=== PATIENT | male | born 1940 | race Caucasian/White ===

== ENCOUNTER 2016-11-20 20:17 | Emergency (ER) | payer BC ==
[~2016-11-20] VITALS: Ht 177.8 cm; Wt 87.3 kg
[~2016-11-20 20:17] MED LIST: ASPI81TA28 PO; AZIT250T PO; CHOL2000 PO; LISI-729 PO; MAGN400T6 PO; METO25TA56 PO; MYCO250C26 PO; PANT1TAB48 PO; PRAV40TA2 PO; PRED-301 PO; SILD1TAB11 PO; SULF800T23 PO; VALA500T60 PO
[2016-11-20 20:32] VITALS: TEMP 36.6; Ht 177.8 cm; Wt 87.3 kg
[2016-11-20] MEDS ORDERED: TACR1CAP PO (20:49)
--- NOTE | 2016-11-20 21:37 | EMERGENCY ROOM VISIT NOTE ---
History Report prepared by Be: Singh Teran Under the Supervision of: Dr. Binh Still D.O. First contact with patient: 20:50 Chief Complaint: ABNORMAL LABS Stated Complaint: K LEVELS TOO HIGH History of Present Illness The patient is a 76 year old male who presents to the Emergency Room with complaints of an episode of abnormal lab results. He notes he was sent here from [facility] after routine blood work revealed a potassium level of 6. They discussed his kidney function based on his last blood work which were fine. He reports recently having 2 smoothies with bananas. 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 Source of History: patient Onset: earlier today Position: other (global) Quality: other (abnormal labs) Timing: other (episode) Associated Symptoms: No weakness Review of Systems See HPI for pertinent positives & negatives. A total of 10 systems reviewed and were otherwise negative. Past Medical & Surgical Medical Problems: (1) Appendicitis (2) Double lung transplant (3) Heart disease (4) IPF (idiopathic pulmonary fibrosis) Family History Cancer Heart disease Lung disease Social History Smoking Status: Never Smoker Alcohol Use: none Drug Use: none Marital Status: Housing Status: lives with family Occupation Status: retired Current/Historical Medications Scheduled Aspirin (Aspirin Ec), 81 MG PO DAILY Azithromycin (Zithromax), 250 MG PO DIRECTED Cholecalciferol (Vitamin D3), 2,000 CAP PO DAILY Lisinopril (Zestril), 5 MG PO HS Magnesium Oxide (Mag-Ox), 400 MG PO BID Metoprolol Tartrate (Lopressor) (Lopressor), 25 MG PO BID Mycophenolate Mofetil (Cellcept), 750 MG PO BID Pantoprazole (Protonix), 40 MG PO BID Pravastatin Sodium (Pravastatin Sodium), 80 MG PO QPM Prednisone (Prednisone), 5 MG PO DAILY Sildenafil Citrate (Viagra), 25 MG PO PRN Sulfamethoxazole-Trimethoprim (Bactrim Ds 800MG/160MG), 0.5 TAB PO DIRECTED Tacrolimus (Prograf), 1 MG PO BID Valacyclovir (Valtrex), 500 MG PO BID Allergies Coded Allergies: Metoprolol (Unverified Allergy, Mild, BRADYCARDIA, 11/20/16) Tobramycin (Unverified Adverse Reaction, Intermediate, BURNING, "LUNG NUEROPATHY", 11/20/16) NEBULIZED MEDICATION Uncoded Allergies: METOPROLOL SUCCINATE (Adverse Reaction, Intermediate, BRADYCARDIA, 10/23/14 ) Physical Exam Vital Signs Date Time Temp Pulse Resp B/P Pulse Ox O2 Delivery O2 Flow Rate FiO2 11/20/16 21:00 53 11/20/16 20:32 36.6 58 20 167/73 99 Room Air Physical Exam CONSTITUTIONAL/VITAL SIGNS: Reviewed / noted above. GENERAL: Non-toxic in appearance. INTEGUMENTARY: Warm, dry, and [place]. HEAD: Normocephalic. EYES: without scleral icterus or trauma. ENT/OROPHARYNX: clear and moist. LYMPHADENOPATHY/NECK: Is supple without lymphadenopathy or meningismus. RESPIRATORY: Lungs clear and equal. CARDIOVASCULAR: Regular rate and rhythm. GI/ABDOMEN: Soft and nontender. No organomegaly or pulsatile mass. No rebound or guarding. Normal bowel sounds. EXTREMITIES: Warm and well perfused. BACK: No CVA tenderness. NEUROLOGICAL: Intact without focal deficits. PSYCHIATRIC: normal affect. MUSCULOSKELETAL: Normally developed with good muscle tone. Medical Decision & Procedures Laboratory Results Laboratory results as stated above per my review. ECG Indication: other (abnormal labs) Rate (beats per minute): 50 Rhythm: sinus rhythm Findings: no acute ischemic change, no ectopy ED Course 2111: Previous medical records were reviewed. The patient was evaluated in room B2. A complete history and physical examination was performed. 2139: On reevaluation, the patient is doing well. I discussed the results and findings with the patient. He verbalized agreement of the treatment plan. The patient was discharged home. Medical Decision Differential includes acute coronary syndrome, myocardial infarction, CVA, TIA, anemia, infection, pneumonia, UTI, pyelonephritis, poor nutrition, dehydration, electrolyte disturbance,hypoglycemia. This is a 76-year-old male who presents to the ED with a chief complaint of hyperkalemia. The patient had outpatient labs and [place] today. On his way home they contacted him and told him his potassium was 6.0. The patient was told to have this rechecked. He came in to the ED for evaluation of this. He is asymptomatic. EKG shows a sinus bradycardia without ectopy or injury. Potassium on i-STAT labs was normal. The patient is felt to be stable for discharge. Impression Primary Impression: Electrolyte disturbance Scribe Attestation The scribe's documentation has been prepared under my direction and personally reviewed by me in its entirety. I confirm that the note above accurately reflects all work, treatment, procedures, and medical decision making performed by me. Departure Information Dispostion Home / Self-Care Referrals Castro Perkins M.D. (PCP) Patient Instructions My [facility] Additional Instructions Your potassium level is normal today.
[2016-11-20 21:45] VITALS: BP 166/78; PULSE 53; O2SAT 95
[2016-11-20 21:46] LABS: ISTAT CREATININE 1.3 mg/dl (0.6-1.3); ISTAT HEMOGLOBIN 12.9 g/dl (14.0-18.0); ISTAT IONIZED CALCIUM 1.25 mmol/l (1.12-1.32)
[2016-11-20] MEDS ORDERED: CLL250 PO (22:04)
[2016-11-20] MEDS ORDERED: PRT/40 PO (22:04)
[2016-11-20] MEDS ORDERED: LPR25 PO (22:04)
[2016-11-20] MEDS ORDERED: VLT500 PO (22:04)
[2016-11-20] MEDS ORDERED: LSN5 PO (22:04)
[2016-11-20] MEDS ORDERED: VGR50 PO (22:04)
[2016-11-20] MEDS ORDERED: PRAV80TA2 PO (22:04)
[2016-11-20] MEDS ORDERED: AZIT250T5 PO (22:08)
== END 2016-11-20 21:45 | disposition home or self-care (01) ==
LOC: C.EDB 20:18
DX: E87.8 Other disorders of electrolyte and fluid balance, not elsewhere classified (principal); Z94.2 Lung transplant status; I51.9 Heart disease, unspecified; J84.10 Pulmonary fibrosis, unspecified; Z80.9 Family history of malignant neoplasm, unspecified; Z82.49 Family history of ischemic heart disease and other diseases of the circulatory system; Z83.6 Family history of other diseases of the respiratory system; Z79.82 Long term (current) use of aspirin; Z79.52 Long term (current) use of systemic steroids; Z79.899 Other long term (current) drug therapy

== ENCOUNTER → 2018-03-23 | Outpatient (CLI) | payer BC ==
[~2018-03-23] MED LIST changes: +AZIT-60 PO; -AZIT250T PO; +CLL250 PO; -LISI-729 PO; +LISI-730 PO; +LPR25 PO; -METO25TA56 PO; -MYCO250C26 PO; -PANT1TAB48 PO; +PANT40TA2 PO; -PRAV40TA2 PO; +PRAV80TA2 PO; -SILD1TAB11 PO; +TACR1CAP PO; -VALA500T60 PO; +VGR50 PO; +VLT500 PO
--- NOTE | 2018-03-23 12:51 | DIAGNOSTIC IMAGING REPORT ---
HEAD CT NONCONTRAST CT DOSE: 651.12 mGy.cm HISTORY: Subdural hematoma. Follow-up. TECHNIQUE: Multiaxial CT images of the head were performed without the use of intravenous contrast. Automated exposure control was utilized for this study. A dose lowering technique was utilized adhering to the principles of ALARA. Comparison: Head CT 03/16/2018. Findings: The paranasal sinuses and mastoid air cells are clear. The calvarium and skull base are intact. Mild atrophy and microvascular ischemic changes are again noted. There is no mass, midline shift, or acute infarct. The acute component of the small right subdural hematoma as resolved. Small amount of intermediate density right subdural fluid persists consistent with a subacute to chronic subdural hematoma. This measures a maximal thickness of 6 mm. Impression: 1. 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 The acute component has resolved in the interval. 2. No acute intracranial hemorrhage. No midline shift. Electronically signed by: Steven Cook M.D. 03/23/2018 12:50 PM Dictated Date/Time: 03/23/2018 12:44 PM
== END | disposition home or self-care (01) ==
LOC: C.CTS 12:23
PROVIDERS: ATTEND Internal Medicine
DX: S06.5X9A Traumatic subdural hemorrhage with loss of consciousness of unspecified duration, initial encounter (principal); X58.XXXA Exposure to other specified factors, initial encounter

== ENCOUNTER 2019-08-29 07:25 | Observation (INO) ==
[2019-08-29] MEDS ORDERED: SODIUM CHLORIDE 0.9% 1000ML 1,000 ML IV SCH (07:45)
[2019-08-29] MEDS ORDERED: ALBUT/IPRATROP 3MG/0.5MG NEB 3 ML VIAL INH STA (07:45)
[2019-08-29] MEDS ORDERED: KETOROLAC TROMETHAMINE 15 MG/ML VIAL IV STA (07:49)
--- NOTE | 2019-08-29 07:58 | Emergency Department Note ---
ED Provider Note CHIEF COMPLAINT: Cough, congestion, chest pain HISTORY OF PRESENTING ILLNESS: This is a 79-year-old male who presents to the emergency department by private vehicle with complaint of cough and congestion for the past 6 days. Patient reports that the cough has been productive of white/yellow mucus. He has been having chest pain since yesterday with coughing, he states the pain is around the front of his rib cage, is a mild constant ache, and sharp pains whenever he coughs, currently rates it as 4/10. He has felt some wheezing and mild dyspnea with exertion. He states "I just feel lousy" and feels generally unwell for the past few days. He has had fevers up to 101 yesterday and has been having chills. Patient has a history of a do uble lung transplant 6.5 years ago at [facility] and is on CellCept and tacrolimus. He has had recent sick contacts with similar upper respiratory symptoms. He did receive a flu shot this season. He denies headaches, neck pain or stiffness, back pain, abdominal pain, nausea or vomiting, urinary complaints, or unusual rash. He denies any leg pain or swelling. He does not take any blood thinner medications. REVIEW OF SYSTEMS: A complete 10 point review of systems was reviewed with the patient with pertinent positives and negatives as per history of present illness. All else were negative. PAST MEDICAL HISTORY: CAD with history of 4 cardiac stents, hypertension, idiopathic pulmonary fibrosis with history of a double lung transplant, history of subdural hematoma, history of appendectomy SOCIAL HISTORY: Lives at home with his , he denies tobacco use ALLERGIES: No known drug allergies PHYSICAL EXAM: CONSTITUTIONAL: Pleasant and cooperative. Nontoxic-appearing and in no acute distress. Appears to feel generally unwell. Mildly dehydrated. HEENT: Normocephalic, atraumatic. PERRL, EOMI. TMs normal. Pharynx is not injected, erythematous, no tonsillar edema or exudate. Airway patent. Dry mucous membranes. NECK: Supple, full active range of motion without discomfort. No nuchal rigidity or meningismus. No cervical adenopathy. RESPIRATORY: Slightly diminished throughout with bilateral expiratory wheezing, no crackles, rhonchi, or stridor. Equal expansion bilaterally. CARDIOVASCULAR: Regular rate and rhythm with no murmurs, rubs or gallops. Normal peripheral perfusion, 2+ distal pulses in all 4 extremities. No pitting edema. CHEST WALL: Tenderness to palpation along the anterior rib cage margin, reproduces complaint. No ecchymosis, erythema, swelling, or palpable crepitus. GASTROINTESTINAL: Soft, nontender, nondistended. No rebound tenderness or guarding. No palpable masses or HSM. Bowel sounds present in all quadrants. No CVA tenderness bilaterally. MUSCULOSKELETAL: Full range of motion of all joints without discomfort. No calf swelling or tenderness, negative Homans sign bilaterally. INTEGUMENTARY: No rash or other significant dermatologic conditions noted. NEUROLOGIC: Alert and oriented X 4 with normal affect. Normal strength and sensation in all 4 extremities. Normal speech. Normal gait observed. ED COURSE AND MEDICAL DECISION MAKING: CC: Patient presenting with complaint of cough, congestion, chest pain DIFFERENTIAL DIAGNOSIS: Includes, but not limited to viral URI, bronchitis, pneumonia, pulmonary embolism, acute coronary syndrome, aortic dissection, pneumothorax, pericarditis, myocarditis, musculoskeletal pain, GERD, costochondritis, sepsis/bacteremia, among others. INTERPRETATION OF LABS: No leukocytosis, no anemia, normal platelets, hypomagnesemia, no other significant electrolyte abnormalities, renal function at baseline, normal liver enzymes. Coagulation factors within normal limits. Lactate within normal limits. Negative troponin. Urinalysis negative. Influenza A/B negative. IMAGING: XR chest 1V portable HISTORY: Dyspnea, chest pain, hx double lung tx COMPARISON: Chest 10/27/2018. FINDINGS: There are low lung volumes. No pneumothorax. No pleural effusions. The heart remains mildly enlarged. No evidence for pulmonary edema. No new focal lung consolidations to suggest pneumonia. IMPRESSION: Stable mild cardiomegaly. EKG: Shows normal sinus rhythm with a rate of 61 bpm, normal intervals, no ectopy, repolarization abnormalities in the anterior and inferior leads which appear unchanged when compared to previous EKG from 04/15/2019 by my interpretation. MEDICATION RECONCILIATION: I attest that I have personally reviewed the patient's current medication list. INITIAL VITAL SIGNS REVIEW: I reviewed the patient's initial vital signs and interpret them as follows: T: Afebrile; BP: Mildly hypertensive; HR: Within normal limits; RR: Within normal limits; Pulse Ox: Within normal limits on r oom air. Blood pressure screening: The patient was found to have an elevated blood pressure and was referred to the inpatient team for further management. MDM SUMMARY: Patient was evaluated at bedside, history and physical exam performed. Patient is alert and oriented, in no acute distress, resting calmly in the stretcher. He is afebrile and vital signs are stable, he is nontoxic-appearing, but appears to feel generally unwell. He does appear to be dehydrated clinically. Lungs are slightly diminished with bilateral expiratory wheezing. No respiratory distress, no tachypnea, labored breathing, or accessory muscle use. O2 sats normal on room air. EKG reviewed at bedside, noting sinus rhythm with no acute ischemic changes. Orders were placed at bedside for labs, lactate, blood cultures x2, sputum culture, UA, IV fluid bolus for hydration, IV Toradol for chest pain, DuoNeb for wheezing, EKG, chest x-ray to evaluate for cardiopulmonary disease. Patient discussed with Dr. Kwong, who agrees with my assessment, plan, and disposition. Labs and imaging reviewed as above, no leukocytosis, lactate within normal limits. Blood cultures are pending. Influenza negative. Hypomagnesemia noted, repletion with 1 g mag sulfate. 2 g IV cefepime ordered for broad coverage, given his immunocompromised state. Chest x-ray reviewed as above, does not show any evidence of pneumonia. Patient reassessed multiple times throughout ED stay, he has remained hemodynamically stable and afebrile, wheezing improved after the DuoNeb. He states he is feeling slightly better, but continues to feel generally weak and rundown. I spoke on the phone with Dr. Basurto, the patient's core blower at [facility], who agreed with the cefepime and recommended we admit the patient pending cultures. We will continue albuterol treatments. The patient was updated on all results and plan for admission, he verbalized understanding and was agreeable to this plan. I spoke on the phone with Dr. Enriquez, [facility] Hospitalist, who agrees to evaluate the patient for admission. The patient was stable at time of admission. The chart was completed utilizing [employer] Speech voice recognition software. Grammatical errors, random word insertions, pronoun errors, and incomplete sentences are an occasional consequence of this system due to software limitations, ambient noise, and hardware issues. Any formal questions or concerns about the content, text, or information contained within the body of this dictation should be directly addressed to the nurse practitioner for clarification. 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) Subdural hematoma (Acute 10/05/14) Family History (Updated 05/11/18 @ 18:35 by Bobbi Mckenna) Other No significant family history Social History Preferred Language: Kazakh Communication Ability: Effective Credit Support Specialist Required: No Beliefs That Will Affect Care: None Current Living Situation: Spouse Other Information That Helps Us Care for You: No Feels Safe at Home: Yes Safety Concerns: Feels Safe At This Time Smoking Status: Never smoker Do You Dip or Chew Tobacco: No ; Second Hand Exposure: No ; Tobacco Cessation Education Requested by Patient: No Hx Alcohol Use: Yes Hx Substance Use: No Results & Data Vital Signs Vital Signs - 24 hr 08/29/19 07:28 08/29/19 07:58 08/29/19 08:00 Temperature 36.7 C Temperature Source Oral Pulse Rate 73 62 59 L Pulse Rate [Right Finger] Pulse Rate from SpO2 Sensor 59 L Respiratory Rate 18 26 H Respiratory Effort / Characteristics Non-Labored Respiratory Depth Normal Blood Pressure 131/75 129/66 Blood Pressure [Right Arm] Blood Pressure Mean 93 83 Blood Pressure Mean [Right Arm] Pulse Oximetry 97 94 94 Oxygen Delivery Method Room Air Room Air Sepsis Recent Fever Within 48 Hours No Sepsis New/Unexplained Change in Mental Status No Sepsis Action Taken by Nursing No Action Required 08/29/19 08:02 08/29/19 08:04 08/29/19 08:15 Temperature Temperature Source Pulse Rate 61 64 Pulse Rate [Right Finger] 62 61 Pulse Rate from SpO2 Sensor 61 63 Respiratory Rate 31 H 16 19 Respiratory Effort / Characteristics Non-Labored Non-Labored Spontaneous Respiratory Depth Blood Pressure Blood Pressure [Right Arm] 129/66 Blood Pressure Mean Blood Pressure Mean [Right Arm] 87 Pulse Oximetry 93 95 95 Oxygen Delivery Method Room Air Room Air Sepsis Recent Fever Within 48 Hours Sepsis New/Unexplained Change in Mental Status Sepsis Action Taken by Nursing 08/29/19 08:30 08/29/19 08:37 08/29/19 08:41 Temperature Temperature Source Pulse Rate 62 61 Pulse Rate [Right Finger] 58 L Pulse Rate from SpO2 Sensor 63 61 Respiratory Rate 25 H 30 H 24 Respiratory Effort / Characteristics Respiratory Depth Normal Blood Pressure 138/62 Blood Pressure [Right Arm] 138/62 Blood Pressure Mean 78 Blood Pressure Mean [Right Arm] 87 Pulse Oximetry 93 94 95 Oxygen Delivery Method Room Air Sepsis Recent Fever Within 48 Hours Sepsis New/Unexplained Change in Mental Status Sepsis Action Taken by Nursing 08/29/19 08:45 08/29/19 09:00 08/29/19 09:01 Temperature Temperature Source Pulse Rate 59 L 54 L 53 L Pulse Rate [Right Finger] Pulse Rate from SpO2 Sensor 59 L 57 L 53 L Respiratory Rate 26 H 15 22 Respiratory Effort / Characteristics Respiratory Depth Blood Pressure 164/72 H Blood Pressure [Right Arm] Blood Pressure Mean 82 Blood Pressure Mean [Right Arm] Pulse Oximetry 92 95 92 Oxygen Delivery Method Sepsis Recent Fever Within 48 Hours Sepsis New/Unexplained Change in Mental Status Sepsis Action Taken by Nursing 08/29/19 09:15 08/29/19 09:17 08/29/19 09:30 Temperature Temperature Source Pulse Rate 60 56 L 54 L Pulse Rate [Right Finger] Pulse Rate from SpO2 Sensor 60 57 L 53 L Respiratory Rate 29 H 33 H 28 H Respiratory Effort / Characteristics Respiratory Depth Blood Pressure 133/66 152/64 H Blood Pressure [Right Arm] Blood Pressure Mean 94 93 Blood Pressure Mean [Right Arm] Pulse Oximetry 93 94 93 Oxygen Delivery Method Sepsis Recent Fever Within 48 Hours Sepsis New/Unexplained Change in Mental Status Sepsis Action Taken by Nursing 08/29/19 09:31 08/29/19 09:45 08/29/19 09:56 Temperature Temperature Source Pulse Rate 56 L 54 L 56 L Pulse Rate [Right Finger] Pulse Rate from SpO2 Sensor 54 L 54 L 56 L Respiratory Rate 25 H 23 32 H Respiratory Effort / Characteristics Respiratory Depth Blood Pressure 129/69 Blood Pressure [Right Arm] Blood Pressure Mean 89 Blood Pressure Mean [Right Arm] Pulse Oximetry 93 93 94 Oxygen Delivery Method Sepsis Recent Fever Within 48 Hours Sepsis New/Unexplained Change in Mental Status Sepsis Action Taken by Nursing 08/29/19 09:59 08/29/19 10:00 08/29/19 10:01 Temperature Temperature Source Pulse Rate 54 L 54 L Pulse Rate [Right Finger] 54 L Pulse Rate from SpO2 Sensor 53 L 55 L Respiratory Rate 26 H 29 H 30 H Respiratory Effort / Characteristics Non-Labored Respiratory Depth Normal Blood Pressure 136/72 Blood Pressure [Right Arm] 129/69 Blood Pressure Mean 98 Blood Pressure Mean [Right Arm] 89 Pulse Oximetry 94 93 94 Oxygen Delivery Method Sepsis Recent Fever Within 48 Hours Sepsis New/Unexplained Change in Mental Status Sepsis Action Taken by Nursing 08/29/19 10:15 08/29/19 10:30 08/29/19 10:31 Temperature Temperature Source Pulse Rate 52 L 59 L 55 L Pulse Rate [Right Finger] Pulse Rate from SpO2 Sensor 52 L 59 L 55 L Respiratory Rate 26 H 22 28 H Respiratory Effort / Characteristics Respiratory Depth Blood Pressure 114/72 Blood Pressure [Right Arm] Blood Pressure Mean 83 Blood Pressure Mean [Right Arm] Pulse Oximetry 95 94 93 Oxygen Delivery Method Sepsis Recent Fever Within 48 Hours Sepsis New/Unexplained Change in Mental Status Sepsis Action Taken by Nursing 08/29/19 10:45 08/29/19 11:00 08/29/19 11:01 Temperature Temperature Source Pulse Rate 60 53 L 61 Pulse Rate [Right Finger] Pulse Rate from SpO2 Sensor 59 L 53 L 60 Respiratory Rate 27 H 25 H 17 Respiratory Effort / Characteristics Respiratory Depth Blood Pressure 151/62 H Blood Pressure [Right Arm] Blood Pressure Mean 84 Blood Pressure Mean [Right Arm] Pulse Oximetry 96 96 98 Oxygen Delivery Method Sepsis Recent Fever Within 48 Hours Sepsis New/Unexplained Change in Mental Status Sepsis Action Taken by Nursing 08/29/19 11:15 Temperature Temperature Source Pulse Rate 55 L Pulse Rate [Right Finger] Pulse Rate from SpO2 Sensor 56 L Respiratory Rate 29 H Respiratory Effort / Characteristics Respiratory Depth Blood Pressure Blood Pressure [Right Arm] Blood Pressure Mean Blood Pressure Mean [Right Arm] Pulse Oximetry 93 Oxygen Delivery Method Sepsis Recent Fever Within 48 Hours Sepsis New/Unexplained Change in Mental Status Sepsis Action Taken by Nursing Laboratory Data Result diagrams: 08/29/19 08:20 08/29/19 08:20 Lab Results 08/29/19 08/29/19 08/29/19 Range/Units 07:55 08:20 08:20 WBC 5.52 (4.8-10.8) K/uL RBC 4.50 L (4.7-6.1) M/uL Hgb 15.0 (14.0-18.0) g/dL Hct 44.6 (42-52) % MCV 99.1 (80-100) fL MCH 33.3 (25-34) pg MCHC 33.6 (32-36) g/dL RDW Std Deviation 47.1 H (36.4-46.3) fL RDW Coeff of Fahad 13.0 (11.5-14.5) % Plt Count 153 (130-400) K/uL MPV 10.0 (7.4-10.4) fL Immature Gran % (Auto) 0.2 % Neut % (Auto) 66.4 % Lymph % (Auto) 15.0 % [place] % (Auto) 15.2 % Eos % (Auto) 2.7 % Baso % (Auto) 0.5 % Immature Gran # (Auto) 0.01 (0.00-0.02) K/uL Neut # (Auto) 3.66 (1.4-6.5) K/uL Lymph # (Auto) 0.83 L (1.2-3.4) K/uL [place] # (Auto) 0.84 H (0.11-0.59) K/uL Eos # (Auto) 0.15 (0-0.5) K/uL Baso # (Auto) 0.03 (0-0.2) K/uL PT (9.0-12.0) Seconds INR (0.9-1.1) APTT (21.0-31.0) Seconds PTT Ratio Sodium (136-145) mmol/L Potassium (3.5-5.1) mmol/L Chloride (98-107) mmol/L Carbon Dioxide (21-32) mmol/L Anion Gap (3-11) BUN (7-18) mg/dl Creatinine (0.6-1.4) mg/dl Est Cr Clr Drug Dosing ml/min Est GFR ( Amer) Est GFR (Non-Af Amer) BUN/Creatinine Ratio (10-20) Glucose (70-99) mg/dl Lactate 1.8 (0.4-2.0) mmol/L Calcium (8.5-10.1) mg/dl Magnesium (1.8-2.4) mg/dl Total Bilirubin (0.2-1) mg/dl AST (15-37) U/L ALT (12-78) U/L Alkaline Phosphatase (45-117) U/L Troponin I (0-0.045) ng/ml Total Protein (6.4-8.2) gm/dl Albumin (3.4-5.0) gm/dl Globulin (2.5-4.0) gm/dl Albumin/Globulin Ratio (0.9-2) Influenza Type A (PCR) Neg for Influ A (Neg) Influenza Type B (PCR) Neg for Influ B (Neg) 08/29/19 08/29/19 Range/Units 08:20 08:20 WBC (4.8-10.8) K/uL RBC (4.7-6.1) M/uL Hgb (14.0-18.0) g/dL Hct (42-52) % MCV (80-100) fL MCH (25-34) pg MCHC (32-36) g/dL RDW Std Deviation (36.4-46.3) fL RDW Coeff of Fahad (11.5-14.5) % Plt Count (130-400) K/uL MPV (7.4-10.4) fL Immature Gran % (Auto) % Neut % (Auto) % Lymph % (Auto) % [place] % (Auto) % Eos % (Auto) % Baso % (Auto) % Immature Gran # (Auto) (0.00-0.02) K/uL Neut # (Auto) (1.4-6.5) K/uL Lymph # (Auto) (1.2-3.4) K/uL [place] # (Auto) (0.11-0.59) K/uL Eos # (Auto) (0-0.5) K/uL Baso # (Auto) (0-0.2) K/uL PT 10.4 (9.0-12.0) Seconds INR 1.0 (0.9-1.1) APTT 24.8 (21.0-31.0) Seconds PTT Ratio 0.9 Sodium 139 (136-145) mmol/L Potassium 4.5 (3.5-5.1) mmol/L Chloride 106 (98-107) mmol/L Carbon Dioxide 26 (21-32) mmol/L Anion Gap 7.0 (3-11) BUN 20 H (7-18) mg/dl Creatinine 1.51 H (0.6-1.4) mg/dl Est Cr Clr Drug Dosing 41.6 ml/min Est GFR ( Amer) 50.5 Est GFR (Non-Af Amer) 43.6 BUN/Creatinine Ratio 13.1 (10-20) Glucose 143 H (70-99) mg/dl Lactate (0.4-2.0) mmol/L Calcium 9.2 (8.5-10.1) mg/dl Magnesium 1.6 L (1.8-2.4) mg/dl Total Bilirubin 0.5 (0.2-1) mg/dl AST 30 (15-37) U/L ALT 25 (12-78) U/L Alkaline Phosphatase 56 (45-117) U/L Troponin I < 0.015 (0-0.045) ng/ml Total Protein 7.1 (6.4-8.2) gm/dl Albumin 3.6 (3.4-5.0) gm/dl Globulin 3.5 (2.5-4.0) gm/dl Albumin/Globulin Ratio 1.0 (0.9-2) Influenza Type A (PCR) (Neg) Influenza Type B (PCR) (Neg) Administered Medications Discontinued Medications Albuterol (Duoneb) 3 ml INH NOW STA Stop: 08/29/19 07:46 Last Admin: 08/29/19 08:04 Dose: 3 ml Documented by: [id number] Sodium Chloride (Nss 1000ml) 1,000 mls @ 999 mls/hr IV .Q1H1M TINA Stop: 08/29/19 08:45 Last Infusion: 08/29/19 09:49 Dose: 0 mls/hr Documented by: [id number] Admin: 08/29/19 08:39 Dose: 999 mls/hr Documented by: [id number] Cefepime HCl (Maxipime) 2,000 mg in 20 mls @ 5 mls/min IV NOW STA; Protocol Stop: 08/29/19 08:15 Last Admin: 08/29/19 08:46 Dose: 5 mls/min Documented by: [id number] Magnesium Sulfate/Dextrose (Magnesium Sulfate / D5w) 1 gm in 100 mls @ 100 mls/hr IV ONE ONE Stop: 08/29/19 10:43 Last Infusion: 08/29/19 10:58 Dose: 0 mls/hr Documented by: [id number] Admin: 08/29/19 09:56 Dose: 100 mls/hr Documented by: [id number] Ketorolac Tromethamine (Toradol) 15 mg IV NOW STA Stop: 08/29/19 07:50 Last Admin: 08/29/19 08:39 Dose: 15 mg Documented by: [id number] Discharge Plan Visit Data *Final* Discharge Date/Time: 08/29/19 13:55 Chief Complaint: Congestion Stated Complaint: COUGH,CHEST PAIN/INJURY,CHILLS,CONGESTION ED Provider: Reinier Kwong ED Midlevel Provider: Marlen Maddox Discharge Problem: Upper respiratory infection, Immunocompromised patient Patient Disposition: Admitted As Inpatient Condition: Good Discharge Instructions Interventions: ED Discharge Assessment Last Done: 08/29/19 13:55
[2019-08-29] MEDS ORDERED: CEFEPIME 2,000 MG/20 ML VIAL IV STA (08:12)
[2019-08-29 08:36] LABS: Influenza A virus by PCR Neg for Influ A (Neg); Influenza B virus by PCR Neg for Influ B (Neg)
[2019-08-29 08:41] LABS: Basophils # (auto) 0.03 K/uL (0-0.2); Basophils % (auto) 0.5 %; Eosinophils # (auto) 0.15 K/uL (0-0.5); Eosinophils % (auto) 2.7 %; Hematocrit (blood only) 44.6 % (42-52); Immature Granulocytes # (auto) 0.01 K/uL (0.00-0.02); Immature Granulocytes % (auto) 0.2 %; Lymphocytes # (auto) 0.83 K/uL (1.2-3.4); Mean Corpuscular Hemoglobin 33.3 pg (25-34); Mean Corpuscular Hgb Conc 33.6 g/dL (32-36); Mean Corpuscular Volume 99.1 fL (80-100); Monocytes # (auto) 0.84 K/uL (0.11-0.59); Monocytes % (auto) 15.2 %; Neutrophils # (auto) 3.66 K/uL (1.4-6.5); Neutrophils % (auto) 66.4 %; Platelet Count 153 K/uL (130-400); RDW Standard Deviation 47.1 fL (36.4-46.3); White Blood Count 5.52 K/uL (4.8-10.8)
[2019-08-29 08:52] LABS: Partial Thromboplastin Ratio 0.9; Partial Thromboplastin Time 24.8 Seconds (21.0-31.0); Prothrombin Time 10.4 Seconds (9.0-12.0)
--- NOTE | 2019-08-29 09:00 | XRay Report ---
XR chest 1V portable HISTORY: Dyspnea, chest pain, hx double lung tx COMPARISON: Chest 10/27/2018. FINDINGS: There are low lung volumes. No pneumothorax. No pleural effusions. The heart remains mildly enlarged. No evidence for pulmonary edema. No new focal lung consolidations to suggest pneumonia. IMPRESSION: Stable mild cardiomegaly. ACT 112: Negative or not required by law. Electronically signed by: Steven Cook M.D. 08/29/2019 8:59 AM
[2019-08-29 09:01] LABS: Alanine Aminotransferase 25 U/L (12-78); Albumin Level 3.6 gm/dl (3.4-5.0); Aspartate Aminotransferase 30 U/L (15-37); BUN Creatinine Ratio 13.1 (10-20); Blood Urea Nitrogen 20 mg/dl (7-18); Calcium 9.2 mg/dl (8.5-10.1); Carbon Dioxide 26 mmol/L (21-32); Chloride 106 mmol/L (98-107); Creatinine Clr Calc Pharmacy 41.6 ml/min; Est GFR (African American) 50.5; Est GFR (Non-African American) 43.6; Glucose 143 mg/dl (70-99); Magnesium 1.6 mg/dl (1.8-2.4); Potassium 4.5 mmol/L (3.5-5.1); Sodium 139 mmol/L (136-145)
[2019-08-29 09:06] LABS: Alkaline Phosphatase 56 U/L (45-117); Bilirubin,Total 0.5 mg/dl (0.2-1); Globulin 3.5 gm/dl (2.5-4.0); Total Protein 7.1 gm/dl (6.4-8.2); Troponin I < 0.015 ng/ml (0-0.045)
[2019-08-29] MEDS ORDERED: MAGNESIUM SULFATE / D5W 1 GM/100 ML BAG IV ONE (09:44)
--- NOTE | 2019-08-29 11:38 | History & Physical Report ---
Date of Service August 29, 2019 Assessment & Plan (1) Cough: Patient with cough and congestion, fever at home. Presently afebrile, HD stable, no respiratory distress, adequate oxygenation on room air. 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 He follows with Dr. Dimas Hassan (case briefly discussed with ER PA and Dr. Hassan) -Continue Cellcept -Continue Prograf -Continue Prednisone -Awaiting tacrolimus level -Continue Bactrim q M/W/F for suppressive therapy -Continue Valtrex for suppressive therapy Present on Admission?: Yes (3) HTN (hypertension): History of HTN. Well controlled on home medications -Continue Lisinopril 5mg po BID -Continue Amlodipine -Continue Metoprolol -Continue to monitor -Patient has not yet taken his AM meds - will administer dose on arrival to floor Present on Admission?: Yes (4) Chest pain: Patient experiences band like chest pain with coughing as well as epigastric discomfort. Suspect GI as well as possible pleurisy/inflammation. EKG is negative for acute ischemic changes. Troponin x 1 negative. Low suspicion for cardiac etiology at this time. 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 Last in 2018. Asymptomatic, neurologically intact -Noted -Continue Blood pressure control Present on Admission?: Yes (6) CAD (coronary artery disease): Chronic. Stable. 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 He presents today with complaints of 6 days of progressive chest congestion, cough, chills and positional chest discomfort, fever to 101 on 08/26/19. He reports that he occasionally feels congestion in his chest however, symptoms today are worse and longer lasting than before. His chest discomfort is described as bandlike and worse with cough and sitting up. ER course: DuoNeb, cefepime, Toradol, magnesium, normal saline x1 L Allergies Allergy/AdvReac Type Severity Reaction Status Date / Time poison laura extract Allergy Rash Verified 08/29/19 08:38 Home Medications Home Medications Medication Instructions Recorded Confirmed Type cholecalciferol (vitamin D3) 2,000 unit PO DAILY@1400 05/11/18 08/29/19 History [Vitamin D3] lisinopril 5 mg PO BID 05/11/18 08/29/19 History magnesium oxide 400 mg PO BID 05/11/18 08/29/19 History metoprolol tartrate 25 mg PO BID 05/11/18 08/29/19 History mycophenolate mofetil [CellCept] 500 mg PO BID 05/11/18 08/29/19 History pantoprazole [Protonix] 40 mg PO BID 05/11/18 08/29/19 History prednisone 5 mg PO DAILY 05/11/18 08/29/19 History sulfamethoxazole-trimethoprim 0.5 tab PO MOWEFR 05/11/18 08/29/19 History [Bactrim DS] tacrolimus [Prograf] 1 mg PO QPM 05/11/18 08/29/19 History tacrolimus [Prograf] 2 mg PO QAM 05/11/18 08/29/19 History valacyclovir [Valtrex] 500 mg PO BID 05/11/18 08/29/19 History sildenafil 50 mg tablet See Rx Instructions .ROUTE 02/08/19 08/29/19 Rx .COMPLEX #6 tablet amlodipine 5 mg PO QDD 08/29/19 08/29/19 History fluorouracil 1 applic TOPICAL UD 08/29/19 08/29/19 History niacinamide 500 mg PO DAILY 08/29/19 08/29/19 History pyridoxine (vitamin B6) [Vitamin 100 mg PO DAILY 08/29/19 08/29/19 History B-6] Past Med/Surg History Medical History (Updated 08/29/19 @ 15:17 by BRIAN Lezama) CAD (coronary artery disease) Double lung transplant (Resolved 06/14/13) Subdural hematoma (Acute 10/05/14) Surgical History (Updated 08/29/19 @ 21:54 by Yana Enriquez DO) History of cardiac catheterization Stent placement x4 Family History (Updated 08/29/19 @ 21:55 by Yana Enriquez DO) Other Heart disease Idiopathic pulmonary fibrosis Social History Preferred Language: Slovenian Communication Ability: Effective Personnel Interviewer Required: No Beliefs That Will Affect Care: None Current Living Situation: Spouse Other Information That Helps Us Care for You: No Feels Safe at Home: Yes Safety Concerns: Feels Safe At This Time Smoking Status: Never smoker Do You Dip or Chew Tobacco: No ; Second Hand Exposure: No ; Tobacco Cessation Education Requested by Patient: No Hx Alcohol Use: Yes Hx Substance Use: No Review of Systems Review of Systems: All systems reviewed & are unremarkable except as noted in HPI & below + Fever/chills/cough/chest pain/wheezing + Epigastric discomfort + Nausea Denies shortness of breath Physical Exam Physical Exam: General: patient resting comfortably, NAD, non-toxic in appearance, AA&O x 4 Skin: warm, dry, intact, no rashes or lesions HEENT: NC/AT, PERRL, EOMI, anicteric sclera, conjunctiva without injection, external ear normal to inspection and nontender, nares patent, moist mucus membranes, dentition intact, no oropharyngeal lesions, neck supple, trachea midline, no LAD, no thyromegaly, no JVD Heart: +S1/S2, regular, bradycardic, no m/r/g Lungs: equal air entry bilaterally, no rales/rhonchi/wheezes Abd: +BS, soft, NT/ND, no masses/organomegaly/ascites Ext: warm, 2+ pulses in UE/LE bilaterally, no clubbing/cyanosis or edema Neuro: nonfocal, patient AA&O x 4, speech intact, no facial droop, moving all extremities on command with equal strength 5/5 Results & Data Vital Signs (Past 12 Hours) Vital Signs Temp Pulse Pulse Resp BP BP Pulse Ox 12/30/19 09:59 54 L 26 H 129/69 94 08/29/19 08:41 58 L 24 138/62 95 08/29/19 08:04 61 16 95 08/29/19 08:02 62 24 129/66 94 08/29/19 07:58 62 94 08/29/19 07:28 36.7 C 73 18 131/75 97 Laboratory Results Lab Results 08/29/19 08/29/19 08/29/19 Range/Units 07:55 08:20 08:20 WBC 5.52 (4.8-10.8) K/uL RBC 4.50 L (4.7-6.1) M/uL Hgb 15.0 (14.0-18.0) g/dL Hct 44.6 (42-52) % MCV 99.1 (80-100) fL MCH 33.3 (25-34) pg MCHC 33.6 (32-36) g/dL RDW Std Deviation 47.1 H (36.4-46.3) fL RDW Coeff of Fahad 13.0 (11.5-14.5) % Plt Count 153 (130-400) K/uL MPV 10.0 (7.4-10.4) fL Immature Gran % (Auto) 0.2 % Neut % (Auto) 66.4 % Lymph % (Auto) 15.0 % [place] % (Auto) 15.2 % Eos % (Auto) 2.7 % Baso % (Auto) 0.5 % Immature Gran # (Auto) 0.01 (0.00-0.02) K/uL Neut # (Auto) 3.66 (1.4-6.5) K/uL Lymph # (Auto) 0.83 L (1.2-3.4) K/uL [place] # (Auto) 0.84 H (0.11-0.59) K/uL Eos # (Auto) 0.15 (0-0.5) K/uL Baso # (Auto) 0.03 (0-0.2) K/uL PT (9.0-12.0) Seconds INR (0.9-1.1) APTT (21.0-31.0) Seconds PTT Ratio Sodium (136-145) mmol/L Potassium (3.5-5.1) mmol/L Chloride (98-107) mmol/L Carbon Dioxide (21-32) mmol/L Anion Gap (3-11) BUN (7-18) mg/dl Creatinine (0.6-1.4) mg/dl Est Cr Clr Drug Dosing ml/min Est GFR ( Amer) Est GFR (Non-Af Amer) BUN/Creatinine Ratio (10-20) Glucose (70-99) mg/dl POC Glucose (70-99) Lactate 1.8 (0.4-2.0) mmol/L Calcium (8.5-10.1) mg/dl Magnesium (1.8-2.4) mg/dl Total Bilirubin (0.2-1) mg/dl AST (15-37) U/L ALT (12-78) U/L Alkaline Phosphatase (45-117) U/L Troponin I (0-0.045) ng/ml Total Protein (6.4-8.2) gm/dl Albumin (3.4-5.0) gm/dl Globulin (2.5-4.0) gm/dl Albumin/Globulin Ratio (0.9-2) Urine Color Urine Appearance (Clear) Urine pH (4.5-7.5) Ur Specific [place] (1.000-1.030) Urine Protein (Negative) Urine Glucose (UA) (Negative) Urine Ketones (Negative) Urine Blood (Negative) Urine Nitrite (Negative) Urine Bilirubin (Negative) Urine Urobilinogen (Negative) Ur Leukocyte Esterase (Negative) Urine WBC (Auto) (0-5) /hpf Urine RBC (Auto) (0-4) /hpf U Hyaline Cast (Auto) (0-5) /lpf U Epithel Cells (Auto) (0-5) /lpf Urine Bacteria (Auto) (Negative) Influenza Type A (PCR) Neg for Influ A (Neg) Influenza Type B (PCR) Neg for Influ B (Neg) 08/29/19 08/29/19 08/29/19 Range/Units 08:20 08:20 11:40 WBC (4.8-10.8) K/uL RBC (4.7-6.1) M/uL Hgb (14.0-18.0) g/dL Hct (42-52) % MCV (80-100) fL MCH (25-34) pg MCHC (32-36) g/dL RDW Std Deviation (36.4-46.3) fL RDW Coeff of Fahad (11.5-14.5) % Plt Count (130-400) K/uL MPV (7.4-10.4) fL Immature Gran % (Auto) % Neut % (Auto) % Lymph % (Auto) % [place] % (Auto) % Eos % (Auto) % Baso % (Auto) % Immature Gran # (Auto) (0.00-0.02) K/uL Neut # (Auto) (1.4-6.5) K/uL Lymph # (Auto) (1.2-3.4) K/uL [place] # (Auto) (0.11-0.59) K/uL Eos # (Auto) (0-0.5) K/uL Baso # (Auto) (0-0.2) K/uL PT 10.4 (9.0-12.0) Seconds INR 1.0 (0.9-1.1) APTT 24.8 (21.0-31.0) Seconds PTT Ratio 0.9 Sodium 139 (136-145) mmol/L Potassium 4.5 (3.5-5.1) mmol/L Chloride 106 (98-107) mmol/L Carbon Dioxide 26 (21-32) mmol/L Anion Gap 7.0 (3-11) BUN 20 H (7-18) mg/dl Creatinine 1.51 H (0.6-1.4) mg/dl Est Cr Clr Drug Dosing 41.6 ml/min Est GFR ( Amer) 50.5 Est GFR (Non-Af Amer) 43.6 BUN/Creatinine Ratio 13.1 (10-20) Glucose 143 H (70-99) mg/dl POC Glucose (70-99) Lactate (0.4-2.0) mmol/L Calcium 9.2 (8.5-10.1) mg/dl Magnesium 1.6 L (1.8-2.4) mg/dl Total Bilirubin 0.5 (0.2-1) mg/dl AST 30 (15-37) U/L ALT 25 (12-78) U/L Alkaline Phosphatase 56 (45-117) U/L Troponin I < 0.015 (0-0.045) ng/ml Total Protein 7.1 (6.4-8.2) gm/dl Albumin 3.6 (3.4-5.0) gm/dl Globulin 3.5 (2.5-4.0) gm/dl Albumin/Globulin Ratio 1.0 (0.9-2) Urine Color Yellow Urine Appearance Clear (Clear) Urine pH 6.5 (4.5-7.5) Ur Specific [place] 1.011 (1.000-1.030) Urine Protein Negative (Negative) Urine Glucose (UA) Negative (Negative) Urine Ketones Negative (Negative) Urine Blood Trace H (Negative) Urine Nitrite Negative (Negative) Urine Bilirubin Negative (Negative) Urine Urobilinogen Negative (Negative) Ur Leukocyte Esterase Negative (Negative) Urine WBC (Auto) 0 (0-5) /hpf Urine RBC (Auto) 0-4 (0-4) /hpf U Hyaline Cast (Auto) 0 (0-5) /lpf U Epithel Cells (Auto) 0-5 (0-5) /lpf Urine Bacteria (Auto) Negative (Negative) Influenza Type A (PCR) (Neg) Influenza Type B (PCR) (Neg) 08/29/19 08/29/19 08/29/19 Range/Units 15:58 16:40 20:28 WBC (4.8-10.8) K/uL RBC (4.7-6.1) M/uL Hgb (14.0-18.0) g/dL Hct (42-52) % MCV (80-100) fL MCH (25-34) pg MCHC (32-36) g/dL RDW Std Deviation (36.4-46.3) fL RDW Coeff of Fahad (11.5-14.5) % Plt Count (130-400) K/uL MPV (7.4-10.4) fL Immature Gran % (Auto) % Neut % (Auto) % Lymph % (Auto) % [place] % (Auto) % Eos % (Auto) % Baso % (Auto) % Immature Gran # (Auto) (0.00-0.02) K/uL Neut # (Auto) (1.4-6.5) K/uL Lymph # (Auto) (1.2-3.4) K/uL [place] # (Auto) (0.11-0.59) K/uL Eos # (Auto) (0-0.5) K/uL Baso # (Auto) (0-0.2) K/uL PT (9.0-12.0) Seconds INR (0.9-1.1) APTT (21.0-31.0) Seconds PTT Ratio Sodium (136-145) mmol/L Potassium (3.5-5.1) mmol/L Chloride (98-107) mmol/L Carbon Dioxide (21-32) mmol/L Anion Gap (3-11) BUN (7-18) mg/dl Creatinine (0.6-1.4) mg/dl Est Cr Clr Drug Dosing ml/min Est GFR ( Amer) Est GFR (Non-Af Amer) BUN/Creatinine Ratio (10-20) Glucose (70-99) mg/dl POC Glucose 120 H 113 H (70-99) Lactate (0.4-2.0) mmol/L Calcium (8.5-10.1) mg/dl Magnesium (1.8-2.4) mg/dl Total Bilirubin (0.2-1) mg/dl AST (15-37) U/L ALT (12-78) U/L Alkaline Phosphatase (45-117) U/L Troponin I < 0.015 (0-0.045) ng/ml Total Protein (6.4-8.2) gm/dl Albumin (3.4-5.0) gm/dl Globulin (2.5-4.0) gm/dl Albumin/Globulin Ratio (0.9-2) Urine Color Urine Appearance (Clear) Urine pH (4.5-7.5) Ur Specific [place] (1.000-1.030) Urine Protein (Negative) Urine Glucose (UA) (Negative) Urine Ketones (Negative) Urine Blood (Negative) Urine Nitrite (Negative) Urine Bilirubin (Negative) Urine Urobilinogen (Negative) Ur Leukocyte Esterase (Negative) Urine WBC (Auto) (0-5) /hpf Urine RBC (Auto) (0-4) /hpf U Hyaline Cast (Auto) (0-5) /lpf U Epithel Cells (Auto) (0-5) /lpf Urine Bacteria (Auto) (Negative) Influenza Type A (PCR) (Neg) Influenza Type B (PCR) (Neg) Diagnostic Findings XR chest 1V portable HISTORY: Dyspnea, chest pain, hx double lung tx COMPARISON: Chest 10/27/2018. FINDINGS: There are low lung volumes. No pneumothorax. No pleural effusions. The heart remains mildly enlarged. No evidence for pulmonary edema. No new focal lung consolidations to suggest pneumonia. IMPRESSION: Stable mild cardiomegaly. ACT 112: Negative or not required by law. Electronically signed by: Steven Cook M.D. 08/29/2019 8:59 AM Dictated: 08/29/19845 Transcribed: 08/29/19845 ECG Additional Comments: Study shows normal sinus rhythm at 61 bpm, left axis deviation, LA = 174, QRS = 110, QTc = 398, suggestion of prior anteroseptal infarct. No acute changes Code Status & VTE Plan Code Status Full code VTE Prophylaxis Plan VTE Prophylaxis will be ordered: Yes PG Care Time/CCT Total # of Minutes Spent Total Time Spent with Patient: Total time spent is greater than 50% in coordination of care (as documented) at patient's floor/unit and/or counseling patient: (1) CAD (coronary artery disease) Associated angina: without angina Coronary Disease-Associated Artery/Lesion type: [place] artery [place] vs. transplanted heart: [place] heart Qualified Code(s): I25.10 - Atherosclerotic heart disease of [place] coronary artery without angina pectoris (2) Chest pain Chest pain type: unspecified Qualified Code(s): R07.9 - Chest pain, unspecified (3) HTN (hypertension) Hypertension type: essential hypertension Qualified Code(s): I10 - Essential (primary) hypertension
[2019-08-29 11:54] LABS: Appearance Urine Clear (Clear); Bacteria Urine Automated Negative (Negative); Bilirubin Urine Negative (Negative); Blood Urine Trace (Negative); Cast Urine Automated 0 /lpf (0-5); Color Urine Yellow; Epithelial Cell Urine Auto 0-5 /lpf (0-5); Glucose Urine UA Negative (Negative); Ketones Urine Negative (Negative); Leukocyte Esterase Urine Negative (Negative); Nitrite Urine Negative (Negative); Protein Urine Negative (Negative); RBC Urine Automated 0-4 /hpf (0-4); Specific Gravity Urine 1.011 (1.000-1.030); Urobilinogen Urine Negative (Negative); WBC Urine Automated 0 /hpf (0-5); pH Urine 6.5 (4.5-7.5)
[2019-08-29] MEDS ORDERED: ACETAMINOPHEN 325 MG TAB PO PRN (14:55)
[2019-08-29] MEDS ORDERED: KETOROLAC TROMETHAMINE 15 MG/ML VIAL IV PRN (14:55)
[2019-08-29] MEDS: ALBUTEROL 0.5% NEB SOLN 2.5 MG/0.5 ML VIAL NEB SCH ×2 (15:18→20:09)
[2019-08-29] MEDS ORDERED: SULFAMETHOXAZOLE/TRIMETHOPRIM DS 800/160MG TAB PO SCH (15:30)
[2019-08-29] MEDS: LACTATED RINGER'S 1,000 ML IV SCH (15:43)
[2019-08-29] MEDS: lisinopriL 5 MG TAB PO SCH ×2 (15:44→20:00)
[2019-08-29] MEDS: AMLODIPINE BESYLATE 5 MG TAB PO SCH (15:44)
[2019-08-29] MEDS: PANTOprazole 40 MG TAB PO SCH ×2 (15:44→20:00)
[2019-08-29] MEDS: BENZONATATE 100 MG CAPSULE PO SCH ×2 (15:44→20:00)
[2019-08-29] MEDS: TACROLIMUS 1 MG CAP PO SCH (15:45)
[2019-08-29] MEDS: predniSONE 5 MG TAB PO SCH (15:45)
[2019-08-29] MEDS: VALACYCLOVIR HCL 500 MG TABLET PO SCH ×2 (15:46→20:00)
[2019-08-29] MEDS: METOPROLOL TARTRATE 25 MG TAB PO SCH ×2 (15:46→20:00)
[2019-08-29] MEDS: CHOLECALCIFEROL 1,000 UNITS TAB PO SCH (15:46)
[2019-08-29] MEDS: MYCOPHENOLATE MOFETIL 250 MG CAP PO SCH ×2 (15:47→20:00)
[2019-08-29] MEDS: CEFEPIME 2,000 MG in SYRINGE 7.5 ML IV SCH (19:37)
[2019-08-29] MEDS: MAGNESIUM OXIDE 400 MG TAB PO SCH (20:00)
[2019-08-29] MEDS: guaiFENesin 600 MG TABCR PO SCH (20:00)
[2019-08-29] MEDS ORDERED: TACROLIMUS 1 MG CAP PO SCH (21:00)
[2019-08-29] MEDS ORDERED: ZOLPIDEM TARTRATE 5 MG TAB PO PRN (23:43)
[2019-08-30] MEDS ORDERED: ZOLPIDEM TARTRATE 5 MG TAB ONE (00:26)
[2019-08-30] MEDS: ALBUTEROL 0.5% NEB SOLN 2.5 MG/0.5 ML VIAL NEB SCH ×3 (01:53→13:09)
[2019-08-30] MEDS: LACTATED RINGER'S 1,000 ML IV SCH (04:20)
[2019-08-30 05:45] LABS: Basophils # (auto) 0.01 K/uL (0-0.2); Basophils % (auto) 0.2 %; Eosinophils # (auto) 0.02 K/uL (0-0.5); Eosinophils % (auto) 0.5 %; Hematocrit (blood only) 42.4 % (42-52); Hemoglobin 14.3 g/dL (14.0-18.0); Immature Granulocytes # (auto) 0.01 K/uL (0.00-0.02); Immature Granulocytes % (auto) 0.2 %; Lymphocytes # (auto) 0.68 K/uL (1.2-3.4); Lymphocytes % (auto) 16.2 %; Mean Corpuscular Hemoglobin 33.5 pg (25-34); Mean Corpuscular Hgb Conc 33.7 g/dL (32-36); Mean Corpuscular Volume 99.3 fL (80-100); Monocytes # (auto) 0.66 K/uL (0.11-0.59); Monocytes % (auto) 15.7 %; Neutrophils # (auto) 2.82 K/uL (1.4-6.5); Neutrophils % (auto) 67.2 %; Platelet Count 124 K/uL (130-400); RDW Standard Deviation 46.9 fL (36.4-46.3); Red Blood Count 4.27 M/uL (4.7-6.1)
[2019-08-30 06:41] LABS: RBC Morphology Unremarkable
[2019-08-30 07:03] LABS: BUN Creatinine Ratio 16.3 (10-20); Calcium 8.8 mg/dl (8.5-10.1); Creatinine Clr Calc Pharmacy 52.8 ml/min; Est GFR (African American) 67.4; Est GFR (Non-African American) 58.2; Magnesium 1.7 mg/dl (1.8-2.4); Phosphorus 2.6 mg/dl (2.5-4.9); Potassium 4.2 mmol/L (3.5-5.1)
--- NOTE | 2019-08-30 07:20 | XRay Report ---
XR chest 1V portable HISTORY: Dyspnea. History of double lung transplant. COMPARISON: Chest 08/29/2019. FINDINGS: There are low lung volumes. The heart remains mildly enlarged. No new focal lung consolidat ions to suggest pneumonia. No evidence for pulmonary edema. No pleural effusions. No pneumothorax. IMPRESSION: No significant change compared to the prior study. No acute process. ACT 112: Negative or not required by law. Electronically signed by: Steven Cook M.D. 08/30/2019 7:18 AM
[2019-08-30] MEDS: CEFEPIME 2,000 MG in SYRINGE 7.5 ML IV SCH (07:55)
[2019-08-30] MEDS: MAGNESIUM OXIDE 400 MG TAB PO SCH (08:03)
[2019-08-30] MEDS: METOPROLOL TARTRATE 25 MG TAB PO SCH (08:03)
[2019-08-30] MEDS: MYCOPHENOLATE MOFETIL 250 MG CAP PO SCH (08:03)
[2019-08-30] MEDS: guaiFENesin 600 MG TABCR PO SCH (08:04)
[2019-08-30] MEDS: predniSONE 5 MG TAB PO SCH (08:04)
[2019-08-30] MEDS: PANTOprazole 40 MG TAB PO SCH (08:05)
[2019-08-30] MEDS: BENZONATATE 100 MG CAPSULE PO SCH ×2 (08:05→14:20)
[2019-08-30] MEDS: VALACYCLOVIR HCL 500 MG TABLET PO SCH (08:05)
[2019-08-30] MEDS: TACROLIMUS 1 MG CAP PO SCH (08:05)
[2019-08-30] MEDS: lisinopriL 5 MG TAB PO SCH (08:06)
[2019-08-30] MEDS ORDERED: DiphenhydrAMINE HCL 50 MG/ML VIAL IV STA (08:52)
[2019-08-30] MEDS ORDERED: PYRIDOXINE HCL 50 MG TAB PO SCH (09:00)
[2019-08-30] MEDS ORDERED: NIACIN 500 MG TAB PO SCH (09:00)
[2019-08-30] MEDS ORDERED: PIPERACILL/TAZOBAC CONSULT ACTIVE PRN (10:42)
[2019-08-30] MEDS ORDERED: VANCOMYCIN CONSULT ACTIVE PRN (10:42)
[2019-08-30] MEDS ORDERED: VANCOMYCIN HCL 1,000 MG in SODIUM CHLORIDE 0.9% 250 ML IV SCH (10:45)
[2019-08-30] MEDS ORDERED: PIPERACILLIN/TAZOBACTAM 3.375 GM in DEXTROSE 5% 100 ML IV STA (11:04)
[2019-08-30] MEDS ORDERED: MAGNESIUM SULFATE / D5W 1 GM/100 ML BAG IV ONE (11:15)
[2019-08-30] MEDS ORDERED: VANCOMYCIN HCL 1,500 MG in SODIUM CHLORIDE 0.9% 500 ML IV STA (12:03)
[2019-08-30] MEDS: CHOLECALCIFEROL 1,000 UNITS TAB PO SCH (14:20)
[2019-08-30] MEDS: AMLODIPINE BESYLATE 5 MG TAB PO SCH (15:59)
--- NOTE | 2019-08-30 17:15 | Discharge Summary ---
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 He presents today with complaints of 6 days of progressive chest congestion, cough, chills and positional chest discomfort, fever to 101 on 08/26/19. He reports that he occasionally feels congestion in his chest however, symptoms today are worse and longer lasting than before. His chest discomfort is described as bandlike and worse with cough and sitting up. ER course: DuoNeb, cefepime, Toradol, magnesium, normal saline x1 L Principal Diagnosis Acute bronchitis, chest pain Discharge Exam Constitutional WD/WN, vitals as above Eyes + anicteric sclerae ENMT external ear and nose normal, oropharynx normal Neck trachea midline, no thyromegaly normal visual inspection; no submandibular swelling and neck nontender Respiratory normal respiratory effort Auscultation: + crackles (mild, at right base); no rhonchi and no wheezes Cardiovascular RRR, no murmur, no edema Chest (Breasts) Chest: normal inspection of chest Gastrointestinal (Abdomen) normal bowel sounds, soft, nontender, no hepatosplenomegaly Musculoskeletal Extremities: extremities normal to inspection; no cyanosis and no clubbing Skin no rashes, warm and dry Neurologic moves all extremities and awake; no focal motor deficits Psychiatric A+Ox3, euthymic affect Lymphatic no lymphedema and no cervical lymphadenopathy Discharge Data Allergies Allergy/AdvReac Type Severity Reaction Status Date / Time cefepime Allergy Intermediate rash Verified 08/30/19 10:42 poison laura extract Allergy Rash Verified 08/29/19 08:38 Consultations 08/29/19 10:43 ED Decision to Admit Stat Procedures Performed CXR x 2 Hospital Course (1) Cough: Patient with cough and congestion x 6 days, fever at home 2-3 days prior to admission. CXR here negative for PNA x 2 Was afebrile and had no leukocytosis, lactate negative, not hypoxic. Flu swab negative Received 3 doses of Cefepime and had an all over erythematous fleeting rash with the third dose that resolved prior to even being given Benadryl. 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 He also reported feeling greatly improved with less cough, productive of clear sputum, occasional white sputum, no hemoptysis. had more energy, was really wanting to go home. he was ambulating, denies CHAPMAN Blood cultures remained negative at 32 hour mery at time of discharge and Sputum culture had no growth at the time of discharge. He is aware that if his cultures grew something after discharge, there would be a possibility he would have to return to the hospital for IV abx therapy. 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 He follows with Dr. Dimas Hassan (case briefly discussed with KYLE DELAROSA and Dr. Hassan) -Continue Cellcept -Continue Prograf -Continue Prednisone -Awaiting tacrolimus level -Continue Bactrim and azithro q M/W/F for suppressive therapy -Continue Valtrex for suppressive therapy (3) HTN (hypertension): History of HTN. Well controlled on home medications -Continue Lisinopril 5mg po BID -Continue Amlodipine -Continue Metoprolol (4) Chest pain: Patient experiences band like chest pain with coughing as well as epigastric discomfort. Suspect pleurisy/inflammation from acute bronchitis as well as MSK from 6 days of cough. EKG is negative for acute ischemic changes. Troponin x 2 negative. Low suspicion for cardiac etiology at this time. Chest pain now much improved with one dose of toradol and neb treatments. 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 Last in 2018. Asymptomatic, neurologically intact -Noted -Continue Blood pressure control (6) CAD (coronary artery disease): Chronic. Stable. No evidence of acute ischemia at present -Continue home medications Dispositionstable for dc to home Total Time Total Time Spent Total Time Spent (In Minutes): 35 min Total Time Includes: Examination of the Patient, Discharge Planning and Medication Reconciliation Discharge Plan Discharge Items Patient Disposition: Home - Self-Care Reason For Visit: COUGH, SOB Discharge Diagnosis: Acute bronchitis Condition on Discharge: Good Goals: You have been hospitalized for an acute medical problem. During your stay at [facility], we have made an effort to correct the problem that brought you to the hospital while keeping you as comfortable as possible. Medications were used to bring your condition under control and your discharge instructions will include directions for any medications you should take after leaving the hospital. Please make sure you see your Primary Care Provider as part of your follow up plan. Activity: Resume your previous activity Non-emergency contact: Primary Care Provider and [employer] Co[employer] Machine Operator Call non-emergency contact if: you have any medication questions, your symptoms worsen, your pain is not controlled, your pain is worsening, your pain is unusual for you, your pain is concerning for you and your temperature is above 101 Follow-up/Referrals: Castro Perkins MD [Primary Care Provider] - Diet: Heart Healthy Addtl Attending Provider Instructions: Please finish out a course of Augmentin 1 tablet twice a day for 4 more days. You can use the albuterol inhaler with a spacer 2 puffs every 4-6 hours as needed for cough. Please follow up with your PCP and contact your Carbon Coater Machine Operator within the week. Pending Studies at Discharge: Yes Studies:: Final Blood culture result-no growth to date Stand-Alone Forms: My [facility] Medications and DC Order Prescriptions: New guaifenesin [Mucinex] 600 mg Tablet Extended Release 12hr 600 mg PO Q12 5 Days Qty: 10 RF: 0 amoxicillin-pot clavulanate [Augmentin] 875-125 mg tablet 1 tab PO BID Qty: 8 RF: 0 albuterol sulfate 90 mcg/actuation HFA aerosol inhaler 2 puffs INH .q4-6h Qty: 18 RF: 0 (DME) Spacer for Inhaler Misc See Rx Instructions .ROUTE .MEDSUPPLY Qty: 1 RF: 0 Continued sildenafil 50 mg tablet See Rx Instructions .ROUTE .COMPLEX Qty: 6 RF: 3 cholecalciferol (vitamin D3) [Vitamin D3] 2,000 unit Tablet 2,000 unit PO DAILY@1400 RF: 0 lisinopril 5 mg Tablet 5 mg PO BID RF: 0 magnesium oxide 400 mg Capsule 400 mg PO BID RF: 0 metoprolol tartrate 50 mg Tablet 25 mg PO BID RF: 0 mycophenolate mofetil [CellCept] 250 mg Capsule 500 mg PO BID RF: 0 pantoprazole [Protonix] 40 mg Tablet,Delayed Release (Dr/Ec) 40 mg PO BID RF: 0 prednisone 5 mg Tablet 5 mg PO DAILY RF: 0 sulfamethoxazole-trimethoprim [Bactrim DS] 800-160 mg Tablet 0.5 tab PO MOWEFR RF: 0 tacrolimus [Prograf] 1 mg Capsule 2 mg PO QAM RF: 0 tacrolimus [Prograf] 1 mg Capsule 1 mg PO QPM RF: 0 valacyclovir [Valtrex] 500 mg Tablet 500 mg PO BID RF: 0 fluorouracil 5 % cream 1 applic TOPICAL UD RF: 0 amlodipine 5 mg tablet 5 mg PO QDD RF: 0 niacinamide 500 mg Tablet 500 mg PO DAILY RF: 0 pyridoxine (vitamin B6) [Vitamin B-6] 100 mg Tablet 100 mg PO DAILY RF: 0 azithromycin 250 mg tablet 250 mg PO 3XWK RF: 0 Discharge Orders: Discharge Order (Routine); Ordered 08/30/19 Ordered By: Aleta Díaz Admission Data Admit Date/Time: 08/29/19 11:27 Attending Provider: Aleta Díaz Admit Provider: Yana Enriquez Primary Care Provider: Castro Perkins Other Providers: Yana Enriquez Other Interventions: Discharge Summary Assessment (RN) Last Done: 08/30/19 16:36 DC Date/Time DO NOT enter until pt leaves facility: 08/30/19 18:30
[2019-08-30] MEDS ORDERED: PIPERACILLIN/TAZOBACTAM 3.375 GM in DEXTROSE 5% 100 ML IV SCH (18:00)
== END 2019-08-30 18:30 | disposition home or self-care (01) ==
LOC: 2N 07:25 → ED 07:25 → SUATTDRO 11:27 → 2N 13:55

== ENCOUNTER 2023-11-25 20:31 | Inpatient (IN) ==
--- NOTE | 2023-11-25 20:58 | Emergency Department Note ---
History of Present Illness General Chief complaint: Chest Pain Stated complaint: SEVERE CHEST PAIN Time Seen by Provider: 11/25/23 20:46 History of Present Illness Maximum Pain Intensity: 2 83-year-old male presents emergency department has a history of coronary artery disease and 9 stents most recent 2 months ago when he was seen in [place]. Patient had a stent to the LAD and the RCA at that time. Patient is also a double lung transplant. Patient states he was walking his dog this evening and around 6 PM he had 8 out of 10 chest pain. Patient does take Imdur takes Eliquis he takes Plavix and he takes aspirin for which she has taken prior to arrival. Patient states he was going to get into bed he put on his pajamas and then he states he had 8 out of 10 pain again which was relieved with rest. Patient denies any current chest pain denies shortness of breath denies nausea vomiting diaphoresis. There are no other mitigating or alleviating factors Home Medications Medication Instructions Recorded Confirmed Type cholecalciferol (vitamin D3) 50 2,000 unit PO DAILY@1400 05/11/18 11/25/23 History mcg (2,000 unit) tablet (Vitamin D3) mycophenolate mofetil 250 mg 500 mg PO BID 05/11/18 11/25/23 History capsule (CellCept) prednisone 5 mg tablet 5 mg PO DAILY 05/11/18 11/25/23 History valacyclovir 500 mg tablet 500 mg PO BID 05/11/18 11/25/23 History (Valtrex) pyridoxine (vitamin B6) 100 mg 100 mg PO DAILY 08/29/19 05/20/23 History tablet (Vitamin B-6) Spacer for Inhaler #1 ea 08/30/19 05/20/23 Rx acetaminophen 325 mg capsule 325 mg PO QID PRN pain or fever 08/12/21 11/25/23 History sildenafil 50 mg tablet (Viagra) 50 mg PO DAILY PRN sexual activity 09/04/21 05/20/23 Rx #6 tabs amlodipine 10 mg tablet 5 mg PO DAILY 02/01/23 11/25/23 History amoxicillin 500 mg tablet 0 mg PO ONCE 02/01/23 11/25/23 History apixaban 2.5 mg tablet (Eliquis) 2.5 mg PO BID 02/01/23 11/25/23 History aspirin 81 mg tablet,delayed 81 mg PO DAILY 02/01/23 11/25/23 History release azithromycin 250 mg tablet 250 mg PO 3XWK 02/01/23 11/25/23 History clopidogrel 75 mg tablet 75 mg PO DAILY 02/01/23 11/25/23 History fluorouracil 5 % topical cream See Rx Instructions .Route .COMPLEX 02/01/23 05/20/23 History lisinopril 10 mg tablet 10 mg PO BID 02/01/23 11/25/23 History magnesium chloride 64 mg 64 mg PO DAILY 02/01/23 11/25/23 History (magnesium chloride) tablet,delayed release (Mag 64) metoprolol tartrate 25 mg tablet 25 mg PO BID 02/01/23 11/25/23 History mupirocin 2 % topical ointment See Rx Instructions .Route .COMPLEX 02/01/23 05/20/23 History pantoprazole 40 mg tablet,delayed 40 mg PO BID 02/01/23 11/25/23 History release sulfamethoxazole 400 1 tab PO 3XWK 02/01/23 11/25/23 History mg-trimethoprim 80 mg tablet tacrolimus 0.5 mg capsule, 1 mg PO PM 02/01/23 11/25/23 History immediate-release tacrolimus 1 mg capsule, 1 mg PO QAM 02/01/23 11/25/23 History immediate-release prednisone 10 mg tablet See Rx Instructions PO BID #45 tabs 05/22/23 Rx Allergies Allergy/AdvReac Type Severity Reaction Status Date / Time cefepime Allergy Intermediate rash Verified 05/20/23 11:54 poison laura extract Allergy Rash Verified 05/20/23 11:54 Past Med/Surg History Medical History HTN (hypertension) History of Mohs micrographic surgery for skin cancer Upper respiratory infection CAD (coronary artery disease) Cough Subdural hematoma (10/05/14) 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) Surgical History Hx of appendectomy Hx of lung transplant bilateral History of cardiac catheterization Stent placement x's 6 Most recent, 09/15/2022 2 MARK to LAD (Dr [facility]) Family History Mother Hearing loss Idiopathic pulmonary fibrosis Colorectal cancer Father Heart disease Myocardial infarction Brother Idiopathic pulmonary fibrosis Myocardial infarction Other No family history of adverse response to anesthesia No family history of bleeding disorder Denies family history of Ovarian cancer Prostate cancer Diabetes Breast cancer Lung cancer Stroke Social History Smoking Status: Never smoker Second Hand Exposure: No; Do You Dip or Chew Tobacco: No; Hx Alcohol Use: Yes Alcohol type: wine Hx Substance Use: No Preferred Language: Yi Communication Ability: Effective Visual Impairment: Limited Hearing Ability: Normal Voucher Clerk Required: No Beliefs That Will Affect Care: None marital status: Current Living Situation: Spouse current occupational status: employed 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) How many Children do You have: 2 Feels Safe at Home: Yes Childhood Exposure to Second-Hand Smoke: Yes caffeine: No Dental Care, Regularly: Yes Physical Activity Frequency: Daily Seatbelt Use: always Sunscreen Use: Yes Assistive Devices: Glasses Review of Systems A total of 10 systems reviewed and were otherwise negative Cardiovascular: + chest pain Physical Exam Vital Signs Vital Signs - 24 hr 11/25/23 20:44 11/25/23 21:01 11/25/23 21:09 Temperature 36.7 C Temperature Source Temporal Artery Scan Pulse Rate 100 H 89 Pulse Rate [Apical] 88 Respiratory Rate 18 20 22 Respiratory Effort / Characteristics Non-Labored Spontaneous Non-Labored Spontaneous Respiratory Depth Normal Normal Respiratory Pattern Regular Regular Blood Pressure 117/65 Blood Pressure [Right Arm] 113/72 Blood Pressure Mean 82 Blood Pressure Mean [Right Arm] 85 Blood Pressure Position Sitting Blood Pressure Position [Right Arm] Lying Pulse Oximetry 98 97 94 Oxygen Delivery Method Room Air Room Air Room Air Sepsis Recent Fever Within 48 Hours No Sepsis New/Unexplained Change in Mental Status N/A Sepsis Action Taken by Nursing No Action Required 11/25/23 21:16 11/25/23 21:23 11/25/23 21:30 Temperature Temperature Source Pulse Rate 93 H 92 H 74 Pulse Rate [Apical] Respiratory Rate 20 24 Respiratory Effort / Characteristics Respiratory Depth Respiratory Pattern Blood Pressure 105/64 Blood Pressure [Right Arm] Blood Pressure Mean 77 Blood Pressure Mean [Right Arm] Blood Pressure Position Blood Pressure Position [Right Arm] Pulse Oximetry 96 Oxygen Delivery Method Sepsis Recent Fever Within 48 Hours Sepsis New/Unexplained Change in Mental Status Sepsis Action Taken by Nursing 11/25/23 21:45 11/25/23 22:15 11/25/23 22:30 Temperature Temperature Source Pulse Rate 79 85 98 H Pulse Rate [Apical] Respiratory Rate 22 22 23 Respiratory Effort / Characteristics Respiratory Depth Respiratory Pattern Blood Pressure 114/78 122/67 115/78 Blood Pressure [Right Arm] Blood Pressure Mean 90 85 90 Blood Pressure Mean [Right Arm] Blood Pressure Position Blood Pressure Position [Right Arm] Pulse Oximetry 96 96 96 Oxygen Delivery Method Sepsis Recent Fever Within 48 Hours Sepsis New/Unexplained Change in Mental Status Sepsis Action Taken by Nursing GENERAL: Patient is awake alert in no acute distress patient is resting comfortably and showing no signs of anxiety EYES: The conjunctivae are clear. The pupils are round and reactive. EARS, NOSE, MOUTH AND THROAT: The nose is without any evidence of any deformity. Mucous membranes are moist. Tongue is midline. NECK: The neck is nontender and supple. RESPIRATORY: Normal respiratory effort is noted there is no evidence of wheezing rhonchi or rales CARDIOVASCULAR: Regular rate and rhythm noted there no murmurs rubs or gallops normal S1 normal S2. GASTROINTESTINAL: The abdomen is soft. Abdomen is nontender. BACK: No midline tenderness or or step-off noted range of motion in flexion extension as well as rotation no signs of muscle spasm noted MUSCULOSKELETAL/EXTREMITIES: There is no evidence of gross deformity full range of motion is noted in the hips and shoulders. SKIN: There is no obvious evidence of any rash. There are no petechiae, pallor or cyanosis noted. NEUROLOGIC: Patient is awake alert and oriented x3 strength is symmetric Course Reevaluation(s) Reevaluation #1: Resting in no distress no chest pain Time: 22:22 Consultations Consultation #1: Case was discussed with the hospitalist for admission, from [facility] Time: 22:22 Medical Decision Making Medical Records Attestation: I reviewed the patient's medical records. Home Medications Current Medication List: was personally reviewed by me Laboratory Data Attestation: I reviewed the patient's lab results. Labs interpreted by me elevated creatinine, normal troponin 11/25/23 20:55 11/25/23 20:55 Lab Results 11/25/23 Range/Units 20:55 WBC 8.70 (4.8-10.8) K/ul RBC 4.21 L (4.70-6.10) M/uL Hgb 12.3 L (14.0-18.0) g/dl Hct 38.1 L (42.0-52.0) % MCV 90.5 (80.0-100.0) fL MCH 29.2 (25.0-34.0) pg MCHC 32.3 (32.0-36.0) g/dL RDW Std Deviation 47.7 H (36.4-46.3) fL RDW Coeff of Fahad 14.6 H (11.5-14.5) % Plt Count 183 (130-400) K/uL MPV 10.5 (9.4-12.4) fL Immature Gran % (Auto) 0.2 % Neut % (Auto) 77.8 % Lymph % (Auto) 13.2 % Butts % (Auto) 8.0 % Eos % (Auto) 0.3 % Baso % (Auto) 0.5 % Neut # (Auto) 6.76 H (1.40-6.50) K/uL Lymph # (Auto) 1.15 L (1.20-3.40) K/uL Butts # (Auto) 0.70 H (0.11-0.59) K/uL Eos # (Auto) 0.03 (0.00-0.50) K/uL Baso # (Auto) 0.04 (0.00-0.20) K/uL Immature Gran # (Auto) 0.02 (0.01-0.20) K/uL PT 11.4 (9.0-12.0) Seconds INR 1.0 (0.9-1.1) APTT 28 (21-31) Seconds PTT Ratio 1.0 Sodium 136 (136-145) mmol/L Potassium 5.0 (3.5-5.1) mmol/L Chloride 104 (98-107) mmol/L Carbon Dioxide 23 (21-32) mmol/L Anion Gap 9 (3-11) BUN 33 H (6-23) mg/dl Creatinine 1.76 H (0.6-1.4) mg/dl Est Cr Clr Drug Dosing 33.4 ml/min Est GFR ( Amer) 40.8 ml/min Est GFR (Non-Af Amer) 35.2 ml/min BUN/Creatinine Ratio 18.8 (10-20) Glucose 116 H (70-99(Fasting)) mg/dl Calcium 9.5 (8.6-10.3) mg/dl Total Bilirubin 0.6 (0.2-1.0) mg/dl AST 28 (13-39) U/L ALT 21 (7-52) U/L Alkaline Phosphatase 58 (34-104) U/L Troponin I High Sens 10.3 (0-20) pg/ml Total Protein 7.4 (6.0-8.3) gm/dl Albumin 4.4 (3.4-5.0) gm/dl Globulin 3.0 (2.5-4.0) gm/dl Albumin/Globulin Ratio 1.5 (0.9-2) Imaging Data Attestation: I personally reviewed and interpreted this imaging study as follows: My Impression: Chest x-ray interpreted by me cardiomegaly ECG Data Attestation: I personally reviewed and interpreted this ECG as follows: Additional Comments: EKG interpreted by me atrial fibrillation rate of 100, left axis deviation, left bundle branch block is present, comparison to February 01, 2023 the patient had A-fib and left bundle branch block was present at that time to MDM Narrative Medical decision making differential diagnosis includes angina, unstable angina, acute coronary syndrome, acute OR, musculoskeletal chest pain, esophageal spasm Plan is to check labs, EKG, chest x-ray Patient's is at bedside to provide me history with the patient's most recent stent cards showing an LAD and RCA stent placed February 28, 2024 Heart score is a 5 Patient has a recent LAD and RCA stents Will admit to the hospitalist for admission Case was discussed with the [facility] hospitalist for admission Impression & Plan Chest pain Discharge Plan Visit Data Chief Complaint: Chest Pain Stated Complaint: SEVERE CHEST PAIN ED Provider: Kulwinder Cunningham Discharge Problem: Chest pain Patient Disposition: Admitted As Inpatient Forms Stand Alone Forms: My [facility] Prescriptions Prescriptions: No Action sildenafil [Viagra] 50 mg tablet 50 mg PO DAILY PRN (Reason: sexual activity) Qty: 6 1RF Rx Instructions: administer 30 minutes to 4 hours before activity prednisone 10 mg tablet See Rx Instructions PO BID Qty: 45 0RF Rx Instructions: 6 tabs (60mg) PO day 1-5 then decrease by 1 tab (10mg) daily until complete (5,4,3,2,1) acetaminophen 325 mg capsule 325 mg PO QID PRN (Reason: pain or fever) cholecalciferol (vitamin D3) [Vitamin D3] 2,000 unit Tablet 2,000 unit PO DAILY@1400 mycophenolate mofetil [CellCept] 250 mg Capsule 500 mg PO BID prednisone 5 mg Tablet 5 mg PO DAILY valacyclovir [Valtrex] 500 mg Tablet 500 mg PO BID pyridoxine (vitamin B6) [Vitamin B-6] 100 mg Tablet 100 mg PO DAILY (DME) Spacer for Inhaler Misc See Rx Instructions .ROUTE .MEDSUPPLY Qty: 1 0RF Rx Instructions: As directed azithromycin 250 mg tablet 250 mg PO 3XWK Rx Instructions: Mon/Wed/Fri sulfamethoxazole-trimethoprim 400-80 mg tablet 1 tab PO 3XWK fluorouracil 5 % cream See Rx Instructions .ROUTE .COMPLEX Rx Instructions: Apply at night right above right brown/forehead and back of scalp nightly for 4 weeks. clopidogrel 75 mg tablet 75 mg PO DAILY aspirin 81 mg tablet,delayed release (DR/EC) 81 mg PO DAILY amoxicillin 500 mg tablet 0 mg PO ONCE Rx Instructions: Take 2000mg by mouth one hour prior to dental appointment amlodipine 10 mg tablet 5 mg PO DAILY pantoprazole 40 mg tablet,delayed release (DR/EC) 40 mg PO BID lisinopril 10 mg Tablet 10 mg PO BID mupirocin 2 % ointment See Rx Instructions .ROUTE .COMPLEX Rx Instructions: APPLY TO SCALP IN THE MORNING ONLY AFTER WASHING OFF EFUDEX FOR 4-5 WEEKS tacrolimus 1 mg capsule 1 mg PO QAM tacrolimus 0.5 mg capsule 1 mg PO PM metoprolol tartrate 25 mg tablet 25 mg PO BID Mag 64 64 mg tablet,delayed release (DR/EC) 64 mg PO DAILY Eliquis 2.5 mg tablet 2.5 mg PO BID Referrals Referrals: Apple Serrano, [facility] [Primary Care Provider] -
[2023-11-25 21:31] LABS: Albumin Globulin Ratio 1.5 (0.9-2); Albumin Level 4.4 gm/dl (3.4-5.0); BUN Creatinine Ratio 18.8 (10-20); Bilirubin,Total 0.6 mg/dl (0.2-1.0); Calcium 9.5 mg/dl (8.6-10.3); Creatinine Clr Calc Pharmacy 33.4 ml/min; Est GFR (African American) 40.8 ml/min; Est GFR (Non-African American) 35.2 ml/min; Total Protein 7.4 gm/dl (6.0-8.3)
[2023-11-25 21:37] LABS: Troponin I High Sensitivity 10.3 pg/ml (0-20)
[2023-11-25 21:43] LABS: Partial Thromboplastin Time 28 Seconds (21-31); Prothrombin Time 11.4 Seconds (9.0-12.0)
[2023-11-25 21:49] LABS: Basophils # (auto) 0.04 K/uL (0.00-0.20); Basophils % (auto) 0.5 %; Eosinophils # (auto) 0.03 K/uL (0.00-0.50); Eosinophils % (auto) 0.3 %; Hematocrit (blood only) 38.1 % (42.0-52.0); Hemoglobin 12.3 g/dl (14.0-18.0); Immature Granulocytes # (auto) 0.02 K/uL (0.01-0.20); Immature Granulocytes % (auto) 0.2 %; Lymphocytes # (auto) 1.15 K/uL (1.20-3.40); Lymphocytes % (auto) 13.2 %; Mean Corpuscular Hemoglobin 29.2 pg (25.0-34.0); Mean Corpuscular Hgb Conc 32.3 g/dL (32.0-36.0); Mean Corpuscular Volume 90.5 fL (80.0-100.0); Mean Platelet Volume 10.5 fL (9.4-12.4); Neutrophils # (auto) 6.76 K/uL (1.40-6.50); Neutrophils % (auto) 77.8 %; Platelet Count 183 K/uL (130-400); RDW Coefficient of Variation 14.6 % (11.5-14.5); RDW Standard Deviation 47.7 fL (36.4-46.3); Red Blood Count 4.21 M/uL (4.70-6.10)
--- NOTE | 2023-11-25 22:50 | History & Physical Report ---
Date of Service November 25, 2023 Assessment & Plan (1) Chest pain: Plan: 83yo male with CAD s/p multiple stents most recent from August 2023, AF on Eliquis anticoagulation presenting with chest pain. Pain exertional in nature, relieved by rest. Troponin x 2 within normal limits but are increasing (10.3 --> 18.2 after two hours). EKG with LBBB and atrial fibrillation, unchanged from prior study. Concerning for ACS event given patient's history as well as description of pain. Presently chest pain free. HD stable. -Observation to medical with telemetry -Monitor troponin q 6 hours - next at 04:44 -Continue home medications - ASA, Plavix, Lisinopril, Metoprolol and Isosorbide. ?statin? -Consider Cardiology consultation pending results of troponin Patient's primary Ccu Nurse is Dr. Chandrika Weinstein [facility] (2) Hx of lung transplant: Plan: Stable. No complaints. -Continue home regimen - Tacrolimus 1mg po BID and CellCept 500mg po BID. Patient did take his PM medications prior to arrival -Continue daily Prednisone 5mg -Prophylactic therapy with Bactrim DS 3x weekly, Azithromycin and Valtrex (3) HTN (hypertension): Plan: Chronic. Stable -Continue home medications, Amlodipine, Metoprolol and Isosorbide -Monitor (4) CKD (chronic kidney disease), stage III: Plan: BUN and Cr near baseline -Avoid nephrotoxic agents -Renal dosing where needed History of Present Illness Chief Complaint: chest pain Primary Care Provider: Apple Serrano PA-C Erwin Barrios is a pleasant 83yo male presenting with chest pain. Patient with extensive cardiac history. He has CAD with multiple prior PCIs - [address] with most recent stents placed in August 2023 while on vacation in [place] where he was admitted to the hospital for 5 days after presenting with chest pain. He was told that he had a heart attack - subsequently had a cardiac catheterization with two additional stents placed (LAD and Diagonal). He has atrial fibrillation on Eliquis anticoagulation, Metoprolol. He had a cardioversion on 04/02/23 which lasted appx one month. 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 He is on immunosuppressive agents CellCept, Tacrolimus and Prednisone therapy as well as Azithro, Bactrim and Valcyte. Patient reports some intermittent chest pain following his most recent stent placement. He follows with Cardiology - Dr. Chandrika Weinstein from the [facility]. Several weeks ago his Isosorbide was increased from 60mg po daily to 90mg po daily and patient reports that he had no further episodes of chest pain until tonight. Patient reports that around 18:00 tonight he was walking his dog when he developed severe anterior chest pain, 8/10, non-pleuritic/non-radiating. He reports that this pain felt very similar to his prior anginal pain and the pain associated with his MIs. He returned home and sat down to rest. The pain continued to be severe for approximately 15 minutes then began to subside. After appx 30 minutes he was chest pain free. He felt some palpitations with the chest pain as well. Denies nausea, vomiting, diaphoresis, SOB or dizziness. Around 20:00 patient began getting ready for bed. He was putting on his pajamas when he had return of his chest pain. 4/10 in severity. He then decided to come to the ER. No additional chest pain. Presently feels well, no chest pain. No additional complaints at this time. In the ER he is afebrile, HD stable ER Course: Patient did take all his medications prior to arrival Allergies Allergy/AdvReac Type Severity Reaction Status Date / Time cefepime Allergy Intermediate rash Verified 05/20/23 11:54 poison laura extract Allergy Rash Verified 05/20/23 11:54 Home Medications Medication Instructions Recorded Confirmed Type cholecalciferol (vitamin D3) 50 2,000 unit PO DAILY@1400 05/11/18 11/25/23 History mcg (2,000 unit) tablet (Vitamin D3) mycophenolate mofetil 250 mg 500 mg PO BID 05/11/18 11/25/23 History capsule (CellCept) prednisone 5 mg tablet 5 mg PO DAILY 05/11/18 11/25/23 History valacyclovir 500 mg tablet 500 mg PO BID 05/11/18 11/25/23 History (Valtrex) pyridoxine (vitamin B6) 100 mg 100 mg PO DAILY 08/29/19 05/20/23 History tablet (Vitamin B-6) Spacer for Inhaler #1 ea 08/30/19 05/20/23 Rx acetaminophen 325 mg capsule 325 mg PO QID PRN pain or fever 08/12/21 11/25/23 History sildenafil 50 mg tablet (Viagra) 50 mg PO DAILY PRN sexual activity 09/04/21 05/20/23 Rx #6 tabs amlodipine 10 mg tablet 5 mg PO DAILY 02/01/23 11/25/23 History amoxicillin 500 mg tablet 0 mg PO ONCE 02/01/23 11/25/23 History apixaban 2.5 mg tablet (Eliquis) 2.5 mg PO BID 02/01/23 11/25/23 History aspirin 81 mg tablet,delayed 81 mg PO DAILY 02/01/23 11/25/23 History release azithromycin 250 mg tablet 250 mg PO 3XWK 02/01/23 11/25/23 History clopidogrel 75 mg tablet 75 mg PO DAILY 02/01/23 11/25/23 History fluorouracil 5 % topical cream See Rx Instructions .Route .COMPLEX 02/01/23 05/20/23 History lisinopril 10 mg tablet 10 mg PO BID 02/01/23 11/25/23 History magnesium chloride 64 mg 64 mg PO DAILY 02/01/23 11/25/23 History (magnesium chloride) tablet,delayed release (Mag 64) metoprolol tartrate 25 mg tablet 25 mg PO BID 02/01/23 11/25/23 History mupirocin 2 % topical ointment See Rx Instructions .Route .COMPLEX 02/01/23 05/20/23 History pantoprazole 40 mg tablet,delayed 40 mg PO BID 02/01/23 11/25/23 History release sulfamethoxazole 400 1 tab PO 3XWK 02/01/23 11/25/23 History mg-trimethoprim 80 mg tablet tacrolimus 0.5 mg capsule, 1 mg PO PM 02/01/23 11/25/23 History immediate-release tacrolimus 1 mg capsule, 1 mg PO QAM 02/01/23 11/25/23 History immediate-release prednisone 10 mg tablet See Rx Instructions PO BID #45 tabs 05/22/23 Rx Past Med/Surg History Medical History HTN (hypertension) History of Mohs micrographic surgery for skin cancer Upper respiratory infection CAD (coronary artery disease) Cough Subdural hematoma (10/05/14) 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) Surgical History Hx of appendectomy Hx of lung transplant bilateral History of cardiac catheterization Stent placement x's 6 Most recent, 09/15/2022 2 MARK to LAD (Dr Weinstein [facility]) Family History Mother Hearing loss Idiopathic pulmonary fibrosis Colorectal cancer Father Heart disease Myocardial infarction Brother Idiopathic pulmonary fibrosis Myocardial infarction Other No family history of adverse response to anesthesia No family history of bleeding disorder Denies family history of Ovarian cancer Prostate cancer Diabetes Breast cancer Lung cancer Stroke Social History Smoking Status: Never smoker Second Hand Exposure: No; Do You Dip or Chew Tobacco: No; Hx Alcohol Use: Yes Alcohol type: wine Hx Substance Use: No Preferred Language: [place] Islander Communication Ability: Effective Visual Impairment: Limited Hearing Ability: Normal Buckle 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 Required: No Beliefs That Will Affect Care: None marital status: Current Living Situation: Spouse current occupational status: employed 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) How many Children do You have: 2 Feels Safe at Home: Yes Childhood Exposure to Second-Hand Smoke: Yes caffeine: No Dental Care, Regularly: Yes Physical Activity Frequency: Daily Seatbelt Use: always Sunscreen Use: Yes Assistive Devices: Glasses Review of Systems Review of Systems: All systems reviewed & are unremarkable except as noted in HPI & below Physical Exam Physical Exam: General: patient resting comfortably, NAD, non-toxic in appearance, AA&O x 4 Skin: warm, dry, intact, no rashes or lesions HEENT: NC/AT, PERRL, EOMI, anicteric sclera, conjunctiva without injection, external ear normal to inspection and nontender, nares patent, moist mucus membranes, dentition intact, no oropharyngeal lesions, neck supple, trachea midline, no LAD, no thyromegaly, no JVD Heart: +S1/S2, irregularly irregular, no m/r/g, no chest wall pain Lungs: equal air entry bilaterally, no rales/rhonchi/wheezes Abd: +BS, soft, NT/ND, no masses/organomegaly/ascites Ext: warm, 2+ pulses in UE/LE bilaterally, no clubbing/cyanosis or edema Neuro: nonfocal, patient AA&O x 4, speech intact, no facial droop, moving all extremities on command with equal strength 5/5 Results & Data Results & Data Vital Signs (Past 12 Hours) Vital Signs Temp Pulse Pulse Resp BP BP Pulse Ox 11/25/23 22:30 98 H 23 115/78 96 11/25/23 22:15 85 22 122/67 96 11/25/23 21:45 79 22 114/78 96 11/25/23 21:30 74 24 11/25/23 21:23 92 H 11/25/23 21:16 93 H 20 105/64 96 11/25/23 21:09 88 22 113/72 94 11/25/23 21:01 89 20 97 11/25/23 20:44 36.7 C 100 H 18 117/65 98 O2 Del Method 11/25/23 22:30 11/25/23 22:15 11/25/23 21:45 11/25/23 21:30 11/25/23 21:23 11/25/23 21:16 11/25/23 21:09 Room Air 11/25/23 21:01 Room Air 11/25/23 20:44 Room Air Laboratory Results Laboratory Results WBC 8.70 K/ul (4.8-10.8) 11/25/23 20:55 RBC 4.21 M/uL (4.70-6.10) L 11/25/23 20:55 Hgb 12.3 g/dl (14.0-18.0) L 11/25/23 20:55 Hct 38.1 % (42.0-52.0) L 11/25/23 20:55 MCV 90.5 fL (80.0-100.0) 11/25/23 20:55 MCH 29.2 pg (25.0-34.0) 11/25/23 20:55 MCHC 32.3 g/dL (32.0-36.0) 11/25/23 20:55 RDW Std Deviation 47.7 fL (36.4-46.3) H 11/25/23 20:55 RDW Coeff of Fahad 14.6 % (11.5-14.5) H 11/25/23 20:55 Plt Count 183 K/uL (130-400) 11/25/23 20:55 MPV 10.5 fL (9.4-12.4) 11/25/23 20:55 Immature Gran % (Auto) 0.2 % 11/25/23 20:55 Neut % (Auto) 77.8 % 11/25/23 20:55 Lymph % (Auto) 13.2 % 11/25/23 20:55 Randolph % (Auto) 8.0 % 11/25/23 20:55 Eos % (Auto) 0.3 % 11/25/23 20:55 Baso % (Auto) 0.5 % 11/25/23 20:55 Neut # (Auto) 6.76 K/uL (1.40-6.50) H 11/25/23 20:55 Lymph # (Auto) 1.15 K/uL (1.20-3.40) L 11/25/23 20:55 Randolph # (Auto) 0.70 K/uL (0.11-0.59) H 11/25/23 20:55 Eos # (Auto) 0.03 K/uL (0.00-0.50) 11/25/23 20:55 Baso # (Auto) 0.04 K/uL (0.00-0.20) 11/25/23 20:55 Immature Gran # (Auto) 0.02 K/uL (0.01-0.20) 11/25/23 20:55 PT 11.4 Seconds (9.0-12.0) 11/25/23 20:55 INR 1.0 (0.9-1.1) 11/25/23 20:55 APTT 28 Seconds (21-31) 11/25/23 20:55 PTT Ratio 1.0 11/25/23 20:55 Sodium 136 mmol/L (136-145) 11/25/23 20:55 Potassium 5.0 mmol/L (3.5-5.1) 11/25/23 20:55 Chloride 104 mmol/L (98-107) 11/25/23 20:55 Carbon Dioxide 23 mmol/L (21-32) 11/25/23 20:55 Anion Gap 9 (3-11) 11/25/23 20:55 BUN 33 mg/dl (6-23) H 11/25/23 20:55 Creatinine 1.76 mg/dl (0.6-1.4) H 11/25/23 20:55 Est Cr Clr Drug Dosing 33.4 ml/min 11/25/23 20:55 Est GFR ( Amer) 40.8 ml/min 11/25/23 20:55 Est GFR (Non-Af Amer) 35.2 ml/min 11/25/23 20:55 BUN/Creatinine Ratio 18.8 (10-20) 11/25/23 20:55 Glucose 116 mg/dl (70-99(Fasting)) H 11/25/23 20:55 Calcium 9.5 mg/dl (8.6-10.3) 11/25/23 20:55 Magnesium 2.0 mg/dl (1.7-2.4) 11/25/23 22:58 Total Bilirubin 0.6 mg/dl (0.2-1.0) 11/25/23 20:55 AST 28 U/L (13-39) 11/25/23 20:55 ALT 21 U/L (7-52) 11/25/23 20:55 Alkaline Phosphatase 58 U/L (34-104) 11/25/23 20:55 Troponin I High Sens 18.2 pg/ml (0-20) D 11/25/23 22:58 Total Protein 7.4 gm/dl (6.0-8.3) 11/25/23 20:55 Albumin 4.4 gm/dl (3.4-5.0) 11/25/23 20:55 Globulin 3.0 gm/dl (2.5-4.0) 11/25/23 20:55 Albumin/Globulin Ratio 1.5 (0.9-2) 11/25/23 20:55 ECG Additional Comments: EKG with atrial fibrillation at 100bpm, left axis deviation with LBBB, DZM=688, PXh=879. Prior EKG from 02/01/23 (independently viewed) with atrial flutter, left axis deviation and LBBB with QRS of 150. Negative Sgarbossa for AMI PG Care Time/CCT Total # of Minutes Spent Total Time Spent with Patient: Total time spent is greater than 50% in coordination of care (as documented) at patient's floor/unit and/or counseling patient: Coding Level of Care Code 19009 INT INP/OBS CARE 3/75MIN Diagnoses Chest pain R07.9 Hx of lung transplant Z94.2 Essential hypertension I10 Hypertension type: essential hypertension CKD (chronic kidney disease), stage III N18.30 (3) HTN (hypertension) Hypertension type: essential hypertension Qualified Code(s): I10 - Essential (primary) hypertension
[2023-11-25 23:38] LABS: Troponin I High Sensitivity 18.2 pg/ml (0-20)
[2023-11-26] MEDS ORDERED: ACETAMINOPHEN 325 MG TAB PO PRN (00:38)
[2023-11-26] MEDS ORDERED: ONDANSETRON INJ 2 MG/ML 2 ML VIAL IV PRN (00:38)
[2023-11-26 06:39] LABS: Hematocrit (blood only) 34.4 % (42.0-52.0); Hemoglobin 11.3 g/dl (14.0-18.0); Mean Corpuscular Hemoglobin 29.1 pg (25.0-34.0); Mean Corpuscular Hgb Conc 32.8 g/dL (32.0-36.0); Mean Corpuscular Volume 88.7 fL (80.0-100.0); Mean Platelet Volume 10.1 fL (9.4-12.4); Platelet Count 142 K/uL (130-400); RDW Coefficient of Variation 14.5 % (11.5-14.5); RDW Standard Deviation 46.1 fL (36.4-46.3); Red Blood Count 3.88 M/uL (4.70-6.10); White Blood Count 5.05 K/ul (4.8-10.8)
[2023-11-26 06:51] LABS: Creatinine Clr Calc Pharmacy 38.4 ml/min; Est GFR (African American) 48.4 ml/min; Est GFR (Non-African American) 41.7 ml/min; Potassium 4.2 mmol/L (3.5-5.1)
--- NOTE | 2023-11-26 07:10 | XRay Report ---
XR chest 1V portable HISTORY: Chest pain, nonspecific COMPARISON: Chest 11/04/2023. FINDINGS: No pneumothorax. No pleural effusions. No new focal lung consolidations to suggest a pneumo pedrito. There are low lung volumes. No acute fractures. The heart remains enlarged. No evidence for pulm onary edema. IMPRESSION: Stable cardiomegaly. ACT 112: Negative or not required by law. Electronically signed by: Steven Cook M.D. 11/26/2023 7:08 AM
[2023-11-26] MEDS: amLODIPine BESYLATE 5 MG TAB PO SCH (08:14)
[2023-11-26] MEDS: ASPIRIN 81 MG ECTAB PO SCH (08:14)
[2023-11-26] MEDS: MYCOPHENOLATE MOFETIL 250 MG CAP PO SCH (08:14)
[2023-11-26] MEDS: APIXABAN 2.5 MG TAB PO SCH (08:14)
[2023-11-26] MEDS: valACYclovir HCL 500 MG TABLET PO SCH (08:14)
[2023-11-26] MEDS: ISOSORBIDE MONO EXTENDED REL 30 MG TABCR PO SCH (08:14)
[2023-11-26] MEDS: PANTOprazole 40 MG TAB PO SCH (08:15)
[2023-11-26] MEDS: METOPROLOL TARTRATE 25 MG TAB PO SCH (08:15)
[2023-11-26] MEDS: predniSONE 5 MG TAB PO SCH (08:15)
[2023-11-26] MEDS: CLOPIDOGREL BISULFATE 75 MG TAB PO SCH (08:15)
[2023-11-26] MEDS: lisinopril 10 MG TAB PO SCH (08:15)
[2023-11-26] MEDS: MAGNESIUM CHLORIDE W/CALCIUM 64MG DELAYED REL TAB PO SCH (08:15)
[2023-11-26] MEDS: TACROLIMUS 1 MG CAP PO SCH (08:15)
--- NOTE | 2023-11-26 08:54 | Cardiology Consultation ---
Date of Consultation November 26, 2023 Assessment & Plan (1) Chest pain: - CXR; cardiomegaly only - EKG; a fib, LBBB relatively unchanged from previous on file January 2023 - trop; 10 -> 18 -> 34, pt states his trop did not rise much with his TX in Aug 2023 - with rising troponin levels and quite classic cardiac symptoms with progression of his cardiac symptoms over time, recommend further cardiac evaluation - will schedule for heart cath later this afternoon, NPO until then (2) CAD (coronary artery disease): - continue home aspirin 81 mg daily - continue home clopidogrel 75 mg daily - continue home lisinopril 10 mg BID - continue home metoprolol tartrate 25 mg BID - continue home imdur XR 90 mg daily - recommend starting statin therapy vs PCSK9 inhibitor (3) HTN (hypertension): - BPs have been stable so far, largely 110s/60-70s - continue home amlodipine (4) Atrial fibrillation: - HRs have been largely stable thus far - continue home eliquis Supervising Physician Co-Signing Physician Notes Patient seen examined. Agree with Dr. Martinez's assessment and plan. History consistent with crescendo angina pectoris. Proceed with a cardiac catheterization later today (ate breakfast). History of Present Illness Reason for Consultation: elevated troponin, h/o CAD Requesting Physician: Dr. Yana Enriquez Attending Physician: Trace Ty MD History of Present Illness Pt is an 83 yo male with a past med hx of CAD s/p 9 stents with most recent 2 stents placed in Aug 2023 in [place] and followed by [facility] cardiology, HTN, paroxysmal a fib on eliquis, and idiopathic pulmonary fibrosis s/p b/l lung transplant at [facility] in 2012 on chronic immunosuppression who presents to the hospital on 11/25/23 for chest pain, admitted for further evaluation. Pt states that he had 2 stents placed in [place] in Aug 2023 and was told then that he had a heart attack. He states that then in October he noticed that he was having nearly daily episodes of angina when walking his dog. He states that he walks his dog daily and if he goes up certain hills that cause him to exert himself more that he would get chest pain every time, but if he avoided those hills and did an easier walk he may feel okay. He states that he told his [facility] assistant editor, who increased his imdur dosing. he states that since that increase he has been feeling great the last few weeks, but then last night had 8/10 anterior chest pain when walking his dog without shortness of breath or dizziness/syncope. He states he headed home and sat down and overall the episode lasted about 30 minutes. He states he felt fine once it resolved, but then when he went to get dressed for bed, even that level of exertion then gave him chest pain so he decided to come in and be evaluated due to his complex cardiac and medical hx. Today he is feeling well. No chest pain or SOB. He states he feels back to normal but is concerned given his last episode of chest pain was just when he was dressing whereas all his previous episodes were with pretty decent exertion. He does note his dad started having issues with his heart at age 45 and all of his brother have heart issues as well. Allergies Allergy/AdvReac Type Severity Reaction Status Date / Time cefepime Allergy Intermediate rash Verified 05/20/23 11:54 poison laura extract Allergy Rash Verified 05/20/23 11:54 Home Medications Medication Instructions Recorded Confirmed Type cholecalciferol (vitamin D3) 50 2,000 unit PO DAILY@1400 05/11/18 11/25/23 History mcg (2,000 unit) tablet (Vitamin D3) mycophenolate mofetil 250 mg 500 mg PO BID 05/11/18 11/25/23 History capsule (CellCept) prednisone 5 mg tablet 5 mg PO DAILY 05/11/18 11/25/23 History valacyclovir 500 mg tablet 500 mg PO BID 05/11/18 11/25/23 History (Valtrex) pyridoxine (vitamin B6) 100 mg 100 mg PO DAILY 08/29/19 05/20/23 History tablet (Vitamin B-6) Spacer for Inhaler #1 ea 08/30/19 05/20/23 Rx acetaminophen 325 mg capsule 325 mg PO QID PRN pain or fever 08/12/21 11/25/23 History sildenafil 50 mg tablet (Viagra) 50 mg PO DAILY PRN sexual activity 09/04/21 05/20/23 Rx #6 tabs amlodipine 10 mg tablet 5 mg PO DAILY 02/01/23 11/25/23 History amoxicillin 500 mg tablet 0 mg PO ONCE 02/01/23 11/25/23 History apixaban 2.5 mg tablet (Eliquis) 2.5 mg PO BID 02/01/23 11/25/23 History aspirin 81 mg tablet,delayed 81 mg PO DAILY 02/01/23 11/25/23 History release azithromycin 250 mg tablet 250 mg PO 3XWK 02/01/23 11/25/23 History clopidogrel 75 mg tablet 75 mg PO DAILY 02/01/23 11/25/23 History fluorouracil 5 % topical cream See Rx Instructions .Route .COMPLEX 02/01/23 05/20/23 History lisinopril 10 mg tablet 10 mg PO BID 02/01/23 11/25/23 History magnesium chloride 64 mg 64 mg PO DAILY 02/01/23 11/25/23 History (magnesium chloride) tablet,delayed release (Mag 64) metoprolol tartrate 25 mg tablet 25 mg PO BID 02/01/23 11/25/23 History mupirocin 2 % topical ointment See Rx Instructions .Route .COMPLEX 02/01/23 05/20/23 History pantoprazole 40 mg tablet,delayed 40 mg PO BID 02/01/23 11/25/23 History release sulfamethoxazole 400 1 tab PO 3XWK 02/01/23 11/25/23 History mg-trimethoprim 80 mg tablet tacrolimus 0.5 mg capsule, 1 mg PO PM 02/01/23 11/25/23 History immediate-release tacrolimus 1 mg capsule, 1 mg PO QAM 02/01/23 11/25/23 History immediate-release prednisone 10 mg tablet See Rx Instructions PO BID #45 tabs 05/22/23 Rx Patient History Medical History HTN (hypertension) History of Mohs micrographic surgery for skin cancer Upper respiratory infection CAD (coronary artery disease) Cough Subdural hematoma (10/05/14) 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) Surgical History Hx of appendectomy Hx of lung transplant bilateral History of cardiac catheterization Stent placement x's 6 Most recent, 09/15/2022 2 MARK to LAD (Dr Weinstein [facility]) Family History Mother Hearing loss Idiopathic pulmonary fibrosis Colorectal cancer Father Heart disease Myocardial infarction Brother Idiopathic pulmonary fibrosis Myocardial infarction Other No family history of adverse response to anesthesia No family history of bleeding disorder Denies family history of Ovarian cancer Prostate cancer Diabetes Breast cancer Lung cancer Stroke Social History Smoking Status: Never smoker Second Hand Exposure: No; Do You Dip or Chew Tobacco: No; Hx Alcohol Use: No Hx Substance Use: No Preferred Language: Jordanian Communication Ability: Effective Visual Impairment: Limited Hearing Ability: Normal 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 Required: No Beliefs That Will Affect Care: None marital status: Current Living Situation: Spouse current occupational status: employed 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) How many Children do You have: 2 Feels Safe at Home: Yes Safety Concerns: Feels Safe At This Time Childhood Exposure to Second-Hand Smoke: Yes caffeine: No Dental Care, Regularly: Yes Physical Activity Frequency: Daily Seatbelt Use: always Sunscreen Use: Yes Assistive Devices: None and Glasses Review of Systems Review of Systems: Constitutional: denies fever, chills, Cardio: denies chest pain, palpitations Resp: denies shortness of breath, GI: denies abdominal pain, nausea, vomiting, Physical Exam Physical Exam: General:Alert and oriented, no acute distress, HEENT: Normocephalic, moist oral mucosa, Cardio: Irregularly irregular rhythm, no murmur, no peripheral edema Resp:Some mild wheezing noted bilaterally but no appreciable increased work of breathing, no crackles/rales/rhonchi GI: Soft and nontender, nondistended, bowel sounds active Skin: Warm, pink, dry, Psych: Mood-affect congruence. Results & Data Vital Signs (Past 12 Hours) Vital Signs Temp Pulse Pulse Resp BP BP Pulse Ox 11/26/23 08:21 82 18 107/60 97 11/26/23 07:45 74 11/26/23 07:05 36.4 C L 77 20 107/62 97 11/26/23 06:05 36.6 C 82 15 113/71 98 11/26/23 05:00 121/73 11/26/23 05:00 85 24 99 11/26/23 04:08 76 15 111/69 97 11/26/23 04:00 111/69 03/28/24 04:00 79 12 99 11/26/23 03:02 98 11/26/23 03:00 82 10 L 84 L 11/26/23 03:00 117/65 11/26/23 02:30 77 17 97 11/26/23 02:01 88 16 96 11/26/23 02:01 116/79 11/26/23 01:47 91 H 14 132/82 96 11/26/23 01:30 88 21 96 11/26/23 01:05 132/82 11/26/23 01:05 96 H 27 H 99 11/26/23 01:03 97 H 18 98 11/26/23 00:30 78 23 96 11/26/23 00:23 86 11/26/23 00:00 92 H 19 98 11/25/23 23:45 80 24 96 11/25/23 23:45 125/79 11/25/23 23:30 120/71 11/25/23 23:30 76 19 94 11/25/23 23:15 130/85 11/25/23 23:15 82 22 97 11/25/23 23:00 138/70 11/25/23 23:00 85 22 95 11/25/23 22:45 129/74 11/25/23 22:45 85 24 95 11/25/23 22:30 98 H 23 115/78 96 11/25/23 22:15 85 22 122/67 96 11/25/23 21:45 79 22 114/78 96 11/25/23 21:30 74 24 11/25/23 21:23 92 H 11/25/23 21:16 93 H 20 105/64 96 11/25/23 21:09 88 22 113/72 94 11/25/23 21:01 89 20 97 O2 Del Method O2 Flow Rate 11/26/23 08:21 Room Air 11/26/23 07:45 11/26/23 07:05 Room Air 11/26/23 06:05 Room Air 11/26/23 05:00 11/26/23 05:00 11/26/23 04:08 Nasal Cannula 2 11/26/23 04:00 11/26/23 04:00 11/26/23 03:02 Nasal Cannula 2 11/26/23 03:00 11/26/23 03:00 11/26/23 02:30 11/26/23 02:01 11/26/23 02:01 11/26/23 01:47 Room Air 11/26/23 01:30 11/26/23 01:05 11/26/23 01:05 11/26/23 01:03 11/26/23 00:30 11/26/23 00:23 11/26/23 00:00 11/25/23 23:45 11/25/23 23:45 11/25/23 23:30 11/25/23 23:30 11/25/23 23:15 11/25/23 23:15 11/25/23 23:00 11/25/23 23:00 11/25/23 22:45 11/25/23 22:45 11/25/23 22:30 11/25/23 22:15 11/25/23 21:45 11/25/23 21:30 11/25/23 21:23 11/25/23 21:16 11/25/23 21:09 Room Air 11/25/23 21:01 Room Air PG Care Time/CCT Total # of Minutes Spent Total Time Spent with Patient: Total time spent is greater than 50% in coordination of care (as documented) at patient's floor/unit and/or counseling patient: Coding Level of Care Code 46719 INT INP/OBS CARE 3/75MIN Diagnoses Chest pain R07.9 Coronary artery disease involving [place] coronary artery of [place] heart without angina pectoris I25.10 Associated angina: without angina Coronary Disease-Associated Artery/Lesion type: [place] artery [place] vs. transplanted heart: [place] heart Essential hypertension I10 Hypertension type: essential hypertension Atrial fibrillation I48.91 Resident Activity Tracking Resident Involvement: Resident Care Provided Care Provided: Adult Hospital Medicine (2) CAD (coronary artery disease) Associated angina: without angina Coronary Disease-Associated Artery/Lesion type: [place] artery [place] vs. transplanted heart: [place] heart Qualified Code(s): I25.10 - Atherosclerotic heart disease of [place] coronary artery without angina pectoris (3) HTN (hypertension) Hypertension type: essential hypertension Qualified Code(s): I10 - Essential (primary) hypertension
--- NOTE | 2023-11-26 12:24 | Electrocardiogram Report ---
Test Reason : Blood Pressure : / mmHG Vent. Rate : 100 BPM Atrial Rate : 000 BPM P-R Int : 000 ms QRS Dur : 152 ms QT Int : 332 ms P-R-T Axes : 000 -58 122 degrees QTc Int : 428 ms Atrial fibrillation Left axis deviation Left bundle branch block Abnormal ECG When compared with ECG of 01-FEB-2023 09:28, Atrial fibrillation has replaced Atrial flutter QT has shortened Confirmed by Bernabe Abdi ([id number]) on 11/26/2023 12:24:00 PM Referred By: REFERRED SELF Confirmed By:Bernabe Abdi
--- NOTE | 2023-11-26 13:41 | Pre Anesthesia Assessment ---
Date of Service November 26, 2023 Pre Sedation Assessment Vital Signs Temp Pulse Pulse Resp BP BP Pulse Ox 11/26/23 13:03 78 119/72 97 11/26/23 12:10 97.7 F 68 20 128/86 98 11/26/23 11:16 80 20 110/54 L 96 11/26/23 08:21 82 18 107/60 97 11/26/23 07:45 74 11/26/23 07:05 97.5 F L 77 20 107/62 97 11/26/23 06:05 97.9 F 82 15 113/71 98 11/26/23 05:00 121/73 11/26/23 05:00 85 24 99 11/26/23 04:08 76 15 111/69 97 11/26/23 04:00 111/69 11/26/23 04:00 79 12 99 11/26/23 03:02 98 11/26/23 03:00 82 10 L 84 L 11/26/23 03:00 117/65 11/26/23 02:30 77 17 97 11/26/23 02:01 88 16 96 11/26/23 02:01 116/79 11/26/23 01:47 91 H 14 132/82 96 11/26/23 01:30 88 21 96 11/26/23 01:05 132/82 11/26/23 01:05 96 H 27 H 99 11/26/23 01:03 97 H 18 98 11/26/23 00:30 78 23 96 11/26/23 00:23 86 11/26/23 00:00 92 H 19 98 11/25/23 23:45 80 24 96 11/25/23 23:45 125/79 11/25/23 23:30 120/71 11/25/23 23:30 76 19 94 11/25/23 23:15 130/85 11/25/23 23:15 82 22 97 11/25/23 23:00 138/70 11/25/23 23:00 85 22 95 11/25/23 22:45 129/74 11/25/23 22:45 85 24 95 11/25/23 22:30 98 H 23 115/78 96 11/25/23 22:15 85 22 122/67 96 11/25/23 21:45 79 22 114/78 96 11/25/23 21:30 74 24 03/27/24 21:23 92 H 11/25/23 21:16 93 H 20 105/64 96 11/25/23 21:09 88 22 113/72 94 11/25/23 21:01 89 20 97 11/25/23 20:44 98.1 F 100 H 18 117/65 98 O2 Del Method O2 Flow Rate 11/26/23 13:03 Room Air 11/26/23 12:10 Room Air 11/26/23 11:16 Room Air 11/26/23 08:21 Room Air 11/26/23 07:45 11/26/23 07:05 Room Air 11/26/23 06:05 Room Air 11/26/23 05:00 11/26/23 05:00 11/26/23 04:08 Nasal Cannula 2 11/26/23 04:00 11/26/23 04:00 11/26/23 03:02 Nasal Cannula 2 11/26/23 03:00 11/26/23 03:00 11/26/23 02:30 11/26/23 02:01 11/26/23 02:01 11/26/23 01:47 Room Air 11/26/23 01:30 11/26/23 01:05 11/26/23 01:05 11/26/23 01:03 11/26/23 00:30 11/26/23 00:23 11/26/23 00:00 11/25/23 23:45 11/25/23 23:45 11/25/23 23:30 11/25/23 23:30 11/25/23 23:15 11/25/23 23:15 11/25/23 23:00 11/25/23 23:00 11/25/23 22:45 11/25/23 22:45 11/25/23 22:30 11/25/23 22:15 11/25/23 21:45 11/25/23 21:30 11/25/23 21:23 11/25/23 21:16 11/25/23 21:09 Room Air 11/25/23 21:01 Room Air 11/25/23 20:44 Room Air Cardiovascular + regular rate Respiratory + respiratory effort normal Pre-Sedation Airway Assessment Smoking Status: Never smoker Hx Sleep Apnea: No Hx Difficult Intubation: No Short, Thick Neck: No Thyromental Distance: > or= 3.5 Finger Breadths Oral Cavity: + WNL Mallampati Class: II ASA: ASA2 NPO Status Date of Last Intake of Fluids: 11/26/23 Time of Last Intake of Fluids: 09:00 Date of Last Intake of Solid Food: 11/26/23 Procedure Planning Contraindications for Sedation: none Current Medications Reviewed: Yes Notes The planned sedation has been discussed with the patient. Informed Consent was obtained. I have identified the patient, determined the appropriateness of sedation and have assessed the patient immediately prior to the procedure. All medicine(s) and interventions are by my order.
--- NOTE | 2023-11-26 14:14 | Post Anesthesia Assessment ---
Date of Service November 26, 2023 Post Sedation Assessment Vital Signs Temp Pulse Pulse Resp BP BP Pulse Ox 11/26/23 13:03 78 119/72 97 11/26/23 12:10 97.7 F 68 20 128/86 98 11/26/23 11:16 80 20 110/54 L 96 11/26/23 08:21 82 18 107/60 97 11/26/23 07:45 74 11/26/23 07:05 97.5 F L 77 20 107/62 97 11/26/23 06:05 97.9 F 82 15 113/71 98 11/26/23 05:00 121/73 11/26/23 05:00 85 24 99 11/26/23 04:08 76 15 111/69 97 11/26/23 04:00 111/69 11/26/23 04:00 79 12 99 11/26/23 03:02 98 11/26/23 03:00 82 10 L 84 L 11/26/23 03:00 117/65 11/26/23 02:30 77 17 97 11/26/23 02:01 88 16 96 11/26/23 02:01 116/79 11/26/23 01:47 91 H 14 132/82 96 11/26/23 01:30 88 21 96 11/26/23 01:05 132/82 11/26/23 01:05 96 H 27 H 99 11/26/23 01:03 97 H 18 98 11/26/23 00:30 78 23 96 11/26/23 00:23 86 11/26/23 00:00 92 H 19 98 11/25/23 23:45 80 24 96 11/25/23 23:45 125/79 11/25/23 23:30 120/71 11/25/23 23:30 76 19 94 11/25/23 23:15 130/85 11/25/23 23:15 82 22 97 11/25/23 23:00 138/70 11/25/23 23:00 85 22 95 11/25/23 22:45 129/74 11/25/23 22:45 85 24 95 11/25/23 22:30 98 H 23 115/78 96 11/25/23 22:15 85 22 122/67 96 11/25/23 21:45 79 22 114/78 96 11/25/23 21:30 74 24 03/27/24 21:23 92 H 11/25/23 21:16 93 H 20 105/64 96 11/25/23 21:09 88 22 113/72 94 11/25/23 21:01 89 20 97 11/25/23 20:44 98.1 F 100 H 18 117/65 98 O2 Del Method O2 Flow Rate 11/26/23 13:03 Room Air 11/26/23 12:10 Room Air 11/26/23 11:16 Room Air 11/26/23 08:21 Room Air 11/26/23 07:45 11/26/23 07:05 Room Air 11/26/23 06:05 Room Air 11/26/23 05:00 11/26/23 05:00 11/26/23 04:08 Nasal Cannula 2 11/26/23 04:00 11/26/23 04:00 11/26/23 03:02 Nasal Cannula 2 11/26/23 03:00 11/26/23 03:00 11/26/23 02:30 11/26/23 02:01 11/26/23 02:01 11/26/23 01:47 Room Air 11/26/23 01:30 11/26/23 01:05 11/26/23 01:05 11/26/23 01:03 11/26/23 00:30 11/26/23 00:23 11/26/23 00:00 11/25/23 23:45 11/25/23 23:45 11/25/23 23:30 11/25/23 23:30 11/25/23 23:15 11/25/23 23:15 11/25/23 23:00 11/25/23 23:00 11/25/23 22:45 11/25/23 22:45 11/25/23 22:30 11/25/23 22:15 11/25/23 21:45 11/25/23 21:30 11/25/23 21:23 11/25/23 21:16 11/25/23 21:09 Room Air 11/25/23 21:01 Room Air 11/25/23 20:44 Room Air Recovery Score Activity: Moves 4 extremities Respiration: Deep Breath/Cough Circulation: +/-20% PreAnes Value Consciousness: Fully Awake Oxygen Saturation: O2 needed for >90% Discharge Sedation Level of Care: Fast Track Phase II Post Sedation Plan On clinical assessment, the patient appears to have tolerated the sedation without complications. Patient is recovering as anticipated. Patient will continue to be monitored by nursing and may be discharged when sedation discharge criteria are met per below protocol. Upon Completions of procedure up to 15 minutes continue every 5 minute vital signs and the P.A.R. score; then discharge to a Phase I or Fast Track to Phase II per the following guidelines: * Discharge Patient to appropriate Phase II area if PAR is 8 or greater or return to pre- procedure baseline. The post - procedure orders will be as directed. * If PAR score is less than 8 or not return to pre-procedure baseline then patient will follow Phase I monitoring till PAR is reached for Phase II. The Phase I may be done in procedure room or may call to secure a Phase I area. * If naloxone or flumazenil are used for reversal, hold in Phase I for continued monitoring from when last reversal dose was given for a minimum of 60 minutes or longer pending the nurse and/or physician discretion of patient condition before discharge to Phase II. Please call the Sedation Physician to re-evaluate and complete post-note for discharge to Phase II area. Do NOT discharge from procedure sedation or Phase 1 until post- sedation evaluation note is complete by procedure /sedation MD Sedation Discharge Instructions to be given to the patient at discharge to home.
--- NOTE | 2023-11-26 14:15 | Cardiac Catheterization ---
[facility] Data: Endoscopic Technician Cardiac Status Clinical evaluation leading to the procedure CAD Presenation: Unstable angina Anginal Classification: CCS IV Diagnostic Physicians Name: Axel Covington MD Closure Device Recommendations: Medical Therapy and/or Counseling Cardiac Cath Procedure Full Procedure Date November 26, 2023 Pre-Procedure Diagnosis Pre-Procedure Diagnosis: Acute Coronary Syndrome AUC Score AUC Score: 7 Post-Procedure Diagnosis Post-Procedure Diagnosis: Moderate CAD and Normal Intracardiac Pressures Procedure(s) Performed Procedure(s) Performed: Coronary Angiography and Left Heart Cath Rag Baler Axel Covington MD Safety Deposit Supervisor(s) Jah Estimated Blood Loss Estimated Blood Loss: 10 Medication(s) Medication(s): Fentanyl, Heparin, Lidocaine 1%, Nicardipine, Nitroglycerin and Versed Summary of Findings Indication: Unstable angina. History of complex coronary disease. Last PCI with stents to RCA, LAD 08/2023 Access: 6 Fr slender right radial artery Catheters: [place] Findings: LM -normal caliber, no significant disease LAD -medium caliber, proximal to mid stents widely patent. Distal vessel without significant disease and wraps around apex. High D1 medium caliber, 40% ostial. Medium D3 stents patent with 50-60% ostial in-stent restenosis. Circumflex -small caliber, 30-40% ostial/proximal stenosis. Small to moderate caliber OM without disease. RCA -dominant, large caliber proximal to mid stents widely patent with 30% in- stent restenosis, 40% mid segment stenosis after previous stents. Right posterior view branch with 60% stenosis prior to large PLB LVEDP -7 Arterial Closure: TR band Summary: 1. Moderate nonobstructive coronary artery disease -Proximal to mid LAD stents widely patent. 50-60% ostial D3 in-stent restenosis Proximal to mid RCA stents widely patent. 60% stenosis in right posterior AV branch 2. Normal intracardiac filling pressure Recommendations: No high risk or obstructive CAD to explain patient's recent acute chest pain. Recommend additional antianginal therapy, continued ASCVD risk factor modification. If refractory exertional symptoms in the future FFR/PCI of right posterior AV branch could be considered Hemodynamics Rest Ao:: 97/53/69 Final Ao: 106/53/75 LV: 107/7 Recommendations Recommendations: Medical Therapy and/or Counseling Specimens Specimens: None Radiation Exposure (mGy) 681 Contrast (mls) 50 Anesthesia Moderate 7599-0032 Procedural Complication(s) None Disposition PCU I attest to the content of the Intraoperative Record and any orders documented therein. Any exceptions are noted below. [facility] Card Cath Procedure Codes Cardiac Catheterization Procedure 1: Cardiovascular Cath Procedures: 83923 Coronaries and LHC (+/-LV) Moderate Sedation Procedure 1: Sedation/Anesthesia: 51149 Mod Sedation by the same physician;Init15 Min Child Age 5 & Up PG Care Time/CCT Total # of Minutes Spent Total Time Spent with Patient: Total time spent is greater than 50% in coordination of care (as documented) at patient's floor/unit and/or counseling patient:
[2023-11-26] MEDS: fentaNYL citrate PF 100 MCG/2 ML VIAL ONE (14:40)
[2023-11-26] MEDS: MIDAZOLAM HCL 1 MG/ML 2ML VIAL ONE (14:40)
[2023-11-26] MEDS: niCARdipine HCL INJ 2.5 MG/ML 10 ML AMP ONE (14:41)
[2023-11-26] MEDS: NITROGLYCERIN/D5W 100MCG/ML 20ML SYR ONE (14:41)
[2023-11-26] MEDS: IODIXANOL (VISIPAQUE) 320 MG/ML 100ML IV ONE (14:41)
[2023-11-26] MEDS: SODIUM CHLORIDE 0.9% 1,000 ML IV SCH (14:59)
[2023-11-26] MEDS: HEPARIN (PORCINE) 1000 UNIT/ML 10 ML (CATH LAB USE ONLY) ONE (15:01)
--- NOTE | 2023-11-26 20:10 | Hospitalist Progress Note ---
Date of Service November 26, 2023 Assessment & Plan (1) Chest pain: Plan: s/p cardiac cath today see #2 below 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 if so he is already on amlodipine 2nd to rapid a.fib? (HRs hit 150s/160s while walking in hallway today) pulmonary based pain? other? appreciate cardiology assistance of note - patient's primary Laborer/[place] is Dr. Chandrika Weinstein [facility] (2) CAD (coronary artery disease): Plan: s/p cath today by Dr Covington Findings: LM -normal caliber, no significant disease LAD -medium caliber, proximal to mid stents widely patent. Distal vessel without significant disease and wraps around apex. High D1 medium caliber, 40% ostial. Medium D3 stents patent with 50-60% ostial in-stent restenosis. Circumflex -small caliber, 30-40% ostial/proximal stenosis. Small to moderate caliber OM without disease. RCA -dominant, large caliber proximal to mid stents widely patent with 30% in- stent restenosis, 40% mid segment stenosis after previous stents. 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 - Prednisone 5mg daily, Tacrolimus 1mg po BID and CellCept 500mg po BID Continue prophylactic therapy with Bactrim DS 3x weekly, Azithromycin and Valtrex O2 sats wnl Lung exam wnl (4) HTN (hypertension): Plan: Controlled Continue Amlodipine, Metoprolol and Isosorbide (5) CKD (chronic kidney disease), stage III: Plan: CrCl baseline 30s Cr today is stable BMP am for stability (6) Atrial fibrillation: Plan: 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 and metoprolol rates largely controlled, but with exercise / walking today he did hit 150s/160s sustained no symptoms, however uncertain if those HRs could have triggered his chest pain given his age (max predicted HR based on age of 83 is ~140) (7) Elevated troponin: Plan: likely myocardial demand ischemia in setting of heavy exertional exercise in setting of nonobstructive CAD Peak troponin 34 Plan /son updated at bedside observe overnight Admission and Anticipated Discharge Date Admission Date: November 25, 2023 Subjective tele overnight - a.fib, most rates <100 underwent cardiac cath today - nonobstructive CAD found with largest stenosis of 60% found saw patient post-cath he was resting comfortably in bed no chest pain today either at rest or with exertion denies dyspnea he is perplexed by his cath results in that his symptoms leading up to this admission were very similar to his symptoms in August when he had acute [place] he asks about coronary vasospasm pt's and son were at bedside following my visit I had the patient walk in hallway HRs hit peak of 150s/160s after lap 3 of his walk HRs improved to 80s quickly with rest Review of Systems Review of Systems: gen - no recent illness pulm - no cough, no congestion, no dyspnea cv - no orthopnea, no edema, no chest pain GI - no N/V Physical Exam Physical Exam: gen - NAD, pleasant neck - no JVD mouth - MMM heart - irregularly irregular, s1 s2, no murmur lungs - CTA b/l with slightly decreased BS at the bases abd - soft NT ND BS+ ext - varicose veins, no edema, pulses 2+ b/l chest - no reproducible chest wall tenderness to palpation vascular - right radial artery w/o hematoma Results & Data Results & Data Vital Signs (Past 12 Hours) Vital Signs Temp Pulse Pulse Pulse Resp BP BP 11/26/23 19:52 124/68 11/26/23 19:27 36.5 C 80 16 132/67 11/26/23 18:35 36.7 C 88 18 115/70 11/26/23 17:35 36.7 C 87 18 110/70 11/26/23 17:17 36.6 C 81 16 128/81 11/26/23 16:04 36.5 C 78 16 114/66 11/26/23 15:35 36.7 C 81 20 116/69 11/26/23 15:33 89 11/26/23 15:20 36.7 C 90 20 114/78 11/26/23 15:05 36.7 C 73 90 16 114/67 11/26/23 14:26 78 111/67 11/26/23 14:15 78 98/60 L 11/26/23 13:03 78 119/72 11/26/23 12:10 36.5 C 68 20 128/86 11/26/23 11:16 80 20 110/54 L 11/26/23 08:21 82 18 107/60 Pulse Ox O2 Del Method 11/26/23 19:52 97 Room Air 11/26/23 19:27 96 Room Air 11/26/23 18:35 98 Room Air 11/26/23 17:35 98 Room Air 11/26/23 17:17 97 Room Air 11/26/23 16:04 98 Room Air 11/26/23 15:35 99 Room Air 11/26/23 15:33 11/26/23 15:20 99 Room Air 11/26/23 15:05 97 Room Air 11/26/23 14:26 97 Room Air 11/26/23 14:15 97 Room Air 11/26/23 13:03 97 Room Air 11/26/23 12:10 98 Room Air 11/26/23 11:16 96 Room Air 11/26/23 08:21 97 Room Air Laboratory Results Laboratory Results - last 24 hr 11/26/23 11/26/23 11/26/23 06:00 12:31 17:33 WBC 5.05 RBC 3.88 L Hgb 11.3 L Hct 34.4 L MCV 88.7 MCH 29.1 MCHC 32.8 RDW Std Deviation 46.1 RDW Coeff of [place] 14.5 Plt Count 142 MPV 10.1 Sodium 140 Potassium 4.2 Chloride 110 H Carbon Dioxide 22 Anion Gap 8 BUN 29 H Creatinine 1.53 H Est Cr Clr Drug Dosing 38.4 Est GFR ( Amer) 48.4 Est GFR (Non-Af Amer) 41.7 BUN/Creatinine Ratio 19.0 Glucose 89 Calcium 9.0 Troponin I High Sens 34.0 H D 20.6 H D 15.8 D PG Care Time/CCT Total # of Minutes Spent Total Time Spent with Patient: Total time spent is greater than 50% in coordination of care (as documented) at patient's floor/unit and/or counseling patient: Coding Level of Care Code 12895 SUB INP/OBS CARE 2/35MIN Diagnoses Chest pain R07.9 Coronary artery disease involving [place] coronary artery of [place] heart without angina pectoris I25.10 Coronary Disease-Associated Artery/Lesion type: [place] artery [place] vs. transplanted heart: [place] heart Associated angina: without angina Hx of lung transplant Z94.2 Essential hypertension I10 Hypertension type: essential hypertension CKD (chronic kidney disease), stage III N18.30 Atrial fibrillation I48.91 Elevated troponin R79.89 (2) CAD (coronary artery disease) Coronary Disease-Associated Artery/Lesion type: [place] artery [place] vs. transplanted heart: [place] heart Associated angina: without angina Qualified Code(s): I25.10 - Atherosclerotic heart disease of [place] coronary artery without angina pectoris (4) HTN (hypertension) Hypertension type: essential hypertension Qualified Code(s): I10 - Essential (primary) hypertension
[2023-11-26] MEDS ORDERED: TACROLIMUS 1 MG CAP PO SCH (21:00)
[2023-11-27 07:08] LABS: BUN Creatinine Ratio 18.4 (10-20); Creatinine Clr Calc Pharmacy 38.7 ml/min; Est GFR (African American) 48.8 ml/min; Est GFR (Non-African American) 42.1 ml/min; Potassium 4.3 mmol/L (3.5-5.1)
[2023-11-27] MEDS: SULFA/TRIMETH 400/80MG TAB PO SCH (08:42)
[2023-11-27] MEDS: AZITHROMYCIN 250 MG TAB PO SCH (08:46)
--- NOTE | 2023-11-27 12:11 | Cardiology Progress Note ---
Date of Service November 27, 2023 Assessment & Plan (1) CAD (coronary artery disease): Plan: -patent proximal to mid LAD stents. -patent proximal to mid RCA stents. -50-60% ostial D3 in stent restenosis. -60% right PLB stenosis. -ambulated today without angina pectoris. -consider increasing metoprolol tartrate dose (see below). -consider a trial of ranolazine 500 mg b.i.d. -consider statin therapy versus PCSK9 inhibitor. -would discontinue aspirin as he is on Eliquis and Plavix. (2) HTN (hypertension): Plan: -medication changes as below. (3) Atrial fibrillation: Plan: -ventricular response elevated significantly with ambulation. -would decrease lisinopril to 10 mg daily and increase metoprolol tartrate to 50 mg b.i.d. -continue Eliquis. Admission and Anticipated Discharge Date Admission Date: November 25, 2023 Subjective The patient is resting comfortably in bed without complaints of chest pain, dyspnea, or palpitations. His family is at the bedside. Physical Exam Physical Exam: In general this is a well-developed well-nourished white male in no acute distress. HEENT exam is negative. Neck is supple with full carotid upstrokes. There are no carotid bruits. Jugular venous pressure is flat at 90. There is no thyromegaly. Cardiovascular exam reveals a regular rhythm with a normal S1 and S2. No S3, S4, or murmurs are noted. Lungs are clear without rales, rhonchi, or wheezes. Abdomen is soft and nontender without bruits. Extremities reveal intact radial artery and posterior tibial pulses bilaterally. There is no peripheral edema. Results & Data Vital Signs (Past 12 Hours) Vital Signs Temp Pulse Resp BP Pulse Ox O2 Del Method 11/27/23 08:44 36.6 C 81 17 110/61 99 Room Air 11/27/23 02:52 36.4 C L 85 16 102/56 L 98 Room Air Diagnostic Findings front desk monitor notes rate controlled atrial fibrillation at rest. His ventri cular response accelerates when walking. PG Care Time/CCT Total # of Minutes Spent Total Time Spent with Patient: Total time spent is greater than 50% in coordination of care (as documented) at patient's floor/unit and/or counseling patient: Coding Level of Care Code 04975 SUB INP/OBS CARE MIN Diagnoses Coronary artery disease involving [place] coronary artery of [place] heart without angina pectoris I25.10 Coronary Disease-Associated Artery/Lesion type: [place] artery [place] vs. transplanted heart: [place] heart Associated angina: without angina Essential hypertension I10 Hypertension type: essential hypertension Atrial fibrillation I48.91 (1) CAD (coronary artery disease) Coronary Disease-Associated Artery/Lesion type: [place] artery [place] vs. transplanted heart: [place] heart Associated angina: without angina Qualified Code(s): I25.10 - Atherosclerotic heart disease of [place] coronary artery without angina pectoris (2) HTN (hypertension) Hypertension type: essential hypertension Qualified Code(s): I10 - Essential (primary) hypertension
[2023-11-27] MEDS: METOPROLOL TARTRATE 25 MG TAB PO STA (12:48)
[2023-11-27] MEDS: METOPROLOL TARTRATE 25 MG TAB PO ONE (12:50)
--- NOTE | 2023-11-27 16:28 | Hospitalist Progress Note ---
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 if vasospasm he is already on amlodipine 2nd to rapid a.fib? (HRs hit 150s/160s while walking in hallway last night) other? plan - increase metoprolol dose to 37.5mg BID appreciate Dr Abdi's assistance of note - patient's primary Message And Delivery Service Pricer is Dr. Chandrika Weinstein [facility] (2) CAD (coronary artery disease): Plan: s/p cath by Dr Covington on 11/25 Findings: LM -normal caliber, no significant disease LAD -medium caliber, proximal to mid stents widely patent. Distal vessel without significant disease and wraps around apex. High D1 medium caliber, 40% ostial. Medium D3 stents patent with 50-60% ostial in-stent restenosis. Circumflex -small caliber, 30-40% ostial/proximal stenosis. Small to moderate caliber OM without disease. RCA -dominant, large caliber proximal to mid stents widely patent with 30% in- stent restenosis, 40% mid segment stenosis after previous stents. Right posterior view branch with 60% stenosis prior to large PLB thus, nonobstructive CAD found HOWEVER, if he were to have recurrent or persistent symptoms, Dr Covington would consider FFR/PCI of right posterior AV branch that has 60% stenosis in meantime continue asa, plavix, imdur plan to increase metoprolol to 37.5mg BID due to rapid rates with activity/walking HOLD lisinopril due to increased dose of metoprolol - will attempt to resume, likely to need 10mg or less HOLD amlodipine - attempt to resume at 5mg (3) Hx of lung transplant: Plan: Continue home regimen - Prednisone 5mg daily, Tacrolimus 1mg po BID and CellCept 500mg po BID Continue prophylactic therapy with Bactrim DS 3x weekly, Azithromycin and Valtrex O2 sats wnl Lung exam wnl (4) HTN (hypertension): Plan: Controlled Continue Metoprolol but increase to 37.5mg BID Continue Imdur Hold amlodipine and lisinopril while we see the effects of the increased dose of metoprolol (5) CKD (chronic kidney disease), stage III: Plan: CrCl baseline 30s Cr stable at 1.5 BMP am for stability (6) Atrial fibrillation: Plan: 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 and metoprolol rates largely controlled, but with exercise / walking yesterday he did hit 150s/160s sustained no symptoms, however uncertain if those HRs could have triggered his chest pain given his age (max predicted HR based on age of 83 is ~140) Dr Abdi advising increase in metoprolol - will increase to 37.5mg BID (7) Elevated troponin: Plan: likely myocardial demand ischemia in setting of heavy exertional exercise in setting of nonobstructive CAD Peak troponin 34 Plan /son updated at bedside yesterday patient had mild hypotension after increasing his metoprolol to 37.5mg earlier today gave small fluid bolus of 250cc BP improved following such advised against hospital discharge will follow BPs and HRs overnight change observation status to full admission status care d/w Dr Abdi from cardiology Admission and Anticipated Discharge Date Admission Date: November 25, 2023 Subjective tele overnight - a.fib, most rates <100 however, last pm we walked Mr Barrios in the hallway during his 3rd lap around the unit his HR hit 150-160 sustained once back to his room his HR returned to <100 Mr Barrios has had no chest pain with activity no dyspnea or CHAPMAN no nausea eating well no GI symptoms no dizziness even despite mildly low BPs after his metoprolol was increased Review of Systems Review of Systems: cv - no orthopnea, no PND pulm - no cough GI - no abd pain Physical Exam Physical Exam: gen - NAD, pleasant, laying comfortably in bed neck - no JVD mouth - MMM heart - irregularly irregular, s1 s2, no murmur lungs - CTA b/l, no rales or wheeze abd - soft NT ND BS+ ext - varicose veins, no edema, pulses 2+ b/l vascular - right radial artery w/o hematoma or aneurysm Results & Data Results & Data Vital Signs (Past 12 Hours) Vital Signs Temp Pulse Resp BP Pulse Ox O2 Del Method 11/27/23 15:35 36.7 C 81 17 95/53 L 97 Room Air 11/27/23 14:15 75 91/53 L 11/27/23 12:15 108/66 11/27/23 11:25 36.6 C 79 17 99/61 L 93 Room Air 11/27/23 08:44 36.6 C 81 17 110/61 99 Room Air Laboratory Results Laboratory Results - last 24 hr 11/27/23 06:07 Sodium 140 Potassium 4.3 Chloride 110 H Carbon Dioxide 24 Anion Gap 6 BUN 28 H Creatinine 1.52 H Est Cr Clr Drug Dosing 38.7 Est GFR ( Amer) 48.8 Est GFR (Non-Af Amer) 42.1 BUN/Creatinine Ratio 18.4 Glucose 87 Calcium 9.0 PG Care Time/CCT Total # of Minutes Spent Total Time Spent with Patient: Total time spent is greater than 50% in coordination of care (as documented) at patient's floor/unit and/or counseling patient: Coding Level of Care Code 74797 SUB INP/OBS CARE 3/50MIN Diagnoses Chest pain R07.9 Coronary artery disease involving [place] coronary artery of [place] heart without angina pectoris I25.10 Associated angina: without angina Coronary Disease-Associated Artery/Lesion type: [place] artery [place] vs. transplanted heart: [place] heart Hx of lung transplant Z94.2 Essential hypertension I10 Hypertension type: essential hypertension CKD (chronic kidney disease), stage III N18.30 Atrial fibrillation I48.91 Elevated troponin R79.89 (2) CAD (coronary artery disease) Associated angina: without angina Coronary Disease-Associated Artery/Lesion type: [place] artery [place] vs. transplanted heart: [place] heart Qualified Code(s): I25.10 - Atherosclerotic heart disease of [place] coronary artery without angina pectoris (4) HTN (hypertension) Hypertension type: essential hypertension Qualified Code(s): I10 - Essential (primary) hypertension
[2023-11-27] MEDS: SODIUM CHLORIDE 0.9% 250 ML IV ONE (16:38)
[2023-11-27] MEDS ORDERED: METOPROLOL TARTRATE 50 MG TAB PO SCH (21:00)
[2023-11-27] MEDS: METOPROLOL TARTRATE 50 MG TAB PO SCH (22:29)
[2023-11-28 08:34] LABS: BUN Creatinine Ratio 19.1 (10-20); Creatinine Clr Calc Pharmacy 38.7 ml/min; Est GFR (African American) 48.8 ml/min; Est GFR (Non-African American) 42.1 ml/min; Potassium 4.4 mmol/L (3.5-5.1)
[2023-11-28] MEDS: lisinopril 10 MG TAB PO SCH (08:53)
--- NOTE | 2023-11-28 10:09 | Discharge Summary ---
Date of Service November 28, 2023 Admission HPI Per Admitting Provider Erwin Barrios is a pleasant 83yo male presenting with chest pain. Patient with extensive cardiac history. He has CAD with multiple prior PCIs - [address] with most recent stents placed in August 2023 while on vacation in [place] where he was admitted to the hospital for 5 days after presenting with chest pain. He was told that he had a heart attack - subsequently had a cardiac catheterization with two additional stents placed (LAD and Diagonal). He has atrial fibrillation on Eliquis anticoagulation, Metoprolol. He had a cardioversion on 04/02/23 which lasted appx one month. 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 He is on immunosuppressive agents CellCept, Tacrolimus and Prednisone therapy as well as Azithro, Bactrim and Valcyte. Patient reports some intermittent chest pain following his most recent stent placement. He follows with Cardiology - Dr. Chandrika Weinstein from the [facility]. Several weeks ago his Isosorbide was increased from 60mg po daily to 90mg po daily and patient reports that he had no further episodes of chest pain until tonight. Patient reports that around 18:00 tonight he was walking his dog when he developed severe anterior chest pain, 8/10, non-pleuritic/non-radiating. He reports that this pain felt very similar to his prior anginal pain and the pain associated with his MIs. He returned home and sat down to rest. The pain continued to be severe for approximately 15 minutes then began to subside. After appx 30 minutes he was chest pain free. He felt some palpitations with the chest pain as well. Denies nausea, vomiting, diaphoresis, SOB or dizziness. Around 20:00 patient began getting ready for bed. He was putting on his pajamas when he had return of his chest pain. 4/10 in severity. He then decided to come to the ER. No additional chest pain. Presently feels well, no chest pain. No additional complaints at this time. In the ER he is afebrile, HD stable ER Course: Patient did take all his medications prior to arrival Discharge Exam gen - NAD, pleasant, laying comfortably in bed neck - no JVD mouth - MMM heart - irregularly irregular, s1 s2, no murmur lungs - CTA b/l, no rales or wheeze abd - soft NT ND BS+ ext - varicose veins, no edema, pulses 2+ b/l vascular - right radial artery w/o hematoma or aneurysm Discharge Data Allergies Allergy/AdvReac Type Severity Reaction Status Date / Time cefepime Allergy Intermediate rash Verified 05/20/23 11:54 poison laura extract Allergy Rash Verified 05/20/23 11:54 Consultations 11/25/23 22:17 ED Decision to Admit Stat 11/26/23 07:24 Consult Cardiology Routine Procedures Performed Operation Date: 11/26/23 13:00 Actual Procedures p Cath, Left with Cors and Vent - Axel Covington MD s Cineradiography w/Routine Exam - Axle Covington MD Ordered Studies 11/26/23 13:27 CL Cath Imgs for PACS use only Stat Hospital Course (1) Chest pain: s/p cardiac cath 11/26/23 see #2 below 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 if vasospasm he is already on amlodipine 2nd to rapid a.fib? (HRs hit 150s/160s while walking in hallway last night) other? plan - increase metoprolol dose to 37.5mg BID appreciate Dr Abdi's assistance of note - patient's primary Watch And Clock Repair Clerk is Dr. Chandrika Weinstein [facility] (2) CAD (coronary artery disease): s/p cath by Dr Covington on 11/25 Findings: LM -normal caliber, no significant disease LAD -medium caliber, proximal to mid stents widely patent. Distal vessel without significant disease and wraps around apex. High D1 medium caliber, 40% ostial. Medium D3 stents patent with 50-60% ostial in-stent restenosis. Circumflex -small caliber, 30-40% ostial/proximal stenosis. Small to moderate caliber OM without disease. RCA -dominant, large caliber proximal to mid stents widely patent with 30% in- stent restenosis, 40% mid segment stenosis after previous stents. Right posterior view branch with 60% stenosis prior to large PLB thus, nonobstructive CAD found HOWEVER, if he were to have recurrent or persistent symptoms, Dr Covington would consider FFR/PCI of right posterior AV branch that has 60% stenosis in meantime continue asa, plavix, imdur plan to increase metoprolol to 37.5mg BID due to rapid rates with activity/walking HOLD lisinopril due to increased dose of metoprolol - will attempt to resume, likely to need 10mg or less HOLD amlodipine - attempt to resume at 5mg (3) Hx of lung transplant: Continue home regimen - Prednisone 5mg daily, Tacrolimus 1mg po BID and CellCept 500mg po BID Continue prophylactic therapy with Bactrim DS 3x weekly, Azithromycin and Valtrex O2 sats wnl Lung exam wnl (4) HTN (hypertension): Controlled Continue Metoprolol but increase to 37.5mg BID Continue Imdur Hold amlodipine and lisinopril while we see the effects of the increased dose of metoprolol (5) CKD (chronic kidney disease), stage III: CrCl baseline 30s Cr stable at 1.5 BMP am for stability (6) Atrial fibrillation: 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 and metoprolol rates largely controlled, but with exercise / walking yesterday he did hit 150s/160s sustained no symptoms, however uncertain if those HRs could have triggered his chest pain given his age (max predicted HR based on age of 83 is ~140) Dr Abdi advising increase in metoprolol - will increase to 37.5mg BID (7) Elevated troponin: likely myocardial demand ischemia in setting of heavy exertional exercise in setting of nonobstructive CAD Peak troponin 34 Plan /son updated at bedside yesterday patient had mild hypotension after increasing his metoprolol to 37.5mg earlier today gave small fluid bolus of 250cc BP improved following such advised against hospital discharge will follow BPs and HRs overnight change observation status to full admission status care d/w Dr Abdi from cardiology Discharge Plan Discharge Items Reason For Visit: CHEST PAIN Follow-up/Referrals: Apple Serrano PA-C [Primary Care Provider] - Medications and DC Order Prescriptions: No Action sildenafil [Viagra] 50 mg tablet 50 mg PO DAILY PRN (Reason: sexual activity) Qty: 6 1RF Rx Instructions: administer 30 minutes to 4 hours before activity prednisone 10 mg tablet See Rx Instructions PO BID Qty: 45 0RF Rx Instructions: 6 tabs (60mg) PO day 1-5 then decrease by 1 tab (10mg) daily until complete (5,4,3,2,1) acetaminophen 325 mg capsule 325 mg PO QID PRN (Reason: pain or fever) cholecalciferol (vitamin D3) [Vitamin D3] 2,000 unit Tablet 2,000 unit PO DAILY@1400 mycophenolate mofetil [CellCept] 250 mg Capsule 500 mg PO BID prednisone 5 mg Tablet 5 mg PO DAILY valacyclovir [Valtrex] 500 mg Tablet 500 mg PO BID pyridoxine (vitamin B6) [Vitamin B-6] 100 mg Tablet 100 mg PO DAILY (DME) Spacer for Inhaler Misc See Rx Instructions .ROUTE .MEDSUPPLY Qty: 1 0RF Rx Instructions: As directed azithromycin 250 mg tablet 250 mg PO 3XWK Rx Instructions: Mon/Wed/Fri sulfamethoxazole-trimethoprim 400-80 mg tablet 1 tab PO 3XWK fluorouracil 5 % cream See Rx Instructions .ROUTE .COMPLEX Rx Instructions: Apply at night right above right brown/forehead and back of scalp nightly for 4 weeks. clopidogrel 75 mg tablet 75 mg PO DAILY aspirin 81 mg tablet,delayed release (DR/EC) 81 mg PO DAILY amoxicillin 500 mg tablet 0 mg PO ONCE Rx Instructions: Take 2000mg by mouth one hour prior to dental appointment amlodipine 10 mg tablet 5 mg PO DAILY pantoprazole 40 mg tablet,delayed release (DR/EC) 40 mg PO BID lisinopril 10 mg Tablet 10 mg PO BID mupirocin 2 % ointment See Rx Instructions .ROUTE .COMPLEX Rx Instructions: APPLY TO SCALP IN THE MORNING ONLY AFTER WASHING OFF EFUDEX FOR 4-5 WEEKS tacrolimus 1 mg capsule 1 mg PO QAM tacrolimus 0.5 mg capsule 1 mg PO PM metoprolol tartrate 25 mg tablet 25 mg PO BID Mag 64 64 mg tablet,delayed release (DR/EC) 64 mg PO DAILY Eliquis 2.5 mg tablet 2.5 mg PO BID Admission Data Admit Date/Time: 11/27/23 16:27 Attending Provider: Trace Ty Admit Provider: Yana Enriquez Primary Care Provider: Apple Serrano Other Providers: Yana Enriquez; John Jean; Min Hitchcock; Bernabe Abdi; Abdifatah Varela; Davian Hernandez; Sudheer Cook Jr; Edmundo Ambriz; Mary Bee; Cassie Cody; Axel Covington; Axel Copeland; Tarik Seth; Juana Odell; Mikie Kennedy; Ania Evans; Henrique Corona; Mina Silverman; Rainer Naranjo; Esteban Ibarra Coding Diagnoses Chest pain R07.9 Coronary artery disease involving [place] coronary artery of [place] heart without angina pectoris I25.10 Coronary Disease-Associated Artery/Lesion type: [place] artery [place] vs. transplanted heart: [place] heart Associated angina: without angina Hx of lung transplant Z94.2 Essential hypertension I10 Hypertension type: essential hypertension CKD (chronic kidney disease), stage III N18.30 Atrial fibrillation I48.91 Elevated troponin R79.89
== END 2023-11-28 11:27 | disposition home or self-care (01) | DRG 287 ==
LOC: EDINP 20:31 → ED 20:31 → SUATTDRO 22:49 → 2W 11-26 00:38 → 4W 11-26 17:00

== ENCOUNTER 2024-01-19 22:04 | Inpatient (IN) ==
--- NOTE | 2024-01-19 22:28 | Emergency Department Note ---
Impression & Plan Atrial fibrillation with rapid ventricular response, Chest pain, CHF (congestive heart failure), Pulmonary edema, Acute hypoxemic respiratory failure, Leukocytosis, Elevated brain natriuretic peptide (BNP) level ED Provider Note HISTORY OF PRESENT ILLNESS: Patient is an 83-year-old male presenting with acute onset of chest pain and shortness of breath. Patient reports that a few hours ago he had sudden onset of substernal chest pain. He took 3 sublingual nitro with improvement of his symptoms by the time EMS got there. Patient has a history of CAD with stents in place and is on aspirin, Plavix and Xarelto. He has a history of A-fib. He reports that shortness of breath started after his chest pain. He is currently complaining of shortness of breath on arrival to the ER. Patient is diaphoretic. No chest pain. Denies any recent fevers. He had a skin graft placed on his left lateral chest earlier today. ROS: as above PHYSICAL EXAM: Constitutional: Patient appears in no acute distress. HENT: Head: Normocephalic and atraumatic. Eyes: EOMI, PERRL Mouth/Throat: Mucous membranes moist. Neck: Trachea midline. Neck supple. Cardiovascular: Tachycardic with irregularly irregular rhythm. No murmurs, rubs or gallops. Intact distal pulses. Pulmonary/Chest: Patient is tachypneic. He is conversationally dyspneic. Coarse breath sounds bilaterally Abdominal: Abdomen soft, no tenderness, rebound or guarding. Musculoskeletal: No edema, tenderness or deformity noted. Skin: Warm and dry. No rash, erythema, pallor or cyanosis Psychiatric: Appropriate mood and affect for situation. Neurological: Alert and keenly responsive. CN II-XII grossly intact, moving all extremities equally and fully. MDM: - Vitals signs showed hypoxia and tachycardia. Patient started on non- rebreather. Given work of breathing, patient transitioned to BiPAP. Vomiting on arrival and given 4 mg IV zofran. - History obtained via patient and EMS. History as above. 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 At this time, monitor showed rate of 132 bpm with irregular rhythm, per my interpretation. - External medical records reviewed. Cardiac catheterization note dated 11/18/2023 was reviewed. Patient was noted to have moderate nonobstructive coronary artery disease. Noted to have 50 to 60% ostial D3 in-stent restenosis and 60% stenosis of the right posterior AV branch. - EKG interpreted by myself showed atrial fibrillation. Rate 125 bpm. QT 372. Noted have a left bundle branch block that has been present on previous EKGs. - Laboratory workup interpreted by myself showed leukocytosis (WBC 15.93) with left shift; normal PT/INR; stable electrolytes; normal procalcitonin; normal troponin; CKD (Cr 1.77); elevated BNP (680); normal lipase - CXR shows pulmonary edema, per my interpretation - Discussed case with environmental management specialist clay maker, Dr. Covington, at 22:35. Will plan to optimize respiratory status, as he was chest pain free on arrival. - Patient given 5 mg IV lopressor with little improvement in HR. Given patient's CHF history, cannot give cardizem. - Patient started to have chest pain again and was given 50 mcg IV fentanyl. He complained of continued pain, so 4 mg IV morphine and SL nitro ordered and given at 00:28. - I re-contacted Dr. Covington at 00:30. He is coming in to see patient. - Given an additional 10 mg IV lopressor for attempt at rate control. - Given 4 mg IV zofran, as patient started vomiting again. Given 40 mg IV lasix for pulmonary edema. - Blood cultures obtained. Empirically started on IV rocephin for antibiotic coverage. - Repeat EKG performed on 01/20/2024 at 00:55. EKG interpreted myself showed atrial fibrillation. Rate 109 bpm. QT 396. Noted to have a left bundle branch block. - On reassessment, patient reports chest pain has improved. - Discussion was had with registered nurse hh case manager about patient's case and need for admission - Hospitalist consulted for admission - [facility]. I have personally spent 63 minutes of critical care time in the direct management of this patient. This includes bedside care, interpretation of diagnostic studies, and testing, discussion with consultants, patient, and family members, and other required patient management activities. This 63 minutes is in excess of all separately billable procedures. ASSESSMENT AND PLAN: Diagnosis: Afib with RVR; CHF; chest pain; leukocytosis; pulmonary edema; elevated BNP; acute hypoxic respiratory failure Plan: admit Past Med/Surg History Problem List Elevated brain natriuretic peptide (BNP) level (Acute) Leukocytosis (Acute) Acute hypoxemic respiratory failure (Acute) Pulmonary edema (Acute) CHF (congestive heart failure) (Acute) Chest pain (Acute) Atrial fibrillation with rapid ventricular response (Acute) Atrial fibrillation CAD (coronary artery disease) Chest pain Sensorineural hearing loss (SNHL) of left ear with restricted hearing of right ear Asymmetric SNHL (sensorineural hearing loss) IPF (idiopathic pulmonary fibrosis) (Chronic) Anemia (Acute) Bradycardia (Acute) Chronic subdural hematoma (Acute) Immunocompromised patient (Acute) Impacted cerumen Sensorineural hearing loss (SNHL) of both ears Bilateral tinnitus Chronic GERD Right arm pain History of Mohs micrographic surgery for skin cancer Hx of appendectomy History of cardiac catheterization Stent placement x's 6 Most recent, 09/15/2022 2 MARK to LAD (Dr [facility]) Medical History (Updated 01/20/24 @ 01:10 by Tali Burgess MD) Elevated troponin CKD (chronic kidney disease), stage III HTN (hypertension) HTN (hypertension) Upper respiratory infection Cough Subdural hematoma (10/05/14) Surgical History Hx of appendectomy Hx of lung transplant History of cardiac catheterization Family History Mother Hearing loss Idiopathic pulmonary fibrosis Colorectal cancer Father Heart disease Myocardial infarction Brother Idiopathic pulmonary fibrosis Myocardial infarction Other No family history of adverse response to anesthesia No family history of bleeding disorder Denies family history of Ovarian cancer Prostate cancer Diabetes Breast cancer Lung cancer Stroke Social History Smoking Status: Never smoker Second Hand Exposure: No; Do You Dip or Chew Tobacco: No; Hx Alcohol Use: No Hx Substance Use: No Preferred Language: Tongan Communication Ability: Effective Visual Impairment: Limited Hearing Ability: Normal Sheet Metal Former Required: No Beliefs That Will Affect Care: None marital status: Current Living Situation: Spouse current occupational status: employed 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) How many Children do You have: 2 Feels Safe at Home: Yes Childhood Exposure to Second-Hand Smoke: Yes caffeine: No Dental Care, Regularly: Yes Physical Activity Frequency: Daily Seatbelt Use: always Sunscreen Use: Yes Assistive Devices: None Allergies Allergies Allergy/AdvReac Type Severity Reaction Status Date / Time cefepime Allergy Intermediate rash Verified 01/20/24 00:16 poison laura extract Allergy Intermediate Rash Verified 01/20/24 00:16 Home Meds Home Medications Medication Instructions Recorded Confirmed mycophenolate mofetil 250 mg 500 mg PO BID 05/11/18 01/20/24 capsule (CellCept) prednisone 5 mg tablet 5 mg PO DAILY 05/11/18 01/20/24 valacyclovir 500 mg tablet 500 mg PO BID 05/11/18 01/20/24 (Valtrex) acetaminophen 325 mg capsule 325 mg PO QID PRN pain or fever 08/12/21 01/20/24 amoxicillin 500 mg tablet 2,000 mg PO DIRECTED PRN 1 HR 02/01/23 01/20/24 PRIOR TO DENTAL APPT. apixaban 2.5 mg tablet (Eliquis) 2.5 mg PO BID 02/01/23 01/20/24 aspirin 81 mg tablet,delayed 81 mg PO DAILY 02/01/23 01/20/24 release azithromycin 250 mg tablet 250 mg PO 3XWK 02/01/23 01/20/24 clopidogrel 75 mg tablet 75 mg PO DAILY 02/01/23 01/20/24 fluorouracil 5 % topical cream See Rx Instructions .Route .COMPLEX 02/01/23 01/20/24 lisinopril 10 mg tablet 10 mg PO BID 02/01/23 01/20/24 magnesium chloride 64 mg 64 mg PO DAILY 02/01/23 01/20/24 (magnesium chloride) tablet,delayed release (Mag 64) mupirocin 2 % topical ointment See Rx Instructions .Route .COMPLEX 02/01/23 01/20/24 pantoprazole 40 mg tablet,delayed 40 mg PO DAILY 02/01/23 01/20/24 release sulfamethoxazole 400 1 tab PO 3XWK 02/01/23 01/20/24 mg-trimethoprim 80 mg tablet tacrolimus 1 mg capsule, 1 mg PO Q12H 12/01/23 01/20/24 immediate-release famotidine 40 mg tablet 40 mg PO DAILY PRN 12/18/23 01/20/24 HEARTBURN/INDIGESTION isosorbide mononitrate 60 mg 0 mg PO DAILY 01/20/24 01/20/24 tablet,extended release 24 hr Previous Rx's Medication Instructions Recorded Spacer for Inhaler #1 ea 08/30/19 sildenafil 50 mg tablet (Viagra) 50 mg PO DAILY PRN sexual activity 09/04/21 #6 tabs amlodipine 2.5 mg tablet 2.5 mg PO DAILY #30 tabs 11/28/23 metoprolol tartrate 25 mg tablet 37.5 mg (1.5 x 25 mg) PO BID #45 11/28/23 tabs nitroglycerin 0.4 mg sublingual 0.4 mg sublingual Q5M PRN chest 12/07/23 tablet pain #1 btl Results & Data (ED) Vital Signs Vital Signs - 24 hr 01/19/24 22:12 01/19/24 22:13 01/19/24 22:21 Temperature Temperature Source Pulse Rate 141 H 113 H Pulse Rate from SpO2 Sensor 141 H 127 H Pulse Rhythm Pulse Strength Respiratory Rate 40 H Respiratory Effort / Characteristics Respiratory Depth Respiratory Pattern Blood Pressure Blood Pressure Mean Blood Pressure Position Pulse Oximetry 99 99 Oxygen Delivery Method Oxygen Flow Rate Fraction of Inspired Oxygen SaO2/FiO2 Ratio Sepsis Recent Fever Within 48 Hours Sepsis New/Unexplained Change in Mental Status Sepsis Action Taken by Nursing 01/19/24 22:22 01/19/24 22:22 01/19/24 22:22 Temperature 36.7 C Temperature Source Oral Pulse Rate 140 H Pulse Rate from SpO2 Sensor Pulse Rhythm Regular Pulse Strength Normal Respiratory Rate 34 H Respiratory Effort / Characteristics Spontaneous Labored Short of Breath Spontaneous Labored Short of Breath Respiratory Depth Normal Normal Respiratory Pattern Regular Blood Pressure 134/103 H Blood Pressure Mean 113 Blood Pressure Position Semi-fowlers Pulse Oximetry 99 99 Oxygen Delivery Method Non-rebreather Non-rebreather Non-rebreather Oxygen Flow Rate 15 15 15 Fraction of Inspired Oxygen SaO2/FiO2 Ratio Sepsis Recent Fever Within 48 Hours No Sepsis New/Unexplained Change in Mental Status No Sepsis Action Taken by Nursing Physician Notified 01/19/24 22:22 01/19/24 22:22 01/19/24 22:30 Temperature Temperature Source Pulse Rate 142 H Pulse Rate from SpO2 Sensor 142 H Pulse Rhythm Pulse Strength Respiratory Rate 37 H Respiratory Effort / Characteristics Respiratory Depth Respiratory Pattern Blood Pressure 129/105 H 132/103 H Blood Pressure Mean 112 115 Blood Pressure Position Pulse Oximetry 100 Oxygen Delivery Method Oxygen Flow Rate Fraction of Inspired Oxygen SaO2/FiO2 Ratio Sepsis Recent Fever Within 48 Hours Sepsis New/Unexplained Change in Mental Status Sepsis Action Taken by Nursing 01/19/24 22:30 01/19/24 22:44 01/19/24 22:54 Temperature Temperature Source Pulse Rate 141 H 138 H 136 H Pulse Rate from SpO2 Sensor 141 H 136 H Pulse Rhythm Regular Pulse Strength Respiratory Rate 29 H 32 H 38 H Respiratory Effort / Characteristics Respiratory Depth Respiratory Pattern Blood Pressure Blood Pressure Mean Blood Pressure Position Pulse Oximetry 100 100 96 Oxygen Delivery Method BiPAP Oxygen Flow Rate Fraction of Inspired Oxygen 100 SaO2/FiO2 Ratio 100 Sepsis Recent Fever Within 48 Hours Sepsis New/Unexplained Change in Mental Status Sepsis Action Taken by Nursing 01/19/24 22:55 01/19/24 22:55 01/19/24 23:00 Temperature Temperature Source Pulse Rate 133 H 136 H Pulse Rate from SpO2 Sensor 135 H 138 H Pulse Rhythm Pulse Strength Respiratory Rate 33 H 35 H Respiratory Effort / Characteristics Respiratory Depth Respiratory Pattern Blood Pressure 123/77 Blood Pressure Mean 88 Blood Pressure Position Pulse Oximetry 94 96 Oxygen Delivery Method Oxygen Flow Rate Fraction of Inspired Oxygen SaO2/FiO2 Ratio Sepsis Recent Fever Within 48 Hours Sepsis New/Unexplained Change in Mental Status Sepsis Action Taken by Nursing 01/19/24 23:01 01/19/24 23:01 01/19/24 23:15 Temperature Temperature Source Pulse Rate 138 H 141 H Pulse Rate from SpO2 Sensor 136 H 138 H Pulse Rhythm Pulse Strength Respiratory Rate 32 H 33 H Respiratory Effort / Characteristics Respiratory Depth Respiratory Pattern Blood Pressure 130/85 Blood Pressure Mean 93 Blood Pressure Position Pulse Oximetry 98 99 Oxygen Delivery Method BiPAP Oxygen Flow Rate Fraction of Inspired Oxygen 100 SaO2/FiO2 Ratio Sepsis Recent Fever Within 48 Hours Sepsis New/Unexplained Change in Mental Status Sepsis Action Taken by Nursing 01/19/24 23:15 01/19/24 23:30 01/19/24 23:30 Temperature Temperature Source Pulse Rate 137 H Pulse Rate from SpO2 Sensor 137 H Pulse Rhythm Pulse Strength Respiratory Rate 31 H Respiratory Effort / Characteristics Respiratory Depth Respiratory Pattern Blood Pressure 135/93 121/101 H Blood Pressure Mean 98 116 Blood Pressure Position Pulse Oximetry 95 Oxygen Delivery Method Oxygen Flow Rate Fraction of Inspired Oxygen SaO2/FiO2 Ratio Sepsis Recent Fever Within 48 Hours Sepsis New/Unexplained Change in Mental Status Sepsis Action Taken by Nursing 01/19/24 23:38 01/19/24 23:44 01/19/24 23:45 Temperature Temperature Source Pulse Rate 136 H 141 H 135 H Pulse Rate from SpO2 Sensor 134 H Pulse Rhythm Pulse Strength Respiratory Rate 38 H 31 H Respiratory Effort / Characteristics Spontaneous Short of Breath Respiratory Depth Normal Respiratory Pattern Tachypnea Blood Pressure 121/101 H Blood Pressure Mean Blood Pressure Position Pulse Oximetry 97 92 Oxygen Delivery Method Oxygen Flow Rate Fraction of Inspired Oxygen 70 SaO2/FiO2 Ratio Sepsis Recent Fever Within 48 Hours Sepsis New/Unexplained Change in Mental Status Sepsis Action Taken by Nursing 01/19/24 23:47 01/19/24 23:47 01/20/24 00:00 Temperature Temperature Source Pulse Rate 134 H Pulse Rate from SpO2 Sensor 134 H Pulse Rhythm Pulse Strength Respiratory Rate 26 H Respiratory Effort / Characteristics Respiratory Depth Respiratory Pattern Blood Pressure 125/99 145/102 H Blood Pressure Mean 100 118 Blood Pressure Position Pulse Oximetry 93 Oxygen Delivery Method BiPAP Oxygen Flow Rate Fraction of Inspired Oxygen 70 SaO2/FiO2 Ratio Sepsis Recent Fever Within 48 Hours Sepsis New/Unexplained Change in Mental Status Sepsis Action Taken by Nursing 01/20/24 00:00 01/20/24 00:14 01/20/24 00:15 Temperature Temperature Source Pulse Rate 136 H 136 H Pulse Rate from SpO2 Sensor 135 H Pulse Rhythm Pulse Strength Respiratory Rate 32 H Respiratory Effort / Characteristics Respiratory Depth Respiratory Pattern Blood Pressure 145/102 H 122/98 Blood Pressure Mean 105 Blood Pressure Position Pulse Oximetry 91 Oxygen Delivery Method Oxygen Flow Rate Fraction of Inspired Oxygen SaO2/FiO2 Ratio Sepsis Recent Fever Within 48 Hours Sepsis New/Unexplained Change in Mental Status Sepsis Action Taken by Nursing 01/20/24 00:15 01/20/24 00:30 01/20/24 00:30 Temperature Temperature Source Pulse Rate 135 H 133 H Pulse Rate from SpO2 Sensor 135 H 133 H Pulse Rhythm Pulse Strength Respiratory Rate 31 H 33 H Respiratory Effort / Characteristics Respiratory Depth Respiratory Pattern Blood Pressure 118/90 Blood Pressure Mean 96 Blood Pressure Position Pulse Oximetry 91 93 Oxygen Delivery Method Oxygen Flow Rate Fraction of Inspired Oxygen SaO2/FiO2 Ratio Sepsis Recent Fever Within 48 Hours Sepsis New/Unexplained Change in Mental Status Sepsis Action Taken by Nursing 01/20/24 00:45 01/20/24 00:45 Temperature Temperature Source Pulse Rate 135 H Pulse Rate from SpO2 Sensor 133 H Pulse Rhythm Pulse Strength Respiratory Rate 29 H Respiratory Effort / Characteristics Respiratory Depth Respiratory Pattern Blood Pressure 120/94 Blood Pressure Mean 105 Blood Pressure Position Pulse Oximetry 93 Oxygen Delivery Method BiPAP Oxygen Flow Rate Fraction of Inspired Oxygen 80 SaO2/FiO2 Ratio Sepsis Recent Fever Within 48 Hours Sepsis New/Unexplained Change in Mental Status Sepsis Action Taken by Nursing Laboratory Data 01/19/24 22:20 01/20/24 00:15 Lab Results 01/19/24 01/19/24 01/19/24 Range/Units 22:20 22:25 23:01 WBC 15.93 H (4.8-10.8) K/ul RBC 4.51 L (4.70-6.10) M/uL Hgb 12.8 L (14.0-18.0) g/dl POC Hgb 13.9 L 12.2 L (14.0-18.0) g/dl Hct 40.9 L (42.0-52.0) % POC Hct 41 L 36 L (42-52) % MCV 90.7 (80.0-100.0) fL MCH 28.4 (25.0-34.0) pg MCHC 31.3 L (32.0-36.0) g/dL RDW Std Deviation 49.1 H (36.4-46.3) fL RDW Coeff of Fahad 14.7 H (11.5-14.5) % Plt Count 285 (130-400) K/uL MPV 11.2 (9.4-12.4) fL Immature Gran % (Auto) 0.5 % Neut % (Auto) 72.0 % Lymph % (Auto) 15.3 % Crosby % (Auto) 11.4 % Eos % (Auto) 0.4 % Baso % (Auto) 0.4 % Neut # (Auto) 11.46 H (1.40-6.50) K/uL Lymph # (Auto) 2.44 (1.20-3.40) K/uL Crosby # (Auto) 1.81 H (0.11-0.59) K/uL Eos # (Auto) 0.07 (0.00-0.50) K/uL Baso # (Auto) 0.07 (0.00-0.20) K/uL Immature Gran # (Auto) 0.08 (0.01-0.20) K/uL PT 10.9 (9.0-12.0) Seconds INR 1.0 (0.9-1.1) POC pH 7.32 L (7.35-7.45) POC pCO2 40 (35-46) mmHg POC pO2 59 L (80-95) mmHg POC HCO3 21 (19-24) ester/L POC Base Excess -5.0 (-9-1.8) ester/L POC ABG O2 Sat 88.0 L (90-95) % VBG pH 7.28 L (7.36-7.41) VBG pCO2 51 H (38-50) mmHg VBG pO2 69 mmHg VBG HCO3 24 mmol/L VBG O2 Saturation 93.0 % VBG Base Excess -3.3 mEq/L POC Sodium 139 136 (135-144) mmol/L Sodium 138 (136-145) mmol/L POC Potassium 4.8 4.3 (3.3-5.0) mmol/L Potassium TNP POC Chloride 105 (101-112) mmol/L Chloride 105 (98-107) mmol/L Carbon Dioxide 23 (21-32) mmol/L POC Total CO2 25 22 L (24-31) mmol/L Anion Gap 10 (3-11) POC Anion Gap 14.0 L (16-25) mmol/L POC BUN 48 H (7-18) mg/dl BUN 39 H (6-23) mg/dl Creatinine 1.77 H (0.6-1.4) mg/dl POC Creatinine 2.0 H (0.6-1.3) mg/dl Est Cr Clr Drug Dosing 31.1 ml/min Est GFR ( Amer) 40.6 ml/min Est GFR (Non-Af Amer) 35.0 ml/min BUN/Creatinine Ratio 22.0 H (10-20) Glucose 169 H (70-99(Fasting)) mg/dl POC Glucose (other) 181 H (70-99) mg/dl Lactate (0.4-2.0) mmol/L Calcium 8.6 (8.6-10.3) mg/dl POC Ioniz Calcium Osmar 1.12 (1.12-1.32) mmol/l Magnesium 2.0 (1.7-2.4) mg/dl Total Bilirubin 0.6 (0.2-1.0) mg/dl AST TNP ALT 18 (7-52) U/L Alkaline Phosphatase 64 (34-104) U/L Troponin I High Sens 14.5 (0-20) pg/ml B-Natriuretic Peptide 680 H (0-100) pg/ml Total Protein 7.7 (6.0-8.3) gm/dl Albumin 4.3 (3.4-5.0) gm/dl Globulin 3.4 (2.5-4.0) gm/dl Albumin/Globulin Ratio 1.3 (0.9-2) Lipase 58 (11-82) U/L Procalcitonin (0-0.5) ng/ml 01/19/24 01/20/24 Range/Units 23:47 00:15 WBC (4.8-10.8) K/ul RBC (4.70-6.10) M/uL Hgb (14.0-18.0) g/dl POC Hgb (14.0-18.0) g/dl Hct (42.0-52.0) % POC Hct (42-52) % MCV (80.0-100.0) fL MCH (25.0-34.0) pg MCHC (32.0-36.0) g/dL RDW Std Deviation (36.4-46.3) fL RDW Coeff of Fahad (11.5-14.5) % Plt Count (130-400) K/uL MPV (9.4-12.4) fL Immature Gran % (Auto) % Neut % (Auto) % Lymph % (Auto) % Crosby % (Auto) % Eos % (Auto) % Baso % (Auto) % Neut # (Auto) (1.40-6.50) K/uL Lymph # (Auto) (1.20-3.40) K/uL Crosby # (Auto) (0.11-0.59) K/uL Eos # (Auto) (0.00-0.50) K/uL Baso # (Auto) (0.00-0.20) K/uL Immature Gran # (Auto) (0.01-0.20) K/uL PT (9.0-12.0) Seconds INR (0.9-1.1) POC pH (7.35-7.45) POC pCO2 (35-46) mmHg POC pO2 (80-95) mmHg POC HCO3 (19-24) ester/L POC Base Excess (-9-1.8) ester/L POC ABG O2 Sat (90-95) % VBG pH (7.36-7.41) VBG pCO2 (38-50) mmHg VBG pO2 mmHg VBG HCO3 mmol/L VBG O2 Saturation % VBG Base Excess mEq/L POC Sodium (135-144) mmol/L Sodium (136-145) mmol/L POC Potassium (3.3-5.0) mmol/L Potassium 4.9 POC Chloride (101-112) mmol/L Chloride (98-107) mmol/L Carbon Dioxide (21-32) mmol/L POC Total CO2 (24-31) mmol/L Anion Gap (3-11) POC Anion Gap (16-25) mmol/L POC BUN (7-18) mg/dl BUN (6-23) mg/dl Creatinine (0.6-1.4) mg/dl POC Creatinine (0.6-1.3) mg/dl Est Cr Clr Drug Dosing ml/min Est GFR ( Amer) ml/min Est GFR (Non-Af Amer) ml/min BUN/Creatinine Ratio (10-20) Glucose (70-99(Fasting)) mg/dl POC Glucose (other) (70-99) mg/dl Lactate 1.5 (0.4-2.0) mmol/L Calcium (8.6-10.3) mg/dl POC Ioniz Calcium Osmar (1.12-1.32) mmol/l Magnesium (1.7-2.4) mg/dl Total Bilirubin (0.2-1.0) mg/dl AST 23 ALT (7-52) U/L Alkaline Phosphatase (34-104) U/L Troponin I High Sens (0-20) pg/ml B-Natriuretic Peptide (0-100) pg/ml Total Protein (6.0-8.3) gm/dl Albumin (3.4-5.0) gm/dl Globulin (2.5-4.0) gm/dl Albumin/Globulin Ratio (0.9-2) Lipase (11-82) U/L Procalcitonin < 0.02 (0-0.5) ng/ml Administered Medications Discontinued Medications Diltiazem HCl (Diltiazem Hcl 5 Mg/Ml 5 Ml Vial) 10 mg IV NOW STA Stop: 01/19/24 23:27 Last Admin: 01/20/24 00:12 Dose: Not Given Documented By: SRL Fentanyl Citrate (Fentanyl Citrate Pf 100 Mcg/2 Ml Vial) 50 mcg IV NOW STA Stop: 01/19/24 23:16 Last Admin: 01/19/24 23:29 Dose: 50 mcg Documented By: SRL Furosemide (Furosemide 40 Mg/4 Ml Vial) 40 mg IV ONE ONE Stop: 01/20/24 00:24 Last Admin: 01/20/24 00:29 Dose: 40 mg Documented By: SRL Sodium Chloride (Nss) 2,000 mls @ 999 mls/hr IV .Q2H1M ONE Stop: 01/20/24 00:20 Last Admin: 01/20/24 00:29 Dose: Not Given Documented By: SRL Sodium Chloride (Nss) 1,000 mls @ 999 mls/hr IV .Q1H1M ONE Stop: 01/19/24 23:26 Last Admin: 01/20/24 00:30 Dose: Not Given Documented By: SRL Ceftriaxone Sodium (Rocephin) 2,000 mg in 50 mls @ 100 mls/hr IV NOW STA Stop: 01/19/24 23:54 Last Infusion: 01/20/24 00:07 Dose: Infused Documented By: Admin: 01/19/24 23:39 Dose: 100 mls/hr Documented By: SRL Ioversol (Optiray 320 125ml) 125 ml IV ONCE ONE Stop: 01/19/24 22:48 Last Admin: 01/19/24 22:47 Dose: 120 ml Documented By: UYEN Metoprolol Tartrate (Metoprolol Tartrate 1 Mg/Ml Vial) 5 mg IV NOW STA Stop: 01/19/24 23:31 Last Admin: 01/19/24 23:38 Dose: 5 mg Documented By: CASI Metoprolol Tartrate (Metoprolol Tartrate 1 Mg/Ml Vial) 10 mg IV NOW STA Stop: 01/20/24 00:08 Last Admin: 01/20/24 00:14 Dose: 10 mg Documented By: SRHillary Morphine Sulfate (Morphine Sulfate 4 Mg/Ml 1 Ml Carp\Vial) 4 mg IV NOW STA Stop: 01/20/24 00:13 Last Admin: 01/20/24 00:28 Dose: 4 mg Documented By: CASI Nitroglycerin (Nitroglycerin Sl 0.4 Mg/Tab Tab) 0.4 mg SL NOW STA Stop: 01/19/24 22:31 Last Admin: 01/19/24 22:55 Dose: 0.4 mg Documented By: LORI Nitroglycerin (Nitroglycerin Sl 0.4 Mg/Tab Tab) 0.4 mg SL NOW STA Stop: 01/20/24 00:24 Last Admin: 01/20/24 00:33 Dose: 0.4 mg Documented By: CASI Ondansetron HCl (Ondansetron Inj 2 Mg/Ml 2 Ml Vial) 4 mg IV NOW STA Stop: 01/19/24 22:21 Last Admin: 01/19/24 22:30 Dose: 4 mg Documented By: LORI Ondansetron HCl (Ondansetron Inj 2 Mg/Ml 2 Ml Vial) Confirm Administered Dose 4 mg .ROUTE .K-MED ONE Stop: 01/20/24 00:24 Last Admin: 01/20/24 00:30 Dose: Not Given Documented By: CASI Ondansetron HCl (Ondansetron Inj 2 Mg/Ml 2 Ml Vial) 4 mg IV NOW STA Stop: 01/20/24 00:24 Last Admin: 01/20/24 00:29 Dose: 4 mg Documented By: CASI Imaging Data Radiologist's Impression: Chest CTA 01/19/24 22:25 Exam(s): CTA CHEST W/WO Contrast IV Amt: 120 ML OPTIRAY 320 EXAM: CT Angiography Chest Without and With Intravenous Contrast CLINICAL HISTORY: Reason for exam: chest pain; shortness of breath. TECHNIQUE: Axial computed tomographic angiography images of the chest without and with intravenous contrast. CTDI is 37 mGy and DLP is 861 mGy-cm. Automated exposure control was utilized for the study. A dose lowering technique was utilized adhering to the principles of ALARA. MIP reconstructed images were created and reviewed. CONTRAST: Patient received 120 ML OPTIRAY 320 of IV contrast COMPARISON: June 08, 2019 FINDINGS: Pulmonary arteries: The pulmonary arterial tree is well opacified with contrast. No pulmonary embolism is identified. Aorta: The thoracic aorta is slightly calcified but nondilated. There is no aneurysm or dissection. Lungs: There are moderate diffuse patchy and hazy infiltrates throughout the lungs bilaterally suspicious for pulmonary edema versus pneumonia. No mass. Pleural space: Unremarkable. No significant effusion. No pneumothorax. Heart: Mild cardiomegaly with severe coronary calcification. No pericardial effusion is seen. No evidence of RV dysfunction. Bones/joints: No acute fracture. No dislocation. Soft tissues: Unremarkable. Lymph nodes: Unremarkable. No enlarged lymph nodes. IMPRESSION: 1. There are moderate diffuse patchy and hazy infiltrates throughout the lungs bilaterally suspicious for pulmonary edema versus pneumonia. 2. The thoracic aorta is slightly calcified but nondilated. There is no aneurysm or dissection. 3. Mild cardiomegaly with severe coronary calcification. No pericardial effusion is seen. 4. The pulmonary arterial tree is well opacified with contrast. No pulmonary embolism is identified. Electronically signed by: Derian Enriquez MD 01/19/24 23:39 PM Discharge Plan Visit Data Chief Complaint: Cardiac Assessment Stated Complaint: SHORTNESS OF BREATH, CHEST PAIN ED Provider: Tali Burgess Discharge Problem: Atrial fibrillation with rapid ventricular response, Chest pain, CHF (congestive heart failure), Pulmonary edema, Acute hypoxemic respiratory failure, Leukocytosis, Elevated brain natriuretic peptide (BNP) level Forms Stand Alone Forms: My [facility] [employer] Prescriptions Prescriptions: No Action sildenafil [Viagra] 50 mg tablet 50 mg PO DAILY PRN (Reason: sexual activity) Qty: 6 1RF Hold Instructions: hold until you see cardiology Rx Instructions: administer 30 minutes to 4 hours before activity acetaminophen 325 mg capsule 325 mg PO QID PRN (Reason: pain or fever) nitroglycerin 0.4 mg tablet, sublingual 0.4 mg sublingual Q5M PRN (Reason: chest pain) Qty: 1 0RF Rx Instructions: max of 3 tablets in 15 minutes. tacrolimus 1 mg capsule 1 mg PO Q12H Rx Instructions: UPDATED PER PT- famotidine 40 mg tablet 40 mg PO DAILY PRN (Reason: HEARTBURN/INDIGESTION) mycophenolate mofetil [CellCept] 250 mg Capsule 500 mg PO BID prednisone 5 mg Tablet 5 mg PO DAILY valacyclovir [Valtrex] 500 mg Tablet 500 mg PO BID (DME) Spacer for Inhaler Misc See Rx Instructions .ROUTE .MEDSUPPLY Qty: 1 0RF Rx Instructions: As directed azithromycin 250 mg tablet 250 mg PO 3XWK Rx Instructions: Mon/Wed/Fri sulfamethoxazole-trimethoprim 400-80 mg tablet 1 tab PO 3XWK Rx Instructions: MON, WED, & FRI. fluorouracil 5 % cream See Rx Instructions .ROUTE .COMPLEX Rx Instructions: Apply at night right above right brown/forehead and back of scalp nightly for 4 weeks. clopidogrel 75 mg tablet 75 mg PO DAILY aspirin 81 mg tablet,delayed release (DR/EC) 81 mg PO DAILY amoxicillin 500 mg tablet 2,000 mg PO DIRECTED PRN (Reason: 1 HR PRIOR TO DENTAL APPT.) pantoprazole 40 mg tablet,delayed release (DR/EC) 40 mg PO DAILY lisinopril 10 mg Tablet 10 mg PO BID Hold Instructions: hold unless Dr Abdi advises you to resume mupirocin 2 % ointment See Rx Instructions .ROUTE .COMPLEX Rx Instructions: APPLY TO SCALP IN THE MORNING ONLY AFTER WASHING OFF EFUDEX FOR 4-5 WEEKS magnesium chloride [Mag 64] 64 mg tablet,delayed release (DR/EC) 64 mg PO DAILY Eliquis 2.5 mg tablet 2.5 mg PO BID amlodipine 2.5 mg tablet 2.5 mg PO DAILY Qty: 30 2RF metoprolol tartrate 25 mg tablet 37.5 mg PO BID Qty: 45 2RF isosorbide mononitrate 60 mg tablet extended release 24 hr 0 mg PO DAILY Rx Instructions: PER EXT MED HX--60 MG DAILY, PER PT'S MED LIST--90 MG DAILY. Referrals Referrals: Apple Serrano PA-C [Primary Care Provider] -
[2024-01-19] MEDS: ONDANSETRON INJ 2 MG/ML 2 ML VIAL IV STA (22:30)
[2024-01-19 22:38] LABS: iSTAT Hemoglobin 13.9 g/dl (14.0-18.0); iSTAT Ionized Calcium 1.12 mmol/l (1.12-1.32); iSTAT Potassium 4.8 mmol/L (3.3-5.0)
[2024-01-19 22:47] LABS: Base Excess VBG -3.3 mEq/L; HCO3 VBG 24 mmol/L; PCO2 VBG 51 mmHg (38-50); PO2 VBG 69 mmHg; pH VBG 7.28 (7.36-7.41)
[2024-01-19] MEDS: OPTIRAY 320 125ml IV ONE (22:47)
[2024-01-19 22:53] LABS: Basophils # (auto) 0.07 K/uL (0.00-0.20); Basophils % (auto) 0.4 %; Eosinophils # (auto) 0.07 K/uL (0.00-0.50); Eosinophils % (auto) 0.4 %; Hematocrit (blood only) 40.9 % (42.0-52.0); Hemoglobin 12.8 g/dl (14.0-18.0); Immature Granulocytes # (auto) 0.08 K/uL (0.01-0.20); Immature Granulocytes % (auto) 0.5 %; Lymphocytes # (auto) 2.44 K/uL (1.20-3.40); Lymphocytes % (auto) 15.3 %; Mean Corpuscular Hemoglobin 28.4 pg (25.0-34.0); Mean Corpuscular Hgb Conc 31.3 g/dL (32.0-36.0); Mean Corpuscular Volume 90.7 fL (80.0-100.0); Mean Platelet Volume 11.2 fL (9.4-12.4); Monocytes # (auto) 1.81 K/uL (0.11-0.59); Monocytes % (auto) 11.4 %; Neutrophils # (auto) 11.46 K/uL (1.40-6.50); Platelet Count 285 K/uL (130-400); RDW Coefficient of Variation 14.7 % (11.5-14.5); RDW Standard Deviation 49.1 fL (36.4-46.3); Red Blood Count 4.51 M/uL (4.70-6.10); White Blood Count 15.93 K/ul (4.8-10.8)
[2024-01-19] MEDS: NITROGLYCERIN SL 0.4 MG/TAB TAB SL STA (22:55)
[2024-01-19 23:15] LABS: iSTAT Arterial Blood Gas HCO3 21 meg/L (19-24); iSTAT Arterial Blood Gas pCO2 40 mmHg (35-46); iSTAT Arterial Blood Gas pH 7.32 (7.35-7.45); iSTAT Arterial Blood Gas pO2 59 mmHg (80-95); iSTAT Carbon Dioxide 22 mmol/L (24-31); iSTAT Hematocrit 36 % (42-52); iSTAT Hemoglobin 12.2 g/dl (14.0-18.0); iSTAT Potassium 4.3 mmol/L (3.3-5.0); iSTAT Sodium 136 mmol/L (135-144)
[2024-01-19] MEDS: fentaNYL citrate PF 100 MCG/2 ML VIAL IV STA (23:29)
[2024-01-19 23:35] LABS: Alanine Aminotransferase 18 U/L (7-52); Albumin Globulin Ratio 1.3 (0.9-2); Albumin Level 4.3 gm/dl (3.4-5.0); Alkaline Phosphatase 64 U/L (34-104); Anion Gap 10 (3-11); Bilirubin,Total 0.6 mg/dl (0.2-1.0); Blood Urea Nitrogen 39 mg/dl (6-23); Calcium 8.6 mg/dl (8.6-10.3); Carbon Dioxide 23 mmol/L (21-32); Chloride 105 mmol/L (98-107); Creatinine Clr Calc Pharmacy 31.1 ml/min; Est GFR (African American) 40.6 ml/min; Globulin 3.4 gm/dl (2.5-4.0); Glucose 169 mg/dl (70-99(Fasting)); Lipase 58 U/L (11-82); Sodium 138 mmol/L (136-145); Total Protein 7.7 gm/dl (6.0-8.3); Troponin I High Sensitivity 14.5 pg/ml (0-20)
[2024-01-19] MEDS: METOPROLOL TARTRATE 1 MG/ML VIAL IV STA (23:38)
[2024-01-19] MEDS: cefTRIAXone SODIUM 2,000 MG/50 ML BAG IV STA (23:39)
[2024-01-19 23:40] LABS: Prothrombin Time 10.9 Seconds (9.0-12.0)
--- NOTE | 2024-01-19 23:40 | CT Scan Report ---
Exam(s): CTA CHEST W/WO Contrast IV Amt: 120 ML OPTIRAY 320 EXAM: CT Angiography Chest Without and With Intravenous Contrast CLINICAL HISTORY: Reason for exam: chest pain; shortness of breath. TECHNIQUE: Axial computed tomographic angiography images of the chest without and with intravenous contrast. CTDI is 37 mGy and DLP is 861 mGy-cm. Automated exposure control was utilized for the study. A dose lowering technique was utilized adhering to the principles of ALARA. MIP reconstructed images were created and reviewed. CONTRAST: Patient received 120 ML OPTIRAY 320 of IV contrast COMPARISON: June 08, 2019 FINDINGS: Pulmonary arteries: The pulmonary arterial tree is well opacified with contrast. No pulmonary embolism is identified. Aorta: The thoracic aorta is slightly calcified but nondilated. There is no aneurysm or dissection. Lungs: There are moderate diffuse patchy and hazy infiltrates throughout the lungs bilaterally suspicious for pulmonary edema versus pneumonia. No mass. Pleural space: Unremarkable. No significant effusion. No pneumothorax. Heart: Mild cardiomegaly with severe coronary calcification. No pericardial effusion is seen. No evidence of RV dysfunction. Bones/joints: No acute fracture. No dislocation. Soft tissues: Unremarkable. Lymph nodes: Unremarkable. No enlarged lymph nodes. IMPRESSION: 1. There are moderate diffuse patchy and hazy infiltrates throughout the lungs bilaterally suspicious for pulmonary edema versus pneumonia. 2. The thoracic aorta is slightly calcified but nondilated. There is no aneurysm or dissection. 3. Mild cardiomegaly with severe coronary calcification. No pericardial effusion is seen. 4. The pulmonary arterial tree is well opacified with contrast. No pulmonary embolism is identified. Electronically signed by: Derian Enriquez MD 01/19/24 23:39 PM
[2024-01-20] MEDS: dilTIAZem HCl 5 MG/ML 5 ML VIAL IV STA (00:12)
[2024-01-20] MEDS: METOPROLOL TARTRATE 1 MG/ML VIAL IV STA ×2 (00:14→04:02)
[2024-01-20] MEDS: MoRPHine SULFATE 4 MG/ML 1 ML CARP\\VIAL IV STA (00:28)
[2024-01-20] MEDS: SODIUM CHLORIDE 0.9% 2,000 ML IV ONE (00:29)
[2024-01-20] MEDS: ONDANSETRON INJ 2 MG/ML 2 ML VIAL IV STA ×2 (00:29→03:59)
[2024-01-20] MEDS: FUROSEMIDE 40 MG/4 ML VIAL IV ONE (00:29)
[2024-01-20] MEDS: ONDANSETRON INJ 2 MG/ML 2 ML VIAL ONE ×3 (00:30→09:58)
[2024-01-20] MEDS: SODIUM CHLORIDE 0.9% 1,000 ML IV ONE (00:30)
[2024-01-20] MEDS: NITROGLYCERIN SL 0.4 MG/TAB TAB SL STA (00:33)
[2024-01-20 01:04] LABS: Potassium 4.9 mmol/L (3.5-5.1)
--- NOTE | 2024-01-20 01:36 | Cardiology Consultation ---
Date of Consultation January 20, 2024 Assessment & Plan (1) Chest pain: 2. Complex CAD 3. 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 Acute heart failure versus pneumonia 5. Persistent atrial fibrillation currently with RVR 6. Acute on chronic kidney disease Here today with acute onset, persistent chest pain reminiscent of prior angina. ECG without significant ST changes, initial troponin negative. Imaging/labs/exam suggestive of acute heart failure and bedside echo suggestive of moderate LV dysfunction with potential LAD distribution wall motion abnormality. Also some concern for possible pneumonia and immunocompromise patient. At present patient's chest pain has largely resolved and appears comfortable on BiPAP. Last cardiac catheterization less than 2 months ago and suspicion for new stent thrombosis remains relatively low. As currently stable recommend holding off on urgent repeat cardiac catheterization. Recommend continued rate control, diuresis and additional nitrates/morphine if recurrent pain. Trend troponin and repeat formal echocardiogram in a.m. Will reconsider need for repeat cardiac catheterization pending clinical course in a.m. History of Present Illness History of Present Illness Mr. Barrios is a very pleasant 83-year-old man seen urgently in the ED due to history of complex CAD and acute onset, persistent chest pain. CAD history reportedly includes 9 prior stents most recently with complex bifurcation stenting at [facility] 08/2023. Reported preserved LV function at that time. He has a history of idiopathic pulmonary fibrosis post lung transplant followed by [facility]. Also with persistent atrial fibrillation, hypertension, stage III CKD. More recently diagnosed with skin cancer involving his scalp and underwent resection and follow-up at [facility] today with plan for radiation in the future. Patient known to me from recent hospitalization 10/2023 when presented with recurrent angina. Underwent repeat cardiac catheterization at that time which showed widely patent LAD stents had moderate diagonal in-stent restenosis and intermediate disease in distal posterior AV branch. Tonight developed acute onset substernal chest pain consistent with prior angina. Pain persisted despite some oral nitroglycerin and EMS contacted. In ED ECG showed A-fib with RVR and chronic left bundle branch block. Initial HS TropI negative. BNP elevated at 680. Chest x-ray showed new pulmonary edema and CTA showed diffuse infiltrates consistent with pulmonary edema versus pneumonia. Patient has had ongoing stuttering chest pain in the ED. Currently chest pain almost completely gone after additional nitro, morphine, IV Lasix. Has also received IV diltiazem, metoprolol for rate control. Allergies Allergy/AdvReac Type Severity Reaction Status Date / Time cefepime Allergy Intermediate rash Verified 01/20/24 00:16 poison laura extract Allergy Intermediate Rash Verified 01/20/24 00:16 Home Medications Medication Instructions Recorded Confirmed Type mycophenolate mofetil 250 mg 500 mg PO BID 05/11/18 01/20/24 History capsule (CellCept) prednisone 5 mg tablet 5 mg PO DAILY 05/11/18 01/20/24 History valacyclovir 500 mg tablet 500 mg PO BID 05/11/18 01/20/24 History (Valtrex) Spacer for Inhaler #1 ea 08/30/19 12/18/23 Rx acetaminophen 325 mg capsule 325 mg PO QID PRN pain or fever 08/12/21 01/20/24 History sildenafil 50 mg tablet (Viagra) 50 mg PO DAILY PRN sexual activity 09/04/21 Rx #6 tabs amoxicillin 500 mg tablet 2,000 mg PO DIRECTED PRN 1 HR 02/01/23 01/20/24 History PRIOR TO DENTAL APPT. apixaban 2.5 mg tablet (Eliquis) 2.5 mg PO BID 02/01/23 01/20/24 History aspirin 81 mg tablet,delayed 81 mg PO DAILY 02/01/23 01/20/24 History release azithromycin 250 mg tablet 250 mg PO 3XWK 02/01/23 01/20/24 History clopidogrel 75 mg tablet 75 mg PO DAILY 02/01/23 01/20/24 History fluorouracil 5 % topical cream See Rx Instructions .Route .COMPLEX 02/01/23 01/20/24 History lisinopril 10 mg tablet 10 mg PO BID 02/01/23 01/20/24 History magnesium chloride 64 mg 64 mg PO DAILY 02/01/23 01/20/24 History (magnesium chloride) tablet,delayed release (Mag 64) mupirocin 2 % topical ointment See Rx Instructions .Route .COMPLEX 02/01/23 01/20/24 History pantoprazole 40 mg tablet,delayed 40 mg PO DAILY 02/01/23 01/20/24 History release sulfamethoxazole 400 1 tab PO 3XWK 02/01/23 01/20/24 History mg-trimethoprim 80 mg tablet amlodipine 2.5 mg tablet 2.5 mg PO DAILY #30 tabs 11/28/23 01/20/24 Rx metoprolol tartrate 25 mg tablet 37.5 mg (1.5 x 25 mg) PO BID #45 11/28/23 01/20/24 Rx tabs tacrolimus 1 mg capsule, 1 mg PO Q12H 12/01/23 01/20/24 History immediate-release nitroglycerin 0.4 mg sublingual 0.4 mg sublingual Q5M PRN chest 12/07/23 01/20/24 Rx tablet pain #1 btl famotidine 40 mg tablet 40 mg PO DAILY PRN 12/18/23 01/20/24 History HEARTBURN/INDIGESTION isosorbide mononitrate 60 mg 0 mg PO DAILY 01/20/24 01/20/24 History tablet,extended release 24 hr Patient History Medical History (Updated 01/20/24 @ 01:10 by Tali Burgess MD) Elevated troponin CKD (chronic kidney disease), stage III HTN (hypertension) HTN (hypertension) Upper respiratory infection Cough Subdural hematoma (10/05/14) Surgical History Hx of appendectomy Hx of lung transplant History of cardiac catheterization Family History Mother Hearing loss Idiopathic pulmonary fibrosis Colorectal cancer Father Heart disease Myocardial infarction Brother Idiopathic pulmonary fibrosis Myocardial infarction Other No family history of adverse response to anesthesia No family history of bleeding disorder Denies family history of Ovarian cancer Prostate cancer Diabetes Breast cancer Lung cancer Stroke Social History Smoking Status: Never smoker Second Hand Exposure: No; Do You Dip or Chew Tobacco: No; Hx Alcohol Use: No Hx Substance Use: No Preferred Language: [place] Communication Ability: Effective Visual Impairment: Limited Hearing Ability: Normal Microbiology Manager Required: No Beliefs That Will Affect Care: None marital status: Current Living Situation: Spouse current occupational status: employed 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) How many Children do You have: 2 Feels Safe at Home: Yes Childhood Exposure to Second-Hand Smoke: Yes caffeine: No Dental Care, Regularly: Yes Physical Activity Frequency: Daily Seatbelt Use: always Sunscreen Use: Yes Assistive Devices: None Review of Systems Review of Systems: All systems reviewed & are unremarkable except as noted in HPI & below Physical Exam Physical Exam: General: Comfortable, BiPAP in place HEENT: Sclerae anicteric Lungs: Coarse, rhonchorous breath sounds throughout most notably right base Cardiac: Tachycardic, irregularly irregular Vascular: 2+ radial Abdomen: Soft, nontender Extremities: Well perfused, trace edema Psych: Alert orient x3, normal affect and mood Results & Data Vital Signs (Past 12 Hours) Vital Signs Temp Pulse Resp BP Pulse Ox O2 Del Method O2 Flow Rate 01/20/24 00:45 135 H 29 H 93 BiPAP 01/20/24 00:45 120/94 01/20/24 00:30 118/90 01/20/24 00:30 133 H 33 H 93 01/20/24 00:15 135 H 31 H 91 01/20/24 00:15 122/98 01/20/24 00:14 136 H 145/102 H 01/20/24 00:00 136 H 32 H 91 01/20/24 00:00 145/102 H 01/19/24 23:47 125/99 01/19/24 23:47 134 H 26 H 93 BiPAP 01/19/24 23:45 135 H 31 H 92 01/19/24 23:44 141 H 38 H 97 01/19/24 23:38 136 H 121/101 H 01/19/24 23:30 137 H 31 H 95 01/19/24 23:30 121/101 H 01/19/24 23:15 135/93 01/19/24 23:15 141 H 33 H 99 01/19/24 23:01 138 H 32 H 98 BiPAP 01/19/24 23:01 130/85 01/19/24 23:00 136 H 35 H 96 01/19/24 22:55 133 H 33 H 94 01/19/24 22:55 123/77 01/19/24 22:54 136 H 38 H 96 01/19/24 22:44 138 H 32 H 100 BiPAP 01/19/24 22:30 141 H 29 H 100 01/19/24 22:30 132/103 H 01/19/24 22:22 129/105 H 01/19/24 22:22 142 H 37 H 100 01/19/24 22:22 99 Non-rebreather 15 01/19/24 22:22 98.1 F 140 H 34 H 134/103 H 99 Non-rebreather 15 01/19/24 22:22 Non-rebreather 15 01/19/24 22:21 113 H 40 H 99 01/19/24 22:13 141 H 01/19/24 22:12 99 FiO2 01/20/24 00:45 80 01/20/24 00:45 01/20/24 00:30 01/20/24 00:30 01/20/24 00:15 01/20/24 00:15 01/20/24 00:14 01/20/24 00:00 01/20/24 00:00 01/19/24 23:47 01/19/24 23:47 70 01/19/24 23:45 01/19/24 23:44 70 01/19/24 23:38 01/19/24 23:30 01/19/24 23:30 01/19/24 23:15 01/19/24 23:15 01/19/24 23:01 100 01/19/24 23:01 01/19/24 23:00 01/19/24 22:55 01/19/24 22:55 01/19/24 22:54 01/19/24 22:44 100 01/19/24 22:30 01/19/24 22:30 01/19/24 22:22 01/19/24 22:22 01/19/24 22:22 01/19/24 22:22 01/19/24 22:22 01/19/24 22:21 01/19/24 22:13 01/19/24 22:12 PG Care Time/CCT Total # of Minutes Spent Total Time Spent with Patient: Total time spent is greater than 50% in coordination of care (as documented) at patient's floor/unit and/or counseling patient: Coding Level of Care Code 83087 ER DEPT VISIT MOD LVL 4 Diagnoses Chest pain R07.9
--- NOTE | 2024-01-20 01:47 | History & Physical Report ---
Date of Service January 20, 2024 Assessment & Plan (1) Acute hypoxemic respiratory failure: Plan: Patient with acute hypoxic respiratory failure. Presently on BiPAP 10/5, 80% FiO2 with saturations in the mid-90's. Adequate tidal volumes of 600-700. CT of the chest with moderate diffuse patchy and hazy infiltrates - ?PNA vs edema. Patient is immunocompromised. Lasix 40mg IV given -Admit to MICU -Continue BiPAP, wean as tolerated. Patient reports that his saturations at home are 88-89% on room air at baseline -Continue Lasix 40mg IV daily. Suspect pulmonary edema more so than PNA at this time. SOB started after AF with RVR. Patient does not endorse infectious prodrome. -Monitor I/Os, daily weights -Continue empiric Ceftriaxone and Vancomycin for now -Follow cultures -Check MRSA nares (2) Chest pain: Plan: Patient with severe CAD with multiple stents in place. Most recent catheterization reveals some restenosis. Troponin 14.5 --> 45.6. Do suspect that patient's chest pain this evening was cardiac in nature - ?demand ischemia in setting of AF with RVR vs true ACS. He is currently chest pain free. -Admit to MICU -Trend troponin -Morphine PRN chest pain -Nitropaste PRN chest pain -Appreciate Cardiology - patient may have cardiac catheterization performed during this visit -Continue Plavix 75mg po daily -Continue Lisinopril 10mg po BID -Continue Metoprolol 37.5mg po BID -Continue isosorbide (3) Atrial fibrillation with rapid ventricular response: Plan: Likely cause of patient's chest pain and SOB/edema- demand ischemia -Continue Metoprolol -Continue anticoagulation with Eliquis -Goal HR < 110 bpm (4) Double lung transplant: Plan: Patient with history of IPF s/p lung transplant in 2013 at [facility]. -Continue CellCept, Prograf and Prednisone -Continue Valcyte, Bactrim and Azithromycin for prophylaxis History of Present Illness Chief Complaint: chest pain, SOB Primary Care Provider: Apple Serrano PA-C Erwin Barrios is a pleasant 83yo male presenting with chest pain and shortness of breath. Patient is medically complex with history of IPF s/p double lung transplant (2013, [facility]) on CellCept, Tacrolimus and Prednisone and prophylactic Valacyclovir, Bactrim and Azithromycin (Follows with [facility] - Dr. Basurto), extensive cardiac history with CAD with stent x [address] (most recent stent August 2023), atrial fibrillation on Eliquis anticoagulation. He was recently admitted to [facility] from 11/25/23 --> 11/28/23 after presenting with chest pain. He had a cardiac catheterization performed on 11/26/23 which revealed moderate nonobstructive CAD with patent mid- LAD and proximal to mid RCA stents, 50-60% ostial D3 in-stent restenosis and 60% stenosis in the right posterior AV branch. Patient does report frequent episodes of angina. When he develops AF with RVR he often develops angina and shortness of breath. Patient most recently was found to have a skin cancer on his scalp. He was seen at [facility] today for skin grafting and reconstruction. After returning home from [place] he felt very tired so he went upstairs to lay down around 20:00. Shortly after he developed severe substernal chest pain and rapid heart rate. He reports the pain being severe /. He took Nitro x 3 with some improvement in symptoms. He then began to develop shortness of breath so he called 911. Patient with persistent chest pain -was administered additional Nitro by EMS. Noted to be hypoxic at 84% on room air and was placed on NRB. Upon arrival to the ER patient in atrial fibrillation with RVR - rate in the 140's. Tachypneic at 32 breaths/min. He was placed on BiPAP for respiratory support. Chest pain has since resolved. Cardiology was consulted and patient assessed at bedside. Echo was performed which revealed decline in EF - moderate LV dysfunction with potential LAD distribution WMA ER Course: Zofran 4mg IV Nitro 0.4mg SL Fentanyl 50mcg Metoprolol 5mg IV Ceftriaxone 2gm Metoprolol 10mg IV Morphine 4mg IV Lasix 40mg IV Zofran 4mg IV Nitro 0.4mg SL Allergies Allergy/AdvReac Type Severity Reaction Status Date / Time cefepime Allergy Intermediate rash Verified 01/20/24 00:16 poison laura extract Allergy Intermediate Rash Verified 01/20/24 00:16 Home Medications Medication Instructions Recorded Confirmed Type mycophenolate mofetil 250 mg 500 mg PO BID 05/11/18 01/20/24 History capsule (CellCept) prednisone 5 mg tablet 5 mg PO DAILY 05/11/18 01/20/24 History valacyclovir 500 mg tablet 500 mg PO BID 05/11/18 01/20/24 History (Valtrex) Spacer for Inhaler #1 ea 08/30/19 12/18/23 Rx acetaminophen 325 mg capsule 325 mg PO QID PRN pain or fever 08/12/21 01/20/24 History sildenafil 50 mg tablet (Viagra) 50 mg PO DAILY PRN sexual activity 09/04/21 01/20/24 Rx #6 tabs amoxicillin 500 mg tablet 2,000 mg PO DIRECTED PRN 1 HR 02/01/23 01/20/24 History PRIOR TO DENTAL APPT. apixaban 2.5 mg tablet (Eliquis) 2.5 mg PO BID 02/01/23 01/20/24 History aspirin 81 mg tablet,delayed 81 mg PO DAILY 02/01/23 01/20/24 History release azithromycin 250 mg tablet 250 mg PO 3XWK 02/01/23 01/20/24 History clopidogrel 75 mg tablet 75 mg PO DAILY 02/01/23 01/20/24 History fluorouracil 5 % topical cream See Rx Instructions .Route .COMPLEX 02/01/23 01/20/24 History lisinopril 10 mg tablet 10 mg PO BID 02/01/23 01/20/24 History magnesium chloride 64 mg 64 mg PO DAILY 02/01/23 01/20/24 History (magnesium chloride) tablet,delayed release (Mag 64) mupirocin 2 % topical ointment See Rx Instructions .Route .COMPLEX 02/01/23 01/20/24 History pantoprazole 40 mg tablet,delayed 40 mg PO DAILY 02/01/23 01/20/24 History release sulfamethoxazole 400 1 tab PO 3XWK 02/01/23 01/20/24 History mg-trimethoprim 80 mg tablet amlodipine 2.5 mg tablet 2.5 mg PO DAILY #30 tabs 11/28/23 01/20/24 Rx metoprolol tartrate 25 mg tablet 37.5 mg (1.5 x 25 mg) PO BID #45 11/28/23 01/20/24 Rx tabs tacrolimus 1 mg capsule, 1 mg PO Q12H 12/01/23 01/20/24 History immediate-release nitroglycerin 0.4 mg sublingual 0.4 mg sublingual Q5M PRN chest 12/07/23 01/20/24 Rx tablet pain #1 btl famotidine 40 mg tablet 40 mg PO DAILY PRN 12/18/23 01/20/24 History HEARTBURN/INDIGESTION isosorbide mononitrate 60 mg 0 mg PO DAILY 01/20/24 01/20/24 History tablet,extended release 24 hr Past Med/Surg History Problem List Elevated brain natriuretic peptide (BNP) level (Acute) Leukocytosis (Acute) Acute hypoxemic respiratory failure (Acute) Pulmonary edema (Acute) CHF (congestive heart failure) (Acute) Chest pain (Acute) Atrial fibrillation with rapid ventricular response (Acute) Atrial fibrillation CAD (coronary artery disease) Chest pain Sensorineural hearing loss (SNHL) of left ear with restricted hearing of right ear Asymmetric SNHL (sensorineural hearing loss) IPF (idiopathic pulmonary fibrosis) (Chronic) Anemia (Acute) Bradycardia (Acute) Chronic subdural hematoma (Acute) Immunocompromised patient (Acute) Impacted cerumen Sensorineural hearing loss (SNHL) of both ears Bilateral tinnitus Chronic GERD Right arm pain History of Mohs micrographic surgery for skin cancer Hx of appendectomy History of cardiac catheterization Stent placement x's 6 Most recent, 09/15/2022 2 MARK to LAD (Dr [facility]) Medical History Elevated troponin CKD (chronic kidney disease), stage III HTN (hypertension) HTN (hypertension) Upper respiratory infection Cough Subdural hematoma (10/05/14) Surgical History Hx of lung transplant bilateral Family History Mother Hearing loss Idiopathic pulmonary fibrosis Colorectal cancer Father Heart disease Myocardial infarction Brother Idiopathic pulmonary fibrosis Myocardial infarction Other No family history of adverse response to anesthesia No family history of bleeding disorder Denies family history of Ovarian cancer Prostate cancer Diabetes Breast cancer Lung cancer Stroke Social History Smoking Status: Never smoker Second Hand Exposure: No; Do You Dip or Chew Tobacco: No; Hx Alcohol Use: No Hx Substance Use: No Preferred Language: Arabic Communication Ability: Effective Visual Impairment: Limited Hearing Ability: Normal Equipment Engineer Required: No Beliefs That Will Affect Care: None marital status: Current Living Situation: Spouse current occupational status: employed 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) How many Children do You have: 2 Other Information That Helps Us Care for You: No Feels Safe at Home: Yes Safety Concerns: Feels Safe At This Time Childhood Exposure to Second-Hand Smoke: Yes caffeine: No Dental Care, Regularly: Yes Physical Activity Frequency: Daily Seatbelt Use: always Sunscreen Use: Yes Assistive Devices: Glasses Review of Systems Review of Systems: All systems reviewed & are unremarkable except as noted in HPI & below Physical Exam Physical Exam: General: chronically ill appearing male patient resting comfortably, BiPAP in place, answering questions and following commands Skin: warm, dry, dressing in place on left scalp and left abdominal wall - no bleeding HEENT: NC/AT, PERRL, EOMI, anicteric sclera, conjunctiva without injection, external ear normal to inspection and nontender, nares patent, moist mucus membranes, dentition intact, no oropharyngeal lesions, neck supple, trachea midline, no LAD, no thyromegaly, no JVD Heart: +S1/S2, irregularly irregular, no m/r/g Lungs: tachypnea, coarse breath sounds, no wheeze Abd: +BS, soft, NT/ND, no masses/organomegaly/ascites Ext: warm, 2+ pulses in UE/LE bilaterally, no clubbing/cyanosis or edema Neuro: nonfocal, patient AA&O x 4, speech intact, no facial droop, moving all extremities on command with equal strength 5/5 Results & Data Results & Data Vital Signs (Past 12 Hours) Vital Signs Temp Pulse Resp BP Pulse Ox O2 Del Method O2 Flow Rate 01/20/24 00:45 135 H 29 H 93 BiPAP 01/20/24 00:45 120/94 01/20/24 00:30 118/90 01/20/24 00:30 133 H 33 H 93 01/20/24 00:15 135 H 31 H 91 01/20/24 00:15 122/98 01/20/24 00:14 136 H 145/102 H 01/20/24 00:00 136 H 32 H 91 01/20/24 00:00 145/102 H 01/19/24 23:47 125/99 01/19/24 23:47 134 H 26 H 93 BiPAP 01/19/24 23:45 135 H 31 H 92 01/19/24 23:44 141 H 38 H 97 01/19/24 23:38 136 H 121/101 H 01/19/24 23:30 137 H 31 H 95 01/19/24 23:30 121/101 H 01/19/24 23:15 135/93 01/19/24 23:15 141 H 33 H 99 01/19/24 23:01 138 H 32 H 98 BiPAP 01/19/24 23:01 130/85 01/19/24 23:00 136 H 35 H 96 01/19/24 22:55 133 H 33 H 94 01/19/24 22:55 123/77 01/19/24 22:54 136 H 38 H 96 01/19/24 22:44 138 H 32 H 100 BiPAP 01/19/24 22:30 141 H 29 H 100 01/19/24 22:30 132/103 H 01/19/24 22:22 129/105 H 01/19/24 22:22 142 H 37 H 100 01/19/24 22:22 99 Non-rebreather 01/19/24 22:22 36.7 C 140 H 34 H 134/103 H 99 Non-rebreather 15 01/19/24 22:22 Non-rebreather 15 01/19/24 22:21 113 H 40 H 99 01/19/24 22:13 141 H 01/19/24 22:12 99 FiO2 01/20/24 00:45 80 01/20/24 00:45 01/20/24 00:30 01/20/24 00:30 01/20/24 00:15 01/20/24 00:15 01/20/24 00:14 01/20/24 00:00 01/20/24 00:00 01/19/24 23:47 01/19/24 23:47 70 01/19/24 23:45 01/19/24 23:44 70 01/19/24 23:38 01/19/24 23:30 01/19/24 23:30 01/19/24 23:15 01/19/24 23:15 01/19/24 23:01 100 01/19/24 23:01 01/19/24 23:00 01/19/24 22:55 01/19/24 22:55 01/19/24 22:54 01/19/24 22:44 100 01/19/24 22:30 01/19/24 22:30 01/19/24 22:22 01/19/24 22:22 01/19/24 22:22 01/19/24 22:22 01/19/24 22:22 01/19/24 22:21 01/19/24 22:13 01/19/24 22:12 ECG Additional Comments: AF with RVR -no acute ST changes Code Status & VTE Plan VTE Prophylaxis Plan VTE Prophylaxis will be ordered: Yes PG Care Time/CCT Total # of Minutes Spent Total Time Spent with Patient: Total time spent is greater than 50% in coordination of care (as documented) at patient's floor/unit and/or counseling patient: Coding Level of Care Code 75666 INT INP/OBS CARE 3/75MIN Diagnoses Acute hypoxemic respiratory failure J96.01 Chest pain R07.9 Atrial fibrillation with rapid ventricular response I48.91 Double lung transplant Z94.2
[2024-01-20 01:59] LABS: Troponin I High Sensitivity 45.6 pg/ml (0-20)
[2024-01-20 02:08] LABS: Appearance Urine Clear (Clear); Bilirubin Urine Negative (Negative); Blood Urine Negative (Negative); Color Urine Yellow; Glucose Urine UA Negative (Negative); Ketones Urine Negative (Negative); Leukocyte Esterase Urine Negative (Negative); Nitrite Urine Negative (Negative); Protein Urine Negative (Negative); Specific Gravity Urine 1.037 (1.000-1.030); Urobilinogen Urine Negative (Negative)
[2024-01-20] MEDS ORDERED: LORazepam 1 MG/1 ML SYR ED Inj Use IV STA (03:23)
[2024-01-20] MEDS ORDERED: NITROGLYCERIN 2% OINTMENT 30GM TUBE EXT PRN (03:27)
[2024-01-20] MEDS ORDERED: MoRPHine SULFATE 2 MG/ML CARP IV PRN (03:27)
[2024-01-20] MEDS ORDERED: FAMOTIDINE 40 MG TABLET PO PRN (03:27)
[2024-01-20] MEDS: LORazepam 0.25 MG in SYRINGE 0.125 ML IV STA (03:33)
[2024-01-20] MEDS ORDERED: 0.2 MICRON FILTER SET 1 EACH IV STA (03:42)
[2024-01-20] MEDS ORDERED: AMIODARONE IV BOLUS & DRIP IV STA (03:42)
[2024-01-20] MEDS: AMIODARONE / D5W 150 MG/100 ML BAG IV STA (03:56)
--- NOTE | 2024-01-20 03:58 | Critical Care Consultation ---
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 He was seen in the emergency department earlier this evening with chest pain, and was found to be significantly hypoxic. He is now undergoing treatment for A-fib RVR, and hypoxemic respiratory failure. Neuro - [facility] ICU: Negative Cardiac - Angina Improved with oral nitro, and currently chest pain-free. Unsure if hypoxia may be contributing. Patient does have significant CAD with recent heart cath 2 months ago. EKG with A-fib RVR and left bundle branch block seen on previous studies. Troponin initially within normal limits, with repeat 45 and expect due to demand ischemia in the setting of tachycardia. Cardiology evaluated patient at bedside, and no emergent need for heart cath at this time. A-fib RVRpatient with heart rate 140s to 150s on monitor. He has a history of persistent atrial fibrillation and is anticoagulated on Eliquis. Received IV metoprolol and IV diltiazem bolus in the emergency department. Remained tachycardic with heart rate 140s to 150s and was started on amiodarone drip with additional IV metoprolol given. Due to worsening hypoxia, decision was made to proceed with synchronized cardioversion, which was also discussed with cardiology prior to initiating. Patient received single shock with 100 J synchronized, and converted to rate controlled atrial fibrillation with heart rates 60s to 70s. - Continue oral metoprolol and Eliquis. Will discontinue amiodarone drip for now. - Goal heart rate rate controlled below 100. Continuous monitor on telemetry Acute on chronic CHF History of ischemic cardiomyopathy with prior EF 45%. Per cardiology, bedside echo and ED estimated to be around 35%. Tachycardia likely contributing. Currently normotensive not requiring vasopressor support - Repeat TTE in a.m. -Continue MTP, isosorbide mononitrate - Continue diuresis CADpatient with multiple cardiac caths and stent x 9 in total. - Expect elevating troponin with demand ischemia in the setting of hypoxia and tachycardia with underlying CAD. No indication for emergent cardiac cath at this time. - Continue ASA, Plavix Respiratory - Acute hypoxic respiratory failurepatient with history of ILD (s/p double lung transplant 2012) And CHF, currently requiring continuous CPAP. Suspect cardiogenic etiology although cannot rule out infectious process. - CTA negative for PE, with Bilateral infiltrates suspicious for pulmonary edema versus pneumonia - Continue with diuresis and rate control - Continue tacrolimus and prednisone. Low suspicion for organ rejection - See ID for treatment of potential pneumonia below - Wean FiO2 as tolerated - Continuous monitoring pulse ox GI - N.p.o. for now RENAL/LYTES - CKD stage IIIwith creatinine at baseline. - Avoid nephrotoxins renally adjust medications -Monitor routine BMPs and replete electrolytes as indicated - Hold on further fluid resuscitation as patient currently undergoing treatment for pulmonary edema/CHF exacerbation and undergoing diuresis - Foleystrict I's and O's ENDO - No history of diabetes or thyroid disease. ICU hyperglycemic protocol HEME - H&H stable, monitor routine CBC ID - Pneumonia?Patient with significant hypoxia and bilateral infiltrates on imaging, and immunocompromised on tacrolimus and prednisone - Procalcitonin negative, Lactate negative, mild leukocytosis, afebrile - BioFire pending, blood cultures pending -Nasal MRSA pending - Will continue with empiric coverage with azithromycin, ceftriaxone, vancomycin LINES/IV ACCESS - Peripheral IVs DVT PROPHYLAXIS - SCDs, on Eliquis I have personally spent 65 minutes of critical care time in the direct management of this patient. This is a life/limb threatening event. This includes time spent evaluating patient, direct bedside care, chart review, placing orders, interpretation of diagnostic studies, discussion with consultants, patient, and family members, as well as other required patient management activities. This time is exclusive of all separately billable procedures, and teaching time and separate from and in addition to any other critical care service time. Thank you for allowing us to participate in the care of this patient. Please refer to my attending physician's documentation for any further recommendations. (2) Atrial fibrillation with rapid ventricular response: (3) IPF (idiopathic pulmonary fibrosis): (4) Pulmonary edema: (5) CHF (congestive heart failure): (6) CAD (coronary artery disease): (7) Chest pain: (8) Immunocompromised patient: (9) History of Mohs micrographic surgery for skin cancer: (10) Double lung transplant: (11) History of cardiac catheterization: Supervising Physician Co-Signing Physician Notes Patient seen and examined. EMR reviewed. Discussed with critical care GUANAKO overnight noted with bedside nurse and on multidisciplinary rounds. Agree with assessment plan as noted. Please refer to my progress note from 01/20/2024 for additional details History of Present Illness Attending Physician: Yana Enriquez DO History of Present Illness Patient is a 83-year-old male with complex past medical history significant for Idiopathic pulmonary fibrosis (s/p double lung transplant 2012 at [facility]), Immunosuppressed with tacrolimus and prednisone, persistent atrial fibrillation (Anticoagulated with Eliquis), HFrEF, HTN, CKD stage III, and CAD with 9 prior stents and recent diagnosis of skin cancer involving the scalp for which he underwent resection earlier today and has plan to undergo radiation and the near future. He was recently admitted to the hospital in October of this year with recurrent angina and underwent repeat cardiac cath which showed wildly patent LAD stents, With moderate diagonal in-stent restenosis and intermediate disease in the distal posterior AV branch. Earlier this evening patient developed acute onset of chest pain which persisted despite receiving oral nitroglycerin. EKG showed A-fib RVR with chronic left bundle branch block. Initial troponin negative and BNP elevated at 680. Chest x-ray showed significant pulmonary edema and CTA showed diffuse infiltrates consistent with pulmonary edema versus pneumonia, negative for PE. Patient was evaluated by interventional cardiology, and no recommendation for emergent cath at this time with recommendations of rate control, diuresis. Patient's chest pain did resolve however he is significantly hypoxic requiring continuous BiPAP. He received IV diltiazem, metoprolol, and Lasix in the emergency department. He is now being transferred to ICU for further management at this time. On arrival to the ICU the patient is alert and oriented, wearing continuous BiPAP with significant oxygen requirement and is tachypneic with heart rate in the low 30s. He is tachycardic with heart rate in the 150s on the monitor. He currently denies any further chest pain. He denies recent illness or fevers, headache, dizziness, syncopal events, cough or congestion, abdominal pain, diarrhea, swelling in hands or feet, or changes in gait. He does report some nausea with vomiting earlier in the emergency department and currently feels short of breath. I did speak with the patient regarding CODE STATUS and he would like to remain full code in the event of cardiac arrest and would want to undergo intubation/mechanical ventilation if needed. He currently remains low threshold for intubation, but will continue trial with CPAP and diuresis with rate control to see if respiratory status may improve. Patient to remain in ICU for further management at this time. Allergies Allergy/AdvReac Type Severity Reaction Status Date / Time cefepime Allergy Intermediate rash Verified 01/20/24 00:16 poison laura extract Allergy Intermediate Rash Verified 01/20/24 00:16 Home Medications Medication Instructions Recorded Confirmed Type mycophenolate mofetil 250 mg 500 mg PO BID 05/11/18 01/20/24 History capsule (CellCept) prednisone 5 mg tablet 5 mg PO DAILY 05/11/18 01/20/24 History valacyclovir 500 mg tablet 500 mg PO BID 05/11/18 01/20/24 History (Valtrex) Spacer for Inhaler #1 ea 08/30/19 12/18/23 Rx acetaminophen 325 mg capsule 325 mg PO QID PRN pain or fever 08/12/21 01/20/24 History sildenafil 50 mg tablet (Viagra) 50 mg PO DAILY PRN sexual activity 09/04/21 01/20/24 Rx #6 tabs amoxicillin 500 mg tablet 2,000 mg PO DIRECTED PRN 1 HR 02/01/23 01/20/24 History PRIOR TO DENTAL APPT. apixaban 2.5 mg tablet (Eliquis) 2.5 mg PO BID 02/01/23 01/20/24 History aspirin 81 mg tablet,delayed 81 mg PO DAILY 02/01/23 01/20/24 History release azithromycin 250 mg tablet 250 mg PO 3XWK 02/01/23 01/20/24 History clopidogrel 75 mg tablet 75 mg PO DAILY 02/01/23 01/20/24 History fluorouracil 5 % topical cream See Rx Instructions .Route .COMPLEX 02/01/23 01/20/24 History lisinopril 10 mg tablet 10 mg PO BID 02/01/23 01/20/24 History magnesium chloride 64 mg 64 mg PO DAILY 02/01/23 01/20/24 History (magnesium chloride) tablet,delayed release (Mag 64) mupirocin 2 % topical ointment See Rx Instructions .Route .COMPLEX 02/01/23 01/20/24 History pantoprazole 40 mg tablet,delayed 40 mg PO DAILY 02/01/23 01/20/24 History release sulfamethoxazole 400 1 tab PO 3XWK 02/01/23 01/20/24 History mg-trimethoprim 80 mg tablet amlodipine 2.5 mg tablet 2.5 mg PO DAILY #30 tabs 11/28/23 01/20/24 Rx metoprolol tartrate 25 mg tablet 37.5 mg (1.5 x 25 mg) PO BID #45 11/28/23 01/20/24 Rx tabs tacrolimus 1 mg capsule, 1 mg PO Q12H 12/01/23 01/20/24 History immediate-release nitroglycerin 0.4 mg sublingual 0.4 mg sublingual Q5M PRN chest 12/07/23 01/20/24 Rx tablet pain #1 btl famotidine 40 mg tablet 40 mg PO DAILY PRN 12/18/23 01/20/24 History HEARTBURN/INDIGESTION isosorbide mononitrate 60 mg 0 mg PO DAILY 01/20/24 01/20/24 History tablet,extended release 24 hr Patient History Medical History Elevated troponin CKD (chronic kidney disease), stage III HTN (hypertension) HTN (hypertension) Upper respiratory infection Cough Subdural hematoma (10/05/14) Surgical History Hx of lung transplant bilateral Family History Mother Hearing loss Idiopathic pulmonary fibrosis Colorectal cancer Father Heart disease Myocardial infarction Brother Idiopathic pulmonary fibrosis Myocardial infarction Other No family history of adverse response to anesthesia No family history of bleeding disorder Denies family history of Ovarian cancer Prostate cancer Diabetes Breast cancer Lung cancer Stroke Social History Smoking Status: Never smoker Second Hand Exposure: No; Do You Dip or Chew Tobacco: No; Hx Alcohol Use: No Hx Substance Use: No Preferred Language: Belarusian Communication Ability: Effective Visual Impairment: Limited Hearing Ability: Normal Shellfish Manager Required: No Beliefs That Will Affect Care: None marital status: Current Living Situation: Spouse current occupational status: employed 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) How many Children do You have: 2 Other Information That Helps Us Care for You: No Feels Safe at Home: Yes Safety Concerns: Feels Safe At This Time Childhood Exposure to Second-Hand Smoke: Yes caffeine: No Dental Care, Regularly: Yes Physical Activity Frequency: Daily Seatbelt Use: always Sunscreen Use: Yes Assistive Devices: Glasses Review of Systems Review of Systems: All systems reviewed & are unremarkable except as noted in HPI & below Physical Exam Constitutional: cooperative; no acute distress Eyes: PERRL, conjunctivae normal, anicteric sclerae ENMT: external ear and nose normal, oropharynx normal Neck: trachea midline, no thyromegaly Respiratory: Coarse crackles auscultated bilaterally in all lung broderick, tachypnea with symmetrical chest wall movement. Some use of accessory muscles with labored breathing. Cardiovascular: Rate/Rhythm: + tachycardic and + irregularly irregular Heart Sounds: no murmur Vessels: no JVD Extremities: no edema Gastrointestinal (Abdomen): normal bowel sounds, soft, nontender, no hepatosplenomegaly Musculoskeletal: no cyanosis or clubbing, extremities motor strength 5/5 Skin: no rashes, warm and dry Neurologic: PERRL, EOMI, accommodation nl, no face palsy, no dysarthria Psychiatric: A+Ox3, euthymic affect Genitourinary: Indwelling Mcfarlane catheter present, urine yellow and clear Results & Data Results & Data Vital Signs (Past 12 Hours) Vital Signs Temp Pulse Resp BP BP Pulse Ox O2 Del Method 01/20/24 03:28 35.9 C L 44 H 108/84 92 High Flow Nasal Cannula 01/20/24 02:19 124 H 01/20/24 02:00 114 H 30 H 95 BiPAP 01/20/24 02:00 105/74 01/20/24 01:47 106 H 28 H 95 BiPAP 01/20/24 01:31 122 H 34 H 97 01/20/24 01:31 116/80 01/20/24 01:30 110 H 27 H 96 01/20/24 01:16 109/93 01/20/24 01:16 117 H 22 95 01/20/24 01:01 108/92 01/20/24 01:01 110 H 28 H 95 01/20/24 01:00 110 H 24 95 01/20/24 00:45 135 H 29 H 93 BiPAP 01/20/24 00:45 120/94 01/20/24 00:30 118/90 01/20/24 00:30 133 H 33 H 93 01/20/24 00:15 135 H 31 H 91 01/20/24 00:15 122/98 01/20/24 00:14 136 H 145/102 H 01/20/24 00:00 136 H 32 H 91 01/20/24 00:00 145/102 H 01/19/24 23:47 125/99 01/19/24 23:47 134 H 26 H 93 BiPAP 01/19/24 23:45 135 H 31 H 92 01/19/24 23:44 141 H 38 H 97 01/19/24 23:38 136 H 121/101 H 01/19/24 23:30 137 H 31 H 95 01/19/24 23:30 121/101 H 01/19/24 23:15 135/93 01/19/24 23:15 141 H 33 H 99 01/19/24 23:01 138 H 32 H 98 BiPAP 01/19/24 23:01 130/85 01/19/24 23:00 136 H 35 H 96 01/19/24 22:55 133 H 33 H 94 01/19/24 22:55 123/77 01/19/24 22:54 136 H 38 H 96 01/19/24 22:44 138 H 32 H 100 BiPAP 01/19/24 22:30 141 H 29 H 100 01/19/24 22:30 132/103 H 01/19/24 22:22 129/105 H 01/19/24 22:22 142 H 37 H 100 01/19/24 22:22 99 Non-rebreather 01/19/24 22:22 36.7 C 140 H 34 H 134/103 H 99 Non-rebreather 01/19/24 22:22 Non-rebreather 01/19/24 22:21 113 H 40 H 99 01/19/24 22:13 141 H 01/19/24 22:12 99 O2 Flow Rate FiO2 01/20/24 03:28 01/20/24 02:19 01/20/24 02:00 80 01/20/24 02:00 01/20/24 01:47 80 01/20/24 01:31 01/20/24 01:31 01/20/24 01:30 01/20/24 01:16 01/20/24 01:16 01/20/24 01:01 01/20/24 01:01 01/20/24 01:00 01/20/24 00:45 80 01/20/24 00:45 01/20/24 00:30 01/20/24 00:30 01/20/24 00:15 01/20/24 00:15 01/20/24 00:14 01/20/24 00:00 01/20/24 00:00 01/19/24 23:47 01/19/24 23:47 70 01/19/24 23:45 01/19/24 23:44 70 01/19/24 23:38 01/19/24 23:30 01/19/24 23:30 01/19/24 23:15 01/19/24 23:15 01/19/24 23:01 100 01/19/24 23:01 01/19/24 23:00 01/19/24 22:55 01/19/24 22:55 01/19/24 22:54 01/19/24 22:44 100 01/19/24 22:30 01/19/24 22:30 01/19/24 22:22 01/19/24 22:22 01/19/24 22:22 15 01/19/24 22:22 15 01/19/24 22:22 15 01/19/24 22:21 01/19/24 22:13 01/19/24 22:12 Coding Level of Care Code 59410 CRITICAL CARE 1ST 30-74M Diagnoses Acute hypoxemic respiratory failure J96.01 Atrial fibrillation with rapid ventricular response I48.91 IPF (idiopathic pulmonary fibrosis) J84.112 Pulmonary edema J81.1 CHF (congestive heart failure) I50.9 Coronary artery disease involving [place] coronary artery of [place] heart without angina pectoris I25.10 Associated angina: without angina Coronary Disease-Associated Artery/Lesion type: [place] artery [place] vs. transplanted heart: [place] heart Chest pain R07.9 Immunocompromised patient D89.9 History of Mohs micrographic surgery for skin cancer Z85.828; Z98.890 Double lung transplant Z94.2 History of cardiac catheterization Z98.890 (6) CAD (coronary artery disease) Associated angina: without angina Coronary Disease-Associated Artery/Lesion type: [place] artery [place] vs. transplanted heart: [place] heart Qualified Code(s): I25.10 - Atherosclerotic heart disease of [place] coronary artery without angina pectoris
[2024-01-20] MEDS: METOPROLOL TARTRATE 1 MG/ML VIAL IV ONE (04:00)
[2024-01-20] MEDS: TACROLIMUS 1 MG CAP PO SCH ×2 (04:00→09:25)
[2024-01-20] MEDS: AMIODARONE 150MG / 100ML D5W IV ONE (04:03)
[2024-01-20] MEDS: STAT IV Infusion **Titration per Protocol STA (04:03)
[2024-01-20] MEDS: AMIODARONE 360MG / 200ML D5W IV ONE (04:03)
[2024-01-20] MEDS: AMIODARONE / D5W 360 MG/200 ML BAG IV ONE (04:08)
[2024-01-20] MEDS ORDERED: VANCOMYCIN CONSULT ACTIVE PRN (04:18)
[2024-01-20] MEDS: VANCOMYCIN HCL 1,750 MG in SODIUM CHLORIDE 0.9% 500 ML IV ONE (04:55)
[2024-01-20 04:56] LABS: Hematocrit (blood only) 43.1 % (42.0-52.0); Hemoglobin 13.5 g/dl (14.0-18.0); Mean Corpuscular Hemoglobin 27.7 pg (25.0-34.0); Mean Corpuscular Hgb Conc 31.3 g/dL (32.0-36.0); Mean Corpuscular Volume 88.5 fL (80.0-100.0); Mean Platelet Volume 10.4 fL (9.4-12.4); Platelet Count 277 K/uL (130-400); RDW Coefficient of Variation 14.7 % (11.5-14.5); RDW Standard Deviation 47.8 fL (36.4-46.3); Red Blood Count 4.87 M/uL (4.70-6.10)
[2024-01-20] MEDS: SCOPOLAMINE 1 MG/72 HR TDSY PATCH TD SCH (04:57)
[2024-01-20] MEDS: MoRPHine SULFATE 2 MG/ML CARP IV STA (05:08)
[2024-01-20 05:11] LABS: BUN Creatinine Ratio 20.7 (10-20); Calcium 8.7 mg/dl (8.6-10.3); Creatinine Clr Calc Pharmacy 32.4 ml/min; Est GFR (African American) 38.7 ml/min; Est GFR (Non-African American) 33.4 ml/min; Potassium 4.5 mmol/L (3.5-5.1)
[2024-01-20 05:12] LABS: Adenovirus PCR Not Detected (NotDetected); Bordetella parapertussis PCR Not Detected (NotDetected); Bordetella pertussis PCR Not Detected (NotDetected); Chlamydia pneumoniae PCR Not Detected (NotDetected); Coronavirus 229E PCR Not Detected (NotDetected); Coronavirus CoV-2 (COVID19)PCR Not Detected (NotDetected); Coronavirus HKU1 PCR Not Detected (NotDetected); Coronavirus NL63 PCR Not Detected (NotDetected); Coronavirus OC43PCR Not Detected (NotDetected); Human Metapneumovirus PCR Not Detected (NotDetected); Influenza A PCR Not Detected (NotDetected); Influenza B PCR Not Detected (NotDetected); Mycoplasma pneumoniae PCR Not Detected (NotDetected); Parainfluenza Virus 1 PCR Not Detected (NotDetected); Parainfluenza Virus 2 PCR Not Detected (NotDetected); Parainfluenza Virus 3 PCR Not Detected (NotDetected); Parainfluenza Virus 4 PCR Not Detected (NotDetected); Respiratory Syncytial VirusPCR Not Detected (NotDetected); Rhinovirus/Enterovirus PCR Not Detected (NotDetected)
[2024-01-20 05:23] LABS: Troponin I High Sensitivity 1873.1 pg/ml (0-20)
[2024-01-20 05:33] LABS: Basophils # (auto) 0.04 K/uL (0.00-0.20); Basophils % (auto) 0.3 %; Immature Granulocytes # (auto) 0.04 K/uL (0.01-0.20); Immature Granulocytes % (auto) 0.3 %; Lymphocytes # (auto) 0.87 K/uL (1.20-3.40); Lymphocytes % (auto) 5.9 %; Monocytes # (auto) 0.35 K/uL (0.11-0.59); Monocytes % (auto) 2.4 %; Neutrophils % (auto) 91.1 %; RBC Morphology Unremarkable
[2024-01-20 06:29] LABS: Magnesium 1.7 mg/dl (1.7-2.4)
--- NOTE | 2024-01-20 06:47 | Hospitalist Progress Note ---
Date of Service January 20, 2024 Assessment & Plan (1) Acute hypoxemic respiratory failure: Plan: Patient with acute hypoxic respiratory failure. CT of the chest with moderate diffuse patchy and hazy infiltrates -Suspect pulmonary edema more so than PNA Patient is immunocompromised. -INiitally supported with BiPAP, wean as tolerated.Oxygen saturations 88-89% on room air at baseline -Continue Lasix 40mg IV daily. at this time. SOB started after AF with RVR. Patient does not endorse infectious prodrome. -Continue empiric Ceftriaxone and Vancomycin started -Follow cultures - MRSA nares negative consider downgrade of Vanco (2) Chest pain: Plan: Patient with severe CAD with multiple stents in place. Most recent catheterization reveals some restenosis. Troponin 14.5 --> 45.6. in setting of AF with RVR vs true ACS. -chest pain in face of Afib RVR, He is currently chest pain free. suspected to be demand ischemia however troponin 14->45=>1873 -Appreciate Cardiology - patient may have cardiac catheterization performed during this visit Amiodarone started and conversion to NSR. AC with Eliquis may consider heparin gtt -Continue Plavix 75mg po daily -Continue Lisinopril 10mg po BID -Continue Metoprolol 37.5mg po BID -Continue isosorbide (3) Double lung transplant: Plan: Patient with history of IPF s/p lung transplant in 2013 at [facility]. -Continue CellCept, Prograf and Prednisone -Continue Valcyte, Bactrim and Azithromycin for prophylaxis Admission and Anticipated Discharge Date Admission Date: January 20, 2024 Results & Data Results & Data Vital Signs (Past 12 Hours) Vital Signs Temp Pulse Resp BP BP Pulse Ox O2 Del Method 01/20/24 04:10 92 H 35 H 93 01/20/24 04:04 126 H 130/64 01/20/24 04:02 119 H 103/64 01/20/24 04:00 BiPAP 01/20/24 03:28 96.6 F L 44 H 108/84 92 High Flow Nasal Cannula 01/20/24 02:19 124 H 01/20/24 02:00 114 H 30 H 95 BiPAP 01/20/24 02:00 105/74 01/20/24 01:47 106 H 28 H 95 BiPAP 01/20/24 01:31 122 H 34 H 97 01/20/24 01:31 116/80 01/20/24 01:30 110 H 27 H 96 01/20/24 01:16 109/93 01/20/24 01:16 117 H 22 95 01/20/24 01:01 108/92 01/20/24 01:01 110 H 28 H 95 01/20/24 01:00 110 H 24 95 01/20/24 00:45 135 H 29 H 93 BiPAP 01/20/24 00:45 120/94 01/20/24 00:30 118/90 01/20/24 00:30 133 H 33 H 93 01/20/24 00:15 135 H 31 H 91 01/20/24 00:15 122/98 01/20/24 00:14 136 H 145/102 H 01/20/24 00:00 136 H 32 H 91 01/20/24 00:00 145/102 H 01/19/24 23:47 125/99 01/19/24 23:47 134 H 26 H 93 BiPAP 01/19/24 23:45 135 H 31 H 92 01/19/24 23:44 141 H 38 H 97 01/19/24 23:38 136 H 121/101 H 01/19/24 23:30 137 H 31 H 95 01/19/24 23:30 121/101 H 01/19/24 23:15 135/93 01/19/24 23:15 141 H 33 H 99 01/19/24 23:01 138 H 32 H 98 BiPAP 01/19/24 23:01 130/85 01/19/24 23:00 136 H 35 H 96 01/19/24 22:55 133 H 33 H 94 01/19/24 22:55 123/77 01/19/24 22:54 136 H 38 H 96 01/19/24 22:44 138 H 32 H 100 BiPAP 01/19/24 22:30 141 H 29 H 100 01/19/24 22:30 132/103 H 01/19/24 22:22 129/105 H 01/19/24 22:22 142 H 37 H 100 01/19/24 22:22 99 Non-rebreather 01/19/24 22:22 98.1 F 140 H 34 H 134/103 H 99 Non-rebreather 01/19/24 22:22 Non-rebreather 01/19/24 22:21 113 H 40 H 99 01/19/24 22:13 141 H 01/19/24 22:12 99 O2 Flow Rate FiO2 01/20/24 04:10 100 01/20/24 04:04 01/20/24 04:02 01/20/24 04:00 85 01/20/24 03:28 01/20/24 02:19 01/20/24 02:00 80 01/20/24 02:00 01/20/24 01:47 80 01/20/24 01:31 01/20/24 01:31 01/20/24 01:30 01/20/24 01:16 01/20/24 01:16 01/20/24 01:01 01/20/24 01:01 01/20/24 01:00 01/20/24 00:45 80 01/20/24 00:45 01/20/24 00:30 01/20/24 00:30 01/20/24 00:15 01/20/24 00:15 01/20/24 00:14 01/20/24 00:00 01/20/24 00:00 01/19/24 23:47 01/19/24 23:47 70 01/19/24 23:45 01/19/24 23:44 70 01/19/24 23:38 01/19/24 23:30 01/19/24 23:30 01/19/24 23:15 01/19/24 23:15 01/19/24 23:01 100 01/19/24 23:01 01/19/24 23:00 01/19/24 22:55 01/19/24 22:55 01/19/24 22:54 01/19/24 22:44 100 01/19/24 22:30 01/19/24 22:30 01/19/24 22:22 01/19/24 22:22 01/19/24 22:22 15 01/19/24 22:22 15 01/19/24 22:22 15 01/19/24 22:21 01/19/24 22:13 01/19/24 22:12 PG Care Time/CCT Total # of Minutes Spent Total Time Spent with Patient: Total time spent is greater than 50% in coordination of care (as documented) at patient's floor/unit and/or counseling patient: Coding Diagnoses Acute hypoxemic respiratory failure J96.01 Chest pain R07.9 Double lung transplant Z94.2
--- NOTE | 2024-01-20 06:51 | XRay Report ---
XR chest 1V portable HISTORY: Chest pain, nonspecific COMPARISON: Chest 11/25/2023. FINDINGS: The heart is enlarged. No pneumothorax. Trace left pleural effusion. Patchy bilateral airsp dimitry opacities with interstitial/vascular thickening. This may represent pulmonary edema versus a mult ifocal pneumonia. No acute fractures. IMPRESSION: 1. Cardiomegaly. 2. Trace left pleural effusion. 3. Interstitial/vascular thickening with patchy bilateral airspace opacities. This may represent pulm onary edema versus a pneumonia. ACT 112: Negative or not required by law. Electronically signed by: Steven Cook M.D. 01/20/2024 6:49 AM
[2024-01-20] MEDS: ICU Protocol for HYPERglycemia SCH (07:55)
--- NOTE | 2024-01-20 09:13 | Critical Care Progress Note ---
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 He was seen in the emergency department earlier this evening with chest pain, and was found to be significantly hypoxic. He is now undergoing treatment for A-fib RVR, and hypoxemic respiratory failure. 24-hour events: Patient presented to the emergency room was placed on BiPAP. Has been admitted to the ICU. Efforts to try and wean his BiPAP have resulted in persistent chest pressure. Recommendation Neuro - CAM ICU: Negative Cardiac - Anginapatient continues to experience chest pressure whenever he comes off of noninvasive positive pressure ventilation. His troponin is increased. Reviewed with cardiology notes. Appropriately reluctant to consider cardiac catheterization in the setting of worsening renal function and unclear endpoints. A-fib RVRstatus post cardioversion. Continue metoprolol. On Eliquis. Acute on chronic CHF History of ischemic cardiomyopathy with prior EF 45%. Continue Lasix CADpatient with multiple cardiac caths and stent x 9 in total. Respiratory -hypoxemic respiratory failure with patchy pulmonary infiltrates. Suspect this is pulmonary edema given his elevated troponin and elevated BNP. Procalcitonin was negative. Nevertheless the patient has grown Pseudomonas in the past. Will request ID consultation and discontinue Rocephin and place him on Zosyn. Continue efforts to try and wean noninvasive positive pressure ventilation as tolerated. According to the notes from his transplant physician they were considering repeat evaluation for bronchiolitis obliterans as well as aspiration evaluation. They indicated potential need for bronchiolitis obliterans protocol to CT as well as bronchoscopy. I would be uncomfortable performing bronchoscopy on this patient with a history of double lung transplant at our institution. Will reach out to the hospitalist to see whether or not the patient would be better served by transfer to [facility] where his transplant program is centered. GI - N.p.o. for now RENAL/LYTES -slightly worsening kidney function. Nephrology consultation will be obtained - Foleystrict I's and O's ENDO - No history of diabetes or thyroid disease. ICU hyperglycemic protocol HEME - H&H stable, monitor routine CBC ID -patient has a history of Pseudomonas identified previously. Reviewed the prior cultures. Will broaden to Zosyn, azithromycin. Discontinue vancomycin Pneumonia?Patient with significant hypoxia and bilateral infiltrates on imaging, and immunocompromised on tacrolimus and prednisone LINES/IV ACCESS - Peripheral IVs DVT PROPHYLAXIS - SCDs, on Eliquis I have personally spent 75 minutes managing this critically ill patient with multiorgan system dysfunction. Prognosis unclear. Again I believe the patient would be best served by transfer to a facility with infectious disease, nephrology, cardiology, and his transplant team. (2) Atrial fibrillation with rapid ventricular response: (3) IPF (idiopathic pulmonary fibrosis): (4) Pulmonary edema: (5) CHF (congestive heart failure): (6) CAD (coronary artery disease): (7) Chest pain: (8) Immunocompromised patient: (9) History of Mohs micrographic surgery for skin cancer: (10) Double lung transplant: (11) History of cardiac catheterization: Admission and Anticipated Discharge Date Admission Date: January 20, 2024 Subjective Patient seen and examined this morning. Continues to complain of chest tightness, anxiety CPAP or BiPAP comes off. Review of Systems Review of Systems: All systems reviewed & are unremarkable except as noted in Subjective Physical Exam Constitutional: + frail appearing; no acute distress Fullface BiPAP in place Neck: trachea midline, no thyromegaly Respiratory: no respiratory distress, no labored breathing and not tachypneic Auscultation: + crackles and + rhonchi; no wheezes Cardiovascular: Rate/Rhythm: + irregularly irregular; not tachycardic Extremities: + edema Gastrointestinal (Abdomen): normal bowel sounds, soft, nontender, no hepatosplenomegaly Musculoskeletal: Extremities: extremities normal to inspection Skin: no rashes, warm and dry Neurologic: Nonfocal exam Lymphatic: no cervical lymphadenopathy Results & Data Results & Data Vital Signs (Past 12 Hours) Vital Signs Temp Pulse Resp BP BP Pulse Ox O2 Del Method 01/20/24 09:01 102 H 01/20/24 08:15 38.1 C H 80 28 H 96/56 L 97 01/20/24 08:00 CPAP 01/20/24 08:00 38.0 C H 32 H 96/55 L 94 CPAP 01/20/24 07:35 26 H 91 High Flow Nasal Cannula 01/20/24 07:31 38.0 C H 83 26 H 100/53 L 86 L 01/20/24 07:15 38.2 C H 73 27 H 106/58 L 94 01/20/24 07:10 78 40 H 95 01/20/24 07:00 76 01/20/24 06:15 95/61 L 01/20/24 06:15 38.4 C H 73 27 H 96 01/20/24 06:01 38.4 C H 72 27 H 97 01/20/24 06:00 97/59 L 01/20/24 05:58 38.4 C H 73 28 H 97 01/20/24 05:45 38.4 C H 72 28 H 97 01/20/24 05:30 38.5 C H 73 29 H 97 01/20/24 05:20 92/54 L 01/20/24 05:20 38.5 C H 73 31 H 97 01/20/24 05:15 80/56 L 01/20/24 05:15 70 28 H 96 01/20/24 05:01 70 30 H 96 01/20/24 05:01 84/49 L 01/20/24 05:00 69 33 H 96 01/20/24 04:47 61 27 H 94 01/20/24 04:47 93/57 L 01/20/24 04:45 121 H 34 H 94 01/20/24 04:30 142 H 26 H 92 01/20/24 04:16 137 H 31 H 92 01/20/24 04:16 99/49 L 01/20/24 04:15 137 H 30 H 92 01/20/24 04:11 137 H 31 H 92 01/20/24 04:11 99/52 L 01/20/24 04:10 92 H 35 H 93 01/20/24 04:04 126 H 130/64 01/20/24 04:02 119 H 103/64 01/20/24 04:01 136 H 32 H 92 01/20/24 04:01 103/64 01/20/24 04:00 152 H 31 H 92 01/20/24 04:00 BiPAP 01/20/24 03:45 127 H 38 H 92 01/20/24 03:36 103/89 01/20/24 03:36 147 H 34 H 95 01/20/24 03:32 149 H 35 H 90 01/20/24 03:32 108/84 01/20/24 03:30 149 H 39 H 93 01/20/24 03:28 35.9 C L 44 H 108/84 92 High Flow Nasal Cannula 01/20/24 03:23 145 H 31 H 82 L 01/20/24 02:45 118 H 30 H 90 01/20/24 02:45 82/69 L 01/20/24 02:32 124 H 29 H 91 01/20/24 02:32 101/67 01/20/24 02:30 127 H 32 H 91 01/20/24 02:19 124 H 01/20/24 02:16 145 H 31 H 91 01/20/24 02:16 122/87 01/20/24 02:15 141 H 33 H 78 L 01/20/24 02:00 114 H 30 H 95 BiPAP 01/20/24 02:00 105/74 01/20/24 01:47 106 H 28 H 95 BiPAP 01/20/24 01:31 122 H 34 H 97 01/20/24 01:31 116/80 01/20/24 01:30 110 H 27 H 96 01/20/24 01:16 109/93 01/20/24 01:16 117 H 22 95 01/20/24 01:01 108/92 01/20/24 01:01 110 H 28 H 95 01/20/24 01:00 110 H 24 95 01/20/24 00:45 135 H 29 H 93 BiPAP 01/20/24 00:45 120/94 01/20/24 00:30 118/90 01/20/24 00:30 133 H 33 H 93 01/20/24 00:15 135 H 31 H 91 01/20/24 00:15 122/98 01/20/24 00:14 136 H 145/102 H 01/20/24 00:00 136 H 32 H 91 01/20/24 00:00 145/102 H 01/19/24 23:47 125/99 01/19/24 23:47 134 H 26 H 93 BiPAP 01/19/24 23:45 135 H 31 H 92 01/19/24 23:44 141 H 38 H 97 01/19/24 23:38 136 H 121/101 H 01/19/24 23:30 137 H 31 H 95 01/19/24 23:30 121/101 H 01/19/24 23:15 135/93 0524 23:15 141 H 33 H 99 01/19/24 23:01 138 H 32 H 98 BiPAP 01/19/24 23:01 130/85 01/19/24 23:00 136 H 35 H 96 01/19/24 22:55 133 H 33 H 94 01/19/24 22:55 123/77 01/19/24 22:54 136 H 38 H 96 01/19/24 22:44 138 H 32 H 100 BiPAP 01/19/24 22:30 141 H 29 H 100 01/19/24 22:30 132/103 H 01/19/24 22:22 129/105 H 01/19/24 22:22 142 H 37 H 100 01/19/24 22:22 99 Non-rebreather 01/19/24 22:22 36.7 C 140 H 34 H 134/103 H 99 Non-rebreather 01/19/24 22:22 Non-rebreather 01/19/24 22:21 113 H 40 H 99 01/19/24 22:13 141 H 01/19/24 22:12 99 O2 Flow Rate FiO2 01/20/24 09:01 01/20/24 08:15 01/20/24 08:00 40 01/20/24 08:00 40 01/20/24 07:35 55 75 01/20/24 07:31 01/20/24 07:15 01/20/24 07:10 40 01/20/24 07:00 01/20/24 06:15 01/20/24 06:15 01/20/24 06:01 01/20/24 06:00 01/20/24 05:58 01/20/24 05:45 01/20/24 05:30 01/20/24 05:20 01/20/24 05:20 01/20/24 05:15 01/20/24 05:15 01/20/24 05:01 01/20/24 05:01 01/20/24 05:00 01/20/24 04:47 01/20/24 04:47 01/20/24 04:45 01/20/24 04:30 01/20/24 04:16 01/20/24 04:16 01/20/24 04:15 01/20/24 04:11 01/20/24 04:11 01/20/24 04:10 100 01/20/24 04:04 01/20/24 04:02 01/20/24 04:01 01/20/24 04:01 01/20/24 04:00 01/20/24 04:00 85 01/20/24 03:45 01/20/24 03:36 01/20/24 03:36 01/20/24 03:32 01/20/24 03:32 01/20/24 03:30 01/20/24 03:28 01/20/24 03:23 01/20/24 02:45 01/20/24 02:45 01/20/24 02:32 01/20/24 02:32 01/20/24 02:30 01/20/24 02:19 01/20/24 02:16 01/20/24 02:16 01/20/24 02:15 01/20/24 02:00 80 01/20/24 02:00 01/20/24 01:47 80 01/20/24 01:31 01/20/24 01:31 01/20/24 01:30 01/20/24 01:16 01/20/24 01:16 01/20/24 01:01 01/20/24 01:01 01/20/24 01:00 01/20/24 00:45 80 01/20/24 00:45 01/20/24 00:30 01/20/24 00:30 01/20/24 00:15 01/20/24 00:15 01/20/24 00:14 01/20/24 00:00 01/20/24 00:00 01/19/24 23:47 01/19/24 23:47 70 01/19/24 23:45 01/19/24 23:44 70 01/19/24 23:38 01/19/24 23:30 01/19/24 23:30 01/19/24 23:15 01/19/24 23:15 01/19/24 23:01 100 01/19/24 23:01 01/19/24 23:00 01/19/24 22:55 01/19/24 22:55 01/19/24 22:54 01/19/24 22:44 100 01/19/24 22:30 01/19/24 22:30 01/19/24 22:22 01/19/24 22:22 01/19/24 22:22 15 01/19/24 22:22 15 01/19/24 22:22 15 01/19/24 22:21 01/19/24 22:13 01/19/24 22:12 Critical Care Results & Data Vital Signs (Past 12 Hours) Vital Signs Temp Pulse Resp BP BP Pulse Ox O2 Del Method 01/20/24 09:01 102 H 01/20/24 08:15 38.1 C H 80 28 H 96/56 L 97 01/20/24 08:00 CPAP 01/20/24 08:00 38.0 C H 32 H 96/55 L 94 CPAP 01/20/24 07:35 26 H 91 High Flow Nasal Cannula 01/20/24 07:31 38.0 C H 83 26 H 100/53 L 86 L 01/20/24 07:15 38.2 C H 73 27 H 106/58 L 94 01/20/24 07:10 78 40 H 95 01/20/24 07:00 76 01/20/24 06:15 95/61 L 01/20/24 06:15 38.4 C H 73 27 H 96 01/20/24 06:01 38.4 C H 72 27 H 97 01/20/24 06:00 97/59 L 01/20/24 05:58 38.4 C H 73 28 H 97 01/20/24 05:45 38.4 C H 72 28 H 97 01/20/24 05:30 38.5 C H 73 29 H 97 01/20/24 05:20 92/54 L 01/20/24 05:20 38.5 C H 73 31 H 97 01/20/24 05:15 80/56 L 01/20/24 05:15 70 28 H 96 01/20/24 05:01 70 30 H 96 01/20/24 05:01 84/49 L 01/20/24 05:00 69 33 H 96 01/20/24 04:47 61 27 H 94 01/20/24 04:47 93/57 L 01/20/24 04:45 121 H 34 H 94 01/20/24 04:30 142 H 26 H 92 01/20/24 04:16 137 H 31 H 92 01/20/24 04:16 99/49 L 01/20/24 04:15 137 H 30 H 92 01/20/24 04:11 137 H 31 H 92 01/20/24 04:11 99/52 L 01/20/24 04:10 92 H 35 H 93 01/20/24 04:04 126 H 130/64 01/20/24 04:02 119 H 103/64 01/20/24 04:01 136 H 32 H 92 01/20/24 04:01 103/64 01/20/24 04:00 152 H 31 H 92 01/20/24 04:00 BiPAP 01/20/24 03:45 127 H 38 H 92 01/20/24 03:36 103/89 01/20/24 03:36 147 H 34 H 95 01/20/24 03:32 149 H 35 H 90 01/20/24 03:32 108/84 01/20/24 03:30 149 H 39 H 93 01/20/24 03:28 35.9 C L 44 H 108/84 92 High Flow Nasal Cannula 01/20/24 03:23 145 H 31 H 82 L 01/20/24 02:45 118 H 30 H 90 01/20/24 02:45 82/69 L 01/20/24 02:32 124 H 29 H 91 01/20/24 02:32 101/67 01/20/24 02:30 127 H 32 H 91 01/20/24 02:19 124 H 01/20/24 02:16 145 H 31 H 91 01/20/24 02:16 122/87 01/20/24 02:15 141 H 33 H 78 L 01/20/24 02:00 114 H 30 H 95 BiPAP 01/20/24 02:00 105/74 01/20/24 01:47 106 H 28 H 95 BiPAP 01/20/24 01:31 122 H 34 H 97 01/20/24 01:31 116/80 01/20/24 01:30 110 H 27 H 96 01/20/24 01:16 109/93 01/20/24 01:16 117 H 22 95 01/20/24 01:01 108/92 01/20/24 01:01 110 H 28 H 95 01/20/24 01:00 110 H 24 95 01/20/24 00:45 135 H 29 H 93 BiPAP 01/20/24 00:45 120/94 01/20/24 00:30 118/90 01/20/24 00:30 133 H 33 H 93 01/20/24 00:15 135 H 31 H 91 01/20/24 00:15 122/98 01/20/24 00:14 136 H 145/102 H 01/20/24 00:00 136 H 32 H 91 01/20/24 00:00 145/102 H 01/19/24 23:47 125/99 01/19/24 23:47 134 H 26 H 93 BiPAP 01/19/24 23:45 135 H 31 H 92 01/19/24 23:44 141 H 38 H 97 01/19/24 23:38 136 H 121/101 H 01/19/24 23:30 137 H 31 H 95 01/19/24 23:30 121/101 H 01/19/24 23:15 135/93 01/19/24 23:15 141 H 33 H 99 01/19/24 23:01 138 H 32 H 98 BiPAP 01/19/24 23:01 130/85 01/19/24 23:00 136 H 35 H 96 01/19/24 22:55 133 H 33 H 94 01/19/24 22:55 123/77 01/19/24 22:54 136 H 38 H 96 01/19/24 22:44 138 H 32 H 100 BiPAP 01/19/24 22:30 141 H 29 H 100 01/19/24 22:30 132/103 H 01/19/24 22:22 129/105 H 01/19/24 22:22 142 H 37 H 100 01/19/24 22:22 99 Non-rebreather 01/19/24 22:22 36.7 C 140 H 34 H 134/103 H 99 Non-rebreather 01/19/24 22:22 Non-rebreather 01/19/24 22:21 113 H 40 H 99 01/19/24 22:13 141 H 01/19/24 22:12 99 O2 Flow Rate FiO2 01/20/24 09:01 01/20/24 08:15 01/20/24 08:00 40 01/20/24 08:00 40 01/20/24 07:35 55 75 01/20/24 07:31 01/20/24 07:15 01/20/24 07:10 40 01/20/24 07:00 01/20/24 06:15 01/20/24 06:15 01/20/24 06:01 01/20/24 06:00 01/20/24 05:58 01/20/24 05:45 01/20/24 05:30 01/20/24 05:20 01/20/24 05:20 01/20/24 05:15 01/20/24 05:15 01/20/24 05:01 01/20/24 05:01 01/20/24 05:00 01/20/24 04:47 01/20/24 04:47 01/20/24 04:45 01/20/24 04:30 01/20/24 04:16 01/20/24 04:16 01/20/24 04:15 01/20/24 04:11 01/20/24 04:11 01/20/24 04:10 100 01/20/24 04:04 01/20/24 04:02 01/20/24 04:01 01/20/24 04:01 01/20/24 04:00 01/20/24 04:00 85 01/20/24 03:45 01/20/24 03:36 01/20/24 03:36 01/20/24 03:32 01/20/24 03:32 01/20/24 03:30 01/20/24 03:28 01/20/24 03:23 01/20/24 02:45 01/20/24 02:45 01/20/24 02:32 01/20/24 02:32 01/20/24 02:30 01/20/24 02:19 01/20/24 02:16 01/20/24 02:16 01/20/24 02:15 01/20/24 02:00 80 01/20/24 02:00 01/20/24 01:47 80 01/20/24 01:31 01/20/24 01:31 01/20/24 01:30 01/20/24 01:16 01/20/24 01:16 01/20/24 01:01 01/20/24 01:01 01/20/24 01:00 01/20/24 00:45 80 01/20/24 00:45 01/20/24 00:30 01/20/24 00:30 01/20/24 00:15 01/20/24 00:15 01/20/24 00:14 01/20/24 00:00 01/20/24 00:00 01/19/24 23:47 01/19/24 23:47 70 01/19/24 23:45 01/19/24 23:44 70 01/19/24 23:38 01/19/24 23:30 01/19/24 23:30 01/19/24 23:15 01/19/24 23:15 01/19/24 23:01 100 01/19/24 23:01 01/19/24 23:00 01/19/24 22:55 01/19/24 22:55 01/19/24 22:54 01/19/24 22:44 100 01/19/24 22:30 01/19/24 22:30 01/19/24 22:22 01/19/24 22:22 01/19/24 22:22 15 01/19/24 22:22 15 01/19/24 22:22 15 01/19/24 22:21 01/19/24 22:13 01/19/24 22:12 Lab & Micro Results (Past 24 Hours) RBC 4.87 M/uL (4.70-6.10) 01/20/24 WBC 14.80 K/ul (4.8-10.8) H 01/20/24 Hgb 13.5 g/dl (14.0-18.0) L 01/20/24 Hct 43.1 % (42.0-52.0) 01/20/24 MCV 88.5 fL (80.0-100.0) 01/20/24 MCH 27.7 pg (25.0-34.0) 01/20/24 MCHC 31.3 g/dL (32.0-36.0) L 01/20/24 RDW Standard Deviation 47.8 fL (36.4-46.3) H 01/20/24 RDW Coefficient of Variation 14.7 % (11.5-14.5) H 01/20/24 Plt Count 277 K/uL (130-400) 01/20/24 MPV 10.4 fL (9.4-12.4) 01/20/24 Neutrophils (%) (Auto) 91.1 % 01/20/24 Lymphocytes (%) (Auto) 5.9 % 01/20/24 Monocytes # (Auto) 0.35 K/uL (0.11-0.59) 01/20/24 Eosinophils # (Auto) 0.00 K/uL (0.00-0.50) 01/20/24 Immature Granulocyte % (Auto) 0.3 % 01/20/24 Neutrophils # (Auto) 13.50 K/uL (1.40-6.50) H 01/20/24 Lymphocytes # (Auto) 0.87 K/uL (1.20-3.40) L 01/20/24 Monocytes # (Auto) 0.35 K/uL (0.11-0.59) 01/20/24 Eosinophils # (Auto) 0.00 K/uL (0.00-0.50) 01/20/24 Basophils # (Auto) 0.04 K/uL (0.00-0.20) 01/20/24 Immature Granulocyte # (Auto) 0.04 K/uL (0.01-0.20) 4 Red Blood Cell Morphology Unremarkable 01/20/24 Na 139 mmol/L (136-145) 01/20/24 K 4.5 mmol/L (3.5-5.1) 01/20/24 Cl 104 mmol/L (98-107) 01/20/24 CO2 22 mmol/L (21-32) 01/20/24 Anion Gap 13 (3-11) H 01/20/24 BUN 38 mg/dl (6-23) H 01/20/24 Creatinine 1.84 mg/dl (0.6-1.4) H 01/20/24 Estimated GFR ( Amer) 38.7 ml/min 01/20/24 Estimated GFR (Non-Af Amer) 33.4 ml/min 01/20/24 BUN/Creatinine Ratio 20.7 (10-20) H 01/20/24 Glu 184 mg/dl (70-99(Fasting)) H 01/20/24 Ca 8.7 mg/dl (8.6-10.3) 01/20/24 Phosphorus Level 4.0 mg/dl (2.5-4.9) 01/20/24 Total Bilirubin 0.6 mg/dl (0.2-1.0) 01/19/24 AST 23 U/L (13-39) 01/20/24 ALT 18 U/L (7-52) 01/19/24 Alkaline Phosphatase 64 U/L (34-104) 01/19/24 TP 7.7 gm/dl (6.0-8.3) 01/19/24 Albumin 4.3 gm/dl (3.4-5.0) 01/19/24 Globulin 3.4 gm/dl (2.5-4.0) 01/19/24 Albumin/Globulin Ratio 1.3 (0.9-2) 01/19/24 Mg 1.7 mg/dl (1.7-2.4) 01/20/24 04:20 Calcium Level 8.7 mg/dl (8.6-10.3) 01/20/24 04:20 Prothromb Time International Ratio 1.0 (0.9-1.1) 01/19/24 22:2 0 Venous Blood pH 7.28 (7.36-7.41) L 01/19/24 22:20 Venous Blood Partial Pressure CO2 51 mmHg (38-50) H 01/19/24 22 :20 Venous Blood Partial Pressure O2 69 mmHg 01/19/24 22:20 Venous Blood HCO3 24 mmol/L 01/19/24 22:20 Venous Blood Base Excess -3.3 mEq/L 01/19/24 22:20 Venous Blood Oxygen Saturation 93.0 % 01/19/24 22:20 Diagnostic Findings (Past 24 Hours) Chest X-Ray 01/19/24 22:20 XR chest 1V portable HISTORY: Chest pain, nonspecific COMPARISON: Chest 11/25/2023. FINDINGS: The heart is enlarged. No pneumothorax. Trace left pleural effusion. Patchy bilateral airspace opacities with interstitial/vascular thickening. This may represent pulmonary edema versus a multifocal pneumonia. No acute fractures. IMPRESSION: 1. Cardiomegaly. 2. Trace left pleural effusion. 3. Interstitial/vascular thickening with patchy bilateral airspace opacities. This may represent pulmonary edema versus a pneumonia. ACT 112: Negative or not required by law. Electronically signed by: Steven Cook M.D. 01/20/2024 6:49 AM Chest CTA 01/19/24 22:25 Exam(s): CTA CHEST W/WO Contrast IV Amt: 120 ML OPTIRAY 320 EXAM: CT Angiography Chest Without and With Intravenous Contrast CLINICAL HISTORY: Reason for exam: chest pain; shortness of breath. TECHNIQUE: Axial computed tomographic angiography images of the chest without and with intravenous contrast. CTDI is 37 mGy and DLP is 861 mGy-cm. Automated exposure control was utilized for the study. A dose lowering technique was utilized adhering to the principles of ALARA. MIP reconstructed images were created and reviewed. CONTRAST: Patient received 120 ML OPTIRAY 320 of IV contrast COMPARISON: June 08, 2019 FINDINGS: Pulmonary arteries: The pulmonary arterial tree is well opacified with contrast. No pulmonary embolism is identified. Aorta: The thoracic aorta is slightly calcified but nondilated. There is no aneurysm or dissection. Lungs: There are moderate diffuse patchy and hazy infiltrates throughout the lungs bilaterally suspicious for pulmonary edema versus pneumonia. No mass. Pleural space: Unremarkable. No significant effusion. No pneumothorax. Heart: Mild cardiomegaly with severe coronary calcification. No pericardial effusion is seen. No evidence of RV dysfunction. Bones/joints: No acute fracture. No dislocation. Soft tissues: Unremarkable. Lymph nodes: Unremarkable. No enlarged lymph nodes. IMPRESSION: 1. There are moderate diffuse patchy and hazy infiltrates throughout the lungs bilaterally suspicious for pulmonary edema versus pneumonia. 2. The thoracic aorta is slightly calcified but nondilated. There is no aneurysm or dissection. 3. Mild cardiomegaly with severe coronary calcification. No pericardial effusion is seen. 4. The pulmonary arterial tree is well opacified with contrast. No pulmonary embolism is identified. Electronically signed by: Derian Enriquez MD 01/19/24 23:39 PM I & O Totals 24 Hours 01/19/24 01/20/24 01/21/24 06:59 06:59 06:59 Intake Total 350 / 350 535 / 535 Output Total 350 / 350 150 / 150 Balance 0 / 0 385 / 385 Cumulative 01/19/24 22:00 thru 01/20/24 08:38 Intake Total 885 Output Total 500 Balance 385 RT Ventilator Mngmt (Last Documented) Ventilator Ordered Settings Respiratory Rate 28 01/20/24 08:15 Fraction of Inspired Oxygen 40 01/20/24 08:00 Ventilator - PT Measurements Respiratory Rate 28 Coding Level of Care Code 89227 CRITICAL CARE 1ST 30-74M Diagnoses Acute hypoxemic respiratory failure J96.01 Atrial fibrillation with rapid ventricular response I48.91 IPF (idiopathic pulmonary fibrosis) J84.112 Pulmonary edema J81.1 CHF (congestive heart failure) I50.9 Coronary artery disease involving [place] coronary artery of [place] heart without angina pectoris I25.10 Coronary Disease-Associated Artery/Lesion type: [place] artery [place] vs. transplanted heart: [place] heart Associated angina: without angina Chest pain R07.9 Immunocompromised patient D89.9 History of Mohs micrographic surgery for skin cancer Z85.828; Z98.890 Double lung transplant Z94.2 History of cardiac catheterization Z98.890 (6) CAD (coronary artery disease) Coronary Disease-Associated Artery/Lesion type: [place] artery [place] vs. transplanted heart: [place] heart Associated angina: without angina Qualified Code(s): I25.10 - Atherosclerotic heart disease of [place] coronary artery without angina pectoris
[2024-01-20] MEDS: FUROSEMIDE 40 MG/4 ML VIAL IV SCH (09:22)
[2024-01-20] MEDS: METOPROLOL TARTRATE 25 MG TAB PO SCH (09:22)
[2024-01-20] MEDS: AZITHROMYCIN 250 MG TAB PO SCH (09:23)
[2024-01-20] MEDS: PANTOprazole 40 MG TAB PO SCH (09:23)
[2024-01-20] MEDS: MYCOPHENOLATE MOFETIL 250 MG CAP PO SCH (09:24)
[2024-01-20] MEDS: CLOPIDOGREL BISULFATE 75 MG TAB PO SCH (09:24)
[2024-01-20] MEDS: MAGNESIUM CHLORIDE W/CALCIUM 64MG DELAYED REL TAB PO SCH (09:24)
[2024-01-20] MEDS: valACYclovir HCL 500 MG TABLET PO SCH (09:24)
[2024-01-20] MEDS: predniSONE 5 MG TAB PO SCH (09:24)
[2024-01-20] MEDS: SULFA/TRIMETH 400/80MG TAB PO SCH (09:24)
[2024-01-20] MEDS: lisinopril 10 MG TAB PO SCH (09:24)
[2024-01-20] MEDS: ISOSORBIDE MONO EXTENDED REL 60 MG TABCR PO SCH (09:24)
[2024-01-20] MEDS: ASPIRIN 81 MG ECTAB PO SCH (09:25)
[2024-01-20] MEDS: APIXABAN 2.5 MG TAB PO SCH (09:25)
[2024-01-20] MEDS: CHECK SCOPOLAMINE PATCH PLACEMENT SCH (09:25)
[2024-01-20] MEDS ORDERED: AMIODARONE / D5W 360 MG/200 ML BAG IV SCH (09:45)
[2024-01-20] MEDS ORDERED: ONDANSETRON INJ 2 MG/ML 2 ML VIAL IV STA (09:53)
[2024-01-20] MEDS: MUPIROCIN 2% OINT 22 GM TUBE EXT SCH (10:57)
[2024-01-20] MEDS ORDERED: ACETAMINOPHEN 500 MG TAB PO PRN (12:26)
[2024-01-20] MEDS: niCARdipine HCL INJ 2.5 MG/ML 10 ML AMP ONE (13:36)
[2024-01-20] MEDS: NITROGLYCERIN/D5W 100MCG/ML 20ML SYR ONE (13:36)
[2024-01-20] MEDS: OPTIRAY 350 ONE (13:36)
--- NOTE | 2024-01-20 13:43 | Cardiac Catheterization ---
[facility] Data: [employer] Cardiac Status Clinical evaluation leading to the procedure CAD Presenation: Non STEMI Anginal Classification: CCS IV Diagnostic Physicians Name: Axel Covington MD Closure Device Recommendations: Medical Therapy and/or Counseling Cardiac Cath Procedure Full Procedure Date January 20, 2024 Pre-Procedure Diagnosis Pre-Procedure Diagnosis: Non STEMI and Cardiomyopathy AUC Score AUC Score: 8 Post-Procedure Diagnosis Post-Procedure Diagnosis: Moderate CAD and Normal Intracardiac Pressures Procedure(s) Performed Procedure(s) Performed: Coronary Angiography, Left Heart Cath and Right Heart Cath Phlebotomy Supervisor Axel Covington MD Hair Blender(s) [place] Estimated Blood Loss Estimated Blood Loss: 10 Medication(s) Medication(s): Lidocaine 1%, Nicardipine and Nitroglycerin Summary of Findings Indication: NSTEMI, new LV dysfunction. Access: 6 Fr slender right radial artery, 5Fr slender RT antecubital vein Catheters: Junior Findings: LM -normal caliber, no significant disease LAD -medium caliber, proximal to mid stents patent with 30-40% in-stent restenosis of distal portion of stent. Distal vessel without significant disease and wraps around apex. High D1 medium caliber, 40% ostial. Medium D3 stents patent with 60% ostial in-stent restenosis. Circumflex -small caliber, 30-40% ostial/proximal stenosis. Small to moderate caliber OM without disease. RCA -dominant, large caliber proximal to mid stents widely patent with 40% in- stent restenosis, 40% mid segment stenosis after previous stents. Right posterior view branch with 60% stenosis prior to large PLB RA 3 RV 28/3 PA 25/10 (15) PAWP 6 PaSat 52% AoSat 92% Jarrod CO/CI 4.0/2.0 Arterial Closure: TR band Summary: 1. Moderate nonobstructive coronary artery disease -Proximal to mid LAD stents with 30-40% ISR. 60% ostial D3 ISR. Proximal to mid RCA stents patent with 40% mid ISR. 60% stenosis in right posterior AV branch 2. Normal left and right-sided filling pressures 3. Normal pulmonary artery pressures. 4. Preserved cardiac output Recommendations: No high risk or obstructive CAD to explain patient's recent acute chest pain. Can discontinue IV diuretics Continue ASCVD risk factor modification. Hemodynamics Rest Ao:: 88/46/59 Final Ao: 102/49/69 LV: 95/6 Recommendations Recommendations: Medical Therapy and/or Counseling Specimens Specimens: None Radiation Exposure (mGy) 836 Contrast (mls) 25 Anesthesia Moderate 6283-9684 Procedural Complication(s) None Disposition ICU I attest to the content of the Intraoperative Record and any orders documented therein. Any exceptions are noted below. [facility] Card Cath Procedure Codes Cardiac Catheterization Procedure 1: Cardiovascular Cath Procedures: 16886 Coronaries & LHC (+/-LV) & RHC PG Care Time/CCT Total # of Minutes Spent Total Time Spent with Patient: Total time spent is greater than 50% in coordination of care (as documented) at patient's floor/unit and/or counseling patient:
[2024-01-20 13:47] LABS: iSTAT Arterial Blood Gas HCO3 21 meg/L (19-24); iSTAT Arterial Blood Gas pCO2 34 mmHg (35-46); iSTAT Arterial Blood Gas pO2 63 mmHg (80-95); iSTAT Carbon Dioxide 22 mmol/L (24-31); iSTAT Hematocrit 39 % (42-52); iSTAT Hemoglobin 13.3 g/dl (14.0-18.0); iSTAT Potassium 4.1 mmol/L (3.3-5.0); iSTAT Sodium 140 mmol/L (135-144)
[2024-01-20 13:50] LABS: iSTAT Arterial Blood Gas HCO3 23 meg/L (19-24); iSTAT Arterial Blood Gas pCO2 40 mmHg (35-46); iSTAT Arterial Blood Gas pH 7.37 (7.35-7.45); iSTAT Arterial Blood Gas pO2 < 32 mmHg (80-95); iSTAT Carbon Dioxide 24 mmol/L (24-31); iSTAT Hematocrit 39 % (42-52); iSTAT Hemoglobin 13.3 g/dl (14.0-18.0); iSTAT Potassium 4.1 mmol/L (3.3-5.0); iSTAT Sodium 141 mmol/L (135-144)
[2024-01-20] MEDS: HEPARIN (PORCINE) 1000 UNIT/ML 10 ML (CATH LAB USE ONLY) ONE (14:24)
[2024-01-20] MEDS: MIDAZOLAM HCL 1 MG/ML 2ML VIAL ONE (14:25)
[2024-01-20] MEDS: fentaNYL citrate PF 100 MCG/2 ML VIAL ONE (14:25)
[2024-01-20] MEDS: PIPER/TAZO 4.5g in D5W MINI-B 100 ML IV ONE (14:27)
--- NOTE | 2024-01-20 14:35 | Cardiology Progress Note ---
Date of Service January 20, 2024 Assessment & Plan (1) Chest pain: Plan: 2. Complex CAD -- unchanged non-obstructive disease with patent LAD/Diagonal and RCA stents. 3. 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 NICM - question stress induced cardiomyopathy 5. Atrial Flutter with RVR/Chronic Persistent atrial fibrillation currently with RVR 6. Acute on chronic kidney disease 7. Lung infiltrates, fever 8. Skin cancer post recent resection Current presentation is not secondary to ACS. LV findings on echo potentially consistent with stress-induced cardiomyopathy. Currently euvolemic/well-compensated per RHC pressures. Remains in NSR post cardioversion -- IV lasix discontinued -- GDMT for NICM - continue current metoprolol. LASHONDA on hold in setting of ENMANUEL. -- continue dual therapy with clopidogrel/Eliquis From a cardiac standpoint stable to transfer to his transplant center if needed. Admission and Anticipated Discharge Date Admission Date: January 20, 2024 Subjective Overnight underwent successful synchronized cardioversion. Today remains in sinus rhythm Remains on CPAP vs high-flow 02 this morning with intermittent chest tightness. Echo shows global LV dysfunciton, EF30-35%. Had cardiac cath this afternoon showing unchanged coronary arteries and normal left/right sided filling pressures with preserved CO. Review of Systems Review of Systems: All systems reviewed & are unremarkable except as noted in Subjective Physical Exam Physical Exam: General: Comfortable, BiPAP in place HEENT: Sclerae anicteric Lungs: Coarse, scattered rhonci - improved from last night Cardiac: regular, no murmurs Vascular: TR Band in place Abdomen: Soft, nontender Extremities: Well perfused, no edema Psych: Alert orient x3, normal affect and mood Results & Data Vital Signs (Past 12 Hours) Vital Signs Temp Pulse Pulse Resp BP BP Pulse Ox 01/20/24 14:18 71 30 H 91 01/20/24 14:00 100.8 F H 70 14 130/55 L 94 01/20/24 12:45 98/54 L 92 01/20/24 12:23 100.4 F H 74 28 H 110/51 L 93 01/20/24 12:00 100.8 F H 66 26 H 93 01/20/24 10:59 100.9 F H 68 30 H 106/57 L 91 01/20/24 10:15 100.6 F H 68 34 H 101/56 L 88 L 05/22/24 10:00 109/57 L 01/20/24 09:46 100.6 F H 83 36 H 136/72 94 01/20/24 09:30 100.4 F H 76 32 H 108/56 L 89 L 01/20/24 09:01 102 H 01/20/24 09:00 100.6 F H 75 27 H 96/56 L 92 01/20/24 08:45 100.6 F H 81 27 H 95/60 L 93 01/20/24 08:15 100.6 F H 80 28 H 96/56 L 97 01/20/24 08:00 01/20/24 08:00 100.4 F H 32 H 96/55 L 94 01/20/24 07:35 26 H 91 01/20/24 07:31 100.4 F H 83 26 H 100/53 L 86 L 01/20/24 07:15 100.8 F H 73 27 H 106/58 L 94 01/20/24 07:10 78 40 H 95 01/20/24 07:00 76 01/20/24 06:15 95/61 L 01/20/24 06:15 101.1 F H 73 27 H 96 01/20/24 06:01 101.1 F H 72 27 H 97 01/20/24 06:00 97/59 L 01/20/24 05:58 101.1 F H 73 28 H 97 01/20/24 05:45 101.1 F H 72 28 H 97 01/20/24 05:30 101.3 F H 73 29 H 97 01/20/24 05:20 92/54 L 01/20/24 05:20 101.3 F H 73 31 H 97 01/20/24 05:15 80/56 L 01/20/24 05:15 70 28 H 96 01/20/24 05:01 70 30 H 96 01/20/24 05:01 84/49 L 01/20/24 05:00 69 33 H 96 01/20/24 04:47 61 27 H 94 01/20/24 04:47 93/57 L 01/20/24 04:45 121 H 34 H 94 01/20/24 04:30 142 H 26 H 92 01/20/24 04:16 137 H 31 H 92 01/20/24 04:16 99/49 L 01/20/24 04:15 137 H 30 H 92 01/20/24 04:11 137 H 31 H 92 01/20/24 04:11 99/52 L 01/20/24 04:10 92 H 35 H 93 01/20/24 04:04 126 H 130/64 01/20/24 04:02 119 H 103/64 01/20/24 04:01 136 H 32 H 92 01/20/24 04:01 103/64 01/20/24 04:00 152 H 31 H 92 01/20/24 04:00 01/20/24 03:45 127 H 38 H 92 01/20/24 03:36 103/89 01/20/24 03:36 147 H 34 H 95 01/20/24 03:32 149 H 35 H 90 01/20/24 03:32 108/84 01/20/24 03:30 149 H 39 H 93 01/20/24 03:28 96.6 F L 44 H 108/84 92 01/20/24 03:23 145 H 31 H 82 L 01/20/24 02:45 118 H 30 H 90 01/20/24 02:45 82/69 L 01/20/24 02:32 124 H 29 H 91 01/20/24 02:32 101/67 01/20/24 02:30 127 H 32 H 91 O2 Del Method O2 Flow Rate FiO2 01/20/24 14:18 70 01/20/24 14:00 CPAP 70 01/20/24 12:45 CPAP 01/20/24 12:23 01/20/24 12:00 01/20/24 10:59 01/20/24 10:15 01/20/24 10:00 01/20/24 09:46 High Flow Nasal Cannula 50 80 01/20/24 09:30 01/20/24 09:01 01/20/24 09:00 01/20/24 08:45 01/20/24 08:15 01/20/24 08:00 CPAP 40 01/20/24 08:00 CPAP 40 01/20/24 07:35 High Flow Nasal Cannula 55 75 01/20/24 07:31 01/20/24 07:15 01/20/24 07:10 40 01/20/24 07:00 01/20/24 06:15 01/20/24 06:15 01/20/24 06:01 01/20/24 06:00 01/20/24 05:58 01/20/24 05:45 01/20/24 05:30 01/20/24 05:20 01/20/24 05:20 01/20/24 05:15 01/20/24 05:15 01/20/24 05:01 01/20/24 05:01 01/20/24 05:00 01/20/24 04:47 01/20/24 04:47 01/20/24 04:45 01/20/24 04:30 01/20/24 04:16 01/20/24 04:16 01/20/24 04:15 01/20/24 04:11 01/20/24 04:11 01/20/24 04:10 100 01/20/24 04:04 01/20/24 04:02 01/20/24 04:01 01/20/24 04:01 01/20/24 04:00 01/20/24 04:00 BiPAP 85 01/20/24 03:45 01/20/24 03:36 01/20/24 03:36 01/20/24 03:32 01/20/24 03:32 01/20/24 03:30 01/20/24 03:28 High Flow Nasal Cannula 01/20/24 03:23 01/20/24 02:45 01/20/24 02:45 01/20/24 02:32 01/20/24 02:32 01/20/24 02:30 PG Care Time/CCT Total # of Minutes Spent Total Time Spent with Patient: Total time spent is greater than 50% in coordination of care (as documented) at patient's floor/unit and/or counseling patient: Coding Level of Care Code None Diagnoses Chest pain R07.9
[2024-01-20] MEDS: Nursing to Pharmacy Communication SCH (15:06)
--- NOTE | 2024-01-20 15:21 | Infectious Disease Consult ---
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 EMS noted he was hypoxic to 84% on RA. Upon arrival in the ED, he had afib with RVR and was tachypneic, placed on bipap. TTE was done which showed decline in EF with LV dysfunction. He has been febrile, on HFNC and BIPAP. WBC 15.93, Cr 1.77, LFT wnl. Troponin and BNP elevated. PCT <0.02. UA negative. MRSA neg. RPP negative. CXR with interstitial/vascular thickening with patchy bl opacities. Chest CTA with moderate diffuse patchy and hazy infiltrates throughout the lungs bilaterally suspicious for pulmonary edema vs PNA. He has been getting empiric abx. ID consulted on 01/19 for assistance. Chest imaging doesnt have a consolidation and favors more of a picture of pulmonary edema. PCT is also low. However, he is continuing to have fevers. He does have an extensive travel hx. Ill order fungal studies given his immunosuppression from transplant. His viral panel is negative. He has been compliant with his prophylactic medications but does report being off of cellcept for 2 weeks prior to Mohs procedure. Blood cultures are in process. No other localizing symptoms noted. Will continue on empiric therapy with zosyn. Hold off vanc given negative MRSA. # Fevers # SOB and chest pain # Afib with RVR # h/o lung transplant - Wanda ordered CrAG, aspergillus Ag, fungitell, and urine histo Ag - Wanda also ordered CMV PCR - f/u blood cultures - continue empirically on zosyn - if he develops any diarrhea then would check stool for C diff and GI pathogen panel ID will continue to follow. If questions or concerns, contact Infectious Disease Call Center . Yaneli Alvarez MD [facility], Division of Infectious Diseases [facility]: [phone] Consultation Information Consultation was provided via telemedicine using two-way real-time interactive telecommunication between the patient and the telemedicine provider. For the duration of the visit, the provider was performing the assessment from a different facility than the patient. This includesuse of bluetooth stethoscope forauscultationperformed by the telepresenter that the telemedicine provider can hear if described in the physical exam. Fire Control Mechanic contact information: Please call [facility] Call Center . (Phone Number For Physician Use Only) After establishing a telemedicine visit, patient was: Patient was verified with two unique identifiers, Patient/authorized rep acknowledged consent and understanding and Gave permission to continue telehealth session Time Spent with Patient: Initial => 75 min History of Present Illness Reason for Consultation: lung transplant, infiltrates Attending Physician: Ubaldo Norris MD History of Present Illness 83yo M with h/o IPF s/p bl lung transplant at [facility] in 2012 (on cellcept, tacro limus, and prednisone, ppx with valacyclovir, Bactrim, and azithro), CAD with PCI x 9 (most recently STEMI Aug 2023), afib on Eliquis, recent admission 11/24- 11/27 with chest pain and cath with nonobstructive CAD, 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 He was seen at [facility] for skin grafting and reconstruction earlier in the day. After returning home from [place], he felt tired and laid down. Shortly afterwards, he developed severe substernal chest pain and tachycardia. Pain improved with nitro, but began having SOB and called EMS, who noted he was hypoxic to 84% on RA. Upon arrival in the ED, he had afib with RVR and was tachypneic, placed on bipap. TTE was done which showed decline in EF with LV dysfunction. He has been febrile, on HFNC and bipap. WBC 15.93, Cr 1.77, LFT wnl. Troponin and BNP elevated. PCT <0.02. UA negative. MRSA neg. RPP negative. CXR with interstitial/vascular thickening with patchy bl opacities. Chest CTA with moderate diffuse patchy and hazy infiltrates throughout the lungs bilaterally suspicious for pulmonary edema vs PNA. He has been getting empiric abx. ID consulted on 01/19 for assistance. On evaluation, patient reports that he had been vomiting at home and had some emesis in the hospital as well. He stopped his cellcept 2 weeks before his procedure and then resumed it afterwards. He has been compliant with prophylactic abx. No reported diarrhea. He has chronic back pain for several years and wears a back brace. No joint pains or any rashes. Extensive travel history, including [place], multiple places in [place], [place], [facility], and most recently to [place] in August. No bug bi burke. No h/o TB, pre-tx PPD was negative. Allergies Allergy/AdvReac Type Severity Reaction Status Date / Time cefepime Allergy Intermediate rash Verified 01/20/24 00:16 poison laura extract Allergy Intermediate Rash Verified 01/20/24 00:16 Home Medications Medication Instructions Recorded Confirmed Type mycophenolate mofetil 250 mg 500 mg PO BID 05/11/18 01/20/24 History capsule (CellCept) prednisone 5 mg tablet 5 mg PO DAILY 05/11/18 01/20/24 History valacyclovir 500 mg tablet 500 mg PO BID 05/11/18 01/20/24 History (Valtrex) Spacer for Inhaler #1 ea 08/30/19 12/18/23 Rx acetaminophen 325 mg capsule 325 mg PO QID PRN pain or fever 08/12/21 01/20/24 History sildenafil 50 mg tablet (Viagra) 50 mg PO DAILY PRN sexual activity 09/04/21 01/20/24 Rx #6 tabs amoxicillin 500 mg tablet 2,000 mg PO DIRECTED PRN 1 HR 02/01/23 01/20/24 History PRIOR TO DENTAL APPT. apixaban 2.5 mg tablet (Eliquis) 2.5 mg PO BID 02/01/23 01/20/24 History aspirin 81 mg tablet,delayed 81 mg PO DAILY 02/01/23 01/20/24 History release azithromycin 250 mg tablet 250 mg PO 3XWK 02/01/23 01/20/24 History clopidogrel 75 mg tablet 75 mg PO DAILY 02/01/23 01/20/24 History fluorouracil 5 % topical cream See Rx Instructions .Route .COMPLEX 02/01/23 01/20/24 History lisinopril 10 mg tablet 10 mg PO BID 02/01/23 01/20/24 History magnesium chloride 64 mg 64 mg PO DAILY 02/01/23 01/20/24 History (magnesium chloride) tablet,delayed release (Mag 64) mupirocin 2 % topical ointment See Rx Instructions .Route .COMPLEX 02/01/23 01/20/24 History pantoprazole 40 mg tablet,delayed 40 mg PO DAILY 02/01/23 01/20/24 History release sulfamethoxazole 400 1 tab PO 3XWK 02/01/23 01/20/24 History mg-trimethoprim 80 mg tablet amlodipine 2.5 mg tablet 2.5 mg PO DAILY #30 tabs 11/28/23 01/20/24 Rx metoprolol tartrate 25 mg tablet 37.5 mg (1.5 x 25 mg) PO BID #45 11/28/23 01/20/24 Rx tabs tacrolimus 1 mg capsule, 1 mg PO Q12H 12/01/23 01/20/24 History immediate-release nitroglycerin 0.4 mg sublingual 0.4 mg sublingual Q5M PRN chest 12/07/23 01/20/24 Rx tablet pain #1 btl famotidine 40 mg tablet 40 mg PO DAILY PRN 12/18/23 01/20/24 History HEARTBURN/INDIGESTION isosorbide mononitrate 60 mg 0 mg PO DAILY 01/20/24 01/20/24 History tablet,extended release 24 hr Patient History Medical History Elevated troponin CKD (chronic kidney disease), stage III HTN (hypertension) HTN (hypertension) Upper respiratory infection Cough Subdural hematoma (10/05/14) Surgical History Hx of lung transplant bilateral Family History Mother Hearing loss Idiopathic pulmonary fibrosis Colorectal cancer Father Heart disease Myocardial infarction Brother Idiopathic pulmonary fibrosis Myocardial infarction Other No family history of adverse response to anesthesia No family history of bleeding disorder Denies family history of Ovarian cancer Prostate cancer Diabetes Breast cancer Lung cancer Stroke Social History Smoking Status: Never smoker Second Hand Exposure: No; Do You Dip or Chew Tobacco: No; Hx Alcohol Use: No Hx Substance Use: No Preferred Language: Turkmen Communication Ability: Effective Visual Impairment: Limited Hearing Ability: Normal Fancy Sewer Required: No Beliefs That Will Affect Care: None marital status: Current Living Situation: Spouse current occupational status: employed 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 Physical Exam Physical Exam: General: Awake, alert, no acute distress HEENT: NC/AT, EOMI, mmm Neck: supple Lungs: crackles Heart: irregular Abdomen: soft, NT/ND Ext: no LE edema Skin: no rash Neuro: moving all extremities Results & Data Vital Signs (Past 12 Hours) Vital Signs Temp Pulse Pulse Resp BP BP Pulse Ox 01/20/24 14:18 71 30 H 91 01/20/24 14:15 38.2 C H 67 27 H 104/58 L 91 01/20/24 14:00 38.2 C H 70 14 130/55 L 94 01/20/24 12:45 98/54 L 92 01/20/24 12:23 38.0 C H 74 28 H 110/51 L 93 01/20/24 12:00 38.2 C H 66 26 H 93 01/20/24 10:59 38.3 C H 68 30 H 106/57 L 91 01/20/24 10:15 38.1 C H 68 34 H 101/56 L 88 L 01/20/24 10:00 109/57 L 01/20/24 09:46 38.1 C H 83 36 H 136/72 94 01/20/24 09:30 38.0 C H 76 32 H 108/56 L 89 L 01/20/24 09:01 102 H 01/20/24 09:00 38.1 C H 75 27 H 96/56 L 92 01/20/24 08:45 38.1 C H 81 27 H 95/60 L 93 01/20/24 08:15 38.1 C H 80 28 H 96/56 L 97 01/20/24 08:00 01/20/24 08:00 38.0 C H 32 H 96/55 L 94 01/20/24 07:35 26 H 91 01/20/24 07:31 38.0 C H 83 26 H 100/53 L 86 L 01/20/24 07:15 38.2 C H 73 27 H 106/58 L 94 01/20/24 07:10 78 40 H 95 01/20/24 07:00 76 01/20/24 06:15 95/61 L 01/20/24 06:15 38.4 C H 73 27 H 96 01/20/24 06:01 38.4 C H 72 27 H 97 01/20/24 06:00 97/59 L 01/20/24 05:58 38.4 C H 73 28 H 97 01/20/24 05:45 38.4 C H 72 28 H 97 01/20/24 05:30 38.5 C H 73 29 H 97 01/20/24 05:20 92/54 L 01/20/24 05:20 38.5 C H 73 31 H 97 01/20/24 05:15 80/56 L 01/20/24 05:15 70 28 H 96 01/20/24 05:01 70 30 H 96 01/20/24 05:01 84/49 L 01/20/24 05:00 69 33 H 96 01/20/24 04:47 61 27 H 94 01/20/24 04:47 93/57 L 01/20/24 04:45 121 H 34 H 94 01/20/24 04:30 142 H 26 H 92 01/20/24 04:16 137 H 31 H 92 01/20/24 04:16 99/49 L 01/20/24 04:15 137 H 30 H 92 01/20/24 04:11 137 H 31 H 92 01/20/24 04:11 99/52 L 01/20/24 04:10 92 H 35 H 93 01/20/24 04:04 126 H 130/64 01/20/24 04:02 119 H 103/64 01/20/24 04:01 136 H 32 H 92 01/20/24 04:01 103/64 01/20/24 04:00 152 H 31 H 92 01/20/24 04:00 01/20/24 03:45 127 H 38 H 92 01/20/24 03:36 103/89 01/20/24 03:36 147 H 34 H 95 01/20/24 03:32 149 H 35 H 90 01/20/24 03:32 108/84 01/20/24 03:30 149 H 39 H 93 01/20/24 03:28 35.9 C L 44 H 108/84 92 01/20/24 03:23 145 H 31 H 82 L O2 Del Method O2 Flow Rate FiO2 01/20/24 14:18 70 01/20/24 14:15 CPAP 70 01/20/24 14:00 CPAP 70 01/20/24 12:45 CPAP 01/20/24 12:23 01/20/24 12:00 01/20/24 10:59 01/20/24 10:15 01/20/24 10:00 01/20/24 09:46 High Flow Nasal Cannula 50 80 01/20/24 09:30 01/20/24 09:01 01/20/24 09:00 01/20/24 08:45 01/20/24 08:15 01/20/24 08:00 CPAP 40 01/20/24 08:00 CPAP 40 01/20/24 07:35 High Flow Nasal Cannula 55 75 01/20/24 07:31 01/20/24 07:15 01/20/24 07:10 40 01/20/24 07:00 01/20/24 06:15 01/20/24 06:15 01/20/24 06:01 01/20/24 06:00 01/20/24 05:58 01/20/24 05:45 01/20/24 05:30 01/20/24 05:20 01/20/24 05:20 01/20/24 05:15 01/20/24 05:15 01/20/24 05:01 01/20/24 05:01 01/20/24 05:00 01/20/24 04:47 01/20/24 04:47 01/20/24 04:45 01/20/24 04:30 01/20/24 04:16 01/20/24 04:16 01/20/24 04:15 01/20/24 04:11 01/20/24 04:11 01/20/24 04:10 100 01/20/24 04:04 01/20/24 04:02 01/20/24 04:01 01/20/24 04:01 01/20/24 04:00 01/20/24 04:00 BiPAP 85 01/20/24 03:45 01/20/24 03:36 01/20/24 03:36 01/20/24 03:32 01/20/24 03:32 01/20/24 03:30 01/20/24 03:28 High Flow Nasal Cannula 01/20/24 03:23 Laboratory Results Labs reviewed. Diagnostic Findings Imaging reviewed.
--- NOTE | 2024-01-20 15:41 | XCELERA ---
[id number] \\[id number]\[id number]
--- NOTE | 2024-01-20 16:30 | Electrocardiogram Report ---
Test Reason : Blood Pressure : / mmHG Vent. Rate : 141 BPM Atrial Rate : 000 BPM P-R Int : 000 ms QRS Dur : 156 ms QT Int : 354 ms P-R-T Axes : 000 -61 125 degrees QTc Int : 542 ms Wide QRS tachycardia Left axis deviation Left bundle branch block Abnormal ECG When compared with ECG of 19-JAN-2024 22:10, (unconfirmed) Wide QRS tachycardia has replaced Atrial fibrillation Confirmed by Bernabe Abdi ([id number]) on 01/20/2024 4:30:27 PM Referred By: REFERRED SELF Confirmed By:Bernabe Abdi
--- NOTE | 2024-01-20 16:31 | Electrocardiogram Report ---
Test Reason : Blood Pressure : / mmHG Vent. Rate : 125 BPM Atrial Rate : 000 BPM P-R Int : 000 ms QRS Dur : 168 ms QT Int : 372 ms P-R-T Axes : 000 -47 122 degrees QTc Int : 536 ms Atrial fibrillation with rapid ventricular response Left axis deviation Left bundle branch block Abnormal ECG When compared with ECG of 25-NOV-2023 20:51, No significant change was found Confirmed by Bernabe Abdi ([id number]) on 01/20/2024 4:30:55 PM Referred By: REFERRED SELF Confirmed By:Bernabe Abdi
--- NOTE | 2024-01-20 16:34 | Electrocardiogram Report ---
Test Reason : Blood Pressure : / mmHG Vent. Rate : 109 BPM Atrial Rate : 277 BPM P-R Int : 000 ms QRS Dur : 156 ms QT Int : 396 ms P-R-T Axes : 000 -40 134 degrees QTc Int : 533 ms Atrial fibrillation Left axis deviation Left bundle branch block Abnormal ECG When compared with ECG of 19-JAN-2024 22:28, (unconfirmed) Wide QRS tachycardia no longer present Confirmed by Bernabe Abdi ([id number]) on 01/20/2024 4:34:36 PM Referred By: REFERRED SELF Confirmed By:Bernabe Abdi
--- NOTE | 2024-01-20 16:35 | Electrocardiogram Report ---
Test Reason : Blood Pressure : / mmHG Vent. Rate : 147 BPM Atrial Rate : 159 BPM P-R Int : 000 ms QRS Dur : 162 ms QT Int : 358 ms P-R-T Axes : 000 -39 118 degrees QTc Int : 560 ms Wide QRS tachycardia Left axis deviation Non-specific intra-ventricular conduction block Lateral infarct , age undetermined Inferior infarct , age undetermined Abnormal ECG When compared with ECG of 20-JAN-2024 00:55, (unconfirmed) Wide QRS tachycardia now present Confirmed by Bernabe Abdi ([id number]) on 01/20/2024 4:35:21 PM Referred By: REFERRED SELF Confirmed By:Bernabe Abdi
--- NOTE | 2024-01-20 16:36 | Electrocardiogram Report ---
Test Reason : Blood Pressure : / mmHG Vent. Rate : 073 BPM Atrial Rate : 073 BPM P-R Int : 210 ms QRS Dur : 160 ms QT Int : 440 ms P-R-T Axes : 096 -32 117 degrees QTc Int : 484 ms Sinus rhythm with 1st degree A-V block Right atrial enlargement Left axis deviation Left bundle branch block Abnormal ECG When compared with ECG of 20-JAN-2024 03:37, (unconfirmed) Sinus rhythm has replaced Wide QRS tachycardia Vent. rate has decreased BY 74 BPM Confirmed by Bernabe Abdi ([id number]) on 01/20/2024 4:36:18 PM Referred By: REFERRED SELF Confirmed By:Bernabe Abdi
[2024-01-20] MEDS ORDERED: PIPER/TAZO 4.5g in D5W MINI-B 100 ML IV SCH (17:00)
[2024-01-20] MEDS ORDERED: MIDAZOLAM HCL 1 MG/ML 2ML VIAL ONE (17:25)
[2024-01-20] MEDS ORDERED: SUCCINYLCHOLINE CHLORIDE 20 MG/ML 10 ML VIAL IV ONE (17:27)
[2024-01-20] MEDS ORDERED: LIDOCAINE 2% 2 ML VIAL/AMP(20MG/ML) INFIL ONE (17:27)
[2024-01-20] MEDS ORDERED: PROPOFOL IV EMULSION 10 MG/ML 20 ML VIAL IV ONE (17:27)
--- NOTE | 2024-01-20 17:27 | Anesthesia Procedure Note ---
Anesthesia Procedure Note Intubation Note Vital Signs: Patient medical history, medication, allergies and vitals reviewed. Date of procedure: 01/20/24 Indication for intubation: Unable to protect airway and Other (transport on helicopter cannot occur on hi flw nasal o2) Consent: Risk / Benefits Reviewed With: PT / POA / Parent / Guardian, Accepts Plan, Informed Consent Obtained and All Questions Answered Monitors attached: Blood Pressure, CO2, EKG and Pulse Oximetry Time out completed: Yes Premedication: Midazolam (mg) (2), Propofol (mg) (100) and Other (lidocaine 40mg) Paralytic medication: Succinylcholine (mg) (100) Intubation technique: Adequate preoxygenation and Mask ventilation Equipment: Glidescope View: Grade 1 Endotracheal tube: Oral, 8.0, with Stylet, Tube secured @ cm (23) and Balloon inflated Attempts: 1 and Atraumatic Tube placement confirmation: auscultation and Positive CO2 detection Post-procedure: Pt tolerates well, No complication and Post placement CXR ordered (by hospitalist)
[2024-01-20] MEDS ORDERED: STAT IV Infusion **Titration per Protocol STA ×2 (17:28→17:52)
[2024-01-20] MEDS ORDERED: PROPOFOL BOLUS FROM BAG IV PRN (17:28)
[2024-01-20] MEDS ORDERED: propofoL 1,000 MG/100 ML VIAL IV SCH (17:30)
--- NOTE | 2024-01-20 17:40 | Discharge Summary ---
Discharge Summary Date of Service January 20, 2024 Notes For Next Care Provider pt with undiagnosed pneumonia vs inflammatory lung disease vs transplant rejection persistently febrile blood cultures pending results at transfer elevated troponin did have left heart cath with non occlusive disease remains on Zosyn, mrsa and resp biofire pcr negative Admission HPI Per Admitting Provider Erwin Barrios is a pleasant 83yo male presenting with chest pain and shortness of breath. Patient is medically complex with history of IPF s/p double lung transplant (2012, [facility]) on CellCept, Tacrolimus and Prednisone and prophylactic Valacyclovir, Bactrim and Azithromycin (Follows with [facility] - Dr. Basurto), extensive cardiac history with CAD with stent x [address] (most recent stent August 2023), atrial fibrillation on Eliquis anticoagulation. He was recently admitted to [facility] from 11/25/23 --> 11/28/23 after presenting with chest pain. He had a cardiac catheterization performed on 11/26/23 which revealed moderate nonobstructive CAD with patent mid- LAD and proximal to mid RCA stents, 50-60% ostial D3 in-stent restenosis and 60% stenosis in the right posterior AV branch. Patient does report frequent episodes of angina. When he develops AF with RVR he often develops angina and shortness of breath. Patient most recently was found to have a skin cancer on his scalp. He was seen at [facility] today for skin grafting and reconstruction. After returning home from [place] he felt very tired so he went upstairs to lay down around 20:00. Shortly after he developed severe substernal chest pain and rapid heart rate. He reports the pain being severe 9/10. He took Nitro x 3 with some improvement in symptoms. He then began to develop shortness of breath so he called 911. Patient with persistent chest pain -was administered additional Nitro by EMS. Noted to be hypoxic at 84% on room air and was placed on NRB. Upon arrival to the ER patient in atrial fibrillation with RVR - rate in the 140's. Tachypneic at 32 breaths/min. He was placed on BiPAP for respiratory support. Chest pain has since resolved. Cardiology was consulted and patient assessed at bedside. Echo was performed which revealed decline in EF - moderate LV dysfunction with potential LAD distribution WMA ER Course: Zofran 4mg IV Nitro 0.4mg SL Fentanyl 50mcg Metoprolol 5mg IV Ceftriaxone 2gm Metoprolol 10mg IV Morphine 4mg IV Lasix 40mg IV Zofran 4mg IV Nitro 0.4mg SL Principal Dx & Hospital Course #1 = Principal Diagnosis (1) Acute hypoxemic respiratory failure: Patient with acute hypoxic respiratory failure. CT of the chest with moderate diffuse patchy and hazy infiltrates -Suspect pulmonary edema more so than PNA Patient is immunocompromised. -Initially supported with BiPAP, wean as tolerated.Oxygen saturations 88-89% on room air at baseline -Continue Lasix 40mg IV daily. at this time. SOB started after AF with RVR. Patient does not endorse infectious prodrome. -Continue empiric Ceftriaxone and Vancomycin started -Follow cultures - MRSA nares negative consider downgrade of Vanco Pulm critical care request consult with [facility] pulm for consideration of transfer due to increased oxygen demands, lung transplant, and pneumonia, with previouisly decliing outpt PFT and discussion of Bronchiolitis [place] Spoke to Dr Holliday front office associate for [facility], accepted in transfer, needed to be intubated prior to flight due to oxygen needs, this was completed 01/20/24 at 1737 (2) Chest pain: Patient with severe CAD with multiple stents in place. Most recent catheterization reveals some restenosis. Troponin 14.5 --> 45.6. in setting of AF with RVR vs true ACS. -chest pain in face of Afib RVR, He is currently chest pain free. suspected to be demand ischemia however troponin 14->45=>1873 -Appreciate Cardiology - patient may have cardiac catheterization performed during this visit Amiodarone started and conversion to NSR. AC with Eliquis may consider heparin gtt -Continue Plavix 75mg po daily -Continue Lisinopril 10mg po BID -Continue Metoprolol 37.5mg po BID -Continue isosorbide (3) Double lung transplant: Patient with history of IPF s/p lung transplant in 2013 at [facility]. -Continue CellCept, Prograf and Prednisone -Continue Valcyte, Bactrim and Azithromycin for prophylaxis Discharge Exam pt awake and alert intact prior to intubation for flight coarse bilateral lung sounds cardiac is regular without significant murmur Updated Medication List Medication Instructions Recorded Confirmed Type mycophenolate mofetil 250 mg 500 mg PO BID 05/11/18 01/20/24 History capsule (CellCept) prednisone 5 mg tablet 5 mg PO DAILY 05/11/18 01/20/24 History valacyclovir 500 mg tablet 500 mg PO BID 05/11/18 01/20/24 History (Valtrex) Spacer for Inhaler #1 ea 08/30/19 12/18/23 Rx acetaminophen 325 mg capsule 325 mg PO QID PRN pain or fever 08/12/21 01/20/24 History sildenafil 50 mg tablet (Viagra) 50 mg PO DAILY PRN sexual activity 09/04/21 01/20/24 Rx #6 tabs amoxicillin 500 mg tablet 2,000 mg PO DIRECTED PRN 1 HR 02/01/23 01/20/24 History PRIOR TO DENTAL APPT. apixaban 2.5 mg tablet (Eliquis) 2.5 mg PO BID 02/01/23 01/20/24 History aspirin 81 mg tablet,delayed 81 mg PO DAILY 02/01/23 01/20/24 History release azithromycin 250 mg tablet 250 mg PO 3XWK 02/01/23 01/20/24 History clopidogrel 75 mg tablet 75 mg PO DAILY 02/01/23 01/20/24 History fluorouracil 5 % topical cream See Rx Instructions .Route .COMPLEX 02/01/23 01/20/24 History lisinopril 10 mg tablet 10 mg PO BID 02/01/23 01/20/24 History magnesium chloride 64 mg 64 mg PO DAILY 02/01/23 01/20/24 History (magnesium chloride) tablet,delayed release (Mag 64) mupirocin 2 % topical ointment See Rx Instructions .Route .COMPLEX 02/01/23 01/20/24 History pantoprazole 40 mg tablet,delayed 40 mg PO DAILY 02/01/23 01/20/24 History release sulfamethoxazole 400 1 tab PO 3XWK 02/01/23 01/20/24 History mg-trimethoprim 80 mg tablet amlodipine 2.5 mg tablet 2.5 mg PO DAILY #30 tabs 11/28/23 01/20/24 Rx metoprolol tartrate 25 mg tablet 37.5 mg (1.5 x 25 mg) PO BID #45 11/28/23 01/20/24 Rx tabs tacrolimus 1 mg capsule, 1 mg PO Q12H 12/01/23 01/20/24 History immediate-release nitroglycerin 0.4 mg sublingual 0.4 mg sublingual Q5M PRN chest 12/07/23 01/20/24 Rx tablet pain #1 btl famotidine 40 mg tablet 40 mg PO DAILY PRN 12/18/23 01/20/24 History HEARTBURN/INDIGESTION isosorbide mononitrate 60 mg 0 mg PO DAILY 01/20/24 01/20/24 History tablet,extended release 24 hr Hospital Stay Data Consultations 01/20/24 00:53 ED Decision to Admit Stat 01/20/24 03:27 Consult Cardiology Routine Consult Tube Rebuilder Routine 01/20/24 10:30 Consult Infectious Diseases Routine Consult Nephrology Routine 01/20/24 14:37 Burn CD for patient Stat Procedures Performed Operation Date: 01/20/24 12:30 Actual Procedures p Cath, Right and Left Heart(Right) - Axel Covington MD s Cineradiography w/Routine Exam - Axel Covington MD Diagnostic Imagining Performed 01/19/24 22:25 CTA chest dissec wo/w con [CT angio chest dissec wo/w con] Stat 01/20/24 11:13 CL Cath Imgs for PACS use only Routine Pending Results Patient Have Any Pending Studies at Discharge: Yes Discharge Instructions Given to Patient (Per Discharging Provider) per [facility] discharge team Total Time Total Time Spent Total Time Spent (In Minutes): greater than 30 minutes required for discharge Coding Level of Care Code 79868 INP/OBS DISCH >30 MIN Diagnoses Acute hypoxemic respiratory failure J96.01 Chest pain R07.9 Double lung transplant Z94.2
[2024-01-20] MEDS ORDERED: fentaNYL citrate PF 100 MCG/2 ML VIAL IV PRN (17:49)
--- NOTE | 2024-01-20 18:18 | XRay Report ---
XR chest 1V portable CLINICAL HISTORY: post intubation COMPARISON STUDY: Chest radiograph and chest CT January 19, 2024. FINDINGS: The tip of the endotracheal tube is 3.7 cm above the nasir. No pneumothorax or pleural eff usion is identified. Cardiomegaly is again noted. Bilateral airspace opacities, predominantly perihil ar in distribution, have progressed. IMPRESSION: 1. Satisfactory positioning of the endotracheal tube. 2. Progression of bilateral airspace opacities. The findings favor alveolar pulmonary edema. Bilatera l pneumonia could appear similar. ACT 112: Negative or not required by law. Electronically signed by: Michael Wyatt M.D. 01/20/2024 6:17 PM
[2024-01-20] MEDS: NOREPINEPHRINE/D5W 4 MG/250 ML PLCT IV SCH (18:37)
[2024-01-20] MEDS: VASOPRESSIN 20 UNITS in 0.9 % SODIUM CHLORIDE 100 ML IV SCH (18:38)
[2024-01-20] MEDS ORDERED: cefTRIAXone SODIUM 2,000 MG/50 ML BAG IV SCH (21:00)
== END 2024-01-20 19:55 | disposition short-term general hospital (02) | DRG 208 ==
LOC: ED 22:04 → 1E 01-20 01:47 → SUATTDRO 01-20 01:47 → 1E 01-20 02:42

== ENCOUNTER 2024-11-24 16:12 | Inpatient (IN) ==
[2024-11-24 16:38] LABS: iSTAT Creatinine 2.1 mg/dl (0.6-1.3); iSTAT Hemoglobin 16.3 g/dl (14.0-18.0); iSTAT Ionized Calcium 1.16 mmol/l (1.12-1.32); iSTAT Potassium 5.2 mmol/L (3.3-5.0)
--- NOTE | 2024-11-24 16:39 | Emergency Department Note ---
Impression & Plan Chronic subdural hematoma, Fall from standing, On apixaban therapy, Abrasion of chin ED Provider Note NAME: LUCIA FINE AGE: 84 SEX: M : 1940 ARRIVES VIA: Ambulance INFORMANT: Patient ED PROVIDER(S): Valeriy Brantley MD CHIEF COMPLAINT: Fall, trauma alert PLAN: Disposition: Admit MEDICAL DECISION MAKING: The patient is a pleasant 84-year-old gentleman with a past medical history of idiopathic pulmonary fibrosis, bilateral lung transplant, CHF/nonischemic cardiomyopathy, CAD, atrial fibrillation on Eliquis 2.5 mg twice daily in the setting of CKD, biventricular pacemaker, who presents to the emergency department via EMS after having a fall when he was across the street from this emergency department at his outpatient appointment and had fallen where it was suspected that he had tripped but the patient feels he may have passed out leading to his fall. He reported that he was confused on initial assessment but this has been improving though he still admits to having some memory difficulty about what his appointment is about today. He denies any illness. He did hit his chin on the ground. He denies any head, neck or back pain. He does report some pain in the right side of his chest. Of note, as the patient was observed he had improved recollection of events and recalls that he did in fact trip. He further adds that he was going to the outpatient offices today because he had left some personal items when he was there last week for testing. Trauma alert activated in the field due to fall with the patient being on Eliquis. On evaluation patient is no distress, afebrile with stable vital signs. He appears euvolemic to dry. He has no midline CTL spine tenderness palpation or step-offs. He has an abrasion of the chin without overt lacerations and no significant edema. There is no bony crepitus. There is no malocclusion. Patient has normal strength in all extremities without focal deficits. Patient has mild tenderness of the right lateral chest wall without bony crepitus. There is a 1 cm ecchymotic lesion without underlying fluctuance/hematoma. EKG is paced. CXR negative for acute cardiopulmonary process per my personal preliminary review/interpretation. WBC, H/H within normal limits. Platelets within normal limits. Chemistry without metabolic acidosis. Creatinine 2.05, similar to prior values in setting of CKD. LFTs unremarkable. High study troponin 14.8, within normal limits. BNP 344 in setting of history of cardiomyopathy. Lipase is marginally above normal at 130, nonspecific. TSH within normal limits. UA without evidence of infection. CT of the head, C-spine, chest and abdomen/pelvis were performed. Findings notable for subacute on chronic left frontal subdural hematoma. Otherwise no acute traumatic findings on CT imaging. I did review the patient's imaging results at the bedside with his present. Patient reports he is familiar with having "chronic subdural hematomas. However we did discuss the fact that there is a subacute component present and given his report of no recent falls and component of confusion and memory impairment today after his fall possibility of more acute component is raised. Of note during our conversation it was unclear if the patient exhibited full decision-making capacity as he seemed to have poor recollection of our discussion that there may be a new component within the chronic subdural hematoma. Ultimately he and his did agree with plan for repeat CT imaging and consultation with neurosurgery at tertiary care center. Given patient follows with [facility] transplant surgery and patient reported that he had been managed for his subdural hematomas at [facility] in the past [facility] was contacted. Case was discussed with [facility] Neurosurgery, Dr. Donahue. Appreciate consultation and recommendations. Reports he was not able to review images which were attempted to be transferred electronically. However per my description small size of 5 mm unlikely to be of clinical significance. No need for transfer at this time. Agrees with admission to our facility for observation and repeat imaging to ensure stability. Agrees with holding the patient's anticoagulation at this time. He reports he will be available for inpatient team consultation if needed. Repeat CT imaging was performed and was unchanged interpretation of late subacute on chronic subdural hematoma. No midline shift. Case was discussed with Dr. Napoles, [facility] hospitalist, who will evaluate the patient for admission. Case was discussed with [place] neurology, Dr. Bush. Appreciate consultation recommendations. Also agrees that patient can be admitted to our facility for further management given stability of exam and imaging. Agrees with holding anticoagulation at this time. Further, no need for reversal with Kcentra at this time. Admitting team updated. Further management per admitting team. Triage Nursing notes reviewed and agree them. Prior/external medical records reviewed Vital Signs: reviewed Differential diagnosis: Fracture, dislocation, contusion, intra-abdominal, pneumothorax, intrathoracic, intracranial, neurologic, compartment syndrome, rhabdomyolysis, as well as other pathologies. ER treatment provided: See below. Diagnostics interpreted by me: ECG: Biventricular pacemaker, 65 bpm, no ectopy. Cardiac Monitoring: An order for continuous cardiac monitoring was placed and demonstrated Biventricular pacemaker, 65 bpm, no ectopy. Laboratory studies: See below Imaging studies: See below Consultation(s): [facility] Neurosurgery, Dr. Donahue [place] neurology, Dr. Bush [facility] hospitalist, Dr. Napoles HPI: The patient is a pleasant 84-year-old gentleman with a past medical history of idiopathic pulmonary fibrosis, bilateral lung transplant, CHF/nonischemic cardiomyopathy, CAD, atrial fibrillation on Eliquis 2.5 mg twice daily in the setting of CKD, biventricular pacemaker, who presents to the emergency department via EMS after having a fall when he was across the street from this emergency department at his outpatient appointment and had fallen where it was suspected that he had tripped but the patient feels he may have passed out leading to his fall. He reported that he was confused on initial assessment but this has been improving though he still admits to having some memory difficulty about what his appointment is about today. He denies any illness. He did hit his chin on the ground. He denies any head, neck or back pain. He does report some pain in the right side of his chest. Of note, as the patient was observed he had improved recollection of events and recalls that he did in fact trip. He further adds that he was going to the outpatient offices today because he had left some personal items when he was there last week for testing. ROS: See above HPI for pertinent positives & negatives. A total of 10 systems reviewed and were otherwise negative. VITALS:See Below PHYSICAL EXAMINATION: GENERAL: Awake, alert, in no distress HENT: Normocephalic, Abrasion of the chin without overt lacerations and no significant edema. There is no bony crepitus. There is no malocclusion. Oropharynx unremarkable. EYES: Normal conjunctiva. Sclera non-icteric. EOMI. No nystamgus. PEARRL. NECK: Supple. No nuchal rigidity. FROM. No JVD. RESPIRATORY: Clear to auscultation. CARDIAC: Regular rate, normal rhythm. Extremities warm and well perfused. Pulses equal. ABDOMEN: Soft, non-distended. No tenderness to palpation. No rebound or guarding. No masses. MUSCULOSKELETAL: No midline CTL spine tenderness palpation or step-offs. Mild tenderness of the right lateral chest wall without bony crepitus. There is a 1 cm ecchymotic lesion without underlying fluctuance/hematoma. LOWER EXTREMITIES: Calves are equal size bilaterally and non-tender. No edema. No discoloration. NEURO: Normal sensorium. No sensory or motor deficits noted. Normal strength in all extremities without focal deficits. SKIN: No rash or jaundice noted. ED COURSE: Critical Care: I have personally spent greater than 35 minutes of critical care time in the direct management of this patient. This includes bedside care, interpretation of diagnostic studies, and testing, discussion with consultants, patient, and family members, and other required patient management activities. This 35 minutes is in excess of all separately billable procedures. Valeriy Brantley MD Past Med/Surg History Problem List (Updated 11/25/24 @ 06:16 by Valeriy Brantley MD) Abrasion of chin (Acute) Subacute subdural hematoma On apixaban therapy (Acute) Fall from standing (Acute) Chronic subdural hematoma (Acute) Nonischemic cardiomyopathy Anticoagulant long-term use Cardiac pacemaker Lumbar radiculopathy Type 2 diabetes mellitus Lumbar stenosis with neurogenic claudication Foraminal stenosis of lumbar region Scoliosis of lumbar region due to degenerative disease of spine in adult HFrEF (heart failure with reduced ejection fraction) Atrial fibrillation CAD (coronary artery disease) IPF (idiopathic pulmonary fibrosis) (Chronic) Anemia (Acute) Immunocompromised patient (Acute) Chronic GERD Medical History Low back pain radiating to right leg Sensorineural hearing loss (SNHL) of left ear with restricted hearing of right ear Asymmetric SNHL (sensorineural hearing loss) History of Mohs micrographic surgery for skin cancer Bilateral tinnitus 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 CKD (chronic kidney disease), stage III HTN (hypertension) Upper respiratory infection Subdural hematoma (10/05/14) Surgical History Hx of appendectomy History of cardiac catheterization Stent placement x's 6 Most recent, 09/15/2022 2 MARK to LAD (Dr Weinstein [facility]) Hx of lung transplant bilateral Family History Mother Hearing loss Idiopathic pulmonary fibrosis Colorectal cancer Father Heart disease Myocardial infarction Brother Idiopathic pulmonary fibrosis Myocardial infarction Other No family history of adverse response to anesthesia No family history of bleeding disorder Denies family history of Ovarian cancer Prostate cancer Diabetes Breast cancer Lung cancer Stroke Social History Smoking Status: Never smoker Tobacco Type: Cigarettes Second Hand Exposure: No; Do You Dip or Chew Tobacco: No; Tobacco Cessation Education Requested by Patient: No Hx Alcohol Use: Yes Alcohol type: wine Hx Substance Use: No Preferred Language: Khmer Communication Ability: Effective Visual Impairment: Limited Hearing Ability: Normal Storage Battery Inspector Required: No Beliefs That Will Affect Care: None marital status: Current Living Situation: Spouse Current Living Situation Comment: 3 story home current occupational status: employed 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) How many Children do You have: 2 Other Information That Helps Us Care for You: No Feels Safe at Home: Yes Safety Concerns: Feels Safe At This Time Childhood Exposure to Second-Hand Smoke: Yes caffeine: No Dental Care, Regularly: Yes Physical Activity Frequency: Daily Seatbelt Use: sometimes Sunscreen Use: Yes Assistive Devices: Oxygen - at Night Allergies Allergies Allergy/AdvReac Type Severity Reaction Status Date / Time cefepime Allergy Intermediate rash Verified 10/19/24 09:10 poison laura extract Allergy Intermediate Rash Verified 10/19/24 09:10 Home Meds Home Medications Medication Instructions Recorded Confirmed prednisone 5 mg tablet 5 mg PO DAILY 05/11/18 11/24/24 amoxicillin 500 mg tablet 2,000 mg PO DIRECTED PRN 1 HR 02/01/23 11/24/24 PRIOR TO DENTAL APPT. apixaban 2.5 mg tablet (Eliquis) 2.5 mg PO BID 02/01/23 11/24/24 clopidogrel 75 mg tablet 75 mg PO DAILY 02/01/23 11/24/24 sulfamethoxazole 400 1 tab PO 3XWK 02/01/23 11/24/24 mg-trimethoprim 80 mg tablet cholecalciferol (vitamin D3) 25 50 mcg PO DAILY 02/02/24 11/24/24 mcg (1,000 unit) tablet valacyclovir 500 mg tablet 500 mg PO DAILY 02/02/24 11/24/24 (Valtrex) valsartan 40 mg tablet 20 mg PO BID 02/02/24 11/24/24 albuterol sulfate 90 mcg/actuation 1 inh inhalation QID PRN sob 02/09/24 11/24/24 aerosol inhaler pantoprazole 40 mg tablet,delayed 40 mg PO BID 02/09/24 11/24/24 release ferrous sulfate 325 mg (65 mg 325 mg PO DAILY 04/26/24 11/24/24 iron) tablet (Feosol) furosemide 40 mg tablet 40 mg PO DAILY edema 04/26/24 11/24/24 rosuvastatin 20 mg sprinkle capsule 40 mg PO DAILY 04/26/24 11/24/24 tacrolimus 0.5 mg capsule, 1.5 mg PO BID 08/12/24 11/24/24 immediate-release ropinirole 0.25 mg tablet 0.25 mg PO HS 11/24/24 11/24/24 Previous Rx's Medication Instructions Recorded Spacer for Inhaler #1 ea 08/30/19 gabapentin 300 mg capsule 300 mg PO TID #90 caps 06/17/24 metoprolol succinate 100 mg 100 mg PO DAILY #90 tabs 10/19/24 tablet,extended release 24 hr (Toprol XL) nitroglycerin 0.4 mg sublingual 0.4 mg sublingual Q5M PRN chest 10/19/24 tablet pain #1 btl empagliflozin 10 mg tablet 10 mg PO DAILY #30 tabs 10/20/24 (Jardiance) Results & Data (ED) Vital Signs Vital Signs - 24 hr 11/24/24 16:09 11/24/24 16:09 11/24/24 16:09 Temperature 37.1 C 37 C Temperature Source Oral Pulse Rate 65 65 Pulse Rate [Apical] 65 Pulse Rate from SpO2 Sensor Pulse Rhythm Regular Pulse Rhythm [Apical] Regular Pulse Strength Normal Pulse Strength [Apical] Normal Respiratory Rate 12 12 12 Respiratory Effort / Characteristics Non-Labored Non-Labored Spontaneous Respiratory Depth Normal Normal Respiratory Pattern Regular Regular Blood Pressure 158/97 H 158/97 H Blood Pressure [Left Arm] 158/97 H Blood Pressure Mean 117 Blood Pressure Mean [Left Arm] 117 Blood Pressure Position Lying Blood Pressure Position [Left Arm] Pulse Oximetry 98 98 98 Oxygen Delivery Method Room Air Room Air Room Air Oxygen Flow Rate 0 Sepsis Recent Fever Within 48 Hours No Sepsis New/Unexplained Change in Mental Status No Sepsis Action Taken by Nursing No Action Required 11/24/24 16:09 11/24/24 16:09 11/24/24 16:26 Temperature Temperature Source Pulse Rate 65 Pulse Rate [Apical] 65 Pulse Rate from SpO2 Sensor Pulse Rhythm Regular Pulse Rhythm [Apical] Regular Pulse Strength Pulse Strength [Apical] Normal Respiratory Rate 12 12 Respiratory Effort / Characteristics Non-Labored Spontaneous Respiratory Depth Normal Respiratory Pattern Regular Blood Pressure Blood Pressure [Left Arm] 158/97 H Blood Pressure Mean Blood Pressure Mean [Left Arm] 117 Blood Pressure Position Blood Pressure Position [Left Arm] Pulse Oximetry 98 98 Oxygen Delivery Method Room Air Room Air Room Air Oxygen Flow Rate Sepsis Recent Fever Within 48 Hours Sepsis New/Unexplained Change in Mental Status Sepsis Action Taken by Nursing 11/24/24 16:27 11/24/24 17:09 11/24/24 17:24 Temperature Temperature Source Pulse Rate 89 65 Pulse Rate [Apical] 65 Pulse Rate from SpO2 Sensor 65 Pulse Rhythm Pulse Rhythm [Apical] Regular Pulse Strength Pulse Strength [Apical] Normal Respiratory Rate 21 22 Respiratory Effort / Characteristics Non-Labored Spontaneous Respiratory Depth Normal Respiratory Pattern Regular Blood Pressure 139/69 Blood Pressure [Left Arm] 139/69 Blood Pressure Mean 92 Blood Pressure Mean [Left Arm] 92 Blood Pressure Position Blood Pressure Position [Left Arm] Pulse Oximetry 99 99 Oxygen Delivery Method Room Air Oxygen Flow Rate Sepsis Recent Fever Within 48 Hours Sepsis New/Unexplained Change in Mental Status Sepsis Action Taken by Nursing 11/24/24 17:33 11/24/24 18:00 11/24/24 19:32 Temperature Temperature Source Pulse Rate 65 65 Pulse Rate [Apical] 65 Pulse Rate from SpO2 Sensor 65 65 Pulse Rhythm Pulse Rhythm [Apical] Regular Pulse Strength Pulse Strength [Apical] Normal Respiratory Rate 24 18 22 Respiratory Effort / Characteristics Non-Labored Spontaneous Respiratory Depth Normal Respiratory Pattern Regular Blood Pressure 144/82 H 136/80 Blood Pressure [Left Arm] 144/82 H Blood Pressure Mean 102 98 Blood Pressure Mean [Left Arm] 102 Blood Pressure Position Blood Pressure Position [Left Arm] Pulse Oximetry 99 99 96 Oxygen Delivery Method Room Air Oxygen Flow Rate Sepsis Recent Fever Within 48 Hours Sepsis New/Unexplained Change in Mental Status Sepsis Action Taken by Nursing 11/24/24 20:00 11/24/24 20:19 11/24/24 21:00 Temperature Temperature Source Pulse Rate 67 Pulse Rate [Apical] 65 65 Pulse Rate from SpO2 Sensor Pulse Rhythm Pulse Rhythm [Apical] Regular Pulse Strength Pulse Strength [Apical] Respiratory Rate 18 19 Respiratory Effort / Characteristics Non-Labored Spontaneous Non-Labored Spontaneous Respiratory Depth Normal Normal Respiratory Pattern Blood Pressure Blood Pressure [Left Arm] 136/80 124/76 Blood Pressure Mean Blood Pressure Mean [Left Arm] 98 92 Blood Pressure Position Blood Pressure Position [Left Arm] Sitting Pulse Oximetry 97 97 Oxygen Delivery Method Room Air Room Air Oxygen Flow Rate Sepsis Recent Fever Within 48 Hours Sepsis New/Unexplained Change in Mental Status Sepsis Action Taken by Nursing 11/24/24 22:00 11/24/24 23:00 Temperature Temperature Source Pulse Rate Pulse Rate [Apical] 65 65 Pulse Rate from SpO2 Sensor Pulse Rhythm Pulse Rhythm [Apical] Pulse Strength Pulse Strength [Apical] Respiratory Rate 23 24 Respiratory Effort / Characteristics Non-Labored Spontaneous Non-Labored Spontaneous Respiratory Depth Normal Normal Respiratory Pattern Regular Blood Pressure Blood Pressure [Left Arm] 133/75 132/84 Blood Pressure Mean Blood Pressure Mean [Left Arm] 94 100 Blood Pressure Position Blood Pressure Position [Left Arm] Lying Pulse Oximetry 99 99 Oxygen Delivery Method Room Air Room Air Oxygen Flow Rate Sepsis Recent Fever Within 48 Hours Sepsis New/Unexplained Change in Mental Status Sepsis Action Taken by Nursing Laboratory Data Attestation: I reviewed the patient's lab results. 11/24/24 16:20 11/24/24 16:20 Lab Results 11/24/24 11/24/24 Range/Units 16:20 16:26 WBC 9.30 (4.8-10.8) K/ul RBC 4.77 (4.70-6.10) M/uL Hgb 15.8 (14.0-18.0) g/dl POC Hgb 16.3 (14.0-18.0) g/dl Hct 47.9 (42.0-52.0) % POC Hct 48 (42-52) % MCV 100.4 H (80.0-100.0) fL MCH 33.1 (25.0-34.0) pg MCHC 33.0 (32.0-36.0) g/dL RDW Std Deviation 49.3 H (36.4-46.3) fL RDW Coeff of Fahad 13.3 (11.5-14.5) % Plt Count 150 (130-400) K/uL MPV 10.3 (9.4-12.4) fL Immature Gran % (Auto) 1.2 % Neut % (Auto) 78.7 % Lymph % (Auto) 10.8 % [place] % (Auto) 7.7 % Eos % (Auto) 1.1 % Baso % (Auto) 0.5 % Neut # (Auto) 7.32 H (1.40-6.50) K/uL Lymph # (Auto) 1.00 L (1.20-3.40) K/uL [place] # (Auto) 0.72 H (0.11-0.59) K/uL Eos # (Auto) 0.10 (0.00-0.50) K/uL Baso # (Auto) 0.05 (0.00-0.20) K/uL Immature Gran # (Auto) 0.11 (0.01-0.20) K/uL PT 11.0 (9.0-12.0) Seconds INR 1.0 (0.9-1.1) POC Sodium 140 (135-144) mmol/L Sodium 139 (136-145) mmol/L POC Potassium 5.2 H (3.3-5.0) mmol/L Potassium 5.2 H (3.5-5.1) mmol/L POC Chloride 103 (101-112) mmol/L Chloride 101 (98-107) mmol/L Carbon Dioxide 32 (21-32) mmol/L POC Total CO2 29 (24-31) mmol/L Anion Gap 6 (3-11) POC Anion Gap 15.0 L (16-25) mmol/L POC BUN 42 H (7-18) mg/dl BUN 42 H (6-23) mg/dl Creatinine 2.05 H (0.6-1.4) mg/dl POC Creatinine 2.1 H (0.6-1.3) mg/dl Est Cr Clr Drug Dosing 27.3 ml/min eGFR 31.56 BUN/Creatinine Ratio 20.5 H (10-20) Glucose 164 H (70-99(Fasting)) mg/dl POC Glucose (other) 155 H (70-99) mg/dl Calcium 9.8 (8.6-10.3) mg/dl POC Ioniz Calcium Osmar 1.16 (1.12-1.32) mmol/l Phosphorus 3.8 (2.5-4.9) mg/dl Magnesium 2.1 (1.7-2.4) mg/dl Total Bilirubin 0.8 (0.2-1.0) mg/dl AST 37 (13-39) U/L ALT 34 (7-52) U/L Alkaline Phosphatase 60 (34-104) U/L Troponin I High Sens 14.8 (0-20) pg/ml B-Natriuretic Peptide 344 H (0-100) pg/ml Total Protein 7.9 (6.0-8.3) gm/dl Albumin 4.5 (3.4-5.0) gm/dl Globulin 3.4 (2.5-4.0) gm/dl Albumin/Globulin Ratio 1.3 (0.9-2) Lipase 130 H (11-82) U/L TSH 2.174 (0.300-4.500) uIu/ml Administered Medications Acetaminophen (Acetaminophen 325 Mg Tab) 650 mg PO Q4H PRN PRN Reason: Pain or Fever Stop: 12/25/24 00:33 Last Admin: 11/25/24 00:58 Dose: 650 mg Documented By: CR Sodium Chloride (Nss) 1,000 mls @ 80 mls/hr IV .[id number] [facility] Stop: 11/25/24 11:29 Last Admin: 11/24/24 23:43 Dose: 80 mls/hr Documented By: MED Discontinued Medications Gabapentin (Gabapentin 300 Mg Cap) 300 mg PO NOW STA Stop: 11/24/24 22:48 Last Admin: 11/24/24 23:40 Dose: 300 mg Documented By: MED Acetaminophen (Ofirmev) 1,000 mg in 100 mls @ 400 mls/hr IV NOW STA Stop: 11/24/24 16:44 Last Infusion: 11/24/24 17:25 Dose: Infused Documented By: Admin: 11/24/24 17:06 Dose: 400 mls/hr Documented By: SRL Lidocaine (Lidocaine 5% 1 Patch) 1 patch TD NOW STA Stop: 11/24/24 22:50 Last Admin: 11/24/24 23:41 Dose: 1 patch Documented By: MED Pantoprazole Sodium (Pantoprazole 40 Mg Tab) 40 mg PO NOW STA Stop: 11/24/24 22:53 Last Admin: 11/24/24 23:38 Dose: 40 mg Documented By: MED Tacrolimus (Tacrolimus 0.5 Mg Cap) 1.5 mg PO NOW STA Stop: 11/24/24 22:48 Last Admin: 11/24/24 23:38 Dose: 1.5 mg Documented By: MED Imaging Data Radiologist's Impression: Head CT 11/24/24 20:55 Exam(s): CT HEAD Without Contrast EXAM: CT Head Without Intravenous Contrast CLINICAL HISTORY: Reason for exam: fall, eval subacute on chronic SDH for stability. TECHNIQUE: Axial computed tomography images of the head/brain without intravenous contrast. CTDI is 37.78 mGy and DLP is 625.8 mGy-cm. Automated exposure control was utilized for the study. A dose lowering technique was utilized adhering to the principles of ALARA. COMPARISON: No relevant prior studies available. FINDINGS: Brain: Stable late subacute to chronic left frontal convexity subdural hematoma. No midline shift. No evidence of acute intracranial hemorrhage. Volume loss and chronic small vessel ischemic changes. No territorial loss of cole-white matter differentiation. Ventricles: No hydrocephalus. Bones/joints: No acute fracture. Soft tissues: Unremarkable. Vasculature: Intracranial atherosclerosis. Sinuses: Chronic opacification left sphenoid sinus. Mastoid air cells: No significant mastoid effusion. IMPRESSION: Stable late subacute to chronic left frontal convexity subdural hematoma. No midline shift. No evidence of acute intracranial hemorrhage. Electronically signed by: Kristi Torres M.D. 11/24/24 21:44 PM Chest X-Ray 11/24/24 16:26 Chest radiograph, one view History: Fall Comparison: 07/26/2024 Findings: Single AP view of the chest performed. No focal consolidation or pleural effusion. No pneumothorax. The heart size appears mildly enlarged, considering AP technique. There is a left chest wall AICD in place with 3 leads. There is surgical clips overlying the left mediastinum. Normal pulmonary vascularity. No evidence for lymphadenopathy. No visualized bony or soft tissue abnormality. Impression: No acute abnormality of the chest Electronically signed by Axel Yung 11-24-2024 4:51 PM Abdomen/Pelvis CT 11/24/24 16:29 EXAM: CT Abdomen and Pelvis Without Intravenous Contrast INDICATION: Posttraumatic pain TECHNIQUE: Axial computed tomography images of the abdomen and pelvis without intravenous contrast. Sagittal and coronal reformatted images were created and reviewed. This CT exam was performed using one or more of the following dose reduction techniques: automated exposure control, adjustment of the mA and/or kV according to patient size, and/or use of iterative reconstruction technique. COMPARISON: No relevant prior studies available. FINDINGS: Limitations: Assessment of solid organ integrity is limited in the absence of IV contrast. Lung bases: No abnormality noted. Pleural space: No visualized pleural effusion or pneumothorax. Heart: No abnormality noted. Mediastinum: No abnormality noted. ABDOMEN: Liver: Cirrhotic liver. No visible mass. Gallbladder and bile ducts: No calcified stones or surrounding fluid. No ductal dilation. Pancreas: There are round cystic nodules in the expected location of the pancreatic head and body which is atrophic. Largest measures 2.7 x 1.9 x 1.9 cm. No pancreatic inflammation noted. No calcification, surrounding fluid or ductal dilatation. Spleen: No significant abnormality noted. Adrenals: No significant abnormality noted. Kidneys and ureters: Simple right renal cysts. No follow-up of these simple cysts is necessary. Left kidney appears normal. Stomach and bowel: Moderate amounts of formed stool in the redundant colon. No obstruction, thickening or inflammatory process. PELVIS: Appendix: No findings to suggest acute appendicitis. Bladder: Appears normal for the degree of filling. No stones or inflammation. No large mass. Masses may not be detected in the absence of opacification. Reproductive: No abnormalities noted. ABDOMEN and PELVIS: Intraperitoneal space: No free air. No significant fluid collection. Bones/joints: Degenerative changes noted in the spine. No acute fracture noted. Soft tissues: Umbilical hernia containing fat. Vasculature: Atherosclerotic calcification of the aorta and branches. No aneurysm. Lymph nodes: No pathologically enlarged lymph nodes. IMPRESSION: 1. Allowing for the limitations of an unenhanced study, no traumatic change noted. 2. Cirrhosis. 3. 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 No acute pancreatic inflammation. ACT 112: Positive. There are findings on this exam that require communication between the performing entity and the patient following Patient Test Result Information Act ([place] ACT 112) guidelines. Electronically signed by Chhaya Gonzalez 11-24-2024 5:[address] 11/24/24 16:29 EXAM: CT Cervical Spine Without Intravenous Contrast INDICATION: Posttraumatic pain TECHNIQUE: Axial computed tomography images of the cervical spine without intravenous contrast. Sagittal and coronal reformatted images were created and reviewed. This CT exam was performed using one or more of the following dose reduction techniques: automated exposure control, adjustment of the mA and/or kV according to patient size, and/or use of iterative reconstruction technique. COMPARISON: 03/16/2018 FINDINGS: Limitations: None. Vertebrae: Mild facet hypertrophic change. There is stable mild uncal spurring and anterior spondylosis C6-C7. No fracture or subluxation. Discs/spinal canal/neural foramina: Stable moderate disc space narrowing C6-C7. No stenosis. Soft tissues: No significant abnormality noted. Vasculature: There is mild atherosclerotic calcification of the intracranial vertebral and cervical carotid arteries. Sinuses: The left sphenoid sinus is opacified. Lung apices: No significant abnormality noted. IMPRESSION: Cervical degenerative changes without fracture. ACT 112: N/A Electronically signed by Chhaya Gonzalez 11-24-2024 5:[address] 11/24/24 16:29 EXAM: CT Chest Without Intravenous Contrast INDICATION: Posttraumatic pain TECHNIQUE: Axial computed tomography images of the chest without intravenous contrast. Sagittal and coronal reformatted images were created and reviewed. This CT exam was performed using one or more of the following dose reduction techniques: automated exposure control, adjustment of the mA and/or kV according to patient size, and/or use of iterative reconstruction technique. COMPARISON: No relevant prior studies available. FINDINGS: Limitations: Assessment of aortic integrity limited in the absence of IV contrast. Lungs and pleural spaces: No abnormality noted. No mass. No consolidation. No pneumothorax. No significant effusion. Heart: Cardiomegaly noted. Cardiac pacing device noted. Metallic artifact limits assessment of lead integrity. Thyroid: No abnormality noted. Bones/joints: Chronic left rib deformity. Mild degenerative changes in the spine. Sternum, clavicles and shoulders intact. Soft tissues: No significant abnormality noted. Vasculature: There is mild atherosclerosis of the aorta without aneurysm. Lymph nodes: No enlarged lymph nodes. Liver: Visualized portion of the liver appears cirrhotic. IMPRESSION: 1. Allowing for the limitations of an unenhanced exam, no traumatic change in the chest. 2. Cirrhosis. ACT 112: Positive. There are findings on this exam that require communication between the performing entity and the patient following Patient Test Result Information Act ([place] ACT 112) guidelines. Electronically signed by Chhaya Gonzalez 11-24-2024 5:[address] 11/24/24 16:29 EXAM: CT Head Without Intravenous Contrast INDICATION: Posttraumatic pain TECHNIQUE: Axial computed tomography images of the head/brain without intravenous contrast. Sagittal and/or coronal reformats are provided. Sagittal and coronal reformatted images were created and reviewed. This CT exam was performed using one or more of the following dose reduction techniques: automated exposure control, adjustment of the mA and/or kV according to patient size, and/or use of iterative reconstruction technique. COMPARISON: 05/11/2018 FINDINGS: Limitations: None. Brain and extra-axial spaces: There is a subacute on chronic left frontal subdural hematoma measuring 5 mm thickness. Stable atrophy and periventricular white matter hypodensity typical of chronic ischemia. No acute territorial infarct. Bones/joints: No acute changes. Soft tissues: No significant abnormality noted. Vasculature: Intracranial atherosclerosis. Sinuses: There is now opacification of the left sphenoid sinus. Mastoid air cells: No mastoid effusion. Orbits: No significant abnormality noted. IMPRESSION: 1. There is a subacute on chronic left frontal subdural hematoma measuring 5 mm thickness. No shift. 2. Chronic left sphenoid sinusitis. ACT 112: N/A Electronically signed by Chhaya Gonzalez 11-24-2024 5:[address] 11/24/24 20:55 Exam(s): CT HEAD Without Contrast EXAM: CT Head Without Intravenous Contrast CLINICAL HISTORY: Reason for exam: fall, eval subacute on chronic SDH for stability. TECHNIQUE: Axial computed tomography images of the head/brain without intravenous contrast. CTDI is 37.78 mGy and DLP is 625.8 mGy-cm. Automated exposure control was utilized for the study. A dose lowering technique was utilized adhering to the principles of ALARA. COMPARISON: No relevant prior studies available. FINDINGS: Brain: Stable late subacute to chronic left frontal convexity subdural hematoma. No midline shift. No evidence of acute intracranial hemorrhage. Volume loss and chronic small vessel ischemic changes. No territorial loss of cole-white matter differentiation. Ventricles: No hydrocephalus. Bones/joints: No acute fracture. Soft tissues: Unremarkable. Vasculature: Intracranial atherosclerosis. Sinuses: Chronic opacification left sphenoid sinus. Mastoid air cells: No significant mastoid effusion. IMPRESSION: Stable late subacute to chronic left frontal convexity subdural hematoma. No midline shift. No evidence of acute intracranial hemorrhage. Electronically signed by: Kristi Torres M.D. 11/24/24 21:44 PM Discharge Plan Visit Data Chief Complaint: Trauma ED Provider: Valeriy Brantley Discharge Problem: Chronic subdural hematoma, Fall from standing, On apixaban therapy, Abrasion of chin Patient Disposition: Admitted As Inpatient Discharge Instructions Interventions: ED Discharge Assessment Last Done: 11/24/24 23:56 Discharge Problem: Fall from standing Qualifiers: Encounter type: initial encounter Qualified Code(s): W19.XXXA - Unspecified fall, initial encounter Abrasion of chin Qualifiers: Encounter type: initial encounter Qualified Code(s): S00.81XA - Abrasion of other part of head, initial encounter
[2024-11-24 16:49] LABS: Basophils # (auto) 0.05 K/uL (0.00-0.20); Basophils % (auto) 0.5 %; Eosinophils % (auto) 1.1 %; Hematocrit (blood only) 47.9 % (42.0-52.0); Hemoglobin 15.8 g/dl (14.0-18.0); Immature Granulocytes # (auto) 0.11 K/uL (0.01-0.20); Immature Granulocytes % (auto) 1.2 %; Lymphocytes % (auto) 10.8 %; Mean Corpuscular Hemoglobin 33.1 pg (25.0-34.0); Mean Corpuscular Volume 100.4 fL (80.0-100.0); Mean Platelet Volume 10.3 fL (9.4-12.4); Monocytes # (auto) 0.72 K/uL (0.11-0.59); Monocytes % (auto) 7.7 %; Neutrophils # (auto) 7.32 K/uL (1.40-6.50); Neutrophils % (auto) 78.7 %; Platelet Count 150 K/uL (130-400); RDW Coefficient of Variation 13.3 % (11.5-14.5); RDW Standard Deviation 49.3 fL (36.4-46.3); Red Blood Count 4.77 M/uL (4.70-6.10)
--- NOTE | 2024-11-24 16:51 | XRay Report ---
Chest radiograph, one view History: Fall Comparison: 07/26/2024 Findings: Single AP view of the chest performed. No focal consolidation or pleural effusion. No pneumothorax. The heart size appears mildly enlarged, considering AP technique. There is a left chest wall AICD in place with 3 leads. There is surgical clips overlying the left mediastinum. Normal pulmonary vascularity. No evidence for lymphadenopathy. No visualized bony or soft tissue abnormality. Impression: No acute abnormality of the chest Electronically signed by Axel Yung 11-24-2024 4:51 PM
[2024-11-24 17:02] LABS: Albumin Globulin Ratio 1.3 (0.9-2); Albumin Level 4.5 gm/dl (3.4-5.0); BUN Creatinine Ratio 20.5 (10-20); Bilirubin,Total 0.8 mg/dl (0.2-1.0); Calcium 9.8 mg/dl (8.6-10.3); Creatinine Clr Calc Pharmacy 27.3 ml/min; Globulin 3.4 gm/dl (2.5-4.0); Magnesium 2.1 mg/dl (1.7-2.4); Phosphorus 3.8 mg/dl (2.5-4.9); Potassium 5.2 mmol/L (3.5-5.1); Total Protein 7.9 gm/dl (6.0-8.3)
[2024-11-24] MEDS: ACETAMINOPHEN 1,000 MG/100 ML VIAL IV STA (17:06)
[2024-11-24 17:09] LABS: Troponin I High Sensitivity 14.8 pg/ml (0-20)
[2024-11-24 17:16] LABS: Thyroid Stimulating Hormone 2.174 uIu/ml (0.300-4.500)
--- NOTE | 2024-11-24 17:17 | CT Scan Report ---
EXAM: CT Head Without Intravenous Contrast INDICATION: Posttraumatic pain TECHNIQUE: Axial computed tomography images of the head/brain without intravenous contrast. Sagittal and/or coronal reformats are provided. Sagittal and coronal reformatted images were created and reviewed. This CT exam was performed using one or more of the following dose reduction techniques: automated exposure control, adjustment of the mA and/or kV according to patient size, and/or use of iterative reconstruction technique. COMPARISON: 05/11/2018 FINDINGS: Limitations: None. Brain and extra-axial spaces: There is a subacute on chronic left frontal subdural hematoma measuring 5 mm thickness. Stable atrophy and periventricular white matter hypodensity typical of chronic ischemia. No acute territorial infarct. Bones/joints: No acute changes. Soft tissues: No significant abnormality noted. Vasculature: Intracranial atherosclerosis. Sinuses: There is now opacification of the left sphenoid sinus. Mastoid air cells: No mastoid effusion. Orbits: No significant abnormality noted. IMPRESSION: 1. There is a subacute on chronic left frontal subdural hematoma measuring 5 mm thickness. No shift. 2. Chronic left sphenoid sinusitis. ACT 112: N/A Electronically signed by Chhaya Gonzalez 11-24-2024 5:16 PM
--- NOTE | 2024-11-24 17:22 | CT Scan Report ---
EXAM: CT Chest Without Intravenous Contrast INDICATION: Posttraumatic pain TECHNIQUE: Axial computed tomography images of the chest without intravenous contrast. Sagittal and coronal reformatted images were created and reviewed. This CT exam was performed using one or more of the following dose reduction techniques: automated exposure control, adjustment of the mA and/or kV according to patient size, and/or use of iterative reconstruction technique. COMPARISON: No relevant prior studies available. FINDINGS: Limitations: Assessment of aortic integrity limited in the absence of IV contrast. Lungs and pleural spaces: No abnormality noted. No mass. No consolidation. No pneumothorax. No significant effusion. Heart: Cardiomegaly noted. Cardiac pacing device noted. Metallic artifact limits assessment of lead integrity. Thyroid: No abnormality noted. Bones/joints: Chronic left rib deformity. Mild degenerative changes in the spine. Sternum, clavicles and shoulders intact. Soft tissues: No significant abnormality noted. Vasculature: There is mild atherosclerosis of the aorta without aneurysm. Lymph nodes: No enlarged lymph nodes. Liver: Visualized portion of the liver appears cirrhotic. IMPRESSION: 1. Allowing for the limitations of an unenhanced exam, no traumatic change in the chest. 2. Cirrhosis. ACT 112: Positive. There are findings on this exam that require communication between the performing entity and the patient following Patient Test Result Information Act ([place] ACT 112) guidelines. Electronically signed by Chhaya Gonzalez 11-24-2024 5:21 PM
--- NOTE | 2024-11-24 17:27 | CT Scan Report ---
EXAM: CT Abdomen and Pelvis Without Intravenous Contrast INDICATION: Posttraumatic pain TECHNIQUE: Axial computed tomography images of the abdomen and pelvis without intravenous contrast. Sagittal and coronal reformatted images were created and reviewed. This CT exam was performed using one or more of the following dose reduction techniques: automated exposure control, adjustment of the mA and/or kV according to patient size, and/or use of iterative reconstruction technique. COMPARISON: No relevant prior studies available. FINDINGS: Limitations: Assessment of solid organ integrity is limited in the absence of IV contrast. Lung bases: No abnormality noted. Pleural space: No visualized pleural effusion or pneumothorax. Heart: No abnormality noted. Mediastinum: No abnormality noted. ABDOMEN: Liver: Cirrhotic liver. No visible mass. Gallbladder and bile ducts: No calcified stones or surrounding fluid. No ductal dilation. Pancreas: There are round cystic nodules in the expected location of the pancreatic head and body which is atrophic. Largest measures 2.7 x 1.9 x 1.9 cm. No pancreatic inflammation noted. No calcification, surrounding fluid or ductal dilatation. Spleen: No significant abnormality noted. Adrenals: No significant abnormality noted. Kidneys and ureters: Simple right renal cysts. No follow-up of these simple cysts is necessary. Left kidney appears normal. Stomach and bowel: Moderate amounts of formed stool in the redundant colon. No obstruction, thickening or inflammatory process. PELVIS: Appendix: No findings to suggest acute appendicitis. Bladder: Appears normal for the degree of filling. No stones or inflammation. No large mass. Masses may not be detected in the absence of opacification. Reproductive: No abnormalities noted. ABDOMEN and PELVIS: Intraperitoneal space: No free air. No significant fluid collection. Bones/joints: Degenerative changes noted in the spine. No acute fracture noted. Soft tissues: Umbilical hernia containing fat. Vasculature: Atherosclerotic calcification of the aorta and branches. No aneurysm. Lymph nodes: No pathologically enlarged lymph nodes. IMPRESSION: 1. Allowing for the limitations of an unenhanced study, no traumatic change noted. 2. Cirrhosis. 3. 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 No acute pancreatic inflammation. ACT 112: Positive. There are findings on this exam that require communication between the performing entity and the patient following Patient Test Result Information Act ([place] ACT 112) guidelines. Electronically signed by Chhaya Gonzalez 11-24-2024 5:26 PM
--- NOTE | 2024-11-24 17:30 | CT Scan Report ---
EXAM: CT Cervical Spine Without Intravenous Contrast INDICATION: Posttraumatic pain TECHNIQUE: Axial computed tomography images of the cervical spine without intravenous contrast. Sagittal and coronal reformatted images were created and reviewed. This CT exam was performed using one or more of the following dose reduction techniques: automated exposure control, adjustment of the mA and/or kV according to patient size, and/or use of iterative reconstruction technique. COMPARISON: 03/16/2018 FINDINGS: Limitations: None. Vertebrae: Mild facet hypertrophic change. There is stable mild uncal spurring and anterior spondylosis C6-C7. No fracture or subluxation. Discs/spinal canal/neural foramina: Stable moderate disc space narrowing C6-C7. No stenosis. Soft tissues: No significant abnormality noted. Vasculature: There is mild atherosclerotic calcification of the intracranial vertebral and cervical carotid arteries. Sinuses: The left sphenoid sinus is opacified. Lung apices: No significant abnormality noted. IMPRESSION: Cervical degenerative changes without fracture. ACT 112: N/A Electronically signed by Chhaya Gonzalez 11-24-2024 5:29 PM
[2024-11-24 18:25] LABS: Appearance Urine Clear (Clear); Bacteria Urine Automated None Seen (None Seen); Bilirubin Urine Negative (Negative); Blood Urine Trace (Negative); Cast Urine Automated 0-2 /lpf (0-2); Color Urine Yellow; Epithelial Cell Urine Auto 0-2 /hpf (0-2); Glucose Urine UA 3+ (Negative); Ketones Urine Negative (Negative); Leukocyte Esterase Urine Negative (Negative); Nitrite Urine Negative (Negative); Protein Urine Negative (Negative); RBC Urine Automated 0-2 /hpf (0-2); Specific Gravity Urine 1.012 (1.000-1.030); Urobilinogen Urine Negative (Negative); WBC Urine Automated 0-5 /hpf (0-5); pH Urine 5.5 (4.5-7.5)
--- NOTE | 2024-11-24 21:45 | CT Scan Report ---
Exam(s): CT HEAD Without Contrast EXAM: CT Head Without Intravenous Contrast CLINICAL HISTORY: Reason for exam: fall, eval subacute on chronic SDH for stability. TECHNIQUE: Axial computed tomography images of the head/brain without intravenous contrast. CTDI is 37.78 mGy and DLP is 625.8 mGy-cm. Automated exposure control was utilized for the study. A dose lowering technique was utilized adhering to the principles of ALARA. COMPARISON: No relevant prior studies available. FINDINGS: Brain: Stable late subacute to chronic left frontal convexity subdural hematoma. No midline shift. No evidence of acute intracranial hemorrhage. Volume loss and chronic small vessel ischemic changes. No territorial loss of cole-white matter differentiation. Ventricles: No hydrocephalus. Bones/joints: No acute fracture. Soft tissues: Unremarkable. Vasculature: Intracranial atherosclerosis. Sinuses: Chronic opacification left sphenoid sinus. Mastoid air cells: No significant mastoid effusion. IMPRESSION: Stable late subacute to chronic left frontal convexity subdural hematoma. No midline shift. No evidence of acute intracranial hemorrhage. Electronically signed by: Kristi Torres M.D. 11/24/24 21:44 PM
--- NOTE | 2024-11-24 23:03 | History & Physical Report ---
Date of Service November 24, 2024 Assessment & Plan (1) Subacute subdural hematoma: (2) Chronic subdural hematoma: (3) On apixaban therapy: (4) Fall from standing: (5) Atrial fibrillation: (6) Immunocompromised patient: (7) Double lung transplant: Plan The patient is a 84-year-old male with a past medical history including atrial fibrillation on apixaban, nonischemic cardiomyopathy, presence of cardiac pacemaker, diabetes mellitus type 2, lumbar stenosis with neurogenic claudic ation, HFrEF, CAD, idiopathic pulmonary fibrosis, anemia, GERD, double lung transplant, immunocompromised patient.The patient presents to the emergency department with complaints of a fall that occurred while at the outpatient offices of [facility], where he tripped over a stick extending out of the ground. He reports that he fell and hit his chin on the ground, but denied any head, neck or back pain. He does complain of some right-sided chest wall pain. Initially there was difficulty with recollection of exactly what happened, but as time involved in the emergency department, the exact mechanism of his fall became more clear to him. He was activated as a trauma alert due to a fall in the field while being on Eliquis, and was brought to the emergency department for evaluation. The patient underwent imaging in the emergency department, with CT of head without contrast performed and 16:29 revealing a subacute on chronic left frontal subdural hematoma measuring 5 mm in thickness, with no shift. There was also a chronic left sphenoid sinusitis. Follow-up CT scan performed at 20:55 revealed a stable late subacute to chronic left frontal convexity subdural hematoma without midline shift. There was no evidence of acute intracranial hemorrhage. His case admission events discussed by the ED with [facility] neurosurgery, who felt that the patient could just have serial H&H's perfor [facility]. [facility] neurology felt the patient could be admitted to [facility] and close follow-up with imaging as noted. #Subacute on chronic left frontal subdural hematoma- Status post mechanical fall, after tripping over a stick extending from the ground Initial CT scan performed at 16:29. Follow-up CT scan at 20:55 was stable, with no acute bleeding. Conversation with [facility] neurosurgery advised patient be admitted to [facility], and serial CT scans to be performed The patient will be admitted to telemetry for serial cardiac enzymes, serial EKG's, cardiac rhythm monitoring Neurochecks every 4 hours per protocol Holding apixaban and clopidogrel Consult to neurology Dr. Bush, who is aware of the patient During examination with the patient, he feels that he is back at his baseline mentally. 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 CT scan of chest was negative Atrial fibrillation/nonischemic cardiomyopathy/presence of cardiac pacemaker/CAD- Holding clopidogrel, and Eliquis as noted Continue metoprolol succinate with hold parameters CKD/relative hypotension- Holding valsartan, with mildly elevated potassium of 5.2 Creatinine 2.05, with baseline 2.20 NSS at 80 mL/h x 1 L Follow serially Diabetes mellitus- Hold empagliflozin Placed on Accu-Cheks with NovoLog SSI Chronic medical conditions: Peripheral neuropathy-continue gabapentin GERD-continue pantoprazole Hyperlipidemia-continue rosuvastatin RLS-continue ropinirole Double lung transplant/immunocompromise state-continue tacrolimus, and chronic suppressive therapy with Bactrim and Valacyclovir History of Present Illness Chief Complaint: The patient presents to the emergency department with complaints of a fall that occurred while at the outpatient offices of [facility], where he tripped over a stick extending out of the ground. He reports that he fell and hit his chin on the ground, but denied any head, neck or back pain. He does complain of some right-sided chest wall pain. Initially there was difficulty with recollection of exactly what happened, but as time involved in the emergency department, the exact mechanism of his fall became more clear to him. He was activated as a trauma alert due to a fall in the field while being on Eliquis, and was brought to the emergency department for evaluation. Primary Care Provider: Jazmyn Pantoja MD The patient is a 84-year-old male with a past medical history including atrial fibrillation on apixaban, nonischemic cardiomyopathy, presence of cardiac pacemaker, diabetes mellitus type 2, lumbar stenosis with neurogenic claudication, HFrEF, CAD, idiopathic pulmonary fibrosis, anemia, GERD, double lung transplant, immunocompromised patient.The patient presents to the emergency department with complaints of a fall that occurred while at the outpatient offices of [facility], where he tripped over a stick extending out of the ground. He reports that he fell and hit his chin on the ground, but denied any head, neck or back pain. He does complain of some right-sided chest wall pain. Initially there was difficulty with recollection of exactly what happened, but as time involved in the emergency department, the exact mechanism of his fall became more clear to him. He was activated as a trauma alert due to a fall in the field while being on Eliquis, and was brought to the emergency department for evaluation. The patient underwent imaging in the emergency department, with CT of head without contrast performed and 16: 29 revealing a subacute on chronic left frontal subdural hematoma measuring 5 mm in thickness, with no shift. There was also a chronic left sphenoid sinusitis. Follow-up CT scan performed at 20: 55 revealed a stable late subacute to chronic left frontal convexity subdural hematoma without midline shift. There was no evidence of acute intracranial hemorrhage. His case admission events discussed by the ED with [facility] neurosurgery, who felt that the patient could just have serial H&H's performed. [facility] neurology felt the patient could be admitted to [facility] and close follow-up with imaging as noted Allergies Allergy/AdvReac Type Severity Reaction Status Date / Time cefepime Allergy Intermediate rash Verified 10/19/24 09:10 poison laura extract Allergy Intermediate Rash Verified 10/19/24 09:10 Home Medications Medication Instructions Recorded Confirmed Type prednisone 5 mg tablet 5 mg PO DAILY 05/11/18 11/24/24 History Spacer for Inhaler #1 ea 08/30/19 10/19/24 Rx amoxicillin 500 mg tablet 2,000 mg PO DIRECTED PRN 1 HR 02/01/23 11/24/24 History PRIOR TO DENTAL APPT. apixaban 2.5 mg tablet (Eliquis) 2.5 mg PO BID 02/01/23 11/24/24 History clopidogrel 75 mg tablet 75 mg PO DAILY 02/01/23 11/24/24 History sulfamethoxazole 400 1 tab PO 3XWK 02/01/23 11/24/24 History mg-trimethoprim 80 mg tablet cholecalciferol (vitamin D3) 25 50 mcg PO DAILY 02/02/24 11/24/24 History mcg (1,000 unit) tablet valacyclovir 500 mg tablet 500 mg PO DAILY 02/02/24 11/24/24 History (Valtrex) valsartan 40 mg tablet 20 mg PO BID 02/02/24 11/24/24 History albuterol sulfate 90 mcg/actuation 1 inh inhalation QID PRN sob 02/09/24 11/24/24 History aerosol inhaler pantoprazole 40 mg tablet,delayed 40 mg PO BID 02/09/24 11/24/24 History release ferrous sulfate 325 mg (65 mg 325 mg PO DAILY 04/26/24 11/24/24 History iron) tablet (Feosol) furosemide 40 mg tablet 40 mg PO DAILY edema 04/26/24 11/24/24 History rosuvastatin 20 mg sprinkle capsule 40 mg PO DAILY 04/26/24 11/24/24 History gabapentin 300 mg capsule 300 mg PO TID #90 caps 06/17/24 11/24/24 Rx tacrolimus 0.5 mg capsule, 1.5 mg PO BID 08/12/24 11/24/24 History immediate-release metoprolol succinate 100 mg 100 mg PO DAILY #90 tabs 10/19/24 11/24/24 Rx tablet,extended release 24 hr (Toprol XL) nitroglycerin 0.4 mg sublingual 0.4 mg sublingual Q5M PRN chest 10/19/24 11/24/24 Rx tablet pain #1 btl empagliflozin 10 mg tablet 10 mg PO DAILY #30 tabs 10/20/24 11/24/24 Rx (Jardiance) ropinirole 0.25 mg tablet 0.25 mg PO HS 11/24/24 11/24/24 History Past Med/Surg History Problem List (Updated 11/25/24 @ 01:00 by Quincy Napoles MD) Subacute subdural hematoma On apixaban therapy (Acute) Fall from standing (Acute) Chronic subdural hematoma (Acute) Nonischemic cardiomyopathy Anticoagulant long-term use Cardiac pacemaker Lumbar radiculopathy Type 2 diabetes mellitus Lumbar stenosis with neurogenic claudication Foraminal stenosis of lumbar region Scoliosis of lumbar region due to degenerative disease of spine in adult HFrEF (heart failure with reduced ejection fraction) Atrial fibrillation CAD (coronary artery disease) IPF (idiopathic pulmonary fibrosis) (Chronic) Anemia (Acute) Immunocompromised patient (Acute) Chronic GERD Medical History Low back pain radiating to right leg Sensorineural hearing loss (SNHL) of left ear with restricted hearing of right ear Asymmetric SNHL (sensorineural hearing loss) History of Mohs micrographic surgery for skin cancer Bilateral tinnitus 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 CKD (chronic kidney disease), stage III HTN (hypertension) Upper respiratory infection Subdural hematoma (10/05/14) Surgical History Hx of appendectomy History of cardiac catheterization Hx of lung transplant Family History Mother Hearing loss Idiopathic pulmonary fibrosis Colorectal cancer Father Heart disease Myocardial infarction Brother Idiopathic pulmonary fibrosis Myocardial infarction Other No family history of adverse response to anesthesia No family history of bleeding disorder Denies family history of Ovarian cancer Prostate cancer Diabetes Breast cancer Lung cancer Stroke Social History Smoking Status: Former smoker Tobacco Type: Cigarettes Second Hand Exposure: No; Do You Dip or Chew Tobacco: No; Hx Alcohol Use: No Hx Substance Use: No Preferred Language: Guamanian Communication Ability: Effective Visual Impairment: Limited Hearing Ability: Normal Food Concession Manager Required: No Beliefs That Will Affect Care: None marital status: Current Living Situation: Spouse current occupational status: employed 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 He otherwise denies chest pain, shortness of breath, dyspnea on exertion, cough, lower extremity swelling, sore throat, fevers, chills, sweats, weight change, fatigue, nausea, vomiting, diarrhea , constipation, abdominal pain, pelvic pain, blood in urine or stool, dysuria, urinary frequency or urgency, lightheadedness, dizziness, headache, loss of consciousness, rash, abnormal bruising or bleeding, imbalance, focal or generalized weakness, numbness or tingling in arms or legs, generalized arthralgias or myalgias, back or neck pain, or night sweats. The review of systems is otherwise negative other than for that already noted above, and at least 10 systems have been reviewed. Physical Exam Physical Exam: The patient is awake, alert and oriented 3, well developed and well nourished, small area of dried blood on chin, otherwise lying in bed and in no acute distress. HEENT--PERRL, EOMI, mucous membranes and oropharynx normal Neck--supple. No JVD. No bruits. Thyroid normal, trachea midline, no adenopathy. Heart--normal S1 and S2. No murmurs, rubs or gallops. Lungs--clear bilaterally, no respiratory distress, no accessory muscle use. Abdomen--normal bowel sounds and soft. Nontender. Nondistended, no hernias or masses, no organomegaly. Extremities--no cyanosis or clubbing. No edema. There are good distal pulses b/l. Dermatologic--normal skin turgor, normal color, no abnormal lymph nodes, no rash. Neurologic--cranial nerves II through XII grossly intact. Rheumatologic--normal range of motion. Psychiatric--normal affect. Results & Data Results & Data Vital Signs (Past 12 Hours) Vital Signs Temp Pulse Pulse Resp BP BP Pulse Ox 11/24/24 22:00 65 23 133/75 99 11/24/24 21:00 65 19 124/76 97 11/24/24 20:19 67 11/24/24 20:00 65 18 136/80 97 11/24/24 19:32 65 22 136/80 96 11/24/24 18:00 65 18 144/82 H 99 11/24/24 17:33 65 24 144/82 H 99 11/24/24 17:24 65 22 139/69 99 11/24/24 17:09 65 21 139/69 99 11/24/24 16:27 89 11/24/24 16:26 65 12 98 11/24/24 16:09 65 12 158/97 H 98 11/24/24 16:09 11/24/24 16:09 65 12 158/97 H 98 11/24/24 16:09 37 C 65 12 158/97 H 98 11/24/24 16:09 37.1 C 65 12 158/97 H 98 O2 Del Method O2 Flow Rate 11/24/24 22:00 Room Air 11/24/24 21:00 Room Air 11/24/24 20:19 11/24/24 20:00 Room Air 11/24/24 19:32 11/24/24 18:00 Room Air 11/24/24 17:33 11/24/24 17:24 11/24/24 17:09 Room Air 11/24/24 16:27 11/24/24 16:26 Room Air 11/24/24 16:09 Room Air 11/24/24 16:09 Room Air 11/24/24 16:09 Room Air 11/24/24 16:09 Room Air 0 11/24/24 16:09 Room Air Laboratory Results Laboratory Results WBC 9.30 K/ul (4.8-10.8) 11/24/24 16:20 RBC 4.77 M/uL (4.70-6.10) 11/24/24 16:20 Hgb 15.8 g/dl (14.0-18.0) 11/24/24 16:20 POC Hgb 16.3 g/dl (14.0-18.0) 11/24/24 16:26 Hct 47.9 % (42.0-52.0) 11/24/24 16:20 POC Hct 48 % (42-52) 11/24/24 16:26 MCV 100.4 fL (80.0-100.0) H 11/24/24 16:20 MCH 33.1 pg (25.0-34.0) 11/24/24 16:20 MCHC 33.0 g/dL (32.0-36.0) 11/24/24 16:20 RDW Std Deviation 49.3 fL (36.4-46.3) H 11/24/24 16:20 RDW Coeff of Fahad 13.3 % (11.5-14.5) 11/24/24 16:20 Plt Count 150 K/uL (130-400) 11/24/24 16:20 MPV 10.3 fL (9.4-12.4) 11/24/24 16:20 Immature Gran % (Auto) 1.2 % 11/24/24 16:20 Neut % (Auto) 78.7 % 11/24/24 16:20 Lymph % (Auto) 10.8 % 11/24/24 16:20 Travis % (Auto) 7.7 % 11/24/24 16:20 Eos % (Auto) 1.1 % 11/24/24 16:20 Baso % (Auto) 0.5 % 11/24/24 16:20 Neut # (Auto) 7.32 K/uL (1.40-6.50) H 11/24/24 16:20 Lymph # (Auto) 1.00 K/uL (1.20-3.40) L 11/24/24 16:20 Travis # (Auto) 0.72 K/uL (0.11-0.59) H 11/24/24 16:20 Eos # (Auto) 0.10 K/uL (0.00-0.50) 11/24/24 16:20 Baso # (Auto) 0.05 K/uL (0.00-0.20) 11/24/24 16:20 Immature Gran # (Auto) 0.11 K/uL (0.01-0.20) 11/24/24 16:20 PT 11.0 Seconds (9.0-12.0) 11/24/24 16:20 INR 1.0 (0.9-1.1) 11/24/24 16:20 POC Sodium 140 mmol/L (135-144) 11/24/24 16:26 Sodium 139 mmol/L (136-145) 11/24/24 16:20 POC Potassium 5.2 mmol/L (3.3-5.0) H 11/24/24 16:26 Potassium 5.2 mmol/L (3.5-5.1) H 11/24/24 16:20 POC Chloride 103 mmol/L (101-112) 11/24/24 16:26 Chloride 101 mmol/L (98-107) 11/24/24 16:20 Carbon Dioxide 32 mmol/L (21-32) 11/24/24 16:20 POC Total CO2 29 mmol/L (24-31) 11/24/24 16:26 Anion Gap 6 (3-11) 11/24/24 16:20 POC Anion Gap 15.0 mmol/L (16-25) L 11/24/24 16:26 POC BUN 42 mg/dl (7-18) H 11/24/24 16:26 BUN 42 mg/dl (6-23) H 11/24/24 16:20 Creatinine 2.05 mg/dl (0.6-1.4) H 11/24/24 16:20 POC Creatinine 2.1 mg/dl (0.6-1.3) H 11/24/24 16:26 Est Cr Clr Drug Dosing 27.3 ml/min 11/24/24 16:20 eGFR 31.56 11/24/24 16:20 BUN/Creatinine Ratio 20.5 (10-20) H 11/24/24 16:20 Glucose 164 mg/dl (70-99(Fasting)) H 11/24/24 16:20 POC Glucose (other) 155 mg/dl (70-99) H 11/24/24 16:26 Calcium 9.8 mg/dl (8.6-10.3) 11/24/24 16:20 POC Ioniz Calcium Osmar 1.16 mmol/l (1.12-1.32) 11/24/24 16:26 Phosphorus 3.8 mg/dl (2.5-4.9) 11/24/24 16:20 Magnesium 2.1 mg/dl (1.7-2.4) 11/24/24 16:20 Total Bilirubin 0.8 mg/dl (0.2-1.0) 11/24/24 16:20 AST 37 U/L (13-39) 11/24/24 16:20 ALT 34 U/L (7-52) 11/24/24 16:20 Alkaline Phosphatase 60 U/L (34-104) 11/24/24 16:20 Troponin I High Sens 14.8 pg/ml (0-20) 11/24/24 16:20 B-Natriuretic Peptide 344 pg/ml (0-100) H 11/24/24 16:20 Total Protein 7.9 gm/dl (6.0-8.3) 11/24/24 16:20 Albumin 4.5 gm/dl (3.4-5.0) 11/24/24 16:20 Globulin 3.4 gm/dl (2.5-4.0) 11/24/24 16:20 Albumin/Globulin Ratio 1.3 (0.9-2) 11/24/24 16:20 Lipase 130 U/L (11-82) H 11/24/24 16:20 TSH 2.174 uIu/ml (0.300-4.500) 11/24/24 16:20 Urine Color Yellow 11/24/24 Unknown Urine Appearance Clear (Clear) 11/24/24 Unknown Urine pH 5.5 (4.5-7.5) 11/24/24 Unknown Ur Specific [place] 1.012 (1.000-1.030) 11/24/24 Unknown Urine Protein Negative (Negative) 11/24/24 Unknown Urine Glucose (UA) 3+ (Negative) H 11/24/24 Unknown Urine Ketones Negative (Negative) 11/24/24 Unknown Urine Blood Trace (Negative) H 11/24/24 Unknown Urine Nitrite Negative (Negative) 11/24/24 Unknown Urine Bilirubin Negative (Negative) 11/24/24 Unknown Urine Urobilinogen Negative (Negative) 11/24/24 Unknown Ur Leukocyte Esterase Negative (Negative) 11/24/24 Unknown Urine WBC (Auto) 0-5 /hpf (0-5) 11/24/24 Unknown Urine RBC (Auto) 0-2 /hpf (0-2) 11/24/24 Unknown U Hyaline Cast (Auto) 0-2 /lpf (0-2) 11/24/24 Unknown U Epithel Cells (Auto) 0-2 /hpf (0-2) 11/24/24 Unknown Urine Bacteria (Auto) None Seen (None Seen) 11/24/24 Unknown Impressions Chest X-Ray 11/24/24 16:26 Chest radiograph, one view History: Fall Comparison: 07/26/2024 Findings: Single AP view of the chest performed. No focal consolidation or pleural effusion. No pneumothorax. The heart size appears mildly enlarged, considering AP technique. There is a left chest wall AICD in place with 3 leads. There is surgical clips overlying the left mediastinum. Normal pulmonary vascularity. No evidence for lymphadenopathy. No visualized bony or soft tissue abnormality. Impression: No acute abnormality of the chest Electronically signed by Axel Yung 11-24-2024 4:51 PM Abdomen/Pelvis CT 11/24/24 16:29 EXAM: CT Abdomen and Pelvis Without Intravenous Contrast INDICATION: Posttraumatic pain TECHNIQUE: Axial computed tomography images of the abdomen and pelvis without intravenous contrast. Sagittal and coronal reformatted images were created and reviewed. This CT exam was performed using one or more of the following dose reduction techniques: automated exposure control, adjustment of the mA and/or kV according to patient size, and/or use of iterative reconstruction technique. COMPARISON: No relevant prior studies available. FINDINGS: Limitations: Assessment of solid organ integrity is limited in the absence of IV contrast. Lung bases: No abnormality noted. Pleural space: No visualized pleural effusion or pneumothorax. Heart: No abnormality noted. Mediastinum: No abnormality noted. ABDOMEN: Liver: Cirrhotic liver. No visible mass. Gallbladder and bile ducts: No calcified stones or surrounding fluid. No ductal dilation. Pancreas: There are round cystic nodules in the expected location of the pancreatic head and body which is atrophic. Largest measures 2.7 x 1.9 x 1.9 cm. No pancreatic inflammation noted. No calcification, surrounding fluid or ductal dilatation. Spleen: No significant abnormality noted. Adrenals: No significant abnormality noted. Kidneys and ureters: Simple right renal cysts. No follow-up of these simple cysts is necessary. Left kidney appears normal. Stomach and bowel: Moderate amounts of formed stool in the redundant colon. No obstruction, thickening or inflammatory process. PELVIS: Appendix: No findings to suggest acute appendicitis. Bladder: Appears normal for the degree of filling. No stones or inflammation. No large mass. Masses may not be detected in the absence of opacification. Reproductive: No abnormalities noted. ABDOMEN and PELVIS: Intraperitoneal space: No free air. No significant fluid collection. Bones/joints: Degenerative changes noted in the spine. No acute fracture noted. Soft tissues: Umbilical hernia containing fat. Vasculature: Atherosclerotic calcification of the aorta and branches. No aneurysm. Lymph nodes: No pathologically enlarged lymph nodes. IMPRESSION: 1. Allowing for the limitations of an unenhanced study, no traumatic change noted. 2. Cirrhosis. 3. 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 No acute pancreatic inflammation. ACT 112: Positive. There are findings on this exam that require communication between the performing entity and the patient following Patient Test Result Information Act ([place] ACT 112) guidelines. Electronically signed by Chhaya Gonzalez 11-24-2024 5:[address] 11/24/24 16:29 EXAM: CT Cervical Spine Without Intravenous Contrast INDICATION: Posttraumatic pain TECHNIQUE: Axial computed tomography images of the cervical spine without intravenous contrast. Sagittal and coronal reformatted images were created and reviewed. This CT exam was performed using one or more of the following dose reduction techniques: automated exposure control, adjustment of the mA and/or kV according to patient size, and/or use of iterative reconstruction technique. COMPARISON: 03/16/2018 FINDINGS: Limitations: None. Vertebrae: Mild facet hypertrophic change. There is stable mild uncal spurring and anterior spondylosis C6-C7. No fracture or subluxation. Discs/spinal canal/neural foramina: Stable moderate disc space narrowing C6-C7. No stenosis. Soft tissues: No significant abnormality noted. Vasculature: There is mild atherosclerotic calcification of the intracranial vertebral and cervical carotid arteries. Sinuses: The left sphenoid sinus is opacified. Lung apices: No significant abnormality noted. IMPRESSION: Cervical degenerative changes without fracture. ACT 112: N/A Electronically signed by Chhaya Gonzalez 11-24-2024 5:[address] 11/24/24 16:29 EXAM: CT Chest Without Intravenous Contrast INDICATION: Posttraumatic pain TECHNIQUE: Axial computed tomography images of the chest without intravenous contrast. Sagittal and coronal reformatted images were created and reviewed. This CT exam was performed using one or more of the following dose reduction techniques: automated exposure control, adjustment of the mA and/or kV according to patient size, and/or use of iterative reconstruction technique. COMPARISON: No relevant prior studies available. FINDINGS: Limitations: Assessment of aortic integrity limited in the absence of IV contrast. Lungs and pleural spaces: No abnormality noted. No mass. No consolidation. No pneumothorax. No significant effusion. Heart: Cardiomegaly noted. Cardiac pacing device noted. Metallic artifact limits assessment of lead integrity. Thyroid: No abnormality noted. Bones/joints: Chronic left rib deformity. Mild degenerative changes in the spine. Sternum, clavicles and shoulders intact. Soft tissues: No significant abnormality noted. Vasculature: There is mild atherosclerosis of the aorta without aneurysm. Lymph nodes: No enlarged lymph nodes. Liver: Visualized portion of the liver appears cirrhotic. IMPRESSION: 1. Allowing for the limitations of an unenhanced exam, no traumatic change in the chest. 2. Cirrhosis. ACT 112: Positive. There are findings on this exam that require communication between the performing entity and the patient following Patient Test Result Information Act ([place] ACT 112) guidelines. Electronically signed by Chhaya Gonzalez 11-24-2024 5:[address] 11/24/24 20:55 Exam(s): CT HEAD Without Contrast EXAM: CT Head Without Intravenous Contrast CLINICAL HISTORY: Reason for exam: fall, eval subacute on chronic SDH for stability. TECHNIQUE: Axial computed tomography images of the head/brain without intravenous contrast. CTDI is 37.78 mGy and DLP is 625.8 mGy-cm. Automated exposure control was utilized for the study. A dose lowering technique was utilized adhering to the principles of ALARA. COMPARISON: No relevant prior studies available. FINDINGS: Brain: Stable late subacute to chronic left frontal convexity subdural hematoma. No midline shift. No evidence of acute intracranial hemorrhage. Volume loss and chronic small vessel ischemic changes. No territorial loss of cole-white matter differentiation. Ventricles: No hydrocephalus. Bones/joints: No acute fracture. Soft tissues: Unremarkable. Vasculature: Intracranial atherosclerosis. Sinuses: Chronic opacification left sphenoid sinus. Mastoid air cells: No significant mastoid effusion. IMPRESSION: Stable late subacute to chronic left frontal convexity subdural hematoma. No midline shift. No evidence of acute intracranial hemorrhage. Electronically signed by: Kristi Torres M.D. 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
[2024-11-24] MEDS: PANTOprazole 40 MG TAB PO STA (23:38)
[2024-11-24] MEDS: TACROLIMUS 0.5 MG CAP PO STA (23:38)
[2024-11-24] MEDS: GABAPENTIN 300 MG CAP PO STA (23:40)
[2024-11-24] MEDS: LIDOCAINE 5% 1 PATCH TD STA (23:41)
[2024-11-24] MEDS: SODIUM CHLORIDE 0.9% 1,000 ML IV SCH (23:43)
[2024-11-25] MEDS ORDERED: GLUCOSE 10 TAB/TUBE PO PRN (00:34)
[2024-11-25] MEDS ORDERED: CARBOHYDRATES FOR HYPOGLYCEMIA PO PRN (00:34)
[2024-11-25] MEDS ORDERED: GLUCOSE 40% GEL 15 GM TUBE PO PRN (00:34)
[2024-11-25] MEDS ORDERED: GLUCAGON FOR INJ 1 MG VIAL SQ PRN (00:34)
[2024-11-25] MEDS ORDERED: NITROGLYCERIN SL 0.4 MG/TAB TAB SL PRN (00:34)
[2024-11-25] MEDS ORDERED: ALBUTEROL HFA 8 GM INHALER INH PRN (00:34)
[2024-11-25] MEDS ORDERED: DEXTROSE 50% 50 ML SYRINGE IV PRN (00:34)
[2024-11-25] MEDS: ACETAMINOPHEN 325 MG TAB PO PRN (00:58)
[2024-11-25 07:45] VITALS: RESP 16
[2024-11-25 08:22] LABS: Basophils # (auto) 0.03 K/uL (0.00-0.20); Basophils % (auto) 0.4 %; Eosinophils # (auto) 0.07 K/uL (0.00-0.50); Hematocrit (blood only) 42.7 % (42.0-52.0); Hemoglobin 14.3 g/dl (14.0-18.0); Immature Granulocytes # (auto) 0.04 K/uL (0.01-0.20); Immature Granulocytes % (auto) 0.6 %; Lymphocytes # (auto) 1.02 K/uL (1.20-3.40); Lymphocytes % (auto) 14.6 %; Mean Corpuscular Hemoglobin 33.1 pg (25.0-34.0); Mean Corpuscular Hgb Conc 33.5 g/dL (32.0-36.0); Mean Corpuscular Volume 98.8 fL (80.0-100.0); Mean Platelet Volume 10.4 fL (9.4-12.4); Monocytes # (auto) 0.72 K/uL (0.11-0.59); Monocytes % (auto) 10.3 %; Neutrophils # (auto) 5.12 K/uL (1.40-6.50); Neutrophils % (auto) 73.1 %; Platelet Count 102 K/uL (130-400); RDW Coefficient of Variation 13.2 % (11.5-14.5); RDW Standard Deviation 48.5 fL (36.4-46.3); Red Blood Count 4.32 M/uL (4.70-6.10)
[2024-11-25 08:35] LABS: Albumin Level 3.8 gm/dl (3.4-5.0); BUN Creatinine Ratio 23.2 (10-20); Creatinine Clr Calc Pharmacy 33.3 ml/min; Phosphorus 3.1 mg/dl (2.5-4.9); Potassium 4.4 mmol/L (3.5-5.1)
--- NOTE | 2024-11-25 08:47 | CT Scan Report ---
EXAM: CT head/brain wo con CLINICAL HISTORY: follow up of subdural hematoma TECHNIQUE: Axial non-contrast CT scan of the brain was performed from the skull base to the high parietal region. One of the following dose reduction techniques were utilized for this exam: Automated exposure control, adjustment of the mA and/or kV according to patient size, use of iterative reconstruction. COMPARISON: 11/24/2024. FINDINGS: Brain Parenchyma: Scattered deep and periventricular white matter hypodensities, suggesting all vessel ischemic vasculopathy related changes. No evidence of acute infarct, hemorrhage, or mass effect. No abnormal areas of hyperattenuation. OBX.5.1OBX.5.1.1Ventricular System /OBX.5.1.1OBX.5.1.2 Subarachnoid Spaces:/OBX.5.1.2/OBX.5.1 Suggested small left subdural collection, appears less dense compared to prior study, possibly resolving subdural hematoma (maximum thickness of 3mm). Age related involutional changes seen as mildly dilated ventricular system and prominent CSF spaces. Cerebellum and Brainstem: Normal size and signal. No masses, lesions, or areas of abnormal signal. Orbits: Normal appearance of the globes, optic nerves, and extraocular muscles. No evidence of orbital masses or abnormal signal. Sinuses: Clear paranasal sinuses. No evidence of sinusitis or mucosal thickening. Mastoid Air Cells: Clear mastoid air cells. No evidence of mastoiditis. Skull: Normal skull morphology. IMPRESSION: 1. Suggested small left subdural collection, appears less dense compared to prior study, possibly resolving subdural hematoma (maximum thickness of 3mm). 2. No other acute intracranial abnormalities. Electronically signed by Ike Quiroz 11-25-2024 08:47 AM
--- NOTE | 2024-11-25 08:54 | Neurology Progress Note ---
Date of Service November 25, 2024 Assessment & Plan (1) Subacute subdural hematoma: Admission and Anticipated Discharge Date Admission Date: November 24, 2024 Subjective S: pt this morning feeling well. he fell yesterday tripping. hit his chin but no head injury. pt CT head noted for chronic left SDH. no new bleed noted. this morning CT head stable (pending final read). pt back to baseline. chart reviewed. admission HPI: The patient is a 84-year-old male with a past medical history including atrial fibrillation on apixaban, nonischemic cardiomyopathy, presence of cardiac pacemaker, diabetes mellitus type 2, lumbar stenosis with neurogenic claudication, HFrEF, CAD, idiopathic pulmonary fibrosis, anemia, GERD, double lung transplant, immunocompromised patient.The patient presents to the emergency department with complaints of a fall that occurred while at the outpatient offices of [facility], where he tripped over a stick extending out of the ground. He reports that he fell and hit his chin on the ground, but denied any head, neck or back pain. He does complain of some right-sided chest wall pain. Initially there was difficulty with recollection of exactly what happened, but as time involved in the emergency department, the exact mechanism of his fall became more clear to him. He was activated as a trauma alert due to a fall in the field while being on Eliquis, and was brought to the emergency department for evaluation. The patient underwent imaging in the emergency department, with CT of head without contrast performed and 16:29 revealing a subacute on chronic left frontal subdural hematoma measuring 5 mm in thickness, with no shift. There was also a chronic left sphenoid sinusitis. Follow-up CT scan performed at 20:55 revealed a stable late subacute to chronic left frontal convexity subdural hematoma without midline shift. There was no evidence of acute intracranial hemorrhage. His case admission events discussed by the ED with [facility] neurosurgery, who felt that the patient could just have serial H&H's performed. [facility] neurology felt the patient could be admitted to [facility] and close follow-up with imaging as noted. Results & Data Vital Signs (Past 12 Hours) Vital Signs Temp Pulse Pulse Resp BP BP Pulse Ox 11/25/24 07:45 36.8 C 65 16 123/79 100 11/25/24 07:37 65 11/25/24 04:32 36.4 C L 64 18 129/78 98 11/25/24 00:54 65 11/25/24 00:45 11/25/24 00:45 36.4 C L 65 18 158/81 H 100 11/25/24 00:34 11/24/24 23:56 65 23 127/76 99 11/24/24 23:00 65 24 132/84 99 11/24/24 22:00 65 23 133/75 99 11/24/24 21:00 65 19 124/76 97 Pulse Ox O2 Del Method O2 Del Method 11/25/24 07:45 Room Air 11/25/24 07:37 11/25/24 04:32 Room Air 11/25/24 00:54 11/25/24 00:45 Room Air 11/25/24 00:45 Room Air 11/25/24 00:34 100 Room Air 11/24/24 23:56 Room Air 11/24/24 23:00 Room Air 11/24/24 22:00 Room Air 11/24/24 21:00 Room Air Exam (Neuro) Physical Exam: HEENT: normocephalic grossly Neuro: Mental: AOx4, fluent speech, normal comprehension, no apraxia, no L/R confusion, no neglect CN: PERRL, Full EOM, symmetric face, midline T/U/P, grossly full ROM neck Motor: No abnormal movements, normal tone, 5/5 t/o bilaterally Sens: intact to touch b/l grossly Coord: intact FNT b/l DTR: 2+ sym b/l Impression: 84 yo male with mechanical fall with finding of chronic left SDH. it is likely old lesion and not directly related to the fall yesterday. Pt neurologically stable. Recommendations: -if this morning CT head stable, unchang ed, pt can be restarted on eliquis but recommend staying off on plavix. get repeat noncon CT head in 2 weeks as outpt. from neuro stand point, he can be discharged once CT this morning final report is stable. fall precaution. he can f/u with PCP for routine care. call again if new question. Chart reviewed I have spent more than 50% educating patient about potential diagnosis and neurological evaluation and coordinating care with patient's treatment team. Total time spent (including chart review and coordination of care): 55 min (this includes chart review). PG Care Time/CCT Total # of Minutes Spent Total Time Spent with Patient: Total time spent is greater than 50% in coordination of care (as documented) at patient's floor/unit and/or counseling patient: Coding Level of Care Code 52668 SUB INP/OBS CARE 3/50MIN Diagnoses Subacute subdural hematoma S06.5XAA CPT Codes Inpatient - [id number] ([id number])
[2024-11-25] MEDS: INSULIN ASPART PER UNIT CHARGE SC SCH (09:11)
[2024-11-25] MEDS: CHOLECALCIFEROL 25 MCG (1000 UNITS) TAB PO SCH (09:13)
[2024-11-25] MEDS: ROSUVASTATIN CALCIUM 20 MG TAB PO SCH (09:14)
[2024-11-25] MEDS: predniSONE 5 MG TAB PO SCH (09:14)
[2024-11-25] MEDS: GABAPENTIN 300 MG CAP PO SCH (09:14)
[2024-11-25] MEDS: METOPROLOL SUCC 50MG EXT REL TAB PO SCH (09:14)
[2024-11-25] MEDS: PANTOprazole 40 MG TAB PO SCH (09:14)
[2024-11-25] MEDS: FERROUS SULFATE 325 MG TAB PO SCH (09:14)
[2024-11-25] MEDS: SULFA/TRIMETH 400/80MG TAB PO SCH (09:15)
[2024-11-25] MEDS: TACROLIMUS 0.5 MG CAP PO SCH (09:15)
[2024-11-25] MEDS: valACYclovir HCL 500 MG TABLET PO SCH (09:15)
[2024-11-25 10:20] LABS: Estimated Average Glucose 151 mg/dl; Hemoglobin A1C 6.9 % (4.5-5.6)
--- NOTE | 2024-11-25 14:10 | Electrocardiogram Report ---
Test Reason : Blood Pressure : */* mmHG Vent. Rate : 65 BPM Atrial Rate : 101 BPM P-R Int : * ms QRS Dur : 150 ms QT Int : 460 ms P-R-T Axes : * -62 28 degrees QTcB Int : 478 ms Ventricular-paced rhythm Biventricular pacemaker detected Abnormal ECG When compared with ECG of 20-Jan-2024 05:28, Electronic ventricular pacemaker has replaced Sinus rhythm Confirmed by Bernabe Abdi ([id number]) on 11/25/2024 2:10:08 PM Referred By: Confirmed By: Bernabe Abdi
--- NOTE | 2024-11-25 14:51 | CT Scan Report ---
CT facial bones wo con CLINICAL HISTORY: 84 years-old Male presenting with s/p fall w/ trauma to chin; chin pain, dental shin n. Acute facial trauma status post fall COMPARISON STUDY: Head CT of same day TECHNIQUE: High-resolution CT scan of the facial bones is performed. Images are reviewed in the axia l, sagittal, and coronal planes. IV contrast was not administered for this examination. A dose lower ing technique was utilized adhering to the principles of ALARA. CT DOSE: 640.97 mGy.cm FINDINGS: Head CT dictated separately earlier this morning. Prominence of the extra-axial space adjac ent to left cerebral convexity is partially imaged. Mild subcutaneous edema along the inferior margin of the mandible and submandibular space.. Streak artifact from dental amalgam hardware. Mild degeneration of the temporal mid fibular joints. Rightward bowing and spurring of the nasal sept um. The mandible appears intact. No acute facial bone fracture identified. Mastoid air cells are beni r. Chronic complete opacification of the left sphenoid sinus with opacified left sphenoid ethmoidal r ecess. IMPRESSION: 1. No acute facial bone fracture, specifically the mandible appears intact. 2. Small submandibular contusion. 3. Please refer to the same day head CT for additional findings. ACT 112: Negative or not required by law. The above report was generated using voice recognition software. It may contain grammatical, syntax o r spelling errors. Electronically signed by: Tin Saunders M.D. 11/25/2024 2:49 PM
[2024-11-25 15:45] VITALS: BP 114/74; PULSE 65; TEMP 97.7; O2SAT 98
--- NOTE | 2024-11-25 16:49 | Discharge Summary ---
Discharge Summary Date of Service November 25, 2024 Principal Dx & Hospital Course #1 = Principal Diagnosis (1) Subacute subdural hematoma: (2) Chronic subdural hematoma: (3) On apixaban therapy: (4) Fall from standing: (5) Immunocompromised patient: (6) Double lung transplant: (7) Permanent atrial fibrillation: Plan The patient is a 84-year-old male with a past medical history including atrial fibrillation on apixaban, nonischemic cardiomyopathy, presence of cardiac pacemaker, diabetes mellitus type 2, lumbar stenosis with neurogenic claudication, HFrEF, CAD, idiopathic pulmonary fibrosis, anemia, GERD, double lung transplant, immunocompromised patient.The patient presents to the emergency department with complaints of a fall that occurred while at the outpatient offices of [facility], where he tripped over a stick extending out of the ground. He reports that he fell and hit his chin on the ground, but denied any head, neck or back pain. He does complain of some right-sided chest wall pain. Initially there was difficulty with recollection of exactly what happened, but as time involved in the emergency department, the exact mechanism of his fall became more clear to him. He was activated as a trauma alert due to a fall in the field while being on Eliquis, and was brought to the emergency department for evaluation. The patient underwent imaging in the emergency department, with CT of head without contrast performed and 16:29 revealing a subacute on chronic left frontal subdural hematoma measuring 5 mm in thickness, with no shift. There was also a chronic left sphenoid sinusitis. Follow-up CT scan performed at 20:55 revealed a stable late subacute to chronic left frontal convexity subdural hematoma without midline shift. There was no evidence of acute intracranial hemorrhage. His case admission events discussed by the ED with [facility] neurosurgery, who felt that the patient could just have serial H&H's performed. [facility] neurology felt the patient could be admitted to [facility] and close follow-up with imaging as noted. #Subacute on chronic left frontal subdural hematoma- Status post mechanical fall, after tripping over a stick extending from the ground Initial CT scan performed at 16:29. Follow-up CT scan at 20:55 was stable, with no acute bleeding. Conversation with [facility] neurosurgery advised patient be admitted to [facility], and serial CT scans to be performed The patient will be admitted to telemetry for serial cardiac enzymes, serial EKG's, cardiac rhythm monitoring Neurochecks every 4 hours per protocol Holding apixaban and clopidogrel Consult to neurology Dr. Bush, who is aware of the patient During examination with the patient, he feels that he is back at his baseline mentally. 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 CT scan of chest was negative Atrial fibrillation/nonischemic cardiomyopathy/presence of cardiac pacemaker/CAD- Holding clopidogrel, and Eliquis as noted Continue metoprolol succinate with hold parameters CKD/relative hypotension- Holding valsartan, with mildly elevated potassium of 5.2 Creatinine 2.05, with baseline 2.20 NSS at 80 mL/h x 1 L Follow serially Diabetes mellitus- Hold empagliflozin Placed on Accu-Cheks with NovoLog SSI Chronic medical conditions: Peripheral neuropathy-continue gabapentin GERD-continue pantoprazole Hyperlipidemia-continue rosuvastatin RLS-continue ropinirole Double lung transplant/immunocompromise state-continue tacrolimus, and chronic suppressive therapy with Bactrim and Valacyclovir Admission HPI Per Admitting Provider The patient is a 84-year-old male with a past medical history including atrial fibrillation on apixaban, nonischemic cardiomyopathy, presence of cardiac pacemaker, diabetes mellitus type 2, lumbar stenosis with neurogenic claudication, HFrEF, CAD, idiopathic pulmonary fibrosis, anemia, GERD, double lung transplant, immunocompromised patient.The patient presents to the emergency department with complaints of a fall that occurred while at the outpatient offices of [facility], where he tripped over a stick extending out of the ground. He reports that he fell and hit his chin on the ground, but denied any head, neck or back pain. He does complain of some right-sided chest wall pain. Initially there was difficulty with recollection of exactly what happened, but as time involved in the emergency department, the exact mechanism of his fall became more clear to him. He was activated as a trauma alert due to a fall in the field while being on Eliquis, and was brought to the emergency department for evaluation. The patient underwent imaging in the emergency department, with CT of head without contrast performed and 16: 29 revealing a subacute on chronic left frontal subdural hematoma measuring 5 mm in thickness, with no shift. There was also a chronic left sphenoid sinusitis. Follow-up CT scan performed at 20: 55 revealed a stable late subacute to chronic left frontal convexity subdural hematoma without midline shift. There was no evidence of acute intracranial hemorrhage. His case admission events discussed by the ED with [facility] neurosurgery, who felt that the patient could just have serial H&H's performed. [facility] neurology felt the patient could be admitted to [facility] and close follow-up with imaging as noted Discharge Plan Discharge Items Patient Disposition: Home - Home Health Services Reason For Visit: SUBACUTE ON CHRONIC LEFT FRONTAL SUBDURAL HEMATOMA Discharge Diagnosis: 1. fall 2. subacute on chronic left frontal subdural hematoma 3. chin contusion/bruise from fall 4. knee abrasions from fall 5. chronic right leg weakness 6. chronic back pain 7. history of double lung transplant 8. question of abnormal liver/cirrhosis on CT scan - please discuss with your family doctor 9. small cysts on your pancreas as seen on CT scan - please discuss further with your family doctor Activity: As commented below Activity Comment: no heavy exertional activities over the next 7 days Bathing Comment: please ask your for assistance with bath/shower for the next few days Sexual Activity: Wait until after follow-up appointment Exercise/Sports: Wait until after follow-up appointment Driving/Machine Use: NO DRIVING until you see your family doctor next week Non-emergency contact: Primary Care Provider and Specialist Call non-emergency contact if: you have any medication questions Follow-up/Referrals: Tata Upton PA-C [Physician Emergency Care Tech] - 12/02/24 10:30 am Jazmyn Pantoja MD [Primary Care Provider] - Kailee Donahue MD [Outside Practitioners] - (we are going to make a referral for you to see neurosurgery for the subdural hematoma; this appointment ideally will be within 4-6 weeks; this will be at [facility] in [place]; we will call you with appointment information) Diet: Carb Consistent or DM2 and Heart Healthy Ambulatory Orders: Complete Blood Count with Diff (Routine) Timeframe: [id number] Location: Determined by Patient Ordered By: Trace Sweet Attending Provider Instructions: Dr Barrios, You were hospitalized after suffering a fall which led to a contusion on your chin, abrasions on your knees, and most importantly - subacute on chronic subdural hematoma. We spoke with neurosurgery at [facility] in [place] on 3/27 and 11/25. They advised repeat CT scans the morning of 11/25. Fortunately the repeat CT scan done today was stable in comparison to yesterday's scans, and in fact the amount of blood was slightly less. During your stay your neurological exam remained stable/intact (you have chronic right leg weakness due to back troubles). We held your Eliquis & Plavix as these medicines can make bleeding worse. Neurosurgery advised that both your Eliquis & Plavix remain ON HOLD at this time. Dr Covington, your final cigar and box examiner, is aware of your hospitalization and the need to hold your Eliquis/Plavix. Recommendations - 1. please use your walker at all times at home as well as when you leave your home. 2. please HOLD/STOP - * Eliquis * Plavix 3. in addition do not take the following [id number]-swpyuwd medicines - * motrin / ibuprofen * naprosyn / aleve * aspirin TYLENOL IS OK to take for aches/pains - tylenol does not cause bleeding. 4. for your bruise/contusion on your chin you can use ice to the area for 20 minutes several times each day. After 2-3 days you can switch to heat to promote resolution of the bruising. 5. if the molar tooth on the right continues to cause discomfort please see your dentist at your convenience. 6. you will need a repeat head CT scan in about 2 weeks; we will arrange this for you. 7. you will need to see Neurosurgery at [facility] in about 4-6 weeks; we will help arrange this for you. 8. be sure to bring the CD with you to [place]; this CD contains your CT scans from this admission. 9. I would recommend reducing your valsartan medicine from 20mg twice daily to 20mg once daily. 10. your platelet count was mildly low while here. I suspect that the bruise on your chin caused the platelets to drop mildly. I would recommend a repeat CBC blood count on Thursday or Thursday of this coming week. I will place a lab order for you. You can have these labs drawn at the hospital. 11. finally, your CT scan of the abdomen incidentally showed that the liver may have early cirrhosis. There were also several small cysts in your pancreas. Please talk to your family doctor about these incidental findings. They may refer you to a small electric engine technician to have additional tests. Follow-up - see separate section. Return to [facility] if - * you develop headaches * you develop dizziness, lightheadedness, vertigo (spinning sensation) or unsteadiness on your feet * you develop any new neurological symptoms - increasing weakness in your arms or legs, new or increasing numbness/tingling, difficulty speaking/swallowing, etc. * you have increased fatigue/lethargy * any other concerns It was our pleasure to care for you! -Dr Ty Pending Studies at Discharge: No Stand-Alone Forms: [facility], Smoking Cessation Medications and DC Order Prescriptions: Continued cholecalciferol (vitamin D3) 25 mcg (1,000 unit) tablet 50 mcg PO DAILY Patient Comments: CONFIRMED W/ PT AND ON [facility] DC SUMMARY 02/01 valacyclovir [Valtrex] 500 mg tablet 500 mg PO DAILY Patient Comments: CONFIRMED W/ PT AND ON [facility] DC SUMMARY 02/01 furosemide 40 mg tablet 40 mg PO DAILY Patient Comments: CONFIRMED W/ PT AND ON [facility] DC SUMMARY 02/01 rosuvastatin 20 mg capsule, sprinkle 40 mg PO DAILY Patient Comments: CONFIRMED W/ PT AND ON [facility] DC SUMMARY 02/01 tacrolimus 0.5 mg capsule 1.5 mg PO BID Patient Comments: CONFIRMED W/ PT AND ON [facility] DC SUMMARY 02/01 Jardiance 10 mg tablet 10 mg PO DAILY Qty: 30 6RF Hold Instructions: Home Medication placed on hold at Doctor's office albuterol sulfate 90 mcg/actuation HFA aerosol inhaler 1 inh inhalation QID PRN (Reason: sob) nitroglycerin 0.4 mg tablet, sublingual 0.4 mg sublingual Q5M PRN (Reason: chest pain) Qty: 1 3RF Rx Instructions: max of 3 tablets in 15 minutes. metoprolol succinate [Toprol XL] 100 mg tablet extended release 24 hr 100 mg PO DAILY Qty: 90 3RF gabapentin 300 mg capsule 300 mg PO TID Qty: 90 3RF Rx Instructions: 300 mg po tid. last filled 09/24/24 30 day supply Max dose given GFR 30-45 ferrous sulfate [Feosol] 325 mg (65 mg iron) tablet 325 mg PO DAILY prednisone 5 mg Tablet 5 mg PO DAILY (DME) Spacer for Inhaler Misc See Rx Instructions .ROUTE .MEDSUPPLY Qty: 1 0RF Rx Instructions: As directed sulfamethoxazole-trimethoprim 400-80 mg tablet 1 tab PO 3XWK Hold Instructions: Provider's Order Rx Instructions: MON, WED, & FRI. amoxicillin 500 mg tablet 2,000 mg PO DIRECTED PRN (Reason: 1 HR PRIOR TO DENTAL APPT.) pantoprazole 40 mg tablet,delayed release (DR/EC) 40 mg PO BID ropinirole 0.25 mg tablet 0.25 mg PO HS Rx Instructions: filled 11/22 89 day supply Changed valsartan 40 mg tablet 20 mg PO DAILY Qty: 0 0RF Patient Comments: CONFIRMED W/ PT AND ON [facility] DC SUMMARY 02/01 Held clopidogrel 75 mg tablet 75 mg PO DAILY Hold Instructions: HOLD/STOP until further notice Eliquis 2.5 mg tablet 2.5 mg PO BID Hold Instructions: HOLD/STOP until further notice Discharge Orders: Discharge Order (Routine); Ordered 11/25/24 Ordered By: Trace Christensen/Other Patient Handouts: What Is a Subdural Hematoma?, Type 2 Diabetes Admission Data Admit Date/Time: 11/24/24 23:02 Attending Provider: Trace Ty Admit Provider: Quincy Napoles Primary Care Provider: Jazmyn Pantoja Other Providers: Quincy Napoles; Bennie Bush; [place] Other Interventions: Discharge Summary Assessment (RN) Last Done: 11/25/24 16:31 Hospital Stay Data Consultations 11/24/24 21:39 ED Decision to Admit Stat 11/25/24 00:34 Consult Neurology Routine 11/25/24 14:57 Burn CD for patient Stat Diagnostic Imagining Performed 11/24/24 16:29 CT abd pelvis wo con Stat CT cervical spine wo con Stat CT chest diagnostic wo con Stat CT head/brain wo con Stat 11/24/24 20:55 CT head/brain wo con Stat 11/25/24 06:56 CT head/brain wo con Stat 11/25/24 13:36 CT facial bones wo con Urgent Pending Results Patient Have Any Pending Studies at Discharge: No Discharge Instructions Given to Patient (Per Discharging Provider) Dr Barrios, You were hospitalized after suffering a fall which led to a contusion on your chin, abrasions on your knees, and most importantly - subacute on chronic subdural hematoma. We spoke with neurosurgery at [facility] in [place] on 11/24 and 11/25. They advised repeat CT scans the morning of 11/25. Fortunately the repeat CT scan done today was stable in comparison to yeste rday's scans, and in fact the amount of blood was slightly less. During your stay your neurological exam remained stable/intact (you have chronic right leg weakness due to back troubles). We held your Eliquis & Plavix as these medicines can make bleeding worse. Neurosurgery advised that both your Eliquis & Plavix remain ON HOLD at this time. Dr Covington, your final cigar and box examiner, is aware of your hospitalization and the need to hold your Eliquis/Plavix. Recommendations - 1. please use your walker at all times at home as well as when you leave your home. 2. please HOLD/STOP - * Eliquis * Plavix 3. in addition do not take the following [id number]-feblspg medicines - * motrin / ibuprofen * naprosyn / aleve * aspirin TYLENOL IS OK to take for aches/pains - tylenol does not cause bleeding. 4. for your bruise/contusion on your chin you can use ice to the area for 20 minutes several times each day. After 2-3 days you can switch to heat to promote resolution of the bruising. 5. if the molar tooth on the right continues to cause discomfort please see your dentist at your convenience. 6. you will need a repeat head CT scan in about 2 weeks; we will arrange this for you. 7. you will need to see Neurosurgery at [facility] in about 4-6 weeks; we will help arrange this for you. 8. be sure to bring the CD with you to [place]; this CD contains your CT scans from this admission. 9. I would recommend reducing your valsartan medicine from 20mg twice daily to 20mg once daily. 10. your platelet count was mildly low while here. I suspect that the bruise on your chin caused the platelets to drop mildly. I would recommend a repeat CBC blood count on Thursday or Thursday of this coming week. I will place a lab order for you. You can have these labs drawn at the hospital. 11. finally, your CT scan of the abdomen incidentally showed that the liver may have early cirrhosis. There were also several small cysts in your pancreas. Please talk to your family doctor about these incidental findings. They may refer you to a small electric engine technician to have additional tests. Follow-up - see separate section. Return to [facility] if - * you develop headaches * you develop dizziness, lightheadedness, vertigo (spinning sensation) or unsteadiness on your feet * you develop any new neurological symptoms - increasing weakness in your arms or legs, new or increasing numbness/tingling, difficulty speaking/swallowing, etc. * you have increased fatigue/lethargy * any other concerns It was our pleasure to care for you! -Dr Ty Coding Diagnoses Subacute subdural hematoma S06.5XAA Chronic subdural hematoma I62.03 On apixaban therapy Z79.01 Fall from standing [id number] Encounter type: initial encounter Immunocompromised patient D89.9 Double lung transplant Z94.2 Permanent atrial fibrillation I48.21
[2024-11-25] MEDS ORDERED: rOPINIRole HCL 0.25 MG TABLET PO SCH (21:00)
== END 2024-11-25 17:28 | disposition home health service (06) | DRG 83 ==
LOC: ED 16:12 → SUATTDRO 23:02 → 2S 23:02

== ENCOUNTER 2024-12-14 12:19 | Inpatient (IN) ==
--- NOTE | 2024-12-14 12:34 | Emergency Department Note ---
Impression & Plan Elevated troponin Admission ED Provider Note HPI: History obtained from patient. The patient is a 84-year-old gentleman with history of permanent atrial fibrillation, status post pacemaker, history of recent subdural hematoma in late October, taken off of anticoagulation including Eliquis and Plavix at that time, patient states he is pending an outpatient CT image of the head to restart his anticoagulation, he presents today with a chief complaint of chest pain. Patient states that about an hour prior to arrival he developed substernal chest pain that he states was fairly severe. He states it felt like heart attacks he has experienced in the past. On arrival here to the ED the patient is alert and oriented, he is hemodynamically stable, he states he still does have fairly significant chest pain. Patient is saturating well on room air on arrival. ROS: - Per HPI Differential Diagnosis: Acute coronary syndrome, esophagitis, gastritis, aortic dissection, pericarditis, myocarditis, pneumothorax, pneumonia, amongst other potential pathologies. *Outpatient medications and allergy history reviewed. PE: General: Alert, frail-appearing, no acute distress HEENT: Normocephalic, trachea midline Eyes: Extraocular eye movement is intact, no scleral erythema Pulmonary: Clear to auscultation bilaterally, no wheezing Cardio: Regular rate and rhythm GI: Abdomen is soft to palpation : No suprapubic tenderness MSK: No evidence of trauma or malformation of the extremities, no edema Skin: No evidence of rash Neuro: Alert, no focal deficits Psychiatric: Cooperative INDEPENDENT INTERPRETATIONS: lunchroom monitor: (As interpreted by myself): - An order was placed for continuous cardiac monitoring - Patient was noted to be in paced rhythm with a rate of 65 EKG: (As interpreted by myself): Rate: 65 Rhythm: Ventricular paced rhythm Intervals: QRS 146 ms, QTc [address] changes: No ST elevation Time: 1226 EKG #2: Rate: 65 Rhythm: Ventricular paced rhythm Intervals: QRS 166 ms, QTc [address] changes: No ST elevation Time: 1301 Chest x-ray: (As interpreted by myself): No acute disease Interventions provided in ED: - Aspirin, IV morphine, IV Zofran Medical Decision Making: IV was established and lab work obtained, patient was placed on lunchroom monitor. Initial EKG obtained reviewed by myself does not show any evidence of ST elevation CO. Lab work shows no leukocytosis, hemoglobin is normal, platelet count is normal, CMP shows a mildly elevated creatinine at 1.80 which appears to be near the patient's baseline. Troponin returns elevated at 116. Repeat EKG was obtained here in the ED and upon review by myself again does not show any evidence of ST elevation CO. CT angiography of the chest was obtained that shows no evidence of PE or aortic dissection. On my reassessment the patient states his pain is improved from previous but he still does have some substernal pain. I discussed the patient's presentation with on-call cardiology, Dr. Copeland, he is in agreement for consultation at this time he recommended continuing with pain control with morphine as needed and CT imaging of the head to determine whether or not the patient might be amenable to a heparin drip given his history recently of subdural hematoma. CT imaging of the head was obtained and did not show any evidence of any acute intracranial hemorrhage. I did discuss the patient's presentation and the above conversations with the on-call hospitalist, Dr. Norris. He is in agreement to admit the patient for further care. Patient was ordered aspirin in the ED. Patient was placed for admission in stable condition. Consultants/Discussions held with other healthcare providers: - Cardiology, Dr. Copeland - Hospitalist, Dr. Norris Disposition discussion held by myself with: - Patient Diagnosis: 1. Chest pain, acute 2. Elevated high-sensitivity troponin level, acute 3. History of CAD, status post multiple stents 4. History of recent subdural hematoma Disposition: Admission Jorge Padilla DO Emergency Medicine Past Med/Surg History Problem List (Updated 12/14/24 @ 20:17 by Jorge Padilla DO) Elevated troponin (Acute) Elevated troponin Immunocompromised patient Chronic subdural hematoma Chest pain at rest Pancreatic cyst Cirrhosis Permanent atrial fibrillation Thrombocytopenia Nonischemic cardiomyopathy Anticoagulant long-term use Cardiac pacemaker Lumbar radiculopathy Type 2 diabetes mellitus Lumbar stenosis with neurogenic claudication Foraminal stenosis of lumbar region Scoliosis of lumbar region due to degenerative disease of spine in adult HFrEF (heart failure with reduced ejection fraction) CAD (coronary artery disease) IPF (idiopathic pulmonary fibrosis) (Chronic) Anemia (Acute) Chronic GERD Medical History Low back pain radiating to right leg Sensorineural hearing loss (SNHL) of left ear with restricted hearing of right ear Asymmetric SNHL (sensorineural hearing loss) History of Mohs micrographic surgery for skin cancer Bilateral tinnitus 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 CKD (chronic kidney disease), stage III HTN (hypertension) Upper respiratory infection Subdural hematoma (10/05/14) Surgical History Hx of appendectomy History of cardiac catheterization Hx of lung transplant Family History Mother Hearing loss Idiopathic pulmonary fibrosis Colorectal cancer Father Heart disease Myocardial infarction Brother Idiopathic pulmonary fibrosis Myocardial infarction Other No family history of adverse response to anesthesia No family history of bleeding disorder Denies family history of Ovarian cancer Prostate cancer Diabetes Breast cancer Lung cancer Stroke Social History Smoking Status: Never smoker Second Hand Exposure: No; Do You Dip or Chew Tobacco: No; Hx Alcohol Use: Yes Alcohol type: wine Hx Substance Use: No Preferred Language: Surinamese Communication Ability: Effective Visual Impairment: Limited Hearing Ability: Normal 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 [employer]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: No Beliefs That Will Affect Care: None marital status: Current Living Situation: Spouse Current Living Situation Comment: 3 story home current occupational status: employed 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) How many Children do You have: 2 Feels Safe at Home: Yes Childhood Exposure to Second-Hand Smoke: Yes caffeine: No Dental Care, Regularly: Yes Physical Activity Frequency: Daily Seatbelt Use: sometimes Sunscreen Use: Yes Assistive Devices: Walker Allergies Allergies Allergy/AdvReac Type Severity Reaction Status Date / Time cefepime Allergy Intermediate rash Verified 12/14/24 15:34 poison laura extract Allergy Intermediate Rash Verified 12/14/24 15:34 Home Meds Home Medications Medication Instructions Recorded Confirmed prednisone 5 mg tablet 5 mg PO DAILY 05/11/18 12/14/24 amoxicillin 500 mg tablet 2,000 mg PO DIRECTED PRN 1 HR 02/01/23 12/14/24 PRIOR TO DENTAL APPT. apixaban 2.5 mg tablet (Eliquis) 2.5 mg PO BID 02/01/23 12/14/24 clopidogrel 75 mg tablet 75 mg PO DAILY 02/01/23 12/14/24 sulfamethoxazole 400 1 tab PO 3XWK 02/01/23 12/14/24 mg-trimethoprim 80 mg tablet cholecalciferol (vitamin D3) 25 50 mcg PO DAILY 02/02/24 12/14/24 mcg (1,000 unit) tablet valacyclovir 500 mg tablet 500 mg PO DAILY 02/02/24 12/14/24 (Valtrex) albuterol sulfate 90 mcg/actuation 1 inh inhalation QID PRN sob 02/09/24 12/14/24 aerosol inhaler pantoprazole 40 mg tablet,delayed 40 mg PO BID 02/09/24 12/14/24 release ferrous sulfate 325 mg (65 mg 325 mg PO DAILY 04/26/24 12/14/24 iron) tablet (Feosol) furosemide 40 mg tablet 40 mg PO DAILY edema 04/26/24 12/14/24 rosuvastatin 20 mg sprinkle capsule 40 mg PO DAILY 04/26/24 12/14/24 tacrolimus 0.5 mg capsule, 1.5 mg PO BID 08/12/24 12/14/24 immediate-release ropinirole 0.25 mg tablet 0.25 mg PO HS 11/24/24 12/14/24 Previous Rx's Medication Instructions Recorded Spacer for Inhaler #1 ea 08/30/19 gabapentin 300 mg capsule 300 mg PO TID #90 caps 06/17/24 metoprolol succinate 100 mg 100 mg PO DAILY #90 tabs 10/19/24 tablet,extended release 24 hr (Toprol XL) nitroglycerin 0.4 mg sublingual 0.4 mg sublingual Q5M PRN chest 10/19/24 tablet pain #1 btl empagliflozin 10 mg tablet 10 mg PO DAILY #30 tabs 10/20/24 (Jardiance) valsartan 40 mg tablet 20 mg (1/2 x 40 mg) PO DAILY #0 11/25/24 tabs Results & Data (ED) Vital Signs Vital Signs - 24 hr 12/14/24 12:26 12/14/24 12:26 12/14/24 12:26 Temperature 36.5 C Temperature Source Axillary Pulse Rate 66 Pulse Rate [Apical] 65 Pulse Strength Normal Pulse Strength [Apical] Normal Respiratory Rate 17 Respiratory Effort / Characteristics Non-Labored Spontaneous Respiratory Depth Normal Respiratory Pattern Regular Blood Pressure 125/74 Blood Pressure [Right Arm] Blood Pressure Mean 91 Blood Pressure Mean [Right Arm] Blood Pressure Position Lying Blood Pressure Position [Right Arm] Pulse Oximetry 95 92 Oxygen Delivery Method Room Air Room Air Oxygen Flow Rate Sepsis Recent Fever Within 48 Hours No Sepsis New/Unexplained Change in Mental Status No Sepsis Action Taken by Nursing No Action Required 12/14/24 12:27 12/14/24 12:32 12/14/24 13:27 Temperature Temperature Source Pulse Rate 65 65 Pulse Rate [Apical] Pulse Strength Pulse Strength [Apical] Respiratory Rate 16 Respiratory Effort / Characteristics Respiratory Depth Respiratory Pattern Blood Pressure Blood Pressure [Right Arm] Blood Pressure Mean Blood Pressure Mean [Right Arm] Blood Pressure Position Blood Pressure Position [Right Arm] Pulse Oximetry 96 86 L Oxygen Delivery Method Room Air Room Air Oxygen Flow Rate Sepsis Recent Fever Within 48 Hours Sepsis New/Unexplained Change in Mental Status Sepsis Action Taken by Nursing 12/14/24 13:28 12/14/24 14:11 12/14/24 16:00 Temperature Temperature Source Pulse Rate Pulse Rate [Apical] 65 65 Pulse Strength Pulse Strength [Apical] Normal Normal Respiratory Rate 21 22 Respiratory Effort / Characteristics Non-Labored Spontaneous Non-Labored Spontaneous Respiratory Depth Normal Normal Respiratory Pattern Regular Regular Blood Pressure Blood Pressure [Right Arm] 147/73 H 143/88 H Blood Pressure Mean Blood Pressure Mean [Right Arm] 97 106 Blood Pressure Position Blood Pressure Position [Right Arm] Lying Lying Pulse Oximetry 93 99 99 Oxygen Delivery Method Nasal Cannula Nasal Cannula Room Air Oxygen Flow Rate 2 2 Sepsis Recent Fever Within 48 Hours Sepsis New/Unexplained Change in Mental Status Sepsis Action Taken by Nursing 12/14/24 16:28 Temperature Temperature Source Pulse Rate 65 Pulse Rate [Apical] Pulse Strength Pulse Strength [Apical] Respiratory Rate Respiratory Effort / Characteristics Respiratory Depth Respiratory Pattern Blood Pressure Blood Pressure [Right Arm] Blood Pressure Mean Blood Pressure Mean [Right Arm] Blood Pressure Position Blood Pressure Position [Right Arm] Pulse Oximetry Oxygen Delivery Method Oxygen Flow Rate Sepsis Recent Fever Within 48 Hours Sepsis New/Unexplained Change in Mental Status Sepsis Action Taken by Nursing Laboratory Data 12/14/24 12:30 12/14/24 12:30 Lab Results 12/14/24 12/14/24 12/14/24 Range/Units 12:30 14:21 17:15 WBC 9.13 (4.8-10.8) K/ul RBC 4.42 L (4.70-6.10) M/uL Hgb 14.5 (14.0-18.0) g/dl Hct 43.1 (42.0-52.0) % MCV 97.5 (80.0-100.0) fL MCH 32.8 (25.0-34.0) pg MCHC 33.6 (32.0-36.0) g/dL RDW Std Deviation 47.0 H (36.4-46.3) fL RDW Coeff of Fahad 13.2 (11.5-14.5) % Plt Count 182 (130-400) K/uL MPV 10.0 (9.4-12.4) fL Immature Gran % (Auto) 1.4 % Neut % (Auto) 56.8 % Lymph % (Auto) 25.0 % Hendricks % (Auto) 14.1 % Eos % (Auto) 2.2 % Baso % (Auto) 0.5 % Neut # (Auto) 5.18 (1.40-6.50) K/uL Lymph # (Auto) 2.28 (1.20-3.40) K/uL Hendricks # (Auto) 1.29 H (0.11-0.59) K/uL Eos # (Auto) 0.20 (0.00-0.50) K/uL Baso # (Auto) 0.05 (0.00-0.20) K/uL Immature Gran # (Auto) 0.13 (0.01-0.20) K/uL PT 11.4 (9.0-12.0) Seconds INR 1.1 (0.9-1.1) Sodium 140 (136-145) mmol/L Potassium 4.0 (3.5-5.1) mmol/L Chloride 107 (98-107) mmol/L Carbon Dioxide 23 (21-32) mmol/L Anion Gap 10 (3-11) BUN 31 H (6-23) mg/dl Creatinine 1.80 H (0.6-1.4) mg/dl Est Cr Clr Drug Dosing 34.6 ml/min eGFR 36.89 BUN/Creatinine Ratio 17.2 (10-20) Glucose 195 H (70-99(Fasting)) mg/dl Calcium 9.2 (8.6-10.3) mg/dl Total Bilirubin 0.9 (0.2-1.0) mg/dl AST 30 (13-39) U/L ALT 27 (7-52) U/L Alkaline Phosphatase 107 H (34-104) U/L Troponin I High Sens 116.3 H* 117.7 H* 1221.6 H* D (0-20) pg/ml Total Protein 6.9 (6.0-8.3) gm/dl Albumin 3.9 (3.4-5.0) gm/dl Globulin 3.0 (2.5-4.0) gm/dl Albumin/Globulin Ratio 1.3 (0.9-2) Lipase 46 (11-82) U/L Administered Medications Heparin Sodium/Dextrose (Heparin 57366 Unit/500 Ml D5w) 25,000 units in 500 mls @ 28 mls/hr IV .[id number] [facility]; Protocol Stop: 01/13/25 16:59 Last Admin: 12/14/24 17:09 Dose: 1,400 units/hr, 28 mls/hr Documented By: AIDAN Co-signed By: BELÉN Discontinued Medications Aspirin (Aspirin Chew 324 Mg) 324 mg PO NOW STA Stop: 12/14/24 12:58 Last Admin: 12/14/24 13:03 Dose: 324 mg Documented By: AIDAN Heparin Sodium/Dextrose (Heparin Iv Adult Wt-Based Standard *No* Initial Bolus Protocol) 1 each IV ONE STA; Protocol Stop: 12/14/24 16:45 Last Admin: 12/14/24 16:58 Dose: Not Given Documented By: AIDAN Sodium Chloride (Nss) 500 mls @ 999 mls/hr IV .Q31M ONE Stop: 12/14/24 13:02 Last Infusion: 12/14/24 13:14 Dose: Infused Documented By: Admin: 12/14/24 12:43 Dose: 999 mls/hr Documented By: AIDAN Ioversol (Optiray 320 125ml) 80 ml IV ONCE ONE Stop: 12/14/24 14:13 Last Admin: 12/14/24 14:12 Dose: 80 ml Documented By: ODETTE Morphine Sulfate (Morphine Sulfate 4 Mg/Ml 1 Ml Carp\Vial) 4 mg IV NOW STA Stop: 12/14/24 12:33 Last Admin: 12/14/24 12:42 Dose: 4 mg Documented By: AIDAN Morphine Sulfate (Morphine Sulfate 4 Mg/Ml 1 Ml Carp\Vial) 4 mg IV NOW STA Stop: 12/14/24 12:57 Last Admin: 12/14/24 12:59 Dose: 4 mg Documented By: SNS Morphine Sulfate (Morphine Sulfate 4 Mg/Ml 1 Ml Carp\Vial) 4 mg IV NOW STA Stop: 12/14/24 14:16 Last Admin: 12/14/24 14:20 Dose: 4 mg Documented By: AIDAN Nitroglycerin (Nitroglycerin 2% Ointment 30gm Tube) 2 inch EXT NOW ONE Stop: 12/14/24 15:13 Last Admin: 12/14/24 15:27 Dose: 2 inch Documented By: SNS Ondansetron HCl (Ondansetron Inj 2 Mg/Ml 2 Ml Vial) 4 mg IV NOW STA Stop: 12/14/24 12:33 Last Admin: 12/14/24 12:42 Dose: 4 mg Documented By: AIDAN Imaging Data Radiologist's Impression: Chest X-Ray 12/14/24 12:27 XR chest 1V portable CLINICAL HISTORY: Chest pain, nonspecific COMPARISON STUDY: 11/24/2024 FINDINGS: Stable pacemaker. Stable cardiomegaly without pulmonary vascular congestion. Inspiration is shallow. No effusion, consolidation, or pneumothorax. IMPRESSION: No acute findings. ACT 112: Negative or not required by law. Electronically signed by: Kulwinder Bobby M.D. 12/14/2024 12:51 PM Chest CTA 12/14/24 13:41 CT angio chest PE protocol CT DOSE: 1521.75 mGy.cm HISTORY: PE. Midsternal chest pain; history of lung transplant TECHNIQUE: Multiple CTA images of the chest were obtained after the intravenous administration of 80 ml Optiray. Coronal and sagittal MIPS were obtained from the axial data set and were submitted for review. All measurements were obtained according to NASCET criteria. A dose lowering technique was utilized adhering to the principles of ALARA. COMPARISON STUDY: 11/24/2024 FINDINGS: There is no CT evidence of pulmonary embolism. The heart is grossly enlarged particularly the left atrium. There is no aortic aneurysm or pericardial effusion. There is extensive coronary artery calcification. The lung broderick demonstrate a slightly pronounced interstitial pattern and a trace right pleural effusion is present. The upper airway is unremarkable. The esophagus is not distended. There is no significant adenopathy. In the upper abdomen, the liver are once again appears cirrhotic. There are prominent emily hepatis lymph nodes redemonstrated and incompletely evaluated. IMPRESSION: No evidence of pulmonary embolism. Pronounced cardiomegaly. Probable mild pulmonary edema with a trace right pleural effusion. Extensive coronary artery calcification. Cirrhotic liver. Nonspecific prominent emily hepatis lymph nodes. ACT 112: Negative or not required by law. The above report was generated using voice recognition software. It may contain grammatical, syntax or spelling errors. Electronically signed by: Nancy Zamudio M.D. 12/14/2024 2:[address] 12/14/24 13:54 CT head/brain wo con CLINICAL HISTORY: eval previous SDH. TECHNIQUE: Multiple axial CT images of the head were obtained without contrast. A dose lowering technique was utilized adhering to the principles of ALARA. CT DOSE: 1521 COMPARISON: 11/25/2024 FINDINGS: No acute intracranial hemorrhage seen. No mass effect, midline shift, or hydrocephalus. There is stable mild CSF density prominence of the left subdural, possible mild residual subdural hygroma. There is stable mild chronic small vessel ischemic change. Visualized paranasal sinuses are clear. No mastoid effusion. No skull fracture. IMPRESSION: Stable exam. No adverse change. No intracranial hemorrhage seen. ACT 112: Negative or not required by law. The above report was generated using voice recognition software. It may contain grammatical, syntax or spelling errors. Electronically signed by: Kulwinder Bobby M.D. 12/14/2024 2:28 PM Discharge Plan Visit Data Chief Complaint: Chest Pain Stated Complaint: Chest Pain ED Provider: Jorge Padilla Discharge Problem: Elevated troponin Patient Disposition: Admitted As Inpatient Discharge Instructions Interventions: ED Discharge Assessment Last Done: 12/14/24 20:00
[2024-12-14] MEDS: MoRPHine SULFATE 4 MG/ML 1 ML CARP\\VIAL IV STA ×3 (12:42→14:20)
[2024-12-14] MEDS: ONDANSETRON INJ 2 MG/ML 2 ML VIAL IV STA (12:42)
[2024-12-14] MEDS: SODIUM CHLORIDE 0.9% 500 ML IV ONE (12:43)
[2024-12-14 12:52] LABS: Basophils # (auto) 0.05 K/uL (0.00-0.20); Basophils % (auto) 0.5 %; Eosinophils % (auto) 2.2 %; Hematocrit (blood only) 43.1 % (42.0-52.0); Hemoglobin 14.5 g/dl (14.0-18.0); Immature Granulocytes # (auto) 0.13 K/uL (0.01-0.20); Immature Granulocytes % (auto) 1.4 %; Lymphocytes # (auto) 2.28 K/uL (1.20-3.40); Mean Corpuscular Hemoglobin 32.8 pg (25.0-34.0); Mean Corpuscular Hgb Conc 33.6 g/dL (32.0-36.0); Mean Corpuscular Volume 97.5 fL (80.0-100.0); Monocytes # (auto) 1.29 K/uL (0.11-0.59); Monocytes % (auto) 14.1 %; Neutrophils # (auto) 5.18 K/uL (1.40-6.50); Neutrophils % (auto) 56.8 %; Platelet Count 182 K/uL (130-400); RDW Coefficient of Variation 13.2 % (11.5-14.5); Red Blood Count 4.42 M/uL (4.70-6.10); White Blood Count 9.13 K/ul (4.8-10.8)
--- NOTE | 2024-12-14 12:52 | XRay Report ---
XR chest 1V portable CLINICAL HISTORY: Chest pain, nonspecific COMPARISON STUDY: 11/24/2024 FINDINGS: Stable pacemaker. Stable cardiomegaly without pulmonary vascular congestion. Inspiration is shallow. No effusion, consolidation, or pneumothorax. IMPRESSION: No acute findings. ACT 112: Negative or not required by law. Electronically signed by: Kulwinder Bobby M.D. 12/14/2024 12:51 PM
[2024-12-14] MEDS: ASPIRIN CHEW 324 MG PO STA (13:03)
[2024-12-14 13:06] LABS: INR 1.1 (0.9-1.1); Prothrombin Time 11.4 Seconds (9.0-12.0)
[2024-12-14 13:14] LABS: Albumin Level 3.9 gm/dl (3.4-5.0); Bilirubin,Total 0.9 mg/dl (0.2-1.0); Calcium 9.2 mg/dl (8.6-10.3)
[2024-12-14 13:20] LABS: Albumin Globulin Ratio 1.3 (0.9-2); BUN Creatinine Ratio 17.2 (10-20); Creatinine Clr Calc Pharmacy 34.6 ml/min; Total Protein 6.9 gm/dl (6.0-8.3)
[2024-12-14 13:27] LABS: Troponin I High Sensitivity 116.3 pg/ml (0-20)
[2024-12-14] MEDS: OPTIRAY 320 125ml IV ONE (14:12)
--- NOTE | 2024-12-14 14:28 | CT Scan Report ---
CT angio chest PE protocol CT DOSE: 1521.75 mGy.cm HISTORY: PE. Midsternal chest pain; history of lung transplant TECHNIQUE: Multiple CTA images of the chest were obtained after the intravenous administration of 80 ml Optiray. Coronal and sagittal MIPS were obtained from the axial data set and were submitted for r eview. All measurements were obtained according to NASCET criteria. A dose lowering technique was ut ilized adhering to the principles of ALARA. COMPARISON STUDY: 11/24/2024 FINDINGS: There is no CT evidence of pulmonary embolism. The heart is grossly enlarged particularly t he left atrium. There is no aortic aneurysm or pericardial effusion. There is extensive coronary candy ry calcification. The lung broderick demonstrate a slightly pronounced interstitial pattern and a trace right pleural effu laure is present. The upper airway is unremarkable. The esophagus is not distended. There is no significant adenopathy. In the upper abdomen, the liver are once again appears cirrhotic. There are prominent emily hepatis l ymph nodes redemonstrated and incompletely evaluated. IMPRESSION: No evidence of pulmonary embolism. Pronounced cardiomegaly. Probable mild pulmonary edema with a trace right pleural effusion. Extensive coronary artery calcification. Cirrhotic liver. Nonspecific prominent emily hepatis lymph nodes. ACT 112: Negative or not required by law. The above report was generated using voice recognition software. It may contain grammatical, syntax o r spelling errors. Electronically signed by: Nancy Zamudio M.D. 12/14/2024 2:26 PM
--- NOTE | 2024-12-14 14:29 | CT Scan Report ---
CT head/brain wo con CLINICAL HISTORY: eval previous SDH. TECHNIQUE: Multiple axial CT images of the head were obtained without contrast. A dose lowering tech nique was utilized adhering to the principles of ALARA. CT DOSE: 1521 COMPARISON: 11/25/2024 FINDINGS: No acute intracranial hemorrhage seen. No mass effect, midline shift, or hydrocephalus. The re is stable mild CSF density prominence of the left subdural, possible mild residual subdural hygrom a. There is stable mild chronic small vessel ischemic change. Visualized paranasal sinuses are clear. No mastoid effusion. No skull fracture. IMPRESSION: Stable exam. No adverse change. No intracranial hemorrhage seen. ACT 112: Negative or not required by law. The above report was generated using voice recognition software. It may contain grammatical, syntax o r spelling errors. Electronically signed by: Kulwinder Bobby M.D. 12/14/2024 2:28 PM
--- NOTE | 2024-12-14 15:24 | History & Physical Report ---
Date of Service December 14, 2024 Assessment & Plan (1) Chest pain at rest: (2) Permanent atrial fibrillation: (3) Nonischemic cardiomyopathy: (4) Chronic subdural hematoma: (5) Immunocompromised patient: Plan Patient is an 84-year-old male with a past medical history of numerous subdural hematomas most recent 11/25/2024, A-fib s/p pacer, stage IIIb CKD, type II DM, HFrEF, double lung transplant immunosuppressed, questionable cirrhosis. Patient presented due to midsternal 10/10 chest pain that began at rest. Chest pain improved but not resolved after 12 Mg IV morphine, 2 sublingual nitroglycerin at time of admission. EKG shows no acute changes. Patient is being admitted with an elevated troponin of 116.3 for chest pain workup including limited echocardiogram and chest pain control. Deferring anticoagulation at this time given recent subdural hematoma. #Chest pain - Hx of nonobstructive disease with patent LAD/diagonal and RCA stents 12/2023. Follows with oyster fisherman Dr. C[place]ton. 10/10 chest pain that began at rest and feels similar to previous ID. Troponin 116.3 ->117.7 Electrolytes stable. CXR and chest CTA negative for acute changes. A1c 6.9% 11/17/2024. Lipid panel WNL 11/16/24. SHANE risk score 3 points. - continue Plavix, metoprolol, valsartan - Will start heparin drip - CP control with Nitropaste (ordered on admission, continue Q6h prn) and morphine 4mg IV Q3H prn - if pain persists, may need to consider nitro drip - trend Trop Q6H x 3 - limited echo ordered as recently had echocardiogram 10/31/24 - EKG with chest pain prn - cardiology consulted #A-fib/nonischemic cardiomyopathy with a EF 45 to 50%/presence of cardiac pacemaker/CAD - continue metoprolol succinate, Lasix 40 Mg daily, valsartan #Hypoxia - 2/2 above vs hx lung disease/transplant. 86% on RA -> 2 L NC on admission. Diagnostic imaging negative for acute changes. - oxygen prn for O2 <94%, wean as tolerated - incentive spirometry #T2DM - Controlled on Jardiance at home, hold. Most recent A1C 6.9%. 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 Stable, immunosuppressed. - continue prednisone (missed 12/06-12/14 due to no prescription at pharmacy), Bactrim, Prograf, Valtrex - chronic O2 2L HS #chronic left frontal subdural hematoma s/p fall 11/24. Head CT reveals improved subdural. Follows with [facility] neurosurgery in [place]. Patient holding Eliquis from recent dc 11/25. Patient prefers to be on anticoagulation and is greatly concerned about being off of it for several weeks - Q4H neurochecks with heparinization above #CKD stage 3b - stable, BL Cr 1.5 - 2.0. - patient very concerned about renal function after receiving aspirin in ED - trend BMP #HLD - stable - continue statin #GERD - stable - continue PPI #RLS - stable - continue ropinirole VTE ppx: SCDs, will heparinize Dispo: med/tele addendum - patient reevaluated at 1820 due to troponin elevation to 1221.6. he is currently chest pain-free and resting in bed. Will make n.p.o. after midnight for potential cardiac catheterization. Admission and Anticipated Discharge Date Admission Date: 12/14/24 History of Present Illness Chief Complaint: chest pain Primary Care Provider: Jazmyn Pantoja MD Patient is an 84-year-old male with a past medical history of numerous subdural hematomas most recent 11/25/2024, A-fib s/p pacer, stage IIIb CKD, type II DM, HFrEF, double lung transplant immunosuppressed, questionable cirrhosis. Patient presented due to midsternal 10/10 chest pain that began at rest. Chest pain improved but not resolved after 12 Mg IV morphine, 2 sublingual nitroglycerin at time of admission. EKG shows no acute changes. Patient is being admitted with an elevated troponin of 116.3 for chest pain workup including limited echocardiogram and chest pain control. Deferring anticoagulation at this time given recent subdural hematoma. Patient seen at bedside. He stated he was sitting at his desk working when he began with midsternal severe sudden 10/10 chest pain and associated nausea and vomiting. The chest pain does not radiate and nothing worsens the pain, not reproducible by palpation and denies worsening with deep inspiration. He received 2 sublingual nitroglycerin and Zofran en route via EMS which did not seem to help. After receiving morphine in the ED his chest pain is improved but not yet resolved. His nausea and vomiting has since resolved. He denies any other associated symptoms of diaphoresis or dyspnea. He denies any recent dyspnea or chest pain on exertion. Patient is most concerned because he feels as though he has a blood clot after being off his anticoagulation for 3 weeks. He would like to be put back on this as his subdural hematoma is improved and he feels stable at home however has had 3 falls resulting in subdural hematomas. He denies any flulike symptoms, no cough, congestion, rhinorrhea, denies numbness or tingling. He got his morning medications but will be due for his evening medications tonight. He has not had his prednisone since 12/06 because his doctor did not fill his prescription. He lives at home with his who helps care for him. He uses 2L oxygen via nasal cannula every night. He wishes to be full code. ER provider spoke with on-call oyster fisherman who recommended no heparinization at this time given history of subdural hematoma. Head CT in the ER revealed subdural hematoma resolved/improved. Ultimate goal at this time is for chest pain control. As patient's pain persisted and at bedside stated episode was similar with previous ID and patient has been fatigued recently. Personally reached out to magnetic resonance imaging coordinator oyster fisherman - will start heparinization. Allergies Allergy/AdvReac Type Severity Reaction Status Date / Time cefepime Allergy Intermediate rash Verified 12/14/24 15:34 poison laura extract Allergy Intermediate Rash Verified 12/14/24 15:34 Home Medications Medication Instructions Recorded Confirmed Type prednisone 5 mg tablet 5 mg PO DAILY 05/11/18 12/14/24 History Spacer for Inhaler #1 ea 08/30/19 11/28/24 Rx amoxicillin 500 mg tablet 2,000 mg PO DIRECTED PRN 1 HR 02/01/23 12/14/24 History PRIOR TO DENTAL APPT. apixaban 2.5 mg tablet (Eliquis) 2.5 mg PO BID 02/01/23 12/14/24 History clopidogrel 75 mg tablet 75 mg PO DAILY 02/01/23 12/14/24 History sulfamethoxazole 400 1 tab PO 3XWK 02/01/23 12/14/24 History mg-trimethoprim 80 mg tablet cholecalciferol (vitamin D3) 25 50 mcg PO DAILY 02/02/24 12/14/24 History mcg (1,000 unit) tablet valacyclovir 500 mg tablet 500 mg PO DAILY 02/02/24 12/14/24 History (Valtrex) albuterol sulfate 90 mcg/actuation 1 inh inhalation QID PRN sob 02/09/24 12/14/24 History aerosol inhaler pantoprazole 40 mg tablet,delayed 40 mg PO BID 02/09/24 12/14/24 History release ferrous sulfate 325 mg (65 mg 325 mg PO DAILY 04/26/24 12/14/24 History iron) tablet (Feosol) furosemide 40 mg tablet 40 mg PO DAILY edema 04/26/24 12/14/24 History rosuvastatin 20 mg sprinkle capsule 40 mg PO DAILY 04/26/24 12/14/24 History gabapentin 300 mg capsule 300 mg PO TID #90 caps 06/17/24 12/14/24 Rx tacrolimus 0.5 mg capsule, 1.5 mg PO BID 08/12/24 12/14/24 History immediate-release metoprolol succinate 100 mg 100 mg PO DAILY #90 tabs 10/19/24 12/14/24 Rx tablet,extended release 24 hr (Toprol XL) nitroglycerin 0.4 mg sublingual 0.4 mg sublingual Q5M PRN chest 10/19/24 12/14/24 Rx tablet pain #1 btl empagliflozin 10 mg tablet 10 mg PO DAILY #30 tabs 10/20/24 12/14/24 Rx (Jardiance) ropinirole 0.25 mg tablet 0.25 mg PO HS 11/24/24 12/14/24 History valsartan 40 mg tablet 20 mg (1/2 x 40 mg) PO DAILY #0 11/25/24 12/14/24 Rx tabs Past Med/Surg History Problem List (Updated 12/14/24 @ 17:31 by Axel Copeland MD) Elevated troponin Immunocompromised patient Chronic subdural hematoma Chest pain at rest Pancreatic cyst Cirrhosis Permanent atrial fibrillation Thrombocytopenia Nonischemic cardiomyopathy Anticoagulant long-term use Cardiac pacemaker Lumbar radiculopathy Type 2 diabetes mellitus Lumbar stenosis with neurogenic claudication Foraminal stenosis of lumbar region Scoliosis of lumbar region due to degenerative disease of spine in adult HFrEF (heart failure with reduced ejection fraction) CAD (coronary artery disease) IPF (idiopathic pulmonary fibrosis) (Chronic) Anemia (Acute) Chronic GERD Medical History Low back pain radiating to right leg Sensorineural hearing loss (SNHL) of left ear with restricted hearing of right ear Asymmetric SNHL (sensorineural hearing loss) History of Mohs micrographic surgery for skin cancer Bilateral tinnitus 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 CKD (chronic kidney disease), stage III HTN (hypertension) Upper respiratory infection Subdural hematoma (10/05/14) Surgical History Hx of appendectomy History of cardiac catheterization Hx of lung transplant Family History Mother Hearing loss Idiopathic pulmonary fibrosis Colorectal cancer Father Heart disease Myocardial infarction Brother Idiopathic pulmonary fibrosis Myocardial infarction Other No family history of adverse response to anesthesia No family history of bleeding disorder Denies family history of Ovarian cancer Prostate cancer Diabetes Breast cancer Lung cancer Stroke Social History Smoking Status: Never smoker Second Hand Exposure: No; Do You Dip or Chew Tobacco: No; Hx Alcohol Use: Yes Alcohol type: wine Hx Substance Use: No Preferred Language: Kinyarwanda Communication Ability: Effective Visual Impairment: Limited Hearing Ability: Normal Computer Systems Technology Instructor Required: No Beliefs That Will Affect Care: None marital status: Current Living Situation: Spouse Current Living Situation Comment: 3 story home current occupational status: employed 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 Non-toxic appearing. HEENT- EOMI, mucous membranes moist. Hearing grossly intact. Heart-normal S1 and S2. No murmurs, rubs or gallops. No tenderness to palpation. Lungs-clear bilaterally, no respiratory distress, no accessory muscle use. Abdomen-normal bowel sounds and soft. No ascites noted. Non-tender. Extremities- no clubbing, cyanosis, or edema. Rheumatologic-normal range of motion. Psychiatric-normal affect. Results & Data Results & Data Vital Signs (Past 12 Hours) Vital Signs Temp Pulse Pulse Resp BP BP Pulse Ox 12/14/24 14:11 65 21 147/73 H 99 12/14/24 13:28 93 12/14/24 13:27 86 L 12/14/24 12:32 65 16 96 12/14/24 12:27 65 12/14/24 12:26 65 12/14/24 12:26 92 12/14/24 12:26 36.5 C 66 17 125/74 95 O2 Del Method O2 Flow Rate 12/14/24 14:11 Nasal Cannula 2 12/14/24 13:28 Nasal Cannula 2 12/14/24 13:27 Room Air 12/14/24 12:32 Room Air 12/14/24 12:27 12/14/24 12:26 12/14/24 12:26 Room Air 12/14/24 12:26 Room Air Laboratory Results Reviewed CBC, CMP, troponin, magnesium Diagnostic Findings CXR, chest CTA, head CT Medications Administered EMS2 sublingual nitroglycerin +4 Mg IV Zofran ED12 Mg IV morphine, 500 mL NSs bolus, 324 mg PO asa admissionNitropaste ECG Additional Comments: ventricular paced rhythm Rate 65 QTc 476 Code Status & VTE Plan Code Status full VTE Prophylaxis Plan VTE Prophylaxis will be ordered: Yes Supervising Physician Co-Signing Physician Notes Patient was seen and examined independently I discussed the case with Shweta BILLINGSLEY I reviewed pertinent past medical social family history and also the plan of care and agree with the plan of care. 82-year-old male with a history of recurrent subdural hematomas while on anticoagulation. 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 Patient seems focused that we are to rebegin his anticoagulation today and he feels his anticoagulation is the reason he is having his chest pain. Patient however did have rising troponins while in the emergency department was instituted on heparin therapy. With the rising troponins his consideration of catheterization cautiously with his chronic kidney disease. Upon my evaluation the patient was chest pain-free card exam is regular lungs were coarse breath sounds with no focal Aralast extremities are without edema Assessments: B chest pain with rising troponins concern for acute coronary syndrome. Patient be loaded with Plavix he will be given heparin he will be hydrated with a liter of normal saline in preparation of possible catheterization. Cardiology is consulted and aware Any exceptions will be noted below PG Care Time/CCT Total # of Minutes Spent Total Time Spent with Patient: Total time spent is greater than 50% in coordination of care (as documented) at patient's floor/unit and/or counseling patient: Coding Level of Care Code 66861 INT INP/OBS CARE 3/75MIN Diagnoses Chest pain at rest R07.9 Permanent atrial fibrillation I48.21 Nonischemic cardiomyopathy I42.8 Chronic subdural hematoma I62.03 Immunocompromised patient D89.9
[2024-12-14] MEDS: NITROGLYCERIN 2% OINTMENT 30GM TUBE EXT ONE (15:27)
[2024-12-14] MEDS: Heparin IV Adult Wt-Based Standard *NO* INITIAL Bolus Protocol IV STA (16:58)
[2024-12-14] MEDS: HEPARIN 25000 UNIT/500 ML D5W 25,000 UNITS/500 ML BAG IV SCH (17:09)
--- NOTE | 2024-12-14 17:25 | XCELERA ---
[id number]
--- NOTE | 2024-12-14 17:31 | Cardiology Consultation ---
Date of Consultation December 14, 2024 Assessment & Plan (1) Chest pain at rest: (2) Elevated troponin: (3) Permanent atrial fibrillation: (4) Nonischemic cardiomyopathy: (5) Cardiac pacemaker: (6) CAD (coronary artery disease): Plan 1. Chest pain: Chest pain certainly concerning for an acute coronary syndrome. However, he has had similar symptoms in the past without evidence of an acute coronary syndrome or new coronary obstruction. He presented [facility] an hour after his symptoms began and biomarkers 2 and 4 hours later did not trend upwards. This would suggest an alternative etiology for his symptoms. At this point it would seem reasonable to to continue monitoring his symptoms, begin systemic anticoagulation and trend his biomarkers. He is certainly at risk of complication related to any intervention given his recent and recurrent history of falls and intracranial hemorrhage. Also compromised renal function puts him at risk of contrast nephropathy especially after being administered contrast already today. 2. Coronary artery disease: He has an extensive history of coronary disease with multiple percutaneous interventions. He has been maintained on an outpatient regimen to include Eliquis and Plavix. Both of these medications were recently discontinued due to an intracranial hemorrhage. 3. Elevated troponin: He has a history of elevation in his biomarkers. Very mild elevation currently. Given the absence of an acute rise, an acute coronary syndrome seems less likely. Despite elevations in his biomarkers previously with symptoms concerning for an acute coronary syndrome there was no evidence of an ACS or new obstruction on angiography. 4. Cardiomyopathy: General improvement in his overall LV function. Echocardiogram performed today looks quite similar to his last echocardiogram without new wall motion abnormalities and generally preserved LV systolic function. He will continue on his current medical regimen which includes Jardiance furosemide, metoprolol succinate and valsartan hand. 5. Congestive heart failure: He appears well compensated currently. 6. Biventricular pacemaker: Not interrogated at this time. Normal function recently. arGEN-X device. 7. Atrial fibrillation: Permanent. Status post AV node ablation. No concerns about rate control. Will get discussed reinitiating systemic anticoagulation once we determine if he requires additional coronary angiography or other procedure. History of Present Illness Reason for Consultation: Chest pain Requesting Physician: Myrna Attending Physician: Myrna History of Present Illness The patient is an 84-year-old gentleman with an extensive cardiac history to include coronary disease status post multiple percutaneous interventions, permanent atrial fibrillation, ischemic cardiomyopathy with history of congestive heart failure, implantation of a biventricular pacemaker with left bundle pacing lead, AV node ablation and valvular heart disease who presented to the hospital with an episode of chest pain. Patient states that he was at rest today when he noticed the onset of a "pressure" or "bubble" sensation in the epigastrium which generalized to the precordium. This became very severe in nature and did not respond to his "usual" measures such as taking Pepcid or nitroglycerin. He told his "I am having a heart attack" and he was brought to the emergency room for an evaluation. En route the patient was given some morphine with mild improvement. He was given additional doses of morphine and started on transdermal nitroglycerin in the emergency room with improvement but not resolution of the symptom. There is no particular radiation of the discomfort. It is not pleuritic in nature. Perhaps better on the left side but not markedly so. No associated breathing difficulty. Curiously, the patient did report significant nausea and vomiting in the ambulance ride over which is unusual for him. Until this morning he claimed to be feeling well. He has been performing his usual activities which includes using a walker at home and ambulating. He does an element of mild dyspnea but this has not changed recently. No nausea, vomiting or epigastric symptoms yesterday. No recent fevers or chills. He did recall being somewhat fatigued recently. He has fairly severe episodes of fatigue that respond to a brief nap. He has not had worsening lower extremity edema. He monitors his weight and takes Lasix on a daily basis. Has not had dizziness, lightheadedness or any sense of palpitation recently. He did fall a few weeks ago and this was due to gait instability. He did suffer a subdural hematoma and his anticoagulation was discontinued. He also recently ran out of prednisone and has yet to get the prescription filled. Allergies Allergy/AdvReac Type Severity Reaction Status Date / Time cefepime Allergy Intermediate rash Verified 12/14/24 15:34 poison laura extract Allergy Intermediate Rash Verified 12/14/24 15:34 Home Medications Medication Instructions Recorded Confirmed Type prednisone 5 mg tablet 5 mg PO DAILY 05/11/18 12/14/24 History Spacer for Inhaler #1 ea 08/30/19 11/28/24 Rx amoxicillin 500 mg tablet 2,000 mg PO DIRECTED PRN 1 HR 02/01/23 12/14/24 History PRIOR TO DENTAL APPT. apixaban 2.5 mg tablet (Eliquis) 2.5 mg PO BID 02/01/23 12/14/24 History clopidogrel 75 mg tablet 75 mg PO DAILY 02/01/23 12/14/24 History sulfamethoxazole 400 1 tab PO 3XWK 02/01/23 12/14/24 History mg-trimethoprim 80 mg tablet cholecalciferol (vitamin D3) 25 50 mcg PO DAILY 02/02/24 12/14/24 History mcg (1,000 unit) tablet valacyclovir 500 mg tablet 500 mg PO DAILY 02/02/24 12/14/24 History (Valtrex) albuterol sulfate 90 mcg/actuation 1 inh inhalation QID PRN sob 02/09/24 12/14/24 History aerosol inhaler pantoprazole 40 mg tablet,delayed 40 mg PO BID 02/09/24 12/14/24 History release ferrous sulfate 325 mg (65 mg 325 mg PO DAILY 04/26/24 12/14/24 History iron) tablet (Feosol) furosemide 40 mg tablet 40 mg PO DAILY edema 04/26/24 12/14/24 History rosuvastatin 20 mg sprinkle capsule 40 mg PO DAILY 04/26/24 12/14/24 History gabapentin 300 mg capsule 300 mg PO TID #90 caps 06/17/24 12/14/24 Rx tacrolimus 0.5 mg capsule, 1.5 mg PO BID 08/12/24 12/14/24 History immediate-release metoprolol succinate 100 mg 100 mg PO DAILY #90 tabs 10/19/24 12/14/24 Rx tablet,extended release 24 hr (Toprol XL) nitroglycerin 0.4 mg sublingual 0.4 mg sublingual Q5M PRN chest 10/19/24 12/14/24 Rx tablet pain #1 btl empagliflozin 10 mg tablet 10 mg PO DAILY #30 tabs 10/20/24 12/14/24 Rx (Jardiance) ropinirole 0.25 mg tablet 0.25 mg PO HS 11/24/24 12/14/24 History valsartan 40 mg tablet 20 mg (1/2 x 40 mg) PO DAILY #0 11/25/24 12/14/24 Rx tabs Patient History Medical History Low back pain radiating to right leg Sensorineural hearing loss (SNHL) of left ear with restricted hearing of right ear Asymmetric SNHL (sensorineural hearing loss) History of Mohs micrographic surgery for skin cancer Bilateral tinnitus 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 CKD (chronic kidney disease), stage III HTN (hypertension) Upper respiratory infection Subdural hematoma (10/05/14) Surgical History Hx of appendectomy History of cardiac catheterization Hx of lung transplant Family History Mother Hearing loss Idiopathic pulmonary fibrosis Colorectal cancer Father Heart disease Myocardial infarction Brother Idiopathic pulmonary fibrosis Myocardial infarction Other No family history of adverse response to anesthesia No family history of bleeding disorder Denies family history of Ovarian cancer Prostate cancer Diabetes Breast cancer Lung cancer Stroke Social History Smoking Status: Never smoker Second Hand Exposure: No; Do You Dip or Chew Tobacco: No; Hx Alcohol Use: Yes Alcohol type: wine Hx Substance Use: No Preferred Language: Malay Communication Ability: Effective Visual Impairment: Limited Hearing Ability: Normal Paver Operator Required: No Beliefs That Will Affect Care: None marital status: Current Living Situation: Spouse Current Living Situation Comment: 3 story home current occupational status: employed 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 Activity limited by back discomfort. Physical Exam Physical Exam: The patient is alert and oriented. Mood and affect appeared normal. He answered all questions appropriately. Mildly somnolent. HEENT: Pupils are equal and reactive to light and accommodation. Extraocular movements are intact. The sclerae are anicteric. Neuro: Cranial nerves intact Lungs: Clear to auscultation bilaterally. He has good air movement without use of accessory muscles. No rales wheezes or rhonchi. Cardiac: Heart demonstrates a regular rate and rhythm. Normal S1 and S2. No murmurs on examination. Pulses: The patient has palpable radial pulses bilaterally that are equal in intensity Extremities: There was no evidence of hypoperfusion. There is no cyanosis or clubbing. There is no edema. Ecchymosis noted. Skin: I did not appreciate any rashes on examination today. Results & Data Vital Signs (Past 12 Hours) Vital Signs Temp Pulse Pulse Resp BP BP Pulse Ox 12/14/24 16:28 65 12/14/24 16:00 65 22 143/88 H 99 12/14/24 14:11 65 21 147/73 H 99 12/14/24 13:28 93 12/14/24 13:27 86 L 12/14/24 12:32 65 16 96 12/14/24 12:27 65 12/14/24 12:26 65 12/14/24 12:26 92 12/14/24 12:26 36.5 C 66 17 125/74 95 O2 Del Method O2 Flow Rate 12/14/24 16:28 12/14/24 16:00 Room Air 12/14/24 14:11 Nasal Cannula 2 12/14/24 13:28 Nasal Cannula 2 12/14/24 13:27 Room Air 12/14/24 12:32 Room Air 12/14/24 12:27 12/14/24 12:26 12/14/24 12:26 Room Air 12/14/24 12:26 Room Air Laboratory Results Abnormal Lab Results 12/14/24 12/14/24 12:30 14:21 WBC 9.13 RBC 4.42 L Hgb 14.5 Hct 43.1 MCV 97.5 MCH 32.8 MCHC 33.6 RDW Std Deviation 47.0 H RDW Coeff of [place] 13.2 Plt Count 182 MPV 10.0 Immature Gran % (Auto) 1.4 Neut % (Auto) 56.8 Lymph % (Auto) 25.0 [place] % (Auto) 14.1 Eos % (Auto) 2.2 Baso % (Auto) 0.5 Neut # (Auto) 5.18 Lymph # (Auto) 2.28 [place] # (Auto) 1.29 H Eos # (Auto) 0.20 Baso # (Auto) 0.05 Immature Gran # (Auto) 0.13 PT 11.4 INR 1.1 Sodium 140 Potassium 4.0 Chloride 107 Carbon Dioxide 23 Anion Gap 10 BUN 31 H Creatinine 1.80 H Est Cr Clr Drug Dosing 34.6 eGFR 36.89 BUN/Creatinine Ratio 17.2 Glucose 195 H Calcium 9.2 Total Bilirubin 0.9 AST 30 ALT 27 Alkaline Phosphatase 107 H Troponin I High Sens 116.3 H* 117.7 H* Total Protein 6.9 Albumin 3.9 Globulin 3.0 Albumin/Globulin Ratio 1.3 Lipase 46 Diagnostic Findings Echocardiogram 12/14/2024: Ejection fraction 45 to 50%. Septal wall motion abnormality. Moderate mitral regurgitation. Severely dilated left atrium. Mildly dilated right atrium. No pericardial effusion. Chest CTA 12/14/2024: Cirrhotic appearing liver, no evidence of pulmonary embolism. Possible mild pulmonary edema. Extensive coronary artery calcification. No distention of the esophagus. PG Care Time/CCT Total # of Minutes Spent Total Time Spent with Patient: Total time spent is greater than 50% in coordination of care (as documented) at patient's floor/unit and/or counseling patient: Coding Level of Care Code 48736 INT INP/OBS CARE 375MIN Diagnoses Chest pain at rest R07.9 Elevated troponin R79.89 Permanent atrial fibrillation I48.21 Nonischemic cardiomyopathy I42.8 Cardiac pacemaker Z95.0 Coronary artery disease involving [place] coronary artery of [place] heart without angina pectoris I25.10 Associated angina: without angina Coronary Disease-Associated Artery/Lesion type: [place] artery [place] vs. transplanted heart: [place] heart (6) CAD (coronary artery disease) Associated angina: without angina Coronary Disease-Associated Artery/Lesion type: [place] artery [place] vs. transplanted heart: [place] heart Qualified Code(s): I25.10 - Atherosclerotic heart disease of [place] coronary artery without angina pectoris
[2024-12-14] MEDS ORDERED: GLUCAGON FOR INJ 1 MG VIAL SQ PRN (18:10)
[2024-12-14] MEDS ORDERED: CARBOHYDRATES FOR HYPOGLYCEMIA PO PRN (18:10)
[2024-12-14] MEDS ORDERED: GLUCOSE 40% GEL 15 GM TUBE PO PRN (18:10)
[2024-12-14] MEDS ORDERED: MoRPHine SULFATE 4 MG/ML 1 ML CARP\\VIAL IV PRN (18:10)
[2024-12-14] MEDS ORDERED: NITROGLYCERIN 2% OINTMENT 30GM TUBE EXT PRN (18:10)
[2024-12-14] MEDS ORDERED: MELATONIN 3 MG TAB PO PRN (18:10)
[2024-12-14] MEDS ORDERED: GLUCOSE 10 TAB/TUBE PO PRN (18:10)
[2024-12-14] MEDS ORDERED: DEXTROSE 50% 50 ML SYRINGE IV PRN (18:10)
[2024-12-14] MEDS ORDERED: ACETAMINOPHEN 325 MG TAB PO PRN (18:10)
[2024-12-14] MEDS ORDERED: ONDANSETRON INJ 2 MG/ML 2 ML VIAL IV PRN (18:10)
[2024-12-14] MEDS ORDERED: DOCUSATE SODIUM 100 MG CAP PO PRN (18:10)
[2024-12-14] MEDS: GABAPENTIN 300 MG CAP PO SCH (20:33)
[2024-12-14] MEDS: rOPINIRole HCL 0.25 MG TABLET PO SCH (20:33)
[2024-12-14] MEDS: TACROLIMUS 0.5 MG CAP PO SCH (20:34)
[2024-12-14] MEDS: INSULIN ASPART PER UNIT CHARGE SC SCH (21:26)
[2024-12-14] MEDS: CLOPIDOGREL BISULFATE 300 MG TAB PO STA (21:32)
[2024-12-14] MEDS: PANTOprazole 40 MG TAB PO SCH (21:32)
[2024-12-14] MEDS: SODIUM CHLORIDE 0.9% 1,000 ML IV SCH (21:33)
[2024-12-15 03:53] LABS: Basophils # (auto) 0.04 K/uL (0.00-0.20); Basophils % (auto) 0.5 %; Eosinophils # (auto) 0.14 K/uL (0.00-0.50); Eosinophils % (auto) 1.9 %; Hematocrit (blood only) 41.7 % (42.0-52.0); Hemoglobin 13.7 g/dl (14.0-18.0); Immature Granulocytes # (auto) 0.05 K/uL (0.01-0.20); Immature Granulocytes % (auto) 0.7 %; Lymphocytes # (auto) 1.18 K/uL (1.20-3.40); Mean Corpuscular Hemoglobin 33.2 pg (25.0-34.0); Mean Corpuscular Hgb Conc 32.9 g/dL (32.0-36.0); Mean Platelet Volume 9.5 fL (9.4-12.4); Monocytes # (auto) 0.89 K/uL (0.11-0.59); Monocytes % (auto) 12.1 %; Neutrophils # (auto) 5.08 K/uL (1.40-6.50); Neutrophils % (auto) 68.8 %; Platelet Count 121 K/uL (130-400); RDW Coefficient of Variation 13.5 % (11.5-14.5); RDW Standard Deviation 50.2 fL (36.4-46.3); Red Blood Count 4.13 M/uL (4.70-6.10); White Blood Count 7.38 K/ul (4.8-10.8)
[2024-12-15 04:15] LABS: Calcium 8.6 mg/dl (8.6-10.3); Potassium 4.6 mmol/L (3.5-5.1)
[2024-12-15 04:20] LABS: BUN Creatinine Ratio 16.9 (10-20); Creatinine Clr Calc Pharmacy 32.5 ml/min
[2024-12-15 04:53] LABS: ANTI-Xa, UFH(UnfractionatedHep 0.83 IU/ml (0.3-0.7)
--- NOTE | 2024-12-15 07:44 | Hospitalist Progress Note ---
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 Admitted with SSCP and NSTEMI #NSTEMI, unable to determine whether type 1 or type 2, CAD -EKG paced, limited Echo unchanged EF 45-50%, HS-Tn peaked at 4100 overnight now downtrending -cardiology consulted - discussed with Dr. Copeland - unclear whether ACS, recommends conservative strategy, continue heparin drip another 24h -continue plavix, metoprolol, statin -SGLT2 resumed -nitro and morphine PRN pain -Hx multiple SDH, improved head CT on admission, monitor coags CBC and neuro status. Mild thrombocytopenia related to heparin drip - 121 today which is good - monitor CBC daily #Afib s/p ablation, BiV pacer, chronic HFrEF - appears euvolemic - continue metoprolol succinate, Lasix 40 Mg daily, valsartan #Hypoxia - 2/2 above vs hx lung disease/transplant. 86% on RA -> 2 L NC on admission. CTA negative for PE or pneumonia - at home uses 2L nocturnal O2 - oxygen prn for O2 <94%, wean as tolerated - incentive spirometry #T2DM - Controlled on Jardiance at home, hold. Most recent A1C 6.9%. 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 Stable, immunosuppressed. - continue prednisone (missed 12/06-12/14 due to no prescription at pharmacy), Bactrim, Prograf, Valtrex - chronic O2 2L HS #chronic left frontal subdural hematoma fall 11/24. Head CT reveals improved subdural. Follows with [facility] neurosurgery in [place]. holding Eliquis from recent dc 11/25. Patient prefers to be on anticoagulation and is greatly concerned about being off of it for several weeks - Q4H neurochecks with heparinization above #CKD stage 3b - stable, BL Cr 1.5 - 2.0. contrast exposure from CTA - Cr remains stable at 1.7 - monitor BMP Other chronic issues #HLD #GERD - on PPI #RLS - stable continue ropinirole VTE ppx: heparin drip Dispo: lives at home with his , uses a walker. PT/OT evals Admission and Anticipated Discharge Date Admission Date: December 14, 2024 Subjective No chest pain since presentation yesterday. No dyspnea. He is worried about being off anticoagulaton. Physical Exam 2 Physical Exam: Last 24h vitals reviewed GEN: awake alert sitting in bed HEENT: pupils equal, sclerae anicteric, moist MM RESP: normal WOB, CTAB CV: reg no mrg ABD: soft/nt/nd +BT : no batres SKIN: warm and dry, no generalized rashes NEURO: AOx person, place, and situation. Face symmetric, speech normal, moves 4 ext spontaneously and equally Results & Data Results & Data Vital Signs (Past 12 Hours) Vital Signs Temp Pulse Pulse Pulse Resp BP Pulse Ox 12/15/24 03:18 36.6 C 65 18 113/69 98 12/14/24 22:52 65 12/14/24 22:14 36.9 C 65 16 138/87 100 12/14/24 20:06 36.3 C L 65 16 149/86 H 96 12/14/24 20:00 O2 Del Method O2 Flow Rate 12/15/24 03:18 Nasal Cannula 12/14/24 22:52 12/14/24 22:14 Nasal Cannula 12/14/24 20:06 Nasal Cannula 2 12/14/24 20:00 Room Air Laboratory Results 12/15/24 03:30 12/15/24 03:30 PG Care Time/CCT Total # of Minutes Spent Total Time Spent with Patient: Total time spent is greater than 50% in coordination of care (as documented) at patient's floor/unit and/or counseling patient: Coding Level of Care Code 61745 SUB INP/OBS CARE 3/50MIN Diagnoses NSTEMI (non-ST elevated myocardial infarction) I21.4 Coronary artery disease involving [place] coronary artery of [place] heart without angina pectoris I25.10 Associated angina: without angina Coronary Disease-Associated Artery/Lesion type: [place] artery [place] vs. transplanted heart: [place] heart Permanent atrial fibrillation I48.21 HFrEF (heart failure with reduced ejection fraction) I50.20 Chronic subdural hematoma I62.03 Lung transplant recipient Z94.2 Immunocompromised patient D89.9 Type 2 diabetes mellitus E11.9 (2) CAD (coronary artery disease) Associated angina: without angina Coronary Disease-Associated Artery/Lesion type: [place] artery [place] vs. transplanted heart: [place] heart Qualified Code(s): I25.10 - Atherosclerotic heart disease of [place] coronary artery without angina pectoris
[2024-12-15 07:52] LABS: ANTI-Xa, UFH(UnfractionatedHep 0.96 IU/ml (0.3-0.7)
[2024-12-15] MEDS: ROSUVASTATIN CALCIUM 20 MG TAB PO SCH (08:35)
[2024-12-15] MEDS: valACYclovir HCL 500 MG TABLET PO SCH (08:35)
[2024-12-15] MEDS: predniSONE 5 MG TAB PO SCH (08:36)
[2024-12-15] MEDS: METOPROLOL SUCC 50MG EXT REL TAB PO SCH (08:36)
[2024-12-15] MEDS: VALSARTAN 80 MG TAB PO SCH (08:36)
[2024-12-15] MEDS: CLOPIDOGREL BISULFATE 75 MG TAB PO SCH (08:36)
[2024-12-15] MEDS: FUROSEMIDE 40 MG TAB PO SCH (08:37)
[2024-12-15] MEDS ORDERED: CLOPIDOGREL BISULFATE 75 MG TAB PO SCH (09:00)
--- NOTE | 2024-12-15 09:20 | Electrocardiogram Report ---
Test Reason : Blood Pressure : */* mmHG Vent. Rate : 65 BPM Atrial Rate : 59 BPM P-R Int : * ms QRS Dur : 148 ms QT Int : 462 ms P-R-T Axes : * -74 38 degrees QTcB Int : 480 ms Ventricular-paced rhythm Abnormal ECG When compared with ECG of 14-Dec-2024 13:01, (unconfirmed) No significant change was found Confirmed by Axel Copeland ([id number]) on 12/15/2024 9:20:13 AM Referred By: REFERRED SELF Confirmed By: Axel Copeland
--- NOTE | 2024-12-15 11:15 | Electrocardiogram Report ---
Test Reason : Blood Pressure : */* mmHG Vent. Rate : 65 BPM Atrial Rate : 75 BPM P-R Int : * ms QRS Dur : 146 ms QT Int : 458 ms P-R-T Axes : * -69 18 degrees QTcB Int : 476 ms Ventricular-paced rhythm Biventricular pacemaker detected Abnormal ECG Confirmed by Axel Copeland ([id number]) on 12/15/2024 11:14:44 AM Referred By: Confirmed By: Axel Copeland
--- NOTE | 2024-12-15 13:33 | Electrocardiogram Report ---
Test Reason : Blood Pressure : */* mmHG Vent. Rate : 65 BPM Atrial Rate : 312 BPM P-R Int : * ms QRS Dur : 166 ms QT Int : 480 ms P-R-T Axes : * -60 7 degrees QTcB Int : 499 ms Ventricular-paced rhythm Biventricular pacemaker detected Abnormal ECG When compared with ECG of 14-Dec-2024 12:26, (unconfirmed) No significant change was found Confirmed by Axel Copeland ([id number]) on 12/15/2024 1:33:09 PM Referred By: REFERRED SELF Confirmed By: Axel Copeland
--- NOTE | 2024-12-15 14:05 | Cardiology Progress Note ---
Date of Service December 15, 2024 Assessment & Plan (1) Chest pain at rest: (2) Elevated troponin: (3) Permanent atrial fibrillation: (4) Nonischemic cardiomyopathy: (5) Cardiac pacemaker: (6) CAD (coronary artery disease): Plan 1. Chest pain: Possibly related to an ACS although he has had similar symptoms in the past that did not appear to be related to a coronary event. Symptoms appear to have resolved at this point. 2. Coronary artery disease: He has an extensive history of coronary disease with multiple percutaneous interventions. He has been maintained on an outpatient regimen to include Eliquis and Plavix. Both of these medications were recently discontinued due to an intracranial hemorrhage. Doing well on heparin and Plavix. 3. Elevated troponin: Biomarkers did rise and fall suggesting event that occurred yesterday. Unclear if this represented ACS. No symptoms at this point. Echocardiogram demonstrated preserved LV systolic function without new regional wall motion abnormality. EKG not suggestive of acute coronary syndrome. Given his renal insufficiency and absence of symptoms currently we have elected to adopt a conservative strategy. Will continue heparin for another 24 hours. Continue Plavix. Restart Jardiance. 4. Cardiomyopathy: General improvement in his overall LV function. He will continue on his current medical regimen which includes Jardiance furosemide, metoprolol succinate and valsartan. 5. Congestive heart failure: He appears well compensated currently. 6. Biventricular pacemaker: Not interrogated at this time. Normal function recently. Sepior device. 7. Atrial fibrillation: Permanent. Status post AV node ablation. No concerns about rate control. Will get discussed reinitiating systemic anticoagulation once we determine if he requires additional coronary angiography or other procedure. Continue heparin for now. Admission and Anticipated Discharge Date Admission Date: December 14, 2024 Subjective This morning the patient clinically feeling better. He has not had any recurrent chest pains. No breathing difficulty. No coughing. No dizziness or lightheadedness. No nausea and vomiting although he does have a poor appetite. He has not been ambulatory. Review of Systems Review of Systems: Per HPI. Physical Exam Physical Exam: The patient is alert and oriented. Mood and affect appeared normal. He answered all questions appropriately. Mildly somnolent. HEENT: Pupils are equal and reactive to light and accommodation. Extraocular movements are intact. The sclerae are anicteric. Neuro: Cranial nerves intact Lungs: Clear to auscultation bilaterally. He has good air movement without use of accessory muscles. No rales wheezes or rhonchi. Cardiac: Heart demonstrates a regular rate and rhythm. Normal S1 and S2. No murmurs on examination. Pulses: The patient has palpable radial pulses bilaterally that are equal in intensity Extremities: There was no evidence of hypoperfusion. There is no cyanosis or clubbing. There is no edema. Ecchymosis noted. Skin: I did not appreciate any rashes on examination today. Results & Data Vital Signs (Past 12 Hours) Vital Signs Temp Pulse Pulse Resp BP Pulse Ox O2 Del Method 12/15/24 13:30 65 12/15/24 11:10 36.5 C 63 17 115/71 97 Nasal Cannula 12/15/24 08:50 Room Air, Nasal Cannula 12/15/24 07:43 36.6 C 64 17 134/77 98 Nasal Cannula 12/15/24 03:18 36.6 C 65 18 113/69 98 Nasal Cannula O2 Flow Rate 12/15/24 13:30 12/15/24 11:10 2 12/15/24 08:50 2 12/15/24 07:43 2 12/15/24 03:18 Laboratory Results Abnormal Lab Results 12/14/24 12/14/24 12/14/24 14:21 17:15 21:00 WBC RBC Hgb Hct MCV MCH MCHC RDW Std Deviation RDW Coeff of F[place]ad Plt Count MPV Immature Gran % (Auto) Neut % (Auto) Lymph % (Auto) [place] % (Auto) Eos % (Auto) Baso % (Auto) Neut # (Auto) Lymph # (Auto) [place] # (Auto) Eos # (Auto) Baso # (Auto) Immature Gran # (Auto) Heparin Anti-Xa, Unfract Sodium Potassium Chloride Carbon Dioxide Anion Gap BUN Creatinine Est Cr Clr Drug Dosing eGFR BUN/Creatinine Ratio Glucose POC Glucose 102 H Calcium Troponin I High Sens 117.7 H* 1221.6 H* D 12/14/24 12/14/24 12/15/24 21:19 23:10 03:30 WBC 7.38 RBC 4.13 L Hgb 13.7 L Hct 41.7 L MCV 101.0 H MCH 33.2 MCHC 32.9 RDW Std Deviation 50.2 H RDW Coeff of [place]ad 13.5 Plt Count 121 L MPV 9.5 Immature Gran % (Auto) 0.7 Neut % (Auto) 68.8 Lymph % (Auto) 16.0 [place] % (Auto) 12.1 Eos % (Auto) 1.9 Baso % (Auto) 0.5 Neut # (Auto) 5.08 Lymph # (Auto) 1.18 L [place] # (Auto) 0.89 H Eos # (Auto) 0.14 Baso # (Auto) 0.04 Immature Gran # (Auto) 0.05 Heparin Anti-Xa, Unfract 0.90 H* 0.83 H* Sodium 141 Potassium 4.6 Chloride 107 Carbon Dioxide 28 Anion Gap 6 BUN 29 H Creatinine 1.72 H Est Cr Clr Drug Dosing 32.5 eGFR 38.95 BUN/Creatinine Ratio 16.9 Glucose 102 H POC Glucose Calcium 8.6 Troponin I High Sens 4112.7 H* D 3319.6 H* 12/15/24 12/15/24 12/15/24 07:14 07:16 12:13 WBC RBC Hgb Hct MCV MCH MCHC RDW Std Deviation RDW Coeff of [place] Plt Count MPV Immature Gran % (Auto) Neut % (Auto) Lymph % (Auto) [place] % (Auto) Eos % (Auto) Baso % (Auto) Neut # (Auto) Lymph # (Auto) [place] # (Auto) Eos # (Auto) Baso # (Auto) Immature Gran # (Auto) Heparin Anti-Xa, Unfract 0.96 H* Sodium Potassium Chloride Carbon Dioxide Anion Gap BUN Creatinine Est Cr Clr Drug Dosing eGFR BUN/Creatinine Ratio Glucose POC Glucose 93 95 Calcium Troponin I High Sens PG Care Time/CCT Total # of Minutes Spent Total Time Spent with Patient: Total time spent is greater than 50% in coordination of care (as documented) at patient's floor/unit and/or counseling patient: Coding Level of Care Code 05211 SUB INP/OBS CARE 2/35MIN Diagnoses Chest pain at rest R07.9 Elevated troponin R79.89 Permanent atrial fibrillation I48.21 Nonischemic cardiomyopathy I42.8 Cardiac pacemaker Z95.0 Coronary artery disease involving [place] coronary artery of [place] heart without angina pectoris I25.10 Coronary Disease-Associated Artery/Lesion type: [place] artery [place] vs. transplanted heart: eagle heart Associated angina: without angina (6) CAD (coronary artery disease) Coronary Disease-Associated Artery/Lesion type: [place] artery [place] vs. transplanted heart: eagle heart Associated angina: without angina Qualified Code(s): I25.10 - Atherosclerotic heart disease of [place] coronary artery without angina pectoris
[2024-12-15 14:59] LABS: ANTI-Xa, UFH(UnfractionatedHep 0.66 IU/ml (0.3-0.7)
[2024-12-15] MEDS: EMPAGLIFLOZIN 10 MG TAB PO SCH (15:25)
--- NOTE | 2024-12-15 16:31 | Hospitalist Progress Note ---
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 Admitted with SSCP and NSTEMI #NSTEMI, unable to determine whether type 1 or type 2, CAD -EKG paced, limited Echo unchanged EF 45-50%, HS-Tn peaked at 4100 overnight now downtrending -cardiology consulted - discussed with Dr. Copeland - unclear whether ACS, recommends conservative strategy, continue heparin drip another 24h -continue plavix, metoprolol, statin -SGLT2 resumed -nitro and morphine PRN pain -Hx multiple SDH, improved head CT on admission, monitor coags CBC and neuro status. Mild thrombocytopenia related to heparin drip - 121 today which is good - monitor CBC daily #Afib s/p ablation, BiV pacer, chronic HFrEF - appears euvolemic - continue metoprolol succinate, Lasix 40 Mg daily, valsartan #Hypoxia - 2/2 above vs hx lung disease/transplant. 86% on RA -> 2 L NC on admission. CTA negative for PE or pneumonia - at home uses 2L nocturnal O2 - oxygen prn for O2 <94%, wean as tolerated - incentive spirometry #T2DM - Controlled on Jardiance at home, hold. Most recent A1C 6.9%. 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 Stable, immunosuppressed. - continue prednisone (missed 12/06-12/14 due to no prescription at pharmacy), Bactrim, Prograf, Valtrex - chronic O2 2L HS #chronic left frontal subdural hematoma fall 11/24. Head CT reveals improved subdural. Follows with [facility] neurosurgery in [place]. holding Eliquis from recent dc 11/25. Patient prefers to be on anticoagulation and is greatly concerned about being off of it for several weeks - Q4H neurochecks with heparinization above ADDENDUM: I spoke with the neurosurgeon at [facility] Dr. Donahue regarding anticoagulation and plavix with respect to the SDH. CT this admission shows improvement and no further falls. Typically anticoagulation can be resumed in 2-3 weeks. We are currently at 3 week mery and ok to resume plavix and apixaban. He recommends follow up with him in clinic in 1 month. #CKD stage 3b - stable, BL Cr 1.5 - 2.0. contrast exposure from CTA - Cr remains stable at 1.7 - monitor BMP Other chronic issues #HLD #GERD - on PPI #RLS - stable continue ropinirole VTE ppx: heparin drip Dispo: lives at home with his , uses a walker. PT/OT evals Admission and Anticipated Discharge Date Admission Date: December 14, 2024 Results & Data Results & Data Vital Signs (Past 12 Hours) Vital Signs Temp Pulse Pulse Resp BP Pulse Ox O2 Del Method 12/15/24 16:02 37.2 C 67 17 104/67 98 Nasal Cannula 12/15/24 13:30 65 12/15/24 11:10 36.5 C 63 17 115/71 97 Nasal Cannula 12/15/24 08:50 Room Air, Nasal Cannula 12/15/24 07:43 36.6 C 64 17 134/77 98 Nasal Cannula O2 Flow Rate 12/15/24 16:02 2 12/15/24 13:30 12/15/24 11:10 2 12/15/24 08:50 2 12/15/24 07:43 2 PG Care Time/CCT Total # of Minutes Spent Total Time Spent with Patient: Total time spent is greater than 50% in coordination of care (as documented) at patient's floor/unit and/or counseling patient: Coding Level of Care Code None Diagnoses NSTEMI (non-ST elevated myocardial infarction) I21.4 Coronary artery disease involving [place] coronary artery of [place] heart without angina pectoris I25.10 Coronary Disease-Associated Artery/Lesion type: [place] artery [place] vs. transplanted heart: [place] heart Associated angina: without angina Permanent atrial fibrillation I48.21 HFrEF (heart failure with reduced ejection fraction) I50.20 Chronic subdural hematoma I62.03 Lung transplant recipient Z94.2 Immunocompromised patient D89.9 Type 2 diabetes mellitus E11.9 (2) CAD (coronary artery disease) Coronary Disease-Associated Artery/Lesion type: [place] artery [place] vs. transplanted heart: [place] heart Associated angina: without angina Qualified Code(s): I25.10 - Atherosclerotic heart disease of [place] coronary artery without angina pectoris
[2024-12-15 16:48] VITALS: PULSE 65
[2024-12-16 06:56] LABS: Hematocrit (blood only) 39.7 % (42.0-52.0); Hemoglobin 13.1 g/dl (14.0-18.0); Mean Corpuscular Hemoglobin 32.7 pg (25.0-34.0); Platelet Count 107 K/uL (130-400); RDW Coefficient of Variation 13.5 % (11.5-14.5); Red Blood Count 4.01 M/uL (4.70-6.10); White Blood Count 5.57 K/ul (4.8-10.8)
[2024-12-16 07:12] LABS: BUN Creatinine Ratio 17.1 (10-20); Calcium 8.6 mg/dl (8.6-10.3); Creatinine Clr Calc Pharmacy 30.9 ml/min; Potassium 4.2 mmol/L (3.5-5.1)
[2024-12-16 07:43] LABS: ANTI-Xa, UFH(UnfractionatedHep 0.78 IU/ml (0.3-0.7)
[2024-12-16 08:12] VITALS: BP 128/75; RESP 17; TEMP 98.6; O2SAT 94
[2024-12-16] MEDS: SULFA/TRIMETH 400/80MG TAB PO SCH (08:56)
--- NOTE | 2024-12-16 15:24 | Cardiology Progress Note ---
Date of Service December 16, 2024 Assessment & Plan (1) Chest pain at rest: (2) Elevated troponin: (3) Permanent atrial fibrillation: (4) Nonischemic cardiomyopathy: (5) Cardiac pacemaker: (6) CAD (coronary artery disease): Plan 1. Chest pain: Possibly related to an ACS although he has had similar symptoms in the past that did not appear to be related to a coronary event. Symptoms appear to have resolved at this point. 2. Coronary artery disease: He has an extensive history of coronary disease with multiple percutaneous interventions. He has been maintained on an outpatient regimen to include Eliquis and Plavix. Both of these medications were recently discontinued due to an intracranial hemorrhage. Doing well on heparin and Plavix. 3. Elevated troponin: Biomarkers did rise and fall suggesting event that occurred yesterday. Unclear if this represented ACS. No symptoms at this point. Echocardiogram demonstrated preserved LV systolic function without new regional wall motion abnormality. EKG not suggestive of acute coronary syndrome. Given his renal insufficiency and absence of symptoms currently we have elected to adopt a conservative strategy. Will continue heparin for another 24 hours. Continue Plavix. Restart Jardiance. 4. Cardiomyopathy: General improvement in his overall LV function. He will continue on his current medical regimen which includes Jardiance furosemide, metoprolol succinate and valsartan. 5. Congestive heart failure: He appears well compensated currently. 6. Biventricular pacemaker: Not interrogated at this time. Normal function recently. deeplocal device. 7. Atrial fibrillation: Permanent. Status post AV node ablation. No concerns about rate control. Will get discussed reinitiating systemic anticoagulation once we determine if he requires additional coronary angiography or other procedure. Patient is anxious for discharge. Think he is ambulatory without symptoms he could be considered for discharge. We can transition his heparin back to Eliquis. He should continue Plavix and Jardiance. He can follow-up in our clinic on a routine basis. Admission and Anticipated Discharge Date Admission Date: December 14, 2024 Subjective This morning patient feels well. He states that he is feeling as well as he has in some time. No recurrent symptoms of chest discomfort or nausea. Tolerating a diet. Minimal ambulation although anxious to ambulate more. No dizziness, lightheadedness or breathing difficulty Review of Systems Review of Systems: Per HPI. Physical Exam Physical Exam: The patient is alert and oriented. Mood and affect appeared normal. He answered all questions appropriately. Mildly somnolent. HEENT: Pupils are equal and reactive to light and accommodation. Extraocular movements are intact. The sclerae are anicteric. Neuro: Cranial nerves intact Lungs: Clear to auscultation bilaterally. He has good air movement without use of accessory muscles. No rales wheezes or rhonchi. Cardiac: Heart demonstrates a regular rate and rhythm. Normal S1 and S2. No murmurs on examination. Pulses: The patient has palpable radial pulses bilaterally that are equal in intensity Extremities: There was no evidence of hypoperfusion. There is no cyanosis or clubbing. There is no edema. Ecchymosis noted. Skin: I did not appreciate any rashes on examination today. Results & Data Vital Signs (Past 12 Hours) Vital Signs Temp Pulse Pulse Resp BP Pulse Ox O2 Del Method 12/16/24 10:24 65 12/16/24 08:12 37.0 C 65 17 128/75 94 Room Air 12/16/24 08:04 Nasal Cannula O2 Flow Rate 12/16/24 10:24 12/16/24 08:12 12/16/24 08:04 2 Laboratory Results Abnormal Lab Results 12/15/24 12/16/24 16:23 06:31 WBC 5.57 RBC 4.01 L Hgb 13.1 L Hct 39.7 L MCV 99.0 MCH 32.7 MCHC 33.0 RDW Std Deviation 49.0 H RDW Coeff of Fahad 13.5 Plt Count 107 L MPV 10.0 Heparin Anti-Xa, Unfract 0.78 H* Sodium 141 Potassium 4.2 Chloride 107 Carbon Dioxide 29 Anion Gap 5 BUN 31 H Creatinine 1.81 H Est Cr Clr Drug Dosing 30.9 eGFR 36.64 BUN/Creatinine Ratio 17.1 Glucose 125 H POC Glucose 138 H Calcium 8.6 PG Care Time/CCT Total # of Minutes Spent Total Time Spent with Patient: Total time spent is greater than 50% in coordination of care (as documented) at patient's floor/unit and/or counseling patient: Coding Level of Care Code 44964 SUB INP/OBS CARE 2/35MIN Diagnoses Chest pain at rest R07.9 Elevated troponin R79.89 Permanent atrial fibrillation I48.21 Nonischemic cardiomyopathy I42.8 Cardiac pacemaker Z95.0 Coronary artery disease involving [place] coronary artery of [place] heart without angina pectoris I25.10 Coronary Disease-Associated Artery/Lesion type: [place] artery [place] vs. transplanted heart: [place] heart Associated angina: without angina (6) CAD (coronary artery disease) Coronary Disease-Associated Artery/Lesion type: [place] artery [place] vs. transplanted heart: [place] heart Associated angina: without angina Qualified Code(s): I25.10 - Atherosclerotic heart disease of [place] coronary artery without angina pectoris
[2024-12-16 15:28] LABS: ANTI-Xa, UFH(UnfractionatedHep 0.65 IU/ml (0.3-0.7)
--- NOTE | 2024-12-16 19:04 | Discharge Summary ---
Discharge Summary Date of Service December 16, 2024 Principal Dx & Hospital Course #1 = Principal Diagnosis (1) NSTEMI (non-ST elevated myocardial infarction): (2) CAD (coronary artery disease): (3) Permanent atrial fibrillation: (4) HFrEF (heart failure with reduced ejection fraction): (5) Chronic subdural hematoma: (6) Lung transplant recipient: (7) Immunocompromised patient: (8) Type 2 diabetes mellitus: Plan 84-year-old man with a past medical history of subdural hematomas most recent 11/25/2024, CAD with multiple stents, A-fib s/p ablation and Biv pacer, HFrEF, stage IIIb CKD, type II DM, 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 Admitted with SSCP and NSTEMI #NSTEMI, unable to determine whether type 1 or type 2, CAD. occurred while Plavix and apixaban were being held because of his subdural hematoma. -EKG paced, limited Echo unchanged EF 45-50%, HS-Tn peaked at 4100 now downtrending -cardiology consulted - discussed with Dr. Copeland - unclear whether ACS, recommends conservative strategy with medical treatment, treated with heparin drip for 48 hours -continue plavix, metoprolol, statin -SGLT2 resumed - he had no recurrence of symptoms, felt well, was able to ambulate and return home today - he will follow-up in cardiology clinic #chronic left frontal subdural hematoma fall 11/24. prior admission this was discussed with [facility] neurosurgery in [place], plan for outpatient follow-up with their. apixaban and Plavix were held since discharge 11/[address] this admission with improved subdural. tolerated anticoagulation with heparin I spoke with the neurosurgeon at [facility] Dr. Donahue regarding anticoagulation and plavix with respect to the SDH. CT this admission shows improvement and no further falls. Typically anticoagulation can be resumed in 2-3 weeks. We are currently at 3 week mery and ok to resume plavix and apixaban. He recommends follow up with him in clinic in 1 month. I discussed the risks and benefits of apixaban and Plavix with Mr. Barrios, of which he is well aware #Afib s/p ablation, BiV pacer, chronic HFrEF - appears euvolemic - continue metoprolol succinate, Lasix 40 Mg daily, valsartan #Hypoxia - 2/2 above vs hx lung disease/transplant. 86% on RA -> 2 L NC on admission. CTA negative for PE or pneumonia - at home uses 2L nocturnal O2 - appears to be back to baseline #T2DM - Controlled on Jardiance at home, hold. Most recent A1C 6.9%. 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 Stable, immunosuppressed. - continue prednisone (missed 12/06-12/14 due to no prescription at pharmacy), Bactrim, Prograf, Valtrex - chronic O2 2L HS #CKD stage 3b - stable, BL Cr 1.5 - 2.0. contrast exposure from CTA - Cr remains stable at 1.8 Other chronic issues #HLD #GERD - on PPI #RLS - stable continue ropinirole lives at home with his , uses a walker. Is close to baseline functional status Notes For Next Care Provider Medication Changes From Visit Resumed plavix and apixaban Admission HPI Per Admitting Provider Patient is an 84-year-old male with a past medical history of numerous subdural hematomas most recent 11/25/2024, A-fib s/p pacer, stage IIIb CKD, type II DM, HFrEF, double lung transplant immunosuppressed, questionable cirrhosis. Patient presented due to midsternal 10/10 chest pain that began at rest. Chest pain improved but not resolved after 12 Mg IV morphine, 2 sublingual nitroglycerin at time of admission. EKG shows no acute changes. Patient is being admitted with an elevated troponin of 116.3 for chest pain workup including limited echocardiogram and chest pain control. Deferring anticoagulation at this time given recent subdural hematoma. Patient seen at bedside. He stated he was sitting at his desk working when he began with midsternal severe sudden 10/10 chest pain and associated nausea and vomiting. The chest pain does not radiate and nothing worsens the pain, not reproducible by palpation and denies worsening with deep inspiration. He received 2 sublingual nitroglycerin and Zofran en route via EMS which did not seem to help. After receiving morphine in the ED his chest pain is improved but not yet resolved. His nausea and vomiting has since resolved. He denies any other associated symptoms of diaphoresis or dyspnea. He denies any recent dyspnea or chest pain on exertion. Patient is most concerned because he feels as though he has a blood clot after being off his anticoagulation for 3 weeks. He would like to be put back on this as his subdural hematoma is improved and he feels stable at home however has had 3 falls resulting in subdural hematomas. He denies any flulike symptoms, no cough, congestion, rhinorrhea, denies numbness or tingling. He got his morning medications but will be due for his evening medications tonight. He has not had his prednisone since 12/06 because his doctor did not fill his prescription. He lives at home with his who helps care for him. He uses 2L oxygen via nasal cannula every night. He wishes to be full code. ER provider spoke with on-call plate take out worker who recommended no heparinization at this time given history of subdural hematoma. Head CT in the ER revealed subdural hematoma resolved/improved. Ultimate goal at this time is for chest pain control. As patient's pain persisted and at bedside stated episode was similar with previous NE and patient has been fatigued recently. Personally reached out to promotions representative plate take out worker - will start heparinization. Discharge Exam Last 24h vitals reviewed GEN: awake and sitting up on the edge of the bed HEENT: pupils equal, sclerae anicteric, moist MM RESP: normal WOB, CTAB CV: reg no mrg ABD: soft/nt/nd +BT : no batres SKIN: warm and dry, no generalized rashes NEURO: AOx person, place, and situation. Face symmetric, speech normal, moves 4 ext spontaneously and equally Discharge Plan Discharge Items Patient Disposition: Home - Self-Care Reason For Visit: CHEST PAIN, ELEVATED TROP Discharge Diagnosis: Possible NSTEMI, CAD Activity: Resume your previous activity Non-emergency contact: Primary Care Provider and Snath Handle Assembler Call non-emergency contact if: you have any medication questions and your symptoms worsen Follow-up/Referrals: Apple Serrano PA-C [Physician Lead Retail Sales Associate] - 12/21/24 11:00 am Diet: Heart Healthy Addtl Attending Provider Instructions: You may have had a mild type of heart attack (NSTEMI). Fortunately no changes of your heart function on Echo. The plate take out worker recommended treating this conservatively with medications (48h of IV heparin etc) instead of a procedure. He thought the risks of procedure outweighed the benefits at this time. I spoke with the neurosurgeon Dr. Donahue at [facility]. It is ok to resume your eliquis and plavix at this time. He recommended you follow up with him in about a month. It was a pleasure taking care of you in the hospital, Marlen Shields MD Pending Studies at Discharge: No Stand-Alone Forms: My [facility], Smoking Cessation Medications and DC Order Prescriptions: Continued cholecalciferol (vitamin D3) 25 mcg (1,000 unit) tablet 50 mcg PO DAILY Patient Comments: CONFIRMED W/ PT AND ON [facility] DC SUMMARY 6 valacyclovir [Valtrex] 500 mg tablet 500 mg PO DAILY Patient Comments: CONFIRMED W/ PT AND ON [facility] DC SUMMARY 02/01 furosemide 40 mg tablet 40 mg PO DAILY Patient Comments: CONFIRMED W/ PT AND ON [facility] DC SUMMARY 02/01 rosuvastatin 20 mg capsule, sprinkle 40 mg PO DAILY Patient Comments: CONFIRMED W/ PT AND ON [facility] DC SUMMARY 02/01 tacrolimus 0.5 mg capsule 1.5 mg PO BID Patient Comments: CONFIRMED W/ PT AND ON [facility] DC SUMMARY 02/01 Jardiance 10 mg tablet 10 mg PO DAILY Qty: 30 6RF Hold Instructions: Home Medication placed on hold at Doctor's office albuterol sulfate 90 mcg/actuation HFA aerosol inhaler 1 inh inhalation QID PRN (Reason: sob) nitroglycerin 0.4 mg tablet, sublingual 0.4 mg sublingual Q5M PRN (Reason: chest pain) Qty: 1 3RF Rx Instructions: max of 3 tablets in 15 minutes. metoprolol succinate [Toprol XL] 100 mg tablet extended release 24 hr 100 mg PO DAILY Qty: 90 3RF gabapentin 300 mg capsule 300 mg PO TID Qty: 90 3RF Rx Instructions: 300 mg po tid. last filled 09/24/24 30 day supply Max dose given GFR 30-45 ferrous sulfate [Feosol] 325 mg (65 mg iron) tablet 325 mg PO DAILY prednisone 5 mg Tablet 5 mg PO DAILY (DME) Spacer for Inhaler Misc See Rx Instructions .ROUTE .MEDSUPPLY Qty: 1 0RF Rx Instructions: As directed sulfamethoxazole-trimethoprim 400-80 mg tablet 1 tab PO 3XWK Hold Instructions: Provider's Order Rx Instructions: MON, WED, & FRI. clopidogrel 75 mg tablet 75 mg PO DAILY Hold Instructions: HOLD/STOP until further notice Rx Instructions: ON HOLD ? WHEN STARTED amoxicillin 500 mg tablet 2,000 mg PO DIRECTED PRN (Reason: 1 HR PRIOR TO DENTAL APPT.) Eliquis 2.5 mg tablet 2.5 mg PO BID Hold Instructions: HOLD/STOP until further notice Rx Instructions: ON HOLD ? WHEN STARTED pantoprazole 40 mg tablet,delayed release (DR/EC) 40 mg PO BID ropinirole 0.25 mg tablet 0.25 mg PO HS Rx Instructions: filled 11/22 89 day supply valsartan 40 mg tablet 20 mg PO DAILY Qty: 0 0RF Patient Comments: CONFIRMED W/ PT AND ON [facility] DC SUMMARY 02/01 Discharge Orders: Discharge Order (Routine); Ordered 12/16/24 Ordered By: Marlen Shields Admission Data Admit Date/Time: 12/14/24 15:27 Attending Provider: Marlen Shields Admit Provider: Ubaldo Norris Primary Care Provider: Jazmyn Pantoja Other Providers: Axel Copeland; Ubaldo Norris Other Interventions: Discharge Summary Assessment (RN) Last Done: 12/16/24 16:00 Hospital Stay Data Consultations 12/14/24 14:32 Consult Cardiology Routine 12/14/24 14:54 ED Decision to Admit Stat Diagnostic Imagining Performed 12/14/24 13:41 CT angio chest PE protocol Stat 12/14/24 13:54 CT head/brain wo con Stat Pending Results Patient Have Any Pending Studies at Discharge: No Discharge Instructions Given to Patient (Per Discharging Provider) You may have had a mild type of heart attack (NSTEMI). Fortunately no changes of your heart function on Echo. The plate take out worker recommended treating this conservatively with medications (48h of IV heparin etc) instead of a procedure. He thought the risks of procedure outweighed the benefits at this time. I spoke with the neurosurgeon Dr. Donahue at [facility]. It is ok to resume your eliquis and plavix at this time. He recommended you follow up with him in about a month. It was a pleasure taking care of you in the hospital, Marlen Shields MD Total Time Total Time Spent Total Time Spent (In Minutes): I personally spent: 40 minutes today on clinical care activities including: reviewing chart notes and vital signs reviewing labs discussion with construction consultant(s) examining and counseling the patient counseling the patient's family writing orders discharge instructions documentation Coding Level of Care Code 53878 INP/OBS DISCH >30 MIN Diagnoses NSTEMI (non-ST elevated myocardial infarction) I21.4 Coronary artery disease involving viejas coronary artery of viejas heart without angina pectoris I25.10 Coronary Disease-Associated Artery/Lesion type: viejas artery [place] vs. transplanted heart: viejas heart Associated angina: without angina Permanent atrial fibrillation I48.21 HFrEF (heart failure with reduced ejection fraction) I50.20 Chronic subdural hematoma I62.03 Lung transplant recipient Z94.2 Immunocompromised patient D89.9 Type 2 diabetes mellitus E11.9
== END 2024-12-16 17:13 | disposition home or self-care (01) | DRG 280 ==
LOC: ED 12:19 → SUATTDRO 17:56 → EDINP 17:56 → 2E 19:52
DX: I21.4 Non-ST elevation (NSTEMI) myocardial infarction; I50.22 Chronic systolic (congestive) heart failure; I62.03 Nontraumatic chronic subdural hemorrhage; Z79.84 Long term (current) use of oral hypoglycemic drugs; Z79.01 Long term (current) use of anticoagulants; Z94.2 Lung transplant status; E11.22 Type 2 diabetes mellitus with diabetic chronic kidney disease; D84.821 Immunodeficiency due to drugs; R09.02 Hypoxemia; I42.8 Other cardiomyopathies; I48.21 Permanent atrial fibrillation; G25.81 Restless legs syndrome; K21.9 Gastro-esophageal reflux disease without esophagitis; I25.10 Atherosclerotic heart disease of native coronary artery without angina pectoris; E78.5 Hyperlipidemia, unspecified; Z79.621 Long term (current) use of calcineurin inhibitor; Z88.1 Allergy status to other antibiotic agents; E11.42 Type 2 diabetes mellitus with diabetic polyneuropathy; N18.32 Chronic kidney disease, stage 3b; Z79.02 Long term (current) use of antithrombotics/antiplatelets; I13.0 Hypertensive heart and chronic kidney disease with heart failure and stage 1 through stage 4 chronic kidney disease, or unspecified chronic kidney disease; Z95.0 Presence of cardiac pacemaker; Z79.899 Other long term (current) drug therapy

== ENCOUNTER 2025-03-17 02:34 | Observation (INO) ==
[2025-03-17 02:48] VITALS: PULSE 65
[2025-03-17] MEDS: ACETAMINOPHEN 1,000 MG/100 ML VIAL IV STA (03:06)
[2025-03-17 03:07] LABS: Hematocrit (blood only) 44.4 % (42.0-52.0); Hemoglobin 14.9 g/dl (14.0-18.0); Immature Granulocytes # (auto) 0.07 K/uL (0.01-0.20); Immature Granulocytes % (auto) 0.6 %; Mean Corpuscular Hemoglobin 32.5 pg (25.0-34.0); Mean Corpuscular Volume 96.9 fL (80.0-100.0); Platelet Count 149 K/uL (130-400); RDW Standard Deviation 46.4 fL (36.4-46.3); Red Blood Count 4.58 M/uL (4.70-6.10); White Blood Count 12.62 K/ul (4.8-10.8)
--- NOTE | 2025-03-17 03:15 | Emergency Department Note ---
Impression & Plan Chest pain, Pancreatitis ED Provider Note ED Provider Note NAME: LUCIA FINE AGE:84 SEX: Male : 1940 ARRIVES VIA: private vehicle INFORMANT: Patient ED PROVIDER(s): Chani Smith DO CHIEF COMPLAINT: chest pain HPI: This is an 84-year-old male presents to the Emergency Department due to concern for left-sided chest and upper abdominal pain. Patient states symptoms began 8 hours prior to arrival. He states they are constant but nonradiating. He did not try taking any medications at home. He denies any change with position or exertion. No prior similar episodes. He states he did not have this kind of pain when he had any of his 3 prior heart attacks but became concerned due to the persistent nature of the pain. He states he was slightly nauseated but denies any coming vomiting. No accompanying shortness of breath, dizziness, abdominal pain, or back pain. No recent change in bowel or bladder function. No recent leg swelling. He denies any recent fevers, chills, or URI symptoms. He states has been taking his medications as prescribed. PAST MEDICAL HISTORY:See Below PAST SURGICAL HISTORY:See Below FAMILY HISTORY:See Below SOCIAL HISTORY:See Below HOME MEDICATIONS:See Below ALLERGIES:See Below VITALS:See Below PHYSICAL EXAMINATION: GENERAL: alert, well appearing, well nourished, no distress, non-toxic EYE EXAM: normal conjunctiva, PERRL and EOM's grossly intact OROPHARYNX: no exudate, no erythema, lips, buccal mucosa, and tongue normal and mucous membranes are moist NECK: supple, no nuchal rigidity, no adenopathy, non-tender LUNGS: Clear to auscultation. Normal chest wall mechanics, no w/r/r HEART: no murmurs, S1 normal and S2 normal, no reproducible pain with palpation, well healed pacer site noted ABDOMEN: abdomen soft, mild discomfort with palpation along left anterior costal margin, normo-active bowel sounds, no masses, no rebound or guarding.Dull to percussion. SKIN: no rashes, petechiae, orbruising UPPER EXTREMITIES: upper extremities are grossly normal. FROM, nml pulses b/l. LOWER EXTREMITIES: No pitting edema. FROM, nml pulses b/l. NEURO EXAM: Normal sensorium, cranial nerves II-XII grossly intact, normal speech, no facial droop,nogross weakness of arms, no gross weakness of legs. Gross sensation intact. No ataxia. Vital Signs: reviewed and remarkable Differential Diagnosis: acute coronary syndrome, pericarditis, pulmonary embolus, aortic dissection, pneumonia, pneumothorax, musculoskeletal pain, shingles, GERD, GI bleed, as well as others were considered MEDICAL DECISION MAKING: This is an 84 yo male who presents to the ER with concern for left chest and LUQ abd pain. He was afebrile and VS stable. Patient concerned given hx of CAD and 3 prior KS's. He is also a lung transplant patient. Labs drawn and sent, IV established, EKG and CXR performed and interpreted at bedside, and patient placed on telemetry. Patient given IV tylenol and IV morphine for pain. He was noted to have a significantly elevated lipase. He denies alcohol use. Patient sent for CT a/p. Pancreatic cyst again noted, no evidence for pancreatitis on imaging. No other obvious pathology including no evidence for biliary pathology and LFT's normal. Case discussed with the hospitalist team for further evaluation and mgmt. Consultation(s): 0540: Discussed with Dr. Rad[place], [place] hospitalist team, for additional evaluation and mgmt. ER Treatment Provided: See below Diagnostics Interpreted By Me: -ECG: paced at 65, nml axis, prolonged intervals consistent with pacing, none specific ST/T wave changes -Cardiac Monitoring: An order was placed for continuous cardiac monitoring. The monitor shows a rate of 70 with paced rhythm. -Laboratory studies: As stated above and show below. -Imaging studies: X-ray Chest: A single view study of the chest was reviewed and was negative for cardiomegaly, focal infiltrate, effusion, pulmonary edema, or wide mediastinum. Triage Nursing Note Reviewed Prior/Outside Records Reviewed Past Med/Surg History Problem List (Updated 03/18/25 @ 20:30 by Chani Smith DO) Pancreatitis (Acute) Acute pancreatitis Chest pain (Acute) Restless leg syndrome Lung transplant recipient NSTEMI (non-ST elevated myocardial infarction) Immunocompromised patient Chronic subdural hematoma Pancreatic cyst Cirrhosis Permanent atrial fibrillation Thrombocytopenia Nonischemic cardiomyopathy Anticoagulant long-term use Cardiac pacemaker Lumbar radiculopathy Type 2 diabetes mellitus Lumbar stenosis with neurogenic claudication Foraminal stenosis of lumbar region Scoliosis of lumbar region due to degenerative disease of spine in adult HFrEF (heart failure with reduced ejection fraction) CAD (coronary artery disease) IPF (idiopathic pulmonary fibrosis) (Chronic) Anemia (Acute) Chronic GERD Medical History Abrasion of chin Subacute subdural hematoma On apixaban therapy Fall from standing Atrial fibrillation 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) Low back pain radiating to right leg Sensorineural hearing loss (SNHL) of left ear with restricted hearing of right ear Asymmetric SNHL (sensorineural hearing loss) History of Mohs micrographic surgery for skin cancer Bilateral tinnitus 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 CKD (chronic kidney disease), stage III HTN (hypertension) Upper respiratory infection Subdural hematoma (10/05/14) Surgical History Hx of appendectomy History of cardiac catheterization Stent placement x's 6 Most recent, 09/15/2022 2 MARK to LAD (Dr Weinstein [facility]) Hx of lung transplant bilateral Family History Mother Hearing loss Idiopathic pulmonary fibrosis Colorectal cancer Father Heart disease Myocardial infarction Brother Idiopathic pulmonary fibrosis Myocardial infarction Other No family history of adverse response to anesthesia No family history of bleeding disorder Denies family history of Ovarian cancer Prostate cancer Diabetes Breast cancer Lung cancer Stroke Social History Smoking Status: Former smoker Second Hand Exposure: No; Do You Dip or Chew Tobacco: No; Hx Alcohol Use: No Hx Substance Use: No Preferred Language: Slovak Communication Ability: Effective Visual Impairment: Limited Hearing Ability: Hard of Hearing Documentation Lead Required: No Beliefs That Will Affect Care: None marital status: Current Living Situation: Spouse Current Living Situation Comment: 3 story home current occupational status: employed 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) How many Children do You have: 2 Feels Safe at Home: Yes Childhood Exposure to Second-Hand Smoke: Yes caffeine: No Dental Care, Regularly: Yes Physical Activity Frequency: Daily Seatbelt Use: sometimes Sunscreen Use: Yes Assistive Devices: Glasses and Walker Allergies Allergies Allergy/AdvReac Type Severity Reaction Status Date / Time cefepime Allergy Intermediate rash Verified 03/17/25 02:59 Home Meds Home Medications Medication Instructions Recorded Confirmed prednisone 5 mg tablet 5 mg PO DAILY 05/11/18 03/17/25 amoxicillin 500 mg tablet 2,000 mg PO DIRECTED PRN 1 HR 02/01/23 03/17/25 PRIOR TO DENTAL APPT. apixaban 2.5 mg tablet (Eliquis) 2.5 mg PO BID 02/01/23 03/17/25 clopidogrel 75 mg tablet 75 mg PO DAILY 02/01/23 03/17/25 cholecalciferol (vitamin D3) 25 50 mcg PO DAILY 02/02/24 03/17/25 mcg (1,000 unit) tablet valacyclovir 500 mg tablet 500 mg PO DAILY 02/02/24 03/17/25 (Valtrex) albuterol sulfate 90 mcg/actuation 1 inh inhalation QID PRN sob 02/09/24 03/17/25 aerosol inhaler pantoprazole 40 mg tablet,delayed 40 mg PO BID 02/09/24 03/17/25 release ferrous sulfate 325 mg (65 mg 325 mg PO DAILY 04/26/24 03/17/25 iron) tablet (Feosol) furosemide 40 mg tablet 40 mg PO DAILY edema 04/26/24 03/17/25 tacrolimus 0.5 mg capsule, 0.5 mg PO BID 08/12/24 03/17/25 immediate-release rosuvastatin 40 mg tablet 40 mg PO DAILY 03/17/25 03/17/25 tacrolimus 1 mg capsule, 1 mg PO BID 03/17/25 03/17/25 immediate-release valsartan 40 mg tablet 20 mg PO BID 03/17/25 03/17/25 Previous Rx's Medication Instructions Recorded Spacer for Inhaler #1 ea 08/30/19 metoprolol succinate 100 mg 100 mg PO DAILY #90 tabs 10/19/24 tablet,extended release 24 hr (Toprol XL) nitroglycerin 0.4 mg sublingual 0.4 mg sublingual Q5M PRN chest 10/19/24 tablet pain #1 btl empagliflozin 10 mg tablet 10 mg PO DAILY #30 tabs 10/20/24 (Jardiance) Results & Data (ED) Vital Signs Vital Signs - 24 hr 03/17/25 02:38 03/17/25 02:47 03/17/25 03:33 Temperature 36.0 C L 36.9 C Temperature Source Temporal Artery Scan Oral Pulse Rate 93 H 65 Pulse Rhythm Regular Pulse Strength Normal Respiratory Rate 17 Respiratory Effort / Characteristics Non-Labored Spontaneous Respiratory Depth Normal Respiratory Pattern Regular Blood Pressure 124/75 Blood Pressure Mean 91 Blood Pressure Position Lying Pulse Oximetry 97 Oxygen Delivery Method Room Air Sepsis Recent Fever Within 48 Hours No Sepsis New/Unexplained Change in Mental Status No Sepsis Action Taken by Nursing No Action Required 03/17/25 03:33 03/17/25 05:02 Temperature Temperature Source Pulse Rate 65 65 Pulse Rhythm Pulse Strength Respiratory Rate 16 20 Respiratory Effort / Characteristics Respiratory Depth Respiratory Pattern Blood Pressure 141/83 H 159/84 H Blood Pressure Mean 102 109 Blood Pressure Position Pulse Oximetry 97 97 Oxygen Delivery Method Sepsis Recent Fever Within 48 Hours Sepsis New/Unexplained Change in Mental Status Sepsis Action Taken by Nursing Laboratory Data 03/18/25 06:32 03/18/25 06:32 Lab Results 03/17/25 03/17/25 03/17/25 Range/Units 02:50 04:02 04:58 WBC 12.62 H (4.8-10.8) K/ul RBC 4.58 L (4.70-6.10) M/uL Hgb 14.9 (14.0-18.0) g/dl Hct 44.4 (42.0-52.0) % MCV 96.9 (80.0-100.0) fL MCH 32.5 (25.0-34.0) pg MCHC 33.6 (32.0-36.0) g/dL RDW Std Deviation 46.4 H (36.4-46.3) fL RDW Coeff of Fahad 13.0 (11.5-14.5) % Plt Count 149 (130-400) K/uL MPV 9.7 (9.4-12.4) fL Immature Gran % (Auto) 0.6 % Neut % (Auto) 79.9 % Lymph % (Auto) 10.8 % [place] % (Auto) 7.9 % Eos % (Auto) 0.6 % Baso % (Auto) 0.2 % Neut # (Auto) 10.09 H (1.40-6.50) K/uL Lymph # (Auto) 1.36 (1.20-3.40) K/uL [place] # (Auto) 1.00 H (0.11-0.59) K/uL Eos # (Auto) 0.07 (0.00-0.50) K/uL Baso # (Auto) 0.03 (0.00-0.20) K/uL Immature Gran # (Auto) 0.07 (0.01-0.20) K/uL PT Cancelled Cancelled 11.4 INR Cancelled Cancelled 1.1 Sodium 139 (136-145) mmol/L Potassium 4.1 (3.5-5.1) mmol/L Chloride 103 (98-107) mmol/L Carbon Dioxide 27 (21-32) mmol/L Anion Gap 9 (3-11) BUN 30 H (6-23) mg/dl Creatinine 1.79 H (0.6-1.4) mg/dl Est Cr Clr Drug Dosing 31.3 ml/min eGFR 37.13 BUN/Creatinine Ratio 16.8 (10-20) Glucose 144 H (70-99(Fasting)) mg/dl Calcium 9.3 (8.6-10.3) mg/dl Magnesium 2.0 (1.7-2.4) mg/dl Total Bilirubin 0.9 (0.2-1.0) mg/dl AST 35 (13-39) U/L ALT 32 (7-52) U/L Alkaline Phosphatase 61 (34-104) U/L Lactate Dehydrogenase 194 (86-244) U/L Troponin I High Sens 21.4 H (0-20) pg/ml Total Protein 7.8 (6.0-8.3) gm/dl Albumin 4.1 (3.4-5.0) gm/dl Globulin 3.7 (2.5-4.0) gm/dl Albumin/Globulin Ratio 1.1 (0.9-2) Triglycerides 112 (0-150) mg/dl Lipase 3642 H (11-82) U/L Administered Medications Discontinued Medications Apixaban (Apixaban 2.5 Mg Tab) 2.5 mg PO BID TINA Stop: 04/16/25 08:59 Last Admin: 03/18/25 08:31 Dose: 2.5 mg Documented By: Admin: 03/17/25 20:01 Dose: 2.5 mg Documented By: Admin: 03/17/25 10:35 Dose: 2.5 mg Documented By: KMO Clopidogrel Bisulfate (Clopidogrel Bisulfate 75 Mg Tab) 75 mg PO DAILY TINA Stop: 04/16/25 08:59 Last Admin: 03/18/25 08:30 Dose: 75 mg Documented By: Admin: 03/17/25 10:34 Dose: 75 mg Documented By: COLLINS Empagliflozin (Empagliflozin 10 Mg Tab) 10 mg PO DAILY TINA Stop: 04/16/25 08:59 Last Admin: 03/17/25 10:34 Dose: 10 mg Documented By: COLLINS Furosemide (Furosemide 40 Mg Tab) 40 mg PO DAILY TINA Stop: 04/16/25 08:59 Last Admin: 03/17/25 10:34 Dose: 40 mg Documented By: COLLINS Furosemide (Furosemide 40 Mg Tab) 40 mg PO QAM TINA Stop: 04/17/25 08:59 Last Admin: 03/18/25 08:30 Dose: 40 mg Documented By: REYNA Furosemide (Furosemide 20 Mg Tab) 20 mg PO ONE ONE Stop: 03/17/25 19:01 Last Admin: 03/17/25 19:56 Dose: 20 mg Documented By: RASHAD Acetaminophen (Ofirmev) 1,000 mg in 100 mls @ 400 mls/hr IV NOW STA Stop: 03/17/25 03:09 Last Infusion: 03/17/25 03:33 Dose: Infused Documented By: Admin: 03/17/25 03:06 Dose: 400 mls/hr Documented By: RIVERA Lactated Ringer's (Lr) 500 mls @ 999 mls/hr IV .Q31M ONE Stop: 03/17/25 06:18 Last Infusion: 03/17/25 06:59 Dose: Infused Documented By: Admin: 03/17/25 06:28 Dose: 999 mls/hr Documented By: RIVERA Lactated Ringer's (Lr) 1,000 mls @ 125 mls/hr IV .Q8H TINA Stop: 03/17/25 14:14 Last Infusion: 03/17/25 13:56 Dose: Infused Documented By: Admin: 03/17/25 07:01 Dose: 125 mls/hr Documented By: COLLINS Ioversol (Optiray 320 100ml) 100 ml IV ONCE ONE Stop: 03/17/25 04:17 Last Admin: 03/17/25 04:17 Dose: 93 ml Documented By: UYEN Metoprolol Succinate (Metoprolol Succ 50mg Ext Rel Tab) 100 mg PO DAILY TINA Stop: 04/16/25 08:59 Last Admin: 03/18/25 08:30 Dose: 100 mg Documented By: Admin: 03/17/25 10:34 Dose: 100 mg Documented By: COLLINS Morphine Sulfate (Morphine Sulfate 4 Mg/Ml 1 Ml Carp\Vial) 4 mg IV NOW STA Stop: 03/17/25 03:47 Last Admin: 03/17/25 03:58 Dose: 4 mg Documented By: RIVERA Pantoprazole Sodium (Pantoprazole 40 Mg Tab) 40 mg PO BID TINA Stop: 04/16/25 08:59 Last Admin: 03/18/25 08:30 Dose: 40 mg Documented By: Admin: 03/17/25 20:01 Dose: 40 mg Documented By: Admin: 03/17/25 10:34 Dose: 40 mg Documented By: COLLINS Prednisone (Prednisone 5 Mg Tab) 5 mg PO DAILY TINA Stop: 04/16/25 08:59 Last Admin: 03/18/25 08:31 Dose: 5 mg Documented By: Admin: 03/17/25 10:35 Dose: 5 mg Documented By: COLLINS Rosuvastatin Calcium (Rosuvastatin Calcium 20 Mg Tab) 40 mg PO DAILY TINA Stop: 04/16/25 08:59 Last Admin: 03/18/25 08:30 Dose: 40 mg Documented By: Admin: 03/17/25 10:34 Dose: 40 mg Documented By: COLLINS Tacrolimus (Tacrolimus 1 Mg Cap) 1 mg PO BID TINA Stop: 04/16/25 11:29 Last Admin: 03/18/25 08:30 Dose: 1 mg Documented By: Admin: 03/17/25 20:01 Dose: 1 mg Documented By: Admin: 03/17/25 17:05 Dose: Not Given Documented By: LESVIA Valacyclovir HCl (Valacyclovir Hcl 500 Mg Tablet) 500 mg PO DAILY TINA Stop: 04/16/25 08:59 Last Admin: 03/18/25 08:31 Dose: 500 mg Documented By: Admin: 03/17/25 10:35 Dose: 500 mg Documented By: COLLINS Valsartan (Valsartan 80 Mg Tab) 20 mg PO BID TINA Stop: 04/16/25 08:59 Last Admin: 03/18/25 08:31 Dose: 20 mg Documented By: Admin: 03/17/25 20:01 Dose: 20 mg Documented By: Admin: 03/17/25 10:35 Dose: 20 mg Documented By: KMO Imaging Data Radiologist's Impression: Chest X-Ray 03/17/25 02:55 EXAM: XR chest 1V portable CLINICAL HISTORY: chest pain TECHNIQUE: An X-ray image of the chest is obtained in AP projection. 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 No evidence of consolidation, collapse, or focal opacities. No pulmonary nodules are identified. Blunted left costophrenic angle - suggest possibility of pleural effusion. Heart and Mediastinum: Moderate cardiomegaly. Bony Thorax: Bony thorax appears intact without fractures or deformities. Soft Tissues: Soft tissues overlying the chest wall are unremarkable. Cardiac pacemaker noted. IMPRESSION: Moderate cardiomegaly.-stable. Blunted left costophrenic angle - suggest possibility of pleural effusion.-new finding. Electronically signed by Miguel Gonzalez 03-17-2025 04:01 AM Abdomen/Pelvis CT 03/17/25 03:46 EXAM: CT abd pelvis IV con only CLINICAL HISTORY: LUQ pain, elevated lipase TECHNIQUE: Contiguous axial images were obtained from the level of the diaphragm to the pubic symphysis with intravenous contrast. Coronal and sagittal reconstructions were likewise performed and indicated to increase the sensitivity for detecting clinically relevant pathology. If IV contrast material had not been administered, the likelihood of detecting abnormalities relevant to the patient's condition would have been substantially decreased. CT scan was performed according to ALARA (as low as reasonable achievable). 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 The liver is normal in size and attenuation. No focal liver lesions are seen. There is no intra or extrahepatic biliary ductal dilatation. Hepatic vasculature is patent. The gallbladder is present. The spleen, , and adrenal glands are unremarkable. Multiloculated cystic lesion collectively measuring about 49 x 62 mm is noted involving in relation to the head of pancreas. Similar smaller cystic lesions are also noted involving proximal body of pancreas. Rest of pancreas appears normal. The kidneys are normal in size and attenuation. There is no hydronephrosis or perinephric fat stranding. No renal calculi or renal masses are identified. Right kidney show simple cysts -Bosniak type I . The ureters are normal in caliber and no ureteral calculi are seen. The bladder is normal in contour. Pelvic viscera are unremarkable. No focal or diffuse bowel wall thickening or evidence of bowel obstruction is identified. The appendix is not well visualized. No features of inflamed appendix. Abdominal and pelvic vasculature is patent. No adenopathy or fluid collections are seen. No aggressive appearing osseous lesions are identified. IMPRESSION: Multiloculated cystic lesions are noted in the head and proximal body of pancreas without obvious adjacent fat stranding /post-contrast enhancement.-stable. - appears benign.- MRCP correlation is suggested. Rest of pancreas appears normal in bulk and enhancement.. Simple right renal cortical cyst - Bosniak type I .-stable. No other new interval abnormality since prior study. Electronically signed by Miguel Gonzalez 03-17-2025 05:24 AM Discharge Plan Visit Data Chief Complaint: Chest Pain Stated Complaint: CHEST PAIN ED Provider: Chani Smith Discharge Problem: Chest pain, Pancreatitis Patient Disposition: Admitted As Inpatient Condition: Fair Discharge Instructions Interventions: ED Discharge Assessment Last Done: 03/17/25 18:28
[2025-03-17 03:24] LABS: Anion Gap 9.0 (3-11); Blood Urea Nitrogen 30.0 mg/dl (6-23); Calcium 9.3 mg/dl (8.6-10.3); Carbon Dioxide 27.0 mmol/L (21-32); Chloride 103.0 mmol/L (98-107); Creatinine Clr Calc Pharmacy 31.3 ml/min; Glucose 144.0 mg/dl (70-99(Fasting)); Potassium 4.1 mmol/L (3.5-5.1); Sodium 139.0 mmol/L (136-145)
[2025-03-17 03:44] LABS: Alanine Aminotransferase 32.0 U/L (7-52); Albumin Globulin Ratio 1.1 (0.9-2); Alkaline Phosphatase 61.0 U/L (34-104); Bilirubin,Total 0.9 mg/dl (0.2-1.0); Globulin 3.7 gm/dl (2.5-4.0); Lipase 3642.0 U/L (11-82); Magnesium 2.0 mg/dl (1.7-2.4); Total Protein 7.8 gm/dl (6.0-8.3)
[2025-03-17] MEDS: MoRPHine SULFATE 4 MG/ML 1 ML CARP\\VIAL IV STA (03:58)
--- NOTE | 2025-03-17 04:01 | XRay Report ---
EXAM: XR chest 1V portable CLINICAL HISTORY: chest pain TECHNIQUE: An X-ray image of the chest is obtained in AP projection. COMPARISON: november 11:35:43 GIS CONSULTANT FINDINGS: Pulmonary Parenchyma: Lungs are clear bilaterally. No evidence of consolidation, collapse, or focal opacities. No pulmonary nodules are identified. Blunted left costophrenic angle - suggest possibility of pleural effusion. Heart and Mediastinum: Moderate cardiomegaly. Bony Thorax: Bony thorax appears intact without fractures or deformities. Soft Tissues: Soft tissues overlying the chest wall are unremarkable. Cardiac pacemaker noted. IMPRESSION: Moderate cardiomegaly.-stable. Blunted left costophrenic angle - suggest possibility of pleural effusion.-new finding. Electronically signed by Miguel Gonzalez 03-17-2025 04:01 AM
[2025-03-17] MEDS: OPTIRAY 320 100ml IV ONE (04:17)
--- NOTE | 2025-03-17 05:25 | CT Scan Report ---
EXAM: CT abd pelvis IV con only CLINICAL HISTORY: LUQ pain, elevated lipase TECHNIQUE: Contiguous axial images were obtained from the level of the diaphragm to the pubic symphysis with intravenous contrast. Coronal and sagittal reconstructions were likewise performed and indicated to increase the sensitivity for detecting clinically relevant pathology. If IV contrast material had not been administered, the likelihood of detecting abnormalities relevant to the patient's condition would have been substantially decreased. CT scan was performed according to ALARA (as low as reasonable achievable). COMPARISON: October 15:53:45 DIRECTOR OF RADIOLOGY FINDINGS: The visualized lung bases are clear. The liver is normal in size and attenuation. No focal liver lesions are seen. There is no intra or extrahepatic biliary ductal dilatation. Hepatic vasculature is patent. The gallbladder is present. The spleen, , and adrenal glands are unremarkable. Multiloculated cystic lesion collectively measuring about 49 x 62 mm is noted involving in relation to the head of pancreas. Similar smaller cystic lesions are also noted involving proximal body of pancreas. Rest of pancreas appears normal. The kidneys are normal in size and attenuation. There is no hydronephrosis or perinephric fat stranding. No renal calculi or renal masses are identified. Right kidney show simple cysts -Bosniak type I . The ureters are normal in caliber and no ureteral calculi are seen. The bladder is normal in contour. Pelvic viscera are unremarkable. No focal or diffuse bowel wall thickening or evidence of bowel obstruction is identified. The appendix is not well visualized. No features of inflamed appendix. Abdominal and pelvic vasculature is patent. No adenopathy or fluid collections are seen. No aggressive appearing osseous lesions are identified. IMPRESSION: Multiloculated cystic lesions are noted in the head and proximal body of pancreas without obvious adjacent fat stranding /post-contrast enhancement.-stable. - appears benign.- MRCP correlation is suggested. Rest of pancreas appears normal in bulk and enhancement.. Simple right renal cortical cyst - Bosniak type I .-stable. No other new interval abnormality since prior study. Electronically signed by Miguel Gonzalez 03-17-2025 05:24 AM
[2025-03-17 05:45] LABS: INR 1.1 (0.9-1.1); Prothrombin Time 11.4 Seconds (9.0-12.0)
--- NOTE | 2025-03-17 05:47 | History & Physical Report ---
Date of Service March 17, 2025 Assessment & Plan (1) Lung transplant recipient: (2) Acute pancreatitis: (3) Type 2 diabetes mellitus: (4) Permanent atrial fibrillation: (5) Pancreatic cyst: (6) Immunocompromised patient: Admission and Anticipated Discharge Date Admission Date: 84 year old male with lung transplant (13 years ago) and coronary artery disease presents to the ER with chest/abdominal pain #Acute pancreatitis Epigastric pain with elevated lipase, however pain currently resolved on exam Triglyceride level pending but historically normal No alcohol use Normal LFTs with no ductal dilatation on CT NPO, cautious IV fluids due to history of heart failure, advance diet as tolerated Pain relief with acetaminophen 1st line, Dilaudid 2nd line Consult gastroenterology given unclear cause with multiple cysts seen on pancr eas (although these do not appear to be new); will defer further imaging to gastroenterology #Lung transplant recipient Continue prednisone and tacrolimus #Coronary artery disease / chronic HFmrEF Continue clopidogrel, Eliquis, metoprolol succinate, valsartan, furosemide, rosuvastatin #CKD stage 3 Close to baseline, repeat CMP with AM labs #Permanent atrial fibrillation Ventricular paced, continue metoprolol for rate control, Eliquis for anticoagulation VTE Prophylaxis - Eliquis Disposition - admit to med/surg History of Present Illness Chief Complaint: Chest/abdominal pain Primary Care Provider: Jazmyn Pantoja MD Erwin Barrios is an 84 year old male with lung transplant, coronary artery disease and heart failure with mildly reduced ejection fraction who presents to the ER with left sided chest and abdominal pain. Started yesterday afternoon 4pm. Progressively getting worse until he was given morphine in the ER. Associ ated nausea and vomiting. No diarrhea, shortness of breath, palpitations, no leg swelling. Current severity 1-2/10, severity on arrival 04/09, no radiation. Mouth feeling dry. He denies alcohol use. Allergies Allergy/AdvReac Type Severity Reaction Status Date / Time cefepime Allergy Intermediate rash Verified 03/17/25 02:59 Home Medications Medication Instructions Recorded Confirmed Type prednisone 5 mg tablet 5 mg PO DAILY 05/11/18 03/17/25 History Spacer for Inhaler #1 ea 08/30/19 01/19/25 Rx amoxicillin 500 mg tablet 2,000 mg PO DIRECTED PRN 1 HR 02/01/23 03/17/25 History PRIOR TO DENTAL APPT. apixaban 2.5 mg tablet (Eliquis) 2.5 mg PO BID 02/01/23 03/17/25 History clopidogrel 75 mg tablet 75 mg PO DAILY 02/01/23 03/17/25 History cholecalciferol (vitamin D3) 25 50 mcg PO DAILY 02/02/24 03/17/25 History mcg (1,000 unit) tablet valacyclovir 500 mg tablet 500 mg PO DAILY 02/02/24 03/17/25 History (Valtrex) albuterol sulfate 90 mcg/actuation 1 inh inhalation QID PRN sob 02/09/24 03/17/25 History aerosol inhaler pantoprazole 40 mg tablet,delayed 40 mg PO BID 02/09/24 03/17/25 History release ferrous sulfate 325 mg (65 mg 325 mg PO DAILY 04/26/24 03/17/25 History iron) tablet (Feosol) furosemide 40 mg tablet 40 mg PO DAILY edema 04/26/24 03/17/25 History tacrolimus 0.5 mg capsule, 0.5 mg PO BID 08/12/24 03/17/25 History immediate-release metoprolol succinate 100 mg 100 mg PO DAILY #90 tabs 10/19/24 03/17/25 Rx tablet,extended release 24 hr (Toprol XL) nitroglycerin 0.4 mg sublingual 0.4 mg sublingual Q5M PRN chest 10/19/24 03/17/25 Rx tablet pain #1 btl empagliflozin 10 mg tablet 10 mg PO DAILY #30 tabs 10/20/24 03/17/25 Rx (Jardiance) rosuvastatin 40 mg tablet 40 mg PO DAILY 03/17/25 03/17/25 History tacrolimus 1 mg capsule, 1 mg PO BID 03/17/25 03/17/25 History immediate-release valsartan 40 mg tablet 20 mg PO BID 03/17/25 03/17/25 History Past Med/Surg History Problem List (Updated 03/17/25 @ 07:41 by Trace Radford MD) Acute pancreatitis Chest pain (Acute) Restless leg syndrome Lung transplant recipient NSTEMI (non-ST elevated myocardial infarction) Immunocompromised patient Chronic subdural hematoma Pancreatic cyst Cirrhosis Permanent atrial fibrillation Thrombocytopenia Nonischemic cardiomyopathy Anticoagulant long-term use Cardiac pacemaker Lumbar radiculopathy Type 2 diabetes mellitus Lumbar stenosis with neurogenic claudication Foraminal stenosis of lumbar region Scoliosis of lumbar region due to degenerative disease of spine in adult HFrEF (heart failure with reduced ejection fraction) CAD (coronary artery disease) IPF (idiopathic pulmonary fibrosis) (Chronic) Anemia (Acute) Chronic GERD Medical History Abrasion of chin Subacute subdural hematoma On apixaban therapy Fall from standing Atrial fibrillation 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) Low back pain radiating to right leg Sensorineural hearing loss (SNHL) of left ear with restricted hearing of right ear Asymmetric SNHL (sensorineural hearing loss) History of Mohs micrographic surgery for skin cancer Bilateral tinnitus 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 CKD (chronic kidney disease), stage III HTN (hypertension) Upper respiratory infection Subdural hematoma (10/05/14) Surgical History Hx of appendectomy History of cardiac catheterization Hx of lung transplant Family History Mother Hearing loss Idiopathic pulmonary fibrosis Colorectal cancer Father Heart disease Myocardial infarction Brother Idiopathic pulmonary fibrosis Myocardial infarction Other No family history of adverse response to anesthesia No family history of bleeding disorder Denies family history of Ovarian cancer Prostate cancer Diabetes Breast cancer Lung cancer Stroke Social History Smoking Status: Never smoker Second Hand Exposure: No; Do You Dip or Chew Tobacco: No; Hx Alcohol Use: Yes Alcohol type: wine Hx Substance Use: No Preferred Language: Malaysian Communication Ability: Effective Visual Impairment: Limited Hearing Ability: Hard of Hearing Marketing Account Manager Required: No Beliefs That Will Affect Care: None and Yarsani marital status: Current Living Situation: Spouse Current Living Situation Comment: 3 story home current occupational status: employed 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) How many Children do You have: 2 Feels Safe at Home: Yes Childhood Exposure to Second-Hand Smoke: Yes caffeine: No Dental Care, Regularly: Yes Physical Activity Frequency: Daily Seatbelt Use: sometimes Sunscreen Use: Yes Assistive Devices: Walker Review of Systems Review of Systems: All systems reviewed & are unremarkable except as noted in HPI & below Physical Exam Constitutional: WD/WN, vitals as above ENMT: external ear and nose normal, oropharynx normal Respiratory: normal respiratory effort, lungs clear to auscultation Cardiovascular: RRR, no murmur, no edema Gastrointestinal (Abdomen): normal bowel sounds, soft, nontender, no hepatosplenomegaly Results & Data Results & Data Vital Signs (Past 12 Hours) Vital Signs Temp Pulse Resp BP Pulse Ox O2 Del Method 03/17/25 05:02 65 20 159/84 H 97 03/17/25 03:33 65 16 141/83 H 97 03/17/25 03:33 36.9 C 03/17/25 02:47 65 03/17/25 02:38 36.0 C L 93 H 17 124/75 97 Room Air Laboratory Results Abnormal lab results 03/17/25 Range/Units 02:50 WBC 12.62 H (4.8-10.8) K/ul RBC 4.58 L (4.70-6.10) M/uL RDW Std Deviation 46.4 H (36.4-46.3) fL Neut # (Auto) 10.09 H (1.40-6.50) K/uL [place] # (Auto) 1.00 H (0.11-0.59) K/uL BUN 30 H (6-23) mg/dl Creatinine 1.79 H (0.6-1.4) mg/dl Glucose 144 H (70-99(Fasting)) mg/dl Troponin I High Sens 21.4 H (0-20) pg/ml Lipase 3642 H (11-82) U/L Diagnostic Findings XR chest 1V portable CLINICAL HISTORY: chest pain TECHNIQUE: An X-ray image of the chest is obtained in AP projection. COMPARISON: november 11:35:43 APPLIED STATISTICIAN FINDINGS: Pulmonary Parenchyma: Lungs are clear bilaterally. No evidence of consolidation, collapse, or focal opacities. No pulmonary nodules are identified. Blunted left costophrenic angle - suggest possibility of pleural effusion. Heart and Mediastinum: Moderate cardiomegaly. Bony Thorax: Bony thorax appears intact without fractures or deformities. Soft Tissues: Soft tissues overlying the chest wall are unremarkable. Cardiac pacemaker noted. IMPRESSION: Moderate cardiomegaly.-stable. Blunted left costophrenic angle - suggest possibility of pleural effusion.-new finding. CT abd pelvis IV con only CLINICAL HISTORY: LUQ pain, elevated lipase TECHNIQUE: Contiguous axial images were obtained from the level of the diaphragm to the pubic symphysis with intravenous contrast. Coronal and sagittal reconstructions were likewise performed and indicated to increase the sensitivity for detecting clinically relevant pathology. If IV contrast material had not been administered, the likelihood of detecting abnormalities relevant to the patient's condition would have been substantially decreased. CT scan was performed according to ALARA (as low as reasonable achievable). COMPARISON: October 15:53:45 APPLIED STATISTICIAN FINDINGS: The visualized lung bases are clear. The liver is normal in size and attenuation. No focal liver lesions are seen. There is no intra or extrahepatic biliary ductal dilatation. Hepatic vasculature is patent. The gallbladder is present. The spleen, , and adrenal glands are unremarkable. Multiloculated cystic lesion collectively measuring about 49 x 62 mm is noted involving in relation to the head of pancreas. Similar smaller cystic lesions are also noted involving proximal body of pancreas. Rest of pancreas appears normal. The kidneys are normal in size and attenuation. There is no hydronephrosis or perinephric fat stranding. No renal calculi or renal masses are identified. Right kidney show simple cysts -Bosniak type I . The ureters are normal in caliber and no ureteral calculi are seen. The bladder is normal in contour. Pelvic viscera are unremarkable. No focal or diffuse bowel wall thickening or evidence of bowel obstruction is identified. The appendix is not well visualized. No features of inflamed appendix. Abdominal and pelvic vasculature is patent. No adenopathy or fluid collections are seen. No aggressive appearing osseous lesions are identified. IMPRESSION: Multiloculated cystic lesions are noted in the head and proximal body of pancreas without obvious adjacent fat stranding /post-contrast enhancement.- stable. - appears benign.- MRCP correlation is suggested. Rest of pancreas appears normal in bulk and enhancement.. Simple right renal cortical cyst - Bosniak type I .-stable. No other new interval abnormality since prior study. Medications Administered ER Medications Given: Acetaminophen 1000mg IV Morphine 4mg IV ECG Rate (beats per minute): 65 Rhythm: other (Ventricular paced rhtyhm) Comparison ECG Date: from (December 14, 2024) Change: no significant change Code Status & VTE Plan Code Status Full VTE Prophylaxis Plan VTE Prophylaxis will be ordered: Yes PG Care Time/CCT Total # of Minutes Spent Total Time Spent with Patient: Total time spent is greater than 50% in coordination of care (as documented) at patient's floor/unit and/or counseling patient: Coding Level of Care Code 16693 INT INP/OBS CARE MIN Diagnoses Lung transplant recipient Z94.2 Acute pancreatitis K85.90 Type 2 diabetes mellitus E11.9 Permanent atrial fibrillation I48.21 Pancreatic cyst K86.2 Immunocompromised patient D89.9
[2025-03-17] MEDS: LACTATED RINGER'S 500 ML IV ONE (06:28)
[2025-03-17 06:47] LABS: Triglycerides 112.0 mg/dl (0-150)
[2025-03-17] MEDS: LACTATED RINGER'S 1,000 ML IV SCH (07:01)
[2025-03-17 08:05] LABS: Appearance Urine Clear (Clear); Bacteria Urine Automated None Seen (None Seen); Cast Urine Automated 0-2 /lpf (0-2); Epithelial Cell Urine Auto 0-2 /hpf (0-2); Glucose Urine UA 3+ (Negative); WBC Urine Automated 0-5 /hpf (0-5)
[2025-03-17] MEDS ORDERED: ONDANSETRON INJ 2 MG/ML 2 ML VIAL IV PRN (08:39)
[2025-03-17] MEDS ORDERED: HYDROmorphone INJ 0.5 MG/0.5 ML SYR IV PRN ×2 (08:39)
[2025-03-17] MEDS ORDERED: ACETAMINOPHEN 1,000 MG/100 ML VIAL IV PRN (08:39)
[2025-03-17] MEDS: METOPROLOL SUCC 50MG EXT REL TAB PO SCH (10:34)
[2025-03-17] MEDS: FUROSEMIDE 40 MG TAB PO SCH (10:34)
[2025-03-17] MEDS: EMPAGLIFLOZIN 10 MG TAB PO SCH (10:34)
[2025-03-17] MEDS: ROSUVASTATIN CALCIUM 20 MG TAB PO SCH (10:34)
[2025-03-17] MEDS: CLOPIDOGREL BISULFATE 75 MG TAB PO SCH (10:34)
[2025-03-17] MEDS: VALSARTAN 80 MG TAB PO SCH (10:35)
[2025-03-17] MEDS: APIXABAN 2.5 MG TAB PO SCH (10:35)
--- NOTE | 2025-03-17 11:45 | Gastrointestinal Consultation ---
Date of Consultation March 17, 2025 Assessment & Plan (1) Acute pancreatitis: -Continue NPO status -Continue pain control per primary team -Continue IV fluids with respect to patient's reported CHF -MRCP was recommended by radiology for further evaluation of cystic structures largest of which appears to be 49 x 62 mm. Patient does have a pacemaker complicating the MRCP nor would that change the plan of care. Patient will need an EUS as an outpatient. Supervising Physician Co-Signing Physician Notes Patient seen and examined and agree with JOSE CRUZ Jackson as above Abd: Soft, NT, ND, +BS Continue current therapy and supportive care Will need outpatient EUS when acute pancreatitis resolves. History of Present Illness Reason for Consultation: Acute pancreatitis, ?cause Attending Physician: Trace Radford MD History of Present Illness Patient is an 84 yo male with PMH of lung transplant, CAD, & CHF who came to the ED with left sided chest and abdominal pain that had begun the day prior. He notes that the discomfort was progressively worsening to the point where he had to seek care. He notes he had n/v as well. He denies diarrhea, SOB, or other symptoms. He is resting comfortably at the time of my evaluation. In the ED he was noted to have an abnormal abdominal CT. CT abd/pelvis: IMPRESSION: Multiloculated cystic lesions are noted in the head and proximal body of pancreas without obvious adjacent fat stranding /post-contrast enhancement.-stable. - appears benign.- MRCP correlation is suggested. Rest of pancreas appears normal in bulk and enhancement.. Simple right renal cortical cyst - Bosniak type I .-stable. No other new interval abnormality since prior study. An MRCP was suggested in follow-up but patient has a pacemaker. Lipase 3642. No alcohol use. No recent med changes. Lipid panel unremarkable in October 2024 and Triglycerides repeated during this admission are unremarkable. No pertinent family history. Allergies Allergy/AdvReac Type Severity Reaction Status Date / Time cefepime Allergy Intermediate rash Verified 03/17/25 02:59 Home Medications Medication Instructions Recorded Confirmed Type prednisone 5 mg tablet 5 mg PO DAILY 05/11/18 03/17/25 History Spacer for Inhaler #1 ea 08/30/19 01/19/25 Rx amoxicillin 500 mg tablet 2,000 mg PO DIRECTED PRN 1 HR 02/01/23 03/17/25 History PRIOR TO DENTAL APPT. apixaban 2.5 mg tablet (Eliquis) 2.5 mg PO BID 02/01/23 03/17/25 History clopidogrel 75 mg tablet 75 mg PO DAILY 02/01/23 03/17/25 History cholecalciferol (vitamin D3) 25 50 mcg PO DAILY 02/02/24 03/17/25 History mcg (1,000 unit) tablet valacyclovir 500 mg tablet 500 mg PO DAILY 02/02/24 03/17/25 History (Valtrex) albuterol sulfate 90 mcg/actuation 1 inh inhalation QID PRN sob 02/09/24 03/17/25 History aerosol inhaler pantoprazole 40 mg tablet,delayed 40 mg PO BID 02/09/24 03/17/25 History release ferrous sulfate 325 mg (65 mg 325 mg PO DAILY 04/26/24 03/17/25 History iron) tablet (Feosol) furosemide 40 mg tablet 40 mg PO DAILY edema 04/26/24 03/17/25 History tacrolimus 0.5 mg capsule, 0.5 mg PO BID 08/12/24 03/17/25 History immediate-release metoprolol succinate 100 mg 100 mg PO DAILY #90 tabs 10/19/24 03/17/25 Rx tablet,extended release 24 hr (Toprol XL) nitroglycerin 0.4 mg sublingual 0.4 mg sublingual Q5M PRN chest 10/19/24 03/17/25 Rx tablet pain #1 btl empagliflozin 10 mg tablet 10 mg PO DAILY #30 tabs 10/20/24 03/17/25 Rx (Jardiance) rosuvastatin 40 mg tablet 40 mg PO DAILY 03/17/25 03/17/25 History tacrolimus 1 mg capsule, 1 mg PO BID 03/17/25 03/17/25 History immediate-release valsartan 40 mg tablet 20 mg PO BID 03/17/25 03/17/25 History Patient History Medical History Abrasion of chin Subacute subdural hematoma On apixaban therapy Fall from standing Atrial fibrillation 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) Low back pain radiating to right leg Sensorineural hearing loss (SNHL) of left ear with restricted hearing of right ear Asymmetric SNHL (sensorineural hearing loss) History of Mohs micrographic surgery for skin cancer Bilateral tinnitus 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 CKD (chronic kidney disease), stage III HTN (hypertension) Upper respiratory infection Subdural hematoma (10/05/14) Surgical History Hx of appendectomy History of cardiac catheterization Stent placement x's 6 Most recent, 09/15/2022 2 MARK to LAD ([facility]) Hx of lung transplant bilateral Family History Mother Hearing loss Idiopathic pulmonary fibrosis Colorectal cancer Father Heart disease Myocardial infarction Brother Idiopathic pulmonary fibrosis Myocardial infarction Other No family history of adverse response to anesthesia No family history of bleeding disorder Denies family history of Ovarian cancer Prostate cancer Diabetes Breast cancer Lung cancer Stroke Social History Smoking Status: Never smoker Second Hand Exposure: No; Do You Dip or Chew Tobacco: No; Hx Alcohol Use: Yes Alcohol type: wine Hx Substance Use: No Preferred Language: [place] Communication Ability: Effective Visual Impairment: Limited Hearing Ability: Hard of Hearing Middleware Engineer Required: No Beliefs That Will Affect Care: None and Oriental Orthodox marital status: Current Living Situation: Spouse Current Living Situation Comment: 3 story home current occupational status: employed 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) How many Children do You have: 2 Feels Safe at Home: Yes Childhood Exposure to Second-Hand Smoke: Yes caffeine: No Dental Care, Regularly: Yes Physical Activity Frequency: Daily Seatbelt Use: sometimes Sunscreen Use: Yes Assistive Devices: Walker Review of Systems Constitutional: no fever and no chills Respiratory: no cough and no dyspnea Gastrointestinal: + abdominal pain, + nausea and + vomitin g Physical Exam Constitutional: well developed Respiratory: normal respiratory effort Cardiovascular: Rate/Rhythm: regular rate Gastrointestinal (Abdomen): normal bowel sounds, soft, nontender, no hepatosplenomegaly Psychiatric: Orientation: alert and oriented x 3 Results & Data Vital Signs (Past 12 Hours) Vital Signs Temp Pulse Resp BP Pulse Ox O2 Del Method 03/17/25 10:30 65 26 H 143/81 H 97 Room Air 03/17/25 09:00 65 23 140/76 94 Room Air 03/17/25 08:00 65 16 134/79 100 03/17/25 06:30 65 18 134/79 99 03/17/25 06:20 65 03/17/25 05:02 65 20 159/84 H 97 03/17/25 03:33 65 16 141/83 H 97 03/17/25 03:33 36.9 C 03/17/25 02:47 65 03/17/25 02:38 36.0 C L 93 H 17 124/75 97 Room Air PG Care Time/CCT Total # of Minutes Spent Total Time Spent with Patient: Total time spent is greater than 50% in coordination of care (as documented) at patient's floor/unit and/or counseling patient: Coding Level of Care Code 22106 INT INP/OBS CARE 75MIN Diagnoses Acute pancreatitis K85.90
--- NOTE | 2025-03-17 11:52 | Electrocardiogram Report ---
Test Reason : Blood Pressure : */* mmHG Vent. Rate : 65 BPM Atrial Rate : 340 BPM P-R Int : * ms QRS Dur : 154 ms QT Int : 450 ms P-R-T Axes : * -13 -11 degrees QTcB Int : 468 ms Ventricular-paced rhythm Biventricular pacemaker detected Abnormal ECG When compared with ECG of 14-Dec-2024 18:30, No significant change was found Confirmed by Bernabe Abdi ([id number]) on 03/17/2025 11:52:02 AM Referred By: REFERRED SELF Confirmed By: Bernabe Abdi
[2025-03-17 12:36] LABS: Lipase 1739.0 U/L (11-82)
[2025-03-17] MEDS: TACROLIMUS 1 MG CAP PO SCH (17:05)
--- NOTE | 2025-03-17 18:57 | History & Physical Bridge Note ---
Date of Service March 17, 2025 History & Physical Bridge Note I have examined the patient, reviewed the History & Physical and in the interval since the performance of the History & Physical I have noted the following changes of clinical significance: Pt reports no further abd pain since noon today. Feels god. No SOB but he is worried about getting fluid overload because he has require intubation for this in epa. RRR no mgr CTAB no wcr Abd soft +BS soft NT ND Ext no edema -give lasix 20mg po x 1 now then usual dose 40 in AM (held AM dose today given NPO status and on IVFs for pancreatitis) -adv diet to clears now and low fat in AM if no pain -EUS as outpt for pancreatic cyst
[2025-03-17] MEDS: FUROSEMIDE 20 MG TAB PO ONE (19:56)
[2025-03-18 07:19] LABS: Hematocrit (blood only) 42.4 % (42.0-52.0); Hemoglobin 14.2 g/dl (14.0-18.0); Immature Granulocytes # (auto) 0.07 K/uL (0.01-0.20); Immature Granulocytes % (auto) 0.5 %; Mean Corpuscular Hemoglobin 32.3 pg (25.0-34.0); Mean Corpuscular Volume 96.4 fL (80.0-100.0); Platelet Count 136 K/uL (130-400); RDW Standard Deviation 45.8 fL (36.4-46.3); Red Blood Count 4.40 M/uL (4.70-6.10); White Blood Count 13.27 K/ul (4.8-10.8)
[2025-03-18 07:32] VITALS: BP 115/68; RESP 16; TEMP 98.2; O2SAT 95
--- NOTE | 2025-03-18 07:46 | Hospitalist Progress Note ---
Date of Service March 18, 2025 Assessment & Plan (1) Lung transplant recipient: (2) Acute pancreatitis: (3) Type 2 diabetes mellitus: (4) Permanent atrial fibrillation: (5) Pancreatic cyst: (6) Immunocompromised patient: Plan 84 year old male with lung transplant (13 years ago) and coronary artery disease presents to the ER with chest/abdominal pain #Acute pancreatitis Epigastric pain with elevated lipase, however pain currently resolved on exam Triglyceride level pending but historically normal No alcohol use Normal LFTs with no ductal dilatation on CT NPO, cautious IV fluids due to history of heart failure, advance diet as tolerated Pain relief with acetaminophen 1st line, Dilaudid 2nd line Consult gastroenterology given unclear cause with multiple cysts seen on pancreas (although these do not appear to be new); will defer further imaging to gastroenterology #Lung transplant recipient Continue prednisone and tacrolimus #Coronary artery disease / chronic HFmrEF Continue clopidogrel, Eliquis, metoprolol succinate, valsartan, furosemide, rosuvastatin #CKD stage 3 Close to baseline, repeat CMP with AM labs #Permanent atrial fibrillation Ventricular paced, continue metoprolol for rate control, Eliquis for anticoagulation VTE Prophylaxis - Eliquis Disposition - admit to med/surg Admission and Anticipated Discharge Date Admission Date: March 17, 2025 Results & Data Results & Data Vital Signs (Past 12 Hours) Vital Signs Temp Pulse Resp BP Pulse Ox O2 Del Method 03/18/25 07:28 36.8 C 65 16 115/68 95 Room Air
[2025-03-18 08:25] LABS: Alanine Aminotransferase 17.0 U/L (7-52); Albumin Globulin Ratio 1.2 (0.9-2); Alkaline Phosphatase 53.0 U/L (34-104); Anion Gap 13.0 (3-11); Bilirubin,Total 1.4 mg/dl (0.2-1.0); Blood Urea Nitrogen 24.0 mg/dl (6-23); Calcium 9.0 mg/dl (8.6-10.3); Carbon Dioxide 24.0 mmol/L (21-32); Chloride 104.0 mmol/L (98-107); Creatinine Clr Calc Pharmacy 41.5 ml/min; Globulin 3.2 gm/dl (2.5-4.0); Glucose 66.0 mg/dl (70-99(Fasting)); Lipase 632.0 U/L (11-82); Potassium 4.1 mmol/L (3.5-5.1); Sodium 141.0 mmol/L (136-145); Total Protein 7.0 gm/dl (6.0-8.3)
[2025-03-18] MEDS: FUROSEMIDE 40 MG TAB PO SCH (08:30)
--- NOTE | 2025-03-18 15:24 | Discharge Summary ---
Date of Service March 18, 2025 Admission HPI Per Admitting Provider Erwin Barrios is an 84 year old male with lung transplant, coronary artery disease and heart failure with mildly reduced ejection fraction who presents to the ER with left sided chest and abdominal pain. Started yesterday afternoon 4pm. Progressively getting worse until he was given morphine in the ER. Associated nausea and vomiting. No diarrhea, shortness of breath, palpitations, no leg swelling. Current severity 1-2/10, severity on arrival 810, no radiation. Mouth feeling dry. He denies alcohol use. Principal Diagnosis pancreatitis Discharge Exam Gen: NAD, WD/WN HEENT: NCAT, normal conjunctiva, anicteric sclera, MMM CV: RRR, no m/r/g, S1/S2 normal, no LE edema Resp: CTAB, symmetrical chest rise, breathing non-labored/no increased WOB Abd: Soft, NT/ND, NBS in all quadrants, no masses MSK: Full ROM, no gross deformities on inspection Skin: Warm, dry, well-perfused, no rashes appreciated Neuro: AOx3, CN II-XII grossly intact, no focal deficits Psych: Full, euthymic affect. Speech pace and thought content normal. Discharge Data Allergies Allergy/AdvReac Type Severity Reaction Status Date / Time cefepime Allergy Intermediate rash Verified 03/17/25 02:59 Consultations 03/17/25 05:47 ED Decision to Admit Stat 03/17/25 06:25 Consult Gastroenterology Routine Ordered Studies 03/17/25 03:46 CT abd pelvis IV con only Stat Hospital Course (1) Acute pancreatitis: (2) Pancreatic cyst: (3) Lung transplant recipient: (4) Permanent atrial fibrillation: Plan 84 year old male with lung transplant (13 years ago) and coronary artery disease presented to the ER on 03/17 with chest/abdominal pain. He was admitted for management of acute pancreatitis and deemed safe for discharge when his symptoms resolved, he was able to tolerate a regular diet, and a plan for outpatient follow-up was established. #Acute pancreatitis - Pt presented w/ epigastric pain radiating to L shoulder and arm. - Initial lipase was elevated to 3642. Downtrending, to 632 prior to discharge - Triglyceride level 11. No h/o alcohol use. Normal LFTs with no ductal dilatation on CT. CT A/P did show a multiloculated cystic lesion collectively measuring 49 x 62 mm in the head of the pancreas and smaller similar cystic lesions in the proximal body of the pancreas - Initially NPO w/ cautious IV fluids due to h/o heart failure --> diet advanced as tolerated per meal from clears, full liquid, to regular (low fat) diet - No analgesics were needed after first dose of 1,000mg apap on arrival - GI was consulted Advised that MRCP may be complicated by pt's pacer, and would not substantially alter treatment Will follow up outpatient for EUS - nurse navigator to schedule - At follow-up PCP appt, will need to recheck CBC for resolution of leukocytosis and CMP for mild bilirubin elevation #Lung transplant recipient - Continue prednisone and tacrolimus #Coronary artery disease / chronic HFmrEF - Echo in showed EF 45-50%, LA dilation, mild aortic and moderate mitral regurg - Troponin 22.1, EKG w/o new ischemic changes - Continue clopidogrel, Eliquis, metoprolol succinate, valsartan, furosemide, rosuvastatin #CKD stage 3 - Cr close to baseline - Avoid nephrotoxic medications #Permanent atrial fibrillation Ventricular paced, continue metoprolol for rate control, Eliquis for anticoagulation VTE Prophylaxis - Eliquis Total Time Total Time Spent Total Time Spent (In Minutes): see attending documentation Discharge Plan Discharge Items Patient Disposition: Home - Self-Care Reason For Visit: ACUTE PANCREATITIS Discharge Diagnosis: Pancreatitis Activity: Per Instructions section Non-emergency contact: Primary Care Provider Call non-emergency contact if: you have any medication questions, your symptoms worsen, your pain is not controlled and you have a fever Follow-up/Referrals: Jazmyn Pantoja MD [Primary Care Provider] - Diet: Low Fat Addtl Attending Provider Instructions: You were admitted to the hospital for acute pancreatitis. You were kept NPO (meaning no food by mouth) and your diet was slowly advanced each meal. You were given IV fluids and analgesics. Our GI specialists saw you during your stay and will follow-up with you after you are discharged. You were deemed safe for discharge when you could tolerate regular food, your pain resolved, and your labs improved. What is pancreatitis? Pancreatitis is a condition that can cause severe belly pain. The pancreas is an organ that makes hormones and juices that help break down food. Pancreatitis is the term for when this organ gets irritated or swollen. Pancreatitis can be: Acute This is when there is a sudden episode of pain. Most of the time, acute pancreatitis is caused by gallstones or alcohol misuse. Chronic This is when the pancreas gets damaged by irritation over time. People with chronic pancreatitis have pain as well as trouble digesting food normally. It can also lead to other health problems, including diabetes (high blood sugar). Chronic pancreatitis can be caused by alcohol, smoking, or high triglyceride levels. In some cases, it can be "hereditary." This means that it is caused by a gene that runs in families. Or it can be "autoimmune." This is when the body's infection-fighting system (immune system) attacks the pancreas. Depending on the cause of your pancreatitis, you might need different treatments. How do I care for myself at home? Ask the doctor or nurse what you should do when you go home. Make sure that you understand exactly what you need to do to care for yourself. Ask questions if there is anything you do not understand. You should also: Take all of your medicines as instructed. This might include medicines to help with pain. If you had pancreatitis, you might need other medicines, too. These can include medicines to control your blood sugar and "enzymes" to help your body digest shannan d. You will also need extra vitamins if your body cannot absorb these from food. Avoid alcohol This includes beer, wine, and mixed drinks. Drinking alcohol can cause pancreatitis to come back. Avoid smoking If you smoke, your doctor or nurse can help you quit. Eat small, low-fat meals This might help you feel better. Drink plenty of water to stay hydrated. What follow-up care do I need? Your doctor or nurse will tell you if you need to make a follow-up appointment. Make a follow-up appointment with your PCP within the next week. It is very important that you follow up with them shortly after discharge from the hospital so they can stay updated on your hospitalization and potential changes in your care. Your PCP will need to recheck your liver function due to a lab abnormality found during your admission (elevated bilirubin). Your PCP should also repeat your complete blood count to make sure your white blood cell count is back to normal. You will need an outpatient endoscopic ultrasound (EUS) with [facility]. Our nurse navigator will facilitate aranging this for you. When should I call the doctor? Call for advice if you have: Signs of infection, such as a fever of 100.4F (38C) or higher, or chills Very bad belly pain or back pain Very bad nausea, vomiting, or diarrhea Yellowing of the skin or whites of the eyes Swelling of the stomach High blood sugar that doesn't come down with treatment Symptoms that are not getting better in 2 to 3 days or are getting worse Pending Studies at Discharge: No Stand-Alone Forms: My [facility], Smoking Cessation Medications and DC Order Prescriptions: Continued cholecalciferol (vitamin D3) 25 mcg (1,000 unit) tablet 50 mcg PO DAILY Patient Comments: CONFIRMED W/ PT AND ON [facility] DC SUMMARY 02/01 valacyclovir [Valtrex] 500 mg tablet 500 mg PO DAILY Patient Comments: CONFIRMED W/ PT AND ON [facility] DC SUMMARY 02/01 furosemide 40 mg tablet 40 mg PO DAILY Patient Comments: CONFIRMED W/ PT AND ON [facility] DC SUMMARY 02/01 tacrolimus 0.5 mg capsule 0.5 mg PO BID Patient Comments: CONFIRMED W/ PT AND ON [facility] DC SUMMARY 02/01 Jardiance 10 mg tablet 10 mg PO DAILY Qty: 30 6RF Hold Instructions: Home Medication placed on hold at Doctor's office albuterol sulfate 90 mcg/actuation HFA aerosol inhaler 1 inh inhalation QID PRN (Reason: sob) nitroglycerin 0.4 mg tablet, sublingual 0.4 mg sublingual Q5M PRN (Reason: chest pain) Qty: 1 3RF Rx Instructions: max of 3 tablets in 15 minutes. metoprolol succinate [Toprol XL] 100 mg tablet extended release 24 hr 100 mg PO DAILY Qty: 90 3RF ferrous sulfate [Feosol] 325 mg (65 mg iron) tablet 325 mg PO DAILY prednisone 5 mg Tablet 5 mg PO DAILY (DME) Spacer for Inhaler Misc See Rx Instructions .ROUTE .MEDSUPPLY Qty: 1 0RF Rx Instructions: As directed clopidogrel 75 mg tablet 75 mg PO DAILY Hold Instructions: HOLD/STOP until further notice amoxicillin 500 mg tablet 2,000 mg PO DIRECTED PRN (Reason: 1 HR PRIOR TO DENTAL APPT.) Eliquis 2.5 mg tablet 2.5 mg PO BID Hold Instructions: HOLD/STOP until further notice pantoprazole 40 mg tablet,delayed release (DR/EC) 40 mg PO BID tacrolimus 1 mg capsule 1 mg PO BID rosuvastatin 40 mg tablet 40 mg PO DAILY valsartan 40 mg tablet 20 mg PO BID Discharge Orders: Discharge Order (Routine); Ordered 03/18/25 Ordered By: Ashley Alfaro Admission Data Admit Date/Time: 03/17/25 06:03 Attending Provider: Aleta Díaz Admit Provider: Trace Radford Primary Care Provider: Jazmyn Pantoja Other Providers: Reyna Valenzuela Jr; Trace Radford Other Interventions: Discharge Summary Assessment (RN) Last Done: 03/18/25 16:15 Supervising Physician Co-Signing Physician Notes I personally examined the patient and verified all hernandez points of history and exam, discussed case, and agree with decision making with Dr. Alfaro with the following additions/exceptions: S-patient feeling much improved and only had pain for half of the day which was resolved with 1 dose of pain medicine on the day of admission. He has cystic lesions in the pancreas which could be causing the pancreatitis. No evidence of gallstones, hypertriglyceridemia, hypercalcemia, and no alcoholic use. Seen by GI and recommended to have EUS as an outpatient. Patient feeling much better and tolerating low-fat diet on the day of discharge O- Vitals Reviewed Gen: AAOx3, NAD HEENT: Anicteric sclerae, EOMI CV: RRR no mgr nl S1S2 Pulm: CTAB no wcr Abd: +BS soft NT ND no masses or hernias Ext: No edema Skin: No rashes, warm/dry Neuro: Full strength throughout CBC, CMP, lipase reviewed A/P: 84-year-old male here with acute pancreatitis likely secondary to pancreatic cysts. No previous history of pancreatitis - Discharged home on low-fat diet - Follow CBC, CMP as an outpatient 1 week - Follow-up with GI for EUS as an outpatient Resident Activity Tracking Resident Involvement: Resident Care Provided Care Provided: Adult Hospital Medicine
--- NOTE | 2025-03-18 17:08 | Billing Data ---
Date of Service March 18, 2025 Coding Level of Care Code 07636 INP/OBS DISCH >30 MIN Time Spent (min) 35 Comment I spent 35 minutes in coordination of discharge seeing the patient
== END 2025-03-18 16:59 | disposition home or self-care (01) | DRG 439 ==
LOC: SUATTDRO → ED 02:34 → INTOOBSV 06:03 → EDINP 06:03 → SUATTDRO 06:03 → 3W 17:31